=== PATIENT | male | born 1950 | race African-American/Black ===

== ENCOUNTER 2018-04-24 11:40 | Observation (INO) | payer OTHER ==
--- OUTSIDE RECORDS SUMMARY | 2018-04-24 11:42 | XMS REPORT | Clinical Summary ---
:1950 Author Organization [facility] Address [address] [address] Phone Care Team Providers Name Role Phone Unavailable Primary Care Provider Unavailable Allergies Active Allergy Reactions Severity Noted Date Comments Iodine And Iodide Containing Products Anaphylaxis High 06/05/2017 Current Medications Prescription Sig. Disp. Refills Start Date End Date Status clopidogrel Take 75 mg by Active (PLAVIX) 75 mg mouth daily. tablet allopurinol Take 100 mg by Active (ZYLOPRIM) 100 MG mouth daily. tablet famotidine (PEPCID) Take 10 mg by Active 10 MG tablet mouth 2 (two) times daily. omeprazole Take 40 mg by Active (PRILOSEC) 40 MG mouth daily. capsule acetaminophen-codei Take 2 tablets 30 tablet 0 06/14/2017 Active ne (TYLENOL #3) by mouth every 300-30 mg per 4 (four) hours tablet as needed. Max Daily Amount: 12 tablets aspirin 81 MG Take 1 tablet 0 06/14/2017 06/14/2018 Active chewable tablet (81 mg total) by mouth daily. furosemide (LASIX) Take 1 tablet 30 tablet 1 06/14/2017 06/14/2018 Active 20 MG tablet (20 mg total) by mouth daily. metoprolol Take 1 tablet 30 tablet 1 06/14/2017 06/14/2018 Active (TOPROL-XL) 50 MG (50 mg total) 24 hr tablet by mouth daily. metoprolol Take 25 mg by 06/14/2017 Discontinued (TOPROL-XL) 25 MG mouth daily. 24 hr tablet valsartan-hydroCHLO Take 1 tablet 06/14/2017 Discontinued ROthiazide by mouth (DIOVAN-HCT) 160-25 daily. 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 Acute pulmonary insufficiency following thoracic surgery (HCC) 06/06/2017 Postoperative anemia due to acute blood loss 06/06/2017 Coagulopathy (HCC) 06/06/2017 Hypovolemic shock (HCC) 06/06/2017 Coronary artery disease 06/05/2017 Encounters Date Type Specialty Care Team Description 06/06/2017 Anesthesia Event Juancarlos Fraga MD 06/06/2017 Procedure Pass 06/06/2017 Surgery Adelaide Velarde, EXPLORATION,MEDIASTINAL 06/06/2017 Anesthesia Event Vikram Davis MD 06/06/2017 Procedure Pass 06/06/2017 Surgery Adelaide Velarde, BYPASS,AORTO CORONARY SEBASTIEN/SVG 06/05/2017 - Hospital Encounter Cardiology Adelaide Velarde, Coronary artery disease 06/14/2017 MD involving [place] coronary artery, angina presence unspecified, unspecified whether [place] or transplanted heart;Acute pulmonary insufficiency following thoracic surgery (HCC);Coagulopathy (HCC);Hypovolemic shock (HCC);Postoperative anemia due to acute blood loss;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 Orders Only Davon Mays MD after 04/23/2017 Family History Medical History Relation Name Comments Heart disease Brother Hypertension Brother Heart disease Father Hypertension Father Asthma Mother Asthma Sister Depression Sister Hypertension Sister Relation Name Status Comments Brother Father Mother Sister Social History Tobacco Use Types Packs/Day Years Used Date Former Smoker Quit: 10/21/2008 Smokeless Tobacco: Never Used Alcohol Use Drinks/Week oz/Week Comments Yes 2 Cans of beer 1.2 2 cans per month Sex Assigned at Date Recorded Not on file Last Filed Vital Signs Vital Sign Reading Time Taken Blood Pressure 125/69 06/14/2017 11:32 AM CDT Pulse 95 06/14/2017 11:32 AM CDT Temperature 36.5 C (97.7 F) 06/14/2017 11:32 AM CDT Respiratory Rate 18 06/14/2017 11:32 AM CDT Oxygen Saturation 98% 06/14/2017 11:32 AM CDT Inhaled Oxygen Concentration - - Weight 82.1 kg (181 lb) 06/14/2017 7:25 AM CDT Height 165.1 cm (5' 5") 06/05/2017 11:06 PM CDT Body Mass Index 30.12 06/14/2017 7:25 AM CDT Plan of Treatment Not on file Implants Implanted Type Area Metalizer Device Expiration Model / Identifier Date Serial / Lot Sternal Zipfix Ndl Strl 08.501.001.20s - [id number] Cardiovascular N/A: SYNTHES:SYNTHES 04/20/2022 08.501.001.20S / Implanted: Qty: 1 on 06/06/2017 by Adelaide Velarde MD [employer] / [id number] Sternal Zipfix Ndl Strl 08.501.001.20s - [id number] Cardiovascular SYNTHES: SYNTHES 04/20/2022 08.501.001.20S / Implanted: Qty: 1 on 06/06/2017 by Adelaide Velarde MD [facility] / [id number] Sternal Zipfix Ndl Strl .501.001.20s - [id number] Cardiovascular SYNTHES: SYNTHES 04/20/2022 08.501.001.20S / Implanted: Qty: 1 on 06/06/2017 by Adelaide Velarde MD [facility] / [id number] Explanted Type Area Metalizer Device Expiration Model / Identifier Date Serial / Lot Sternal Zipfix Ndl Strl .501.001.20s - [id number] Cardiovascular N/A: SYNTHES:SYNTHES 04/20/2022.501.001.20S / Implanted: Qty: 2 [employer] / Explanted: Qty: 2 on 06/06/2017 by Adelaide Velarde MD [id number] Procedures Procedure Name Priority Date/Time Associated Comments Diagnosis BRONCHOSCOPY Routine 06/07/2017 1:06 Results for this PM CDT procedure are in the results section. EXPLORATION,MEDIASTIN 06/06/2017 7:00 BLEEDING AL PM CDT JENNIFER 06/06/2017 7:30 CAOD AM CDT ENDOSCOPIC 06/06/2017 7:30 CAOD HARVEST,VEIN AM CDT BYPASS,AORTO CORONARY 06/06/2017 7:30 CAOD SEBASTIEN/SVG AM CDT after 04/23/2017 Results ECHOCARDIOGRAM REPORT - SCAN (07/25/2017 12:00 PM)RHYTHM STRIP - SCAN (2016 3:48 PM)Manual Differential (06/14/2017 3:39 AM)Only the most recent of4 resultswithin the time period is included. Component Value Ref Range Total Counted WBC Morphology Normal Platelet Morphology Normal RBC Morphology Normal Specimen Performing Laboratory Blood - Arm, [address] [address] CBC with platelet count + automated diff (06/14/2017 3:39 AM)Only the most recent of8 resultswithin the time period is included. Component Value Ref Range WBC 8.0 3.5 - 10.5 K/L RBC 2.94 (L) 4.63 - 6.08 M/L Hemoglobin 8.7 (L) 13.7 - 17.5 GM/DL Hematocrit 26.8 (L) 40.1 - 51.0 % MCV 91.2 79.0 - 92.2 fL MCH 29.6 25.7 - 32.2 pg MCHC 32.5 32.3 - 36.5 GM/DL RDW 14.2 11.6 - 14.4 % Platelets 282 150 - 450 K/CU MM MPV 11.6 9.4 - 12.4 fL nRBC 1 (H) 0 - 0 /100 WBC % Neutros 72 % % Lymphs 15 % % Monos 8 % % Eos 4 % % Baso 1 % # Neutros 5.72 (H) 1.78 - 5.38 K/L # Lymphs 1.19 (L) 1.32 - 3.57 K/L # Monos 0.62 0.30 - 0.82 K/L # Eos 0.30 0.04 - 0.54 K/L # Baso 0.04 0.01 - 0.08 K/L Immature Granulocytes-Relative 1 0 - 1 % Specimen Performing Laboratory Blood - Arm, [address] [address] CBC with platelet count + automated diff (06/14/2017 3:39 AM)Only the most recent of8 resultswithin the time period is included. Specimen Performing Laboratory Blood Narrative The following orders were created for panel order CBC with platelet count + automated diff. Procedure Abnormality Status --------- ------ CBC with platelet count ...[[id number]]AbnormalFinal result Manual Differential[[id number]] Fi nal result Please view results for these tests on the individual orders. Phosphorus (06/14/2017 3:39 AM)Only the most recent of7 resultswithin the time period is included. Component Value Ref Range Phosphorus 3.4Comment: Specimen slightly hemolyzed 2.3 - 4.7 mg/dL Specimen Performing Laboratory Blood - Arm, [address] [address] Magnesium (06/14/2017 3:39 AM)Only the most recent of10 resultswithin the time period is included. Component Value Ref Range Magnesium 2.0Comment: Specimen slightly hemolyzed 1.6 - 2.6 mg/dL Specimen Performing Laboratory Blood - Arm, [address] [address] Basic Metabolic Panel (06/14/2017 3:39 AM)Only the most recent of11 resultswithin the time period is included. Component Value Ref Range Sodium 139 136 - 145 meq/L Potassium 4.1Comment: Specimen slightly hemolyzed 3.5 - 5.1 meq/L Chloride 105 98 - 107 meq/L CO2 24 22 - 29 meq/L BUN 21 7 - 21 mg/dL Creatinine 1.11Comment: Specimen slightly hemolyzed 0.57 - 1.25 mg/dL Glucose 107 (H) 70 - 105 mg/dL Calcium 9.1 8.4 - 10.2 mg/dL EGFR 80Comment: ESTIMATED GFR IS NOT ACCURATE mL/min/1.73 sq m CREATININE CLEARANCE IN PREDICTING GLOMERULAR FILTRATION RATE. ESTIMATED GFR IS NOT APPLICABLE FOR DIALYSIS PATIENTS. Specimen Performing Laboratory Blood - Arm, [address] [address] [address] chest without IV contrast (06/13/2017 8:53 PM) Specimen Performing Laboratory GE RIS Narrative FINAL REPORT CT, CHEST, WITHOUT CONTRAST INDICATION: "left nodular opacity" COMPARISON: Multiple prior chest x-rays dating back to 06/06/2017 TECHNIQUE:Noncontrast axially oriented images were obtained from the thoracic inlet through the lung bases.Coronal and sagittal reformats were provided. DOSE REDUCTION: Dose modulation, iterative reconstruction, and/or weight-based adjustment of the mA/kV was utilized to reduce the radiation dose to as low as reasonably achievable. FINDINGS: Postsurgical changes from a median sternotomy. There is stranding in the prevascular space, not unexpected after this procedure. No large pericardial effusion. Great vessels normal in course and caliber. The right lower hemithorax opacity seen on prior chest x-ray reflects a pseudotumor/loculated pleural fluid in a fissure. There are small bilateral pleural effusions with adjacent airspace disease. The effusion on the left is partially loculated. There are two punctate foci of air in the left lung apex reflecting a pneumothorax. This is likely clinically insignificant however. Visualized portion of the upper abdomen shows no acute abnormality. No acute osseous abnormality. IMPRESSION: Right lower hemithorax opacity seen on prior chest x-ray reflects a pseudotumor/fluid trapped in a fissure. No further follow-up recommended. Expected postsurgical appearance of the chest. Details above. Signed: Hazel Baca MD Report Verified Date/Time:06/13/2017 22:28:19 Reading Location: [address] Consult Reading Room Procedure Note Interface, External Ris In - 06/13/2017 10:30 PM CDT FINAL REPORT CT, CHEST, WITHOUT CONTRAST INDICATION: "left nodular opacity" COMPARISON: Multiple prior chest x-rays dating back to 06/06/2017 TECHNIQUE: Noncontrast axially oriented images were obtained from the thoracic inlet through the lung bases. Coronal and sagittal reformats were provided. DOSE REDUCTION: Dose modulation, iterative reconstruction, and/or weight-based adjustment of the mA/kV was utilized to reduce the radiation dose to as low as reasonably achievable. FINDINGS: Postsurgical changes from a median sternotomy. There is stranding in the prevascular space, not unexpected after this procedure. No large pericardial effusion. Great vessels normal in course and caliber. The right lower hemithorax opacity seen on prior chest x-ray reflects a pseudotumor/loculated pleural fluid in a fissure. There are small bilateral pleural effusions with adjacent airspace disease. The effusion on the left is partially loculated. There are two punctate foci of air in the left lung apex reflecting a pneumothorax. This is likely clinically insignificant however. Visualized portion of the upper abdomen shows no acute abnormality. No acute osseous abnormality. IMPRESSION: Right lower hemithorax opacity seen on prior chest x-ray reflects a pseudotumor/fluid trapped in a fissure. No further follow-up recommended. Expected postsurgical appearance of the chest. Details above. Signed: Hazel Baca MD Report Verified Date/Time: 06/13/2017 22:28:19 Reading Location: [facility] B1 [id number] Ortho Consult Reading Room SFUSION SERVICE REPORT - SCAN (06/11/2017 4:32 PM)Only the most recent of3 resultswithin the time period is included.Occult blood, stool (06/11/2017 2:23 PM) Component Value Ref Range Occult blood Negative Negative Specimen Performing Laboratory Stool [address] [address] CBC (Hemogram only) (06/11/2017 1:47 PM)Only the most recent of6 resultswithin the time period is included. Component Value Ref Range WBC 8.3 3.5 - 10.5 K/L RBC 3.12 (L) 4.63 - 6.08 M/L Hemoglobin 9.1 (L) 13.7 - 17.5 GM/DL Hematocrit 27.9 (L) 40.1 - 51.0 % MCV 89.4 79.0 - 92.2 fL MCH 29.2 25.7 - 32.2 pg MCHC 32.6 32.3 - 36.5 GM/DL RDW 14.1 11.6 - 14.4 % Platelets 150 - 450 K/CU MM Comment: Many platelet clumps seen on slide, unable to quantify platelets dur to EDTA clumping. Please resend platelet count in Light Blue citrate tube. This is a corrected result. Previous result was 22 K/CU MM on 06/11/2017 at 1526 CDT MPV 12.2 9.4 - 12.4 fL nRBC 1 (H) 0 - 0 /100 WBC Specimen Performing Laboratory Blood [address] [address] XR chest 1 view portable / bedside (06/11/2017 10:16 AM)Only the most recent of11 resultswithin the time period is included. Specimen Performing Laboratory GE RIS Narrative FINAL REPORT Chest one view INDICATION: ACB COMPARISON: 06/10/2017 IMPRESSION: Median sternotomy changes are noted. The cardiac silhouette is enlarged. Mediastinal widening is stable. Left greater than right sided pleural thickening and effusion remains present with basilar consolidation or atelectasis. Pulmonary edema appears mildly increased. A minimal left apical pneumothorax is present. Left midlung nodular opacity is unchanged. A lung neoplasm cannot be excluded, follow up chest CT is suggested. Signed: Bc Slater MD Report Verified Date/Time:06/11/2017 10:41:38 Reading Location: [facility] Radiology Reading Room Procedure Note Interface, External Ris In - 06/11/2017 10:43 AM CDT FINAL REPORT Chest one view INDICATION: ACB COMPARISON: 06/10/2017 IMPRESSION: Median sternotomy changes are noted. The cardiac silhouette is enlarged. Mediastinal widening is stable. Left greater than right sided pleural thickening and effusion remains present with basilar consolidation or atelectasis. Pulmonary edema appears mildly increased. A minimal left apical pneumothorax is present. Left midlung nodular opacity is unchanged. A lung neoplasm cannot be excluded, follow up chest CT is suggested. Signed: Bc Slater MD Report Verified Date/Time: 06/11/2017 10:41:38 Reading Location: [facility] Reading Room 2D Echo W/Doppler(CW/PW/Color) (06/10/2017 12:14 PM) Component Value Ref Range Ejection Fraction Specimen Performing Laboratory 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 Clinical History HGB 9.2 HCT 27.2 % Coronary Artery Disease Anemia HTN, HLD, PVD, ACB x3 (06/06/17) Height: 65 inches Weight: 84.37 kg (186 lbs) BSA: 1.92 m^2 BMI: 30.95 kg/m^2 HR: 101 bpm BP: 98/64 mmHg Summary The left ventricle is chamber size (by vol index) is normal (male - LVED vol - 34-74ml/m2). No evidence of LV hypertrophy. LVEF by quantitative assessment is normal (>60%) based on limited views ,Septal motion is abnormal, likely related to prior cardiac surgery . No significant pericardial effusion is visualized based on limited views. No subcostal views. apical is modified. The right ventricular chamber size and systolic function are within normal limits. Unable to estimate peak systolic PA pressure; inadequate TR velocity signal. Previous Study No prior exam available for comparison. Signature Findings Technical Quality: Technically difficult exam. Rhythm/BPSinus tachycardia during the exam. Left Ventricle The left ventricle is chamber size (by vol index) is normal (male - LVED vol - 34-74ml/m2). No evidence of LV hypertrophy. Global LV systolic function normal . LVEF by quantitative assessment is normal (>60%) based on limited views , Septal motion is abnormal, likely related to prior cardiac surgery . Left AtriumLA size is normal . Right VentricleThe right ventricular chamber size and systolic function are within normal limits. Right Atrium RA cavity size is normal . Aortic Valve Afku-[id number]-sftqeabw AoV cusp calcification. Moderate AoV cusp calcification. Unable to reliably obtain Aov gradients. Mitral Valve Normal MV structure. Tricuspid ValveUnable to estimate peak systolic PA pressure; inadequate TR velocity signal. Pulmonic Valve PV is not well visualized; function appears normal by Doppler visualized. AortaAortic root size (SInus of Valsalva diameter) is normal . PericardiumNo significant pericardial effusion is visualized based on limited views. No subcostal views. apical is modified. IVC/SVC/PA/PV/PleuralThe inferior vena cava is not visualized. The estimated RA pressure by IVC dynamics indeterminate . Chambers/Structures Left Ventricle LVIDd: 3.93 cmLVEDV 2D :66.97 ml LVIDs: 2.49 cmLVESV 2D :22.1 ml LV Septum Diastolic: 0.72 cm LV PW Diastolic: 0.9 cm LV FS: 36.6 % LV ESV (Cubed):15.44 cc LVOT Diameter: 2.26 cm LV ESV (Teich):22.1 ml LV SV (Teich):45.02 ml LV SI (Teich):23.45 ml/m^2 LVEF 2D Teich: 67 % Aorta Ao Root S of Rosalba.: 3.38 cm Shunts QS:74.69 ml Doppler/Quantitative Measurements LVOT Peak Velocity: 1.18 m/s Peak Gradient: 5.55 mmHg Mean Velocity: 0.94 m/s Mean Gradient: 3.73 mmHg LVOT Diameter: 2.26 cmLVOT VTI: 18.62 cm LVOT Area: 4.01 cm^2LVOT SV:74.66 ml LVOT CO: 7.54 l/min LVOT CI: 3.93 l/min/m^2 Procedure Note Interface, External Ris In - 06/10/2017 3:28 PM CDT Transthoracic Echocardiography Report (TTE) Demographics Patient Name GORDO PALACIOS Date of Study 06/10/2017 Gender Male Visit Number [id number] Race Unknown Room Number 1118 Number Date of 1950 Referring Physician Age 67 year(s) 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 Clinical History HGB 9.2 HCT 27.2 % Coronary Artery Disease Anemia HTN, HLD, PVD, ACB x3 (06/06/17) Height: 65 inches Weight: 84.37 kg (186 lbs) BSA: 1.92 m^2 BMI: 30.95 kg/m^2 HR: 101 bpm BP: 98/64 mmHg Summary The left ventricle is chamber size (by vol index) is normal (male - LVED vol - 34-74ml/m2). No evidence of LV hypertrophy. LVEF by quantitative assessment is normal (>60%) based on limited views ,Septal motion is abnormal, likely related to prior cardiac surgery . No significant pericardial effusion is visualized based on limited views. No subcostal views. apical is modified. The right ventricular chamber size and systolic function are within normal limits. Unable to estimate peak systolic PA pressure; inadequate TR velocity signal. Previous Study No prior exam available for comparison. Signature Findings Technical Quality: Technically difficult exam. Rhythm/BP Sinus tachycardia during the exam. Left Ventricle The left ventricle is chamber size (by vol index) is normal (male - LVED vol - 34-74ml/m2). No evidence of LV hypertrophy. Global LV systolic function normal . LVEF by quantitative assessment is normal (>60%) based on limited views , Septal motion is abnormal, likely related to prior cardiac surgery . Left Atrium LA size is normal . Right Ventricle The right ventricular chamber size and systolic function are within normal limits. Right Atrium RA cavity size is normal . Aortic Valve Qvpj-ej-bbjvkejv AoV cusp calcification. Moderate AoV cusp calcification. Unable to reliably obtain Aov gradients. Mitral Valve Normal MV structure. Tricuspid Valve Unable to estimate peak systolic PA pressure; inadequate TR velocity signal. Pulmonic Valve PV is not well visualized; function appears normal by Doppler visualized. Aorta Aortic root size (SInus of Valsalva diameter) is normal . Pericardium No significant pericardial effusion is visualized based on limited views. No subcostal views. apical is modified. IVC/SVC/PA/PV/Pleural The inferior vena cava is not visualized. The estimated RA pressure by IVC dynamics indeterminate . Chambers/Structures Left Ventricle LVIDd: 3.93 cm LVEDV 2D:66.97 ml LVIDs: 2.49 cm LVESV 2D:22.1 ml LV Septum Diastolic: 0.72 cm LV PW Diastolic: 0.9 cm LV FS: 36.6 % LV ESV (Cubed):15.44 cc LVOT Diameter: 2.26 cm LV ESV (Teich):22.1 ml LV SV (Teich):45.02 ml LV SI (Teich):23.45 ml/m^2 LVEF 2D Teich: 67 % Aorta Ao Root S of Rosalba.: 3.38 cm Shunts QS:74.69 ml Doppler/Quantitative Measurements LVOT Peak Velocity: 1.18 m/s Peak Gradient: 5.55 mmHg Mean Velocity: 0.94 m/s Mean Gradient: 3.73 mmHg LVOT Diameter: 2.26 cm LVOT VTI: 18.62 cm LVOT Area: 4.01 cm^2 LVOT SV:74.66 ml LVOT CO: 7.54 l/min LVOT CI: 3.93 l/min/m^2 Type and screen, automated (06/10/2017 11:08 AM)Only the most recent of2 resultswithin the time period is included. Component Value Ref Range ABO/RH AUTOMATED (BEAKER) A POSITIVE Ab Scrn NEGATIVE Specimen Performing Laboratory Blood - Arm, Right [address] [address] POC-Glucose meter (06/08/2017 9:51 PM)Only the most recent of14 resultswithin the time period is included. Component Value Ref Range POC-Glucose Meter 112 (H)Comment: TESTED AT [address] 70 - 110 mg/[place] [address] Specimen Performing Laboratory Blood [facility] [address] [address] Prepare PLT (06/07/2017 11:55 PM)Only the most recent of4 resultswithin the time period is included. Component Value Ref Range Unit ABO A Pos UNIT NUMBER [id number] Status TRANSFUSED Blood Bank Product PLATELETS PRODUCT CODE W0146O19 Unit ABO A Pos UNIT NUMBER [id number] Status CANCELED Blood Bank Product PLATELETS PRODUCT CODE [id number] Specimen Performing Laboratory [facility] [place] Prepare plasma (06/07/2017 11:55 PM)Only the most recent of5 resultswithin the time period is included. Component Value Ref Range Unit ABO A Pos UNIT NUMBER [id number] Status TRANSFUSED Blood Bank Product FFP PRODUCT CODE J9331S78 Unit ABO A Pos UNIT NUMBER [id number] Status TRANSFUSED Blood Bank Product FFP PRODUCT CODE V9947W49 Unit ABO A Pos UNIT NUMBER [id number] Status TRANSFUSED Blood Bank Product FFP PRODUCT CODE Z1672Y55 Unit ABO A Neg UNIT NUMBER [id number] Status RETURNED FROM ISSUE Blood Bank Product FFP PRODUCT CODE [id number] Specimen Performing Laboratory [facility] [place] Prepare cryoprecipitate (06/07/2017 11:55 PM)Only the most recent of3 resultswithin the time period is included. Component Value Ref Range Unit ABO AB Pos UNIT NUMBER [id number] Status TRANSFUSED Blood Bank Product CRYOPRECIPITATE PRODUCT CODE H6258X49 Unit ABO O Pos UNIT NUMBER [id number] Status TRANSFUSED Blood Bank Product CRYOPRECIPITATE PRODUCT CODE D1740D53 Specimen Performing Laboratory [facility] [place] Prepare RBC (06/07/2017 11:55 PM)Only the most recent of6 resultswithin the time period is included. Component Value Ref Range CROSSMATCH COMPATIBLE Unit ABO A Pos UNIT NUMBER [id number] Status TRANSFUSED Blood Bank Product RED BLOOD CELLS PRODUCT CODE F7054F90 CROSSMATCH COMPATIBLE Unit ABO A Pos UNIT NUMBER [id number] Status TRANSFUSED Blood Bank Product RED BLOOD CELLS PRODUCT CODE Q7914P67 CROSSMATCH COMPATIBLE Unit ABO A Pos UNIT NUMBER [id number] Status TRANSFUSED Blood Bank Product RED BLOOD CELLS PRODUCT CODE O0757Y81 CROSSMATCH COMPATIBLE Unit ABO A Pos UNIT NUMBER [id number] Status TRANSFUSED Blood Bank Product RED BLOOD CELLS PRODUCT CODE U9940G32 Specimen Performing Laboratory [facility] [place] Blood gas, arterial (06/07/2017 3:05 PM)Only the most recent of19 resultswithin the time period is included. Component Value Ref Range pH, Arterial 7.43 7.35 - 7.45 pCO2, Arterial 39 35 - 45 mmHg pO2, Arterial 109 (H) 80 - 90 mmHg O2 Sat, Arterial 97.9 (H) 96.0 - 97.0 % HCO3, Arterial 25 21 - 29 mmol/L Base Excess, Arterial 0.8 -2.0 - 3.0 mmol/L Patient Temperature 38.3 C FIO2 40.0 % Specimen Performing Laboratory Blood, Arterial [address] [address] Bronchoscopy (06/07/2017 1:06 PM) Jeff Walters MD 06/07/20171:06 PM Bronchoscopy Procedure Note Procedure: 1. Bronchoscopy, Diagnostic 2. Bronchoalveolar lavage, BAL Pre-Operative Diagnosis: Post-Operative Diagnosis: Same Indication: Right upper lobe atelectasia Anesthesia: Moderate Sedation Procedure Details: Patient was consented for the procedure with all risk and benefit of the procedure explained in detail. Patient was given the opportunity to ask questions and all concerns were answered.The bronchocope was inserted into the main airway via the endotracheal tube. An anatomical survey was done of the main airways and the subsegmental bronchus.The findings are reported above.A bronchialalveolar lavage was performed using aliquots of normal saline instilled into the airways then aspirated back. Estimated Blood Loss:Minimal Specimens:None Complications:None; patient tolerated the procedure well. Disposition: ICU - intubated and hemodynamically stable. Patient tolerated the procedure well. Jeff Greenberg MD Radiographic Technologist, Cardiothoracic transplant and MCS ICU [facility] Clinical Indexer of Anesthesiology and Critical Care Medicine Division of CV Anesthesia and Critical Care Medicine [place] [address] | [place] [address] Pager [phone] Oxygen saturation, measured (06/07/2017 3:26 AM)Only the most recent of3 resultswithin the time period is included. Component Value Ref Range O2 Saturation (Measured) 65.7 % Specimen Performing Laboratory Blood [address] [address] Calcium, Ionized (06/07/2017 3:26 AM)Only the most recent of15 resultswithin the time period is included. Component Value Ref Range Calcium, Ion 1.17 1.12 - 1.27 mmol/L pH, Blood 7.37 Specimen Performing Laboratory Blood [address] [address] Lactic acid, arterial, whole blood (06/07/2017 3:26 AM)Only the most recent of3 resultswithin the time period is included. Component Value Ref Range Lactate, Art 2.8 (H) 0.5 - 2.2 mmol/L Specimen Performing Laboratory Blood, Arterial [address] [address] Narrative Effective 02/23/2016: Units/Reference Range Change New: 0.5-2.2 mmol/LPrevious: 5-20 mg/dL Prepare Leuko-Red RBC (06/07/2017 2:38 AM) Component Value Ref Range CROSSMATCH COMPATIBLE Unit ABO A Pos UNIT NUMBER [id number] Status RETURNED FROM ISSUE Blood Bank Product RED BLOOD CELLS PRODUCT CODE [id number] CROSSMATCH COMPATIBLE Unit ABO A Pos UNIT NUMBER [id number] Status RETURNED FROM ISSUE Blood Bank Product RED BLOOD CELLS PRODUCT CODE [id number] CROSSMATCH COMPATIBLE Unit ABO A Pos UNIT NUMBER [id number] Status RETURNED FROM ISSUE Blood Bank Product RED BLOOD CELLS PRODUCT CODE [id number] CROSSMATCH COMPATIBLE Unit ABO A Pos UNIT NUMBER [id number] Status RETURNED FROM ISSUE Blood Bank Product RED BLOOD CELLS PRODUCT CODE [id number] Specimen Performing Laboratory Other [place] Hemoglobin and hematocrit (06/07/2017 1:38 AM) Component Value Ref Range Hemoglobin 9.3 (L) 13.7 - 17.5 GM/DL Hematocrit 26.0 (L) 40.1 - 51.0 % Specimen Performing Laboratory Blood [address] [address] [facility] Critical Labs (ABG,NA,K,H&H,GLU) (06/06/2017 10:07 PM)Only the most recent of16 resultswithin the time period is included. Specimen Performing Laboratory Blood, Arterial Narrative The following orders were created for panel order [facility] Critical Labs (ABG,NA,K,H&H,GLU). Procedure Abnormality Status --------- ------ Blood gas, arterial[[id number]]AbnormalFinal result Sodium Na-Stat Lab[[id number]] NormalFinal result Potassium-Stat Lab[[id number]] NormalFinal result Glucose-Stat Lab[[id number]] AbnormalFinal result HGB/HCT (H&H)-Stat Lab[[id number]] Abnormal Final result Please view results for these tests on the individual orders. Potassium-Stat Lab (06/06/2017 10:07 PM)Only the most recent of17 resultswithin the time period is included. Component Value Ref Range Potassium 4.2 3.6 - 5.5 meq/L Specimen Performing Laboratory Blood, [address] [address] Sodium Na-Stat Lab (06/06/2017 10:07 PM)Only the most recent of17 resultswithin the time period is included. Component Value Ref Range Sodium 140 135 - 148 meq/L Specimen Performing Laboratory Blood, [address] [address] Glucose-Stat Lab (06/06/2017 10:07 PM)Only the most recent of17 resultswithin the time period is included. Component Value Ref Range Glucose 167 (H) 70 - 110 mg/dL Specimen Performing Laboratory Blood, [address] [address] HGB/HCT (H&H)-Stat Lab (06/06/2017 10:07 PM)Only the most recent of16 resultswithin the time period is included. Component Value Ref Range Hemoglobin 8.7 (L) 13.0 - 16.8 g/dL Hematocrit 26.0 (L) 40.0 - 50.0 % Specimen Performing Laboratory Blood, [address] [address] aPTT (06/06/2017 10:07 PM)Only the most recent of8 resultswithin the time period is included. Component Value Ref Range PTT 46.7 (H) 22.5 - 36.0 seconds Specimen Performing Laboratory Blood [address] [address] Prothrombin time/INR (06/06/2017 10:07 PM)Only the most recent of9 resultswithin the time period is included. Component Value Ref Range Protime 15.4 (H) 11.7 - 14.7 seconds INR 1.2 <=5.9 Specimen Performing Laboratory Blood [address] [address] Narrative RECOMMENDED COUMADIN/WARFARIN INR THERAPY RANGES STANDARD DOSE: 2.0 - 3.0 Includes: PROPHYLAXIS for venous thrombosis, systemic embolization; TREATMENT for venous thrombosis and/or pulmonary embolus. HIGH RISK: Target INR is 2.5-3.5 for patients with mechanical heart valves. Fibrinogen (06/06/2017 10:07 PM)Only the most recent of8 resultswithin the time period is included. Component Value Ref Range Fibrinogen 319 225 - 434 mg/dl Specimen Performing Laboratory Blood [address] [address] Platelet Count-Stat Lab (06/06/2017 8:27 PM) Component Value Ref Range Platelets 154 150 - 430 K/CU MM Specimen Performing Laboratory [address] [address] Thromboelastograph (TEG) (06/06/2017 8:27 PM)Only the most recent of7 resultswithin the time period is included. Component Value Ref Range TEG Activated Clotting Time 7.8 (H) 4.0 - 7.0 minutes TEG Fibrinogen Activity 60.6 (L) 61.0 - 73.0 degrees TEG Platelet Aggregation 63.6 55.0 - 65.0 MM TEG-H Activated Clotting Time 6.8 4.0 - 7.0 minutes TEG-H Fibrinogen Activity 66.4 61.0 - 73.0 degrees TEG-H Platelet Aggregation 64.9 55.0 - 65.0 MM Specimen Performing Laboratory [address] [address] Hemoglobin-Stat Lab (06/06/2017 6:02 PM) Component Value Ref Range Hemoglobin 9.0 (L) 13.0 - 16.8 g/dL Specimen Performing Laboratory Blood, Arterial [address] [address] Platelet count (06/06/2017 6:02 PM)Only the most recent of6 resultswithin the time period is included. Component Value Ref Range Platelets 145 (L) 150 - 450 K/CU MM Specimen Performing Laboratory Blood [address] [address] Potassium-STAT (06/06/2017 6:02 PM) Component Value Ref Range Potassium 4.4 3.5 - 5.1 meq/L Specimen Performing Laboratory Blood [address] [address] Glucose-STAT (06/06/2017 6:02 PM) Component Value Ref Range Glucose 159 (H) 70 - 105 mg/dL Specimen Performing Laboratory Blood [address] [address] Narrative Effective 09/08/2014: Reference Range Change-Adult only New: 70-105 Previous: 70-110 ANESTHESIA JENNIFER (06/06/2017 1:06 PM) Narrative Vikram Davis MD 06/06/20171:06 PM JENNIFER Date: 06/06/2017 8:00 AM Sex: Male Location: OR Requesting Physician: ADELAIDE VELARDE Examiner: MAYTE RODRIGUEZ PHUONG LAN Indication: ACBIntubatedSedated Patient screened for esoph disease: Yes Insertion: easy Probe Type: multiplane Modalities: 2D, CFM, CWD and PWD Inotrope: none Aorta Size Dissection Plaque Thick Plaque Mobile Ascending Ao normal NoNo Ao Arch normal No 3mm+ No Descending Ao normal NoNo Valves Annulus Stenosis Area (cm3) Gradient Regurgitation Leaflet Morphology Leaflet Motion Not Visualized Aortic valve normal none none normal normal Mitral valve normal none none normal normal Tricuspid normal none none normal normal Atria Size SEC Thrombus Tumor Device Right Atrium normal No No No No Left Atrium normal No No No device Interatrial Septum: Morphology: normal ASD: Shunt: Interventricular Septum: Morphology: normal Defect: Shunt: Ventricles Cavity size Dimension Hypertrophy Thrombus Global FXN EF Right ventricle normalNo No normal Left ventricle normalYes No normal Pre Intervention Summary: 67 y/o M for ACB LV: normal systolic function (EF: 59% by Simpsons method), normal LV size, mild LVH, no RWMA RV: normal systolic function, normal size AV: trileaflet, normal leaflet motion, trace AI, no MV: normal morphology, normal function TV: normal morphology, normal function PV: trace PI ELLIOTT: no thrombus Aorta: Grade 3 plaque in the aortic arch, no mobile plaques, no dissection, no aneurysm Pericardium: no effusion No PFO. Diastolic function normal. Findings discussed with surgeon. Post Intervention Follow-up Study: no change Ventricular Global Fxn: improved Post Intervention Summary:S/p ACB x3. LV: Hyperdynamic function, normal systolic function.No RWMAs. Aorta: No dissection flap seen. Rest of exam unchanged from pre-CPB exam. Findings discussed with surgeon in real time. 1:06PM (s/p mediastinal reexploration, CPB, and repair of WEBER anastamosis) Normal RV size and function Normal LV size and function, no regional wall motion abnormalities Trace MR Procedure Note Vikram Davis MD - 06/06/2017 7:46 AM CDT Formatting of this note may be different from the original. JENNIFER Date: 06/06/2017 8:00 AM Sex: Male Location: OR Requesting Physician: ADELAIDE VELARDE Examiner: MAYTE RODRIGUEZ PHUONG LAN Indication: ACB Intubated Sedated Patient screened for esoph disease: Yes Insertion: easy Probe Type: multiplane Modalities: 2D, CFM, CWD and PWD Inotrope: none Aorta Size Dissection Plaque Thick Plaque Mobile Ascending Ao normal No No Ao Arch normal No 3mm+ No Descending Ao normal No No Valves Annulus Stenosis Area (cm3) Gradient Regurgitation Leaflet Morphology Leaflet Motion Not Visualized Aortic valve normal none none normal normal Mitral valve normal none none normal normal Tricuspid normal none none normal normal Atria Size SEC Thrombus Tumor Device Right Atrium normal No No No No Left Atrium normal No No No device Interatrial Septum: Morphology: normal ASD: Shunt: Interventricular Septum: Morphology: normal Defect: Shunt: Ventricles Cavity size Dimension Hypertrophy Thrombus Global FXN EF Right ventricle normal No No normal Left ventricle normal Yes No normal Pre Intervention Summary: 67 y/o M for ACB LV: normal systolic function (EF: 59% by Simpsons method), normal LV size, mild LVH, no RWMA RV: normal systolic function, normal size AV: trileaflet, normal leaflet motion, trace AI, no MV: normal morphology, normal function TV: normal morphology, normal function PV: trace PI ELLIOTT: no thrombus Aorta: Grade 3 plaque in the aortic arch, no mobile plaques, no dissection, no aneurysm Pericardium: no effusion No PFO. Diastolic function normal. Findings discussed with surgeon. Post Intervention Follow-up Study: no change Ventricular Global Fxn: improved Post Intervention Summary: S/p ACB x3. LV: Hyperdynamic function, normal systolic function. No RWMAs. Aorta: No dissection flap seen. Rest of exam unchanged from pre-CPB exam. Findings discussed with surgeon in real time. 1:06PM (s/p mediastinal reexploration, CPB, and repair of WEBER anastamosis) Normal RV size and function Normal LV size and function, no regional wall motion abnormalities Trace MR POC ACTIVATED CLOTTING TIME (06/06/2017 1:03 PM)Only the most recent of7 resultswithin the time period is included. Component Value Ref Range Activated Clotting Time 114Comment: TESTED AT [address] [place] [id number] Specimen Performing Laboratory Blood [address] [address] Platelet Aggregation: Function Screen (06/06/2017 1:52 AM) Component Value Ref Range Weak ADP 63 60 - 91 % Plt. Function Screen Interpretation 60-100% indicates normal platelet function Pathologist: Cecily Almonte MD (electronic signature) Platelets 228 150 - 450 K/CU MM Specimen Performing Laboratory [address] [address] Narrative for patients on clopidogrel in past two weeks Hemoglobin A1c (06/06/2017 1:52 AM) Component Value Ref Range Hemoglobin A1C 6.2 (H) 4.3 - 6.1 % Specimen Performing Laboratory [address] [address] Electrocardiogram, 12-lead (06/06/2017 1:15 AM) Specimen Performing Laboratory [facility] Narrative Ventricular Rate 60 BPM Atrial Rate 60 BPM P-R Interval 174 ms QRS Duration 88 ms Q-T Interval 416 ms QTC Calculation(Bazett) 416 ms P [place] 54 degrees R [place] 10 degrees T [place] 39 degrees Normal sinus rhythm Possible Inferior infarct , age undetermined Abnormal ECG No previous ECGs available Confirmed by MD SINAN, MARGARITA ([id number]) on 06/06/2017 6:44:24 AM Procedure Note Interface, External Ris In - 06/06/2017 6:44 AM CDT Ventricular Rate 60 BPM Atrial Rate 60 BPM P-R Interval 174 ms QRS Duration 88 ms Q-T Interval 416 ms QTC Calculation(Bazett) 416 ms P [place] 54 degrees R [place] 10 degrees T [place] 39 degrees Normal sinus rhythm Possible Inferior infarct , age undetermined Abnormal ECG No previous ECGs available Confirmed by MD SINAN, MARGARITA ([id number]) on 06/06/2017 6:44:24 AM after 04/23/2017
--- OUTSIDE RECORDS SUMMARY | 2018-04-24 11:44 | XMS REPORT ---
:1950 [facility] Address [address] [place] [address] [address] [place] [address] Care Team Providers Name Role Phone ADELAIDE GUZMAN Unavailable Unavailable Problems This patient has no known problems. Allergies, Adverse Reactions, Alerts This patient has no known allergies or adverse reactions. Medications This patient has no known medications. Results Test Description Test Time Test Comments Text Results Atomic Results Result Comments RAD, CHEST, 1 2017-09-24 Today's CXR has FINAL REPORT PATIENT ID: VIEW, NON DEPT 08:36:00 already been done. [id number] AP chest HISTORY: Thank youReason for Chest tubes COMPARISON: exam:->chest 06/08/2017 tubesShould this be IMPRESSION:Left-sided performed at the thoracostomy tube is bedside?->Yes unchanged. Stable cardiac silhouette. Small effusions. Bibasilar airspace disease unchanged. No definite pneumothorax. Signed: Marc Pittepheather Verified Date/Time: 09/24/2017 08:36:20 Reading Location: [facility] Mammo Reading Room W/PLT COUNT & AUTO DIFFERENTIAL 2017-06-14 10:00:00 Test Item Value Reference Range Comments WHITE BLOOD CELL COUNT (BEAKER) (test dapo=828) 8.0 K/ L 3.5-10.5 RED BLOOD CELL COUNT (BEAKER) (test yssl=037) 2.94 M/ L 4.63-6.08 HEMOGLOBIN (BEAKER) (test dadt=513) 8.7 GM/DL 13.7-17.5 HEMATOCRIT (BEAKER) (test ogzk=743) 26.8 % 40.1-51.0 MEAN CORPUSCULAR VOLUME (BEAKER) (test vaxi=128) 91.2 fL 79.0-92.2 MEAN CORPUSCULAR HEMOGLOBIN (BEAKER) (test iqsu=863) 29.6 pg 25.7-32.2 MEAN CORPUSCULAR HEMOGLOBIN CONC (BEAKER) (test cyas=203) 32.5 GM/DL 32.3- 36.5 RED CELL DISTRIBUTION WIDTH (BEAKER) (test ihhg=895) 14.2 % 11.6-14.4 PLATELET COUNT (BEAKER) (test ofcl=432) 282 K/CU MM 150-450 MEAN PLATELET VOLUME (BEAKER) (test ucbt=675) 11.6 fL 9.4-12.4 NUCLEATED RED BLOOD CELLS (BEAKER) (test otpf=278) 1 /100 WBC 0-0 NEUTROPHILS RELATIVE PERCENT (BEAKER) (test nzju=400) 72 % LYMPHOCYTES RELATIVE PERCENT (BEAKER) (test etxm=809) 15 % MONOCYTES RELATIVE PERCENT (BEAKER) (test wcrm=980) 8 % EOSINOPHILS RELATIVE PERCENT (BEAKER) (test vpac=312) 4 % BASOPHILS RELATIVE PERCENT (BEAKER) (test kxhx=620) 1 % NEUTROPHILS ABSOLUTE COUNT (BEAKER) (test vsyj=324) 5.72 K/ L 1.78-5.38 LYMPHOCYTES ABSOLUTE COUNT (BEAKER) (test pexv=447) 1.19 K/ L 1.32-3.57 MONOCYTES ABSOLUTE COUNT (BEAKER) (test okwq=688) 0.62 K/ L 0.30-0.82 EOSINOPHILS ABSOLUTE COUNT (BEAKER) (test tlbi=107) 0.30 K/ L 0.04-0.54 BASOPHILS ABSOLUTE COUNT (BEAKER) (test ebqr=439) 0.04 K/ L 0.01-0.08 IMMATURE GRANULOCYTES-RELATIVE PERCENT (BEAKER) (test 1 % 0-1 tduj=5005) (MANUAL DIFFERENTIAL)2017-06-14 10:00:00 Test Item Value Reference Range Comments TOTAL COUNTED (BEAKER) (test xyji=0345) WBC MORPHOLOGY (BEAKER) (test vnmd=762) Normal PLT MORPHOLOGY (BEAKER) (test eeyu=612) Normal RBC MORPHOLOGY (BEAKER) (test yotf=029) Normal [id number] 05:49:00 Test Item Value Reference Range Comments MAGNESIUM (BEAKER) (test 2.0 mg/dL 1.6-2.6 Specimen slightly hemolyzed xnir=237) [id number] 05:49:00 Test Item Value Reference Range Comments PHOSPHORUS (BEAKER) (test 3.4 mg/dL 2.3-4.7 Specimen slightly hemolyzed fieh=633) BASIC METABOLIC [id number] 05:49:00 Test Item Value Reference Range Comments SODIUM (BEAKER) (test 139 meq/L 136-145 vpxu=376) POTASSIUM (BEAKER) (test 4.1 meq/L 3.5-5.1 Specimen slightly prpb=151) hemolyzed CHLORIDE (BEAKER) (test 105 meq/L 98-107 aekh=581) CO2 (BEAKER) (test 24 meq/L 22-29 gobf=922) BLOOD UREA NITROGEN 21 mg/dL 7-21 (BEAKER) (test omfr=721) CREATININE (BEAKER) (test 1.11 mg/dL 0.57-1.25 Specimen slightly nmrx=613) hemolyzed GLUCOSE RANDOM (BEAKER) 107 mg/dL 70-105 (test huvi=627) CALCIUM (BEAKER) (test 9.1 mg/dL 8.4-10.2 mfmc=290) EGFR (BEAKER) (test 80 mL/min/1.73 sq m ESTIMATED GFR IS NOT gwhp=3980) ACCURATE CREATININE CLEARANCE IN PREDICTING GLOMERULAR FILTRATION RATE. ESTIMATED GFR IS NOT APPLICABLE FOR DIALYSIS PATIENTS. CBC W/PLT COUNT & AUTO [id number] 14:54:00 Test Item Value Reference Range Comments WHITE BLOOD CELL COUNT (BEAKER) (test zjxi=183) 8.1 K/ L 3.5-10.5 RED BLOOD CELL COUNT (BEAKER) (test gfyn=153) 2.85 M/ L 4.63-6.08 HEMOGLOBIN (BEAKER) (test zehw=775) 8.4 GM/DL 13.7-17.5 HEMATOCRIT (BEAKER) (test afdv=460) 25.3 % 40.1-51.0 MEAN CORPUSCULAR VOLUME (BEAKER) (test uqcc=927) 88.8 fL 79.0-92.2 MEAN CORPUSCULAR HEMOGLOBIN (BEAKER) (test 29.5 pg 25.7-32.2 paet=436) MEAN CORPUSCULAR HEMOGLOBIN CONC (BEAKER) (test 33.2 GM/DL 32.3-36.5 uyij=416) RED CELL DISTRIBUTION WIDTH (BEAKER) (test 14.4 % 11.6-14.4 auwi=773) PLATELET COUNT (BEAKER) (test lmmx=725) 226 K/CU MM 150-450 MEAN PLATELET VOLUME (BEAKER) (test apfm=575) 11.3 fL 9.4-12.4 NUCLEATED RED BLOOD CELLS (BEAKER) (test 1 /100 WBC 0-0 fjkv=105) NEUTROPHILS RELATIVE PERCENT (BEAKER) (test 69 % bnjl=514) LYMPHOCYTES RELATIVE PERCENT (BEAKER) (test 17 % ljmn=450) MONOCYTES RELATIVE PERCENT (BEAKER) (test 7 % arra=176) EOSINOPHILS RELATIVE PERCENT (BEAKER) (test 4 % krlr=887) BASOPHILS RELATIVE PERCENT (BEAKER) (test 1 % vozz=182) NEUTROPHILS ABSOLUTE COUNT (BEAKER) (test 5.61 K/ L 1.78-5.38 gusg=568) LYMPHOCYTES ABSOLUTE COUNT (BEAKER) (test 1.38 K/ L 1.32-3.57 kfhw=105) MONOCYTES ABSOLUTE COUNT (BEAKER) (test 0.57 K/ L 0.30-0.82 spmw=489) EOSINOPHILS ABSOLUTE COUNT (BEAKER) (test 0.35 K/ L 0.04-0.54 vehw=463) BASOPHILS ABSOLUTE COUNT (BEAKER) (test 0.04 K/ L 0.01-0.08 tusu=990) IMMATURE GRANULOCYTES-RELATIVE PERCENT (BEAKER) 2 % 0-1 (test pclu=6680) (MANUAL DIFFERENTIAL)2017-06-13 14:54:00 Test Item Value Reference Range Comments TOTAL COUNTED (BEAKER) (test wsum=3304) WBC MORPHOLOGY (BEAKER) (test fpmx=310) Normal PLT MORPHOLOGY (BEAKER) (test wwfe=471) Normal RBC MORPHOLOGY (BEAKER) (test dicl=120) Normal [id number] 05:24:00 Test Item Value Reference Range Comments PHOSPHORUS (BEAKER) (test hdey=556) 2.7 mg/dL 2.3-4.7 [id number] 05:24:00 Test Item Value Reference Range Comments MAGNESIUM (BEAKER) (test qobx=322) 1.8 mg/dL 1.6-2.6 BASIC METABOLIC [id number] 05:24:00 Test Item Value Reference Range Comments SODIUM (BEAKER) (test 140 meq/L 136-145 rmvb=065) POTASSIUM (BEAKER) (test 4.3 meq/L 3.5-5.1 fpwa=172) CHLORIDE (BEAKER) (test 108 meq/L 98-107 wyes=870) CO2 (BEAKER) (test 25 meq/L 22-29 gvua=185) BLOOD UREA NITROGEN 19 mg/dL 7-21 (BEAKER) (test ggpr=155) CREATININE (BEAKER) (test 0.91 mg/dL 0.57-1.25 gjvp=752) GLUCOSE RANDOM (BEAKER) 100 mg/dL 70-105 (test ecmq=093) CALCIUM (BEAKER) (test 8.4 mg/dL 8.4-10.2 mnnr=616) EGFR (BEAKER) (test 101 mL/min/1.73 sq m ESTIMATED GFR IS NOT ujfu=7815) ACCURATE CREATININE CLEARANCE IN PREDICTING GLOMERULAR FILTRATION RATE. ESTIMATED GFR IS NOT APPLICABLE FOR DIALYSIS PATIENTS. BASIC METABOLIC [id number] 14:00:00 Test Item Value Reference Range Comments SODIUM (BEAKER) (test 142 meq/L 136-145 jteu=548) POTASSIUM (BEAKER) (test 3.5 meq/L 3.5-5.1 lntx=248) CHLORIDE (BEAKER) (test 106 meq/L 98-107 vmod=756) CO2 (BEAKER) (test 24 meq/L 22-29 ardj=295) BLOOD UREA NITROGEN 20 mg/dL 7-21 (BEAKER) (test hrbr=315) CREATININE (BEAKER) (test 1.05 mg/dL 0.57-1.25 blml=855) GLUCOSE RANDOM (BEAKER) 91 mg/dL 70-105 (test nodn=068) CALCIUM (BEAKER) (test 9.3 mg/dL 8.4-10.2 fvpn=886) EGFR (BEAKER) (test 86 mL/min/1.73 sq m ESTIMATED GFR IS NOT jzbq=3981) ACCURATE CREATININE CLEARANCE IN PREDICTING GLOMERULAR FILTRATION RATE. ESTIMATED GFR IS NOT APPLICABLE FOR DIALYSIS PATIENTS. CBC W/PLT COUNT & AUTO [id number] 13:59:00 Test Item Value Reference Range Comments WHITE BLOOD CELL COUNT (BEAKER) (test bysf=679) 9.5 K/ L 3.5-10.5 RED BLOOD CELL COUNT (BEAKER) (test fuxx=774) 3.20 M/ L 4.63-6.08 HEMOGLOBIN (BEAKER) (test wpby=210) 9.5 GM/DL 13.7-17.5 HEMATOCRIT (BEAKER) (test adkj=592) 28.1 % 40.1-51.0 MEAN CORPUSCULAR VOLUME (BEAKER) (test gbxl=276) 87.8 fL 79.0-92.2 MEAN CORPUSCULAR HEMOGLOBIN (BEAKER) (test 29.7 pg 25.7-32.2 gkqn=780) MEAN CORPUSCULAR HEMOGLOBIN CONC (BEAKER) (test 33.8 GM/DL 32.3-36.5 pnlg=653) RED CELL DISTRIBUTION WIDTH (BEAKER) (test 14.0 % 11.6-14.4 vspw=047) PLATELET COUNT (BEAKER) (test stll=840) 238 K/CU MM 150-450 MEAN PLATELET VOLUME (BEAKER) (test tmfe=142) 11.1 fL 9.4-12.4 NUCLEATED RED BLOOD CELLS (BEAKER) (test 1 /100 WBC 0-0 tqtj=223) NEUTROPHILS RELATIVE PERCENT (BEAKER) (test 72 % bzgm=247) LYMPHOCYTES RELATIVE PERCENT (BEAKER) (test 14 % jvvk=812) MONOCYTES RELATIVE PERCENT (BEAKER) (test 8 % gxjj=228) EOSINOPHILS RELATIVE PERCENT (BEAKER) (test 4 % ygax=266) BASOPHILS RELATIVE PERCENT (BEAKER) (test 0 % wwot=770) NEUTROPHILS ABSOLUTE COUNT (BEAKER) (test 6.79 K/ L 1.78-5.38 vctj=871) LYMPHOCYTES ABSOLUTE COUNT (BEAKER) (test 1.35 K/ L 1.32-3.57 jsla=437) MONOCYTES ABSOLUTE COUNT (BEAKER) (test 0.76 K/ L 0.30-0.82 ujwd=396) EOSINOPHILS ABSOLUTE COUNT (BEAKER) (test 0.35 K/ L 0.04-0.54 kebo=197) BASOPHILS ABSOLUTE COUNT (BEAKER) (test 0.03 K/ L 0.01-0.08 etgi=418) IMMATURE GRANULOCYTES-RELATIVE PERCENT (BEAKER) 2 % 0-1 (test fxsp=2612) CBC (HEMOGRAM ONLY)2017-06-11 22:29:00 Test Item Value Reference Range Comments WHITE BLOOD CELL COUNT (BEAKER) 8.3 K/ L 3.5-10.5 (test fqbd=280) RED BLOOD CELL COUNT (BEAKER) 3.12 M/ L 4.63-6.08 (test xaqo=324) HEMOGLOBIN (BEAKER) (test 9.1 GM/DL 13.7-17.5 ltic=433) HEMATOCRIT (BEAKER) (test 27.9 % 40.1-51.0 dorz=471) MEAN CORPUSCULAR VOLUME 89.4 fL 79.0-92.2 (BEAKER) (test fjfm=204) MEAN CORPUSCULAR HEMOGLOBIN 29.2 pg 25.7-32.2 (BEAKER) (test dtqq=563) MEAN CORPUSCULAR HEMOGLOBIN 32.6 GM/DL 32.3-36.5 CONC (BEAKER) (test eprc=508) RED CELL DISTRIBUTION WIDTH 14.1 % 11.6-14.4 (BEAKER) (test ptci=214) PLATELET COUNT (BEAKER) (test 22 K/CU MM 150-450 Many platelet clumps seen scmm=403) on slide, unable to quantify platelets dur to EDTA clumping. Please resend platelet count in Light Blue citrate tube.This is a corrected result. Previous result was 22 K/CU MM on 06/11/2017 at 1526 CDT MEAN PLATELET VOLUME (BEAKER) 12.2 fL 9.4-12.4 (test akpx=472) NUCLEATED RED BLOOD CELLS 1 /100 WBC 0-0 (BEAKER) (test ajqy=236) OCCULT BLOOD, [id number] 20:32:00 Test Item Value Reference Range Comments FECAL OCCULT BLOOD (BEAKER) (test evnv=898) Negative Negative [id number] 06:40:00 Test Item Value Reference Range Comments MAGNESIUM (BEAKER) (test aend=739) 1.9 mg/dL 1.6-2.6 BASIC METABOLIC [id number] 06:40:00 Test Item Value Reference Range Comments SODIUM (BEAKER) (test 142 meq/L 136-145 dtls=341) POTASSIUM (BEAKER) (test 3.8 meq/L 3.5-5.1 rghz=961) CHLORIDE (BEAKER) (test 110 meq/L 98-107 iczg=854) CO2 (BEAKER) (test 24 meq/L 22-29 ybzg=522) BLOOD UREA NITROGEN 20 mg/dL 7-21 (BEAKER) (test mlgn=282) CREATININE (BEAKER) (test 0.84 mg/dL 0.57-1.25 ejce=160) GLUCOSE RANDOM (BEAKER) 89 mg/dL 70-105 (test ytfn=109) CALCIUM (BEAKER) (test 8.6 mg/dL 8.4-10.2 keoj=636) EGFR (BEAKER) (test 111 mL/min/1.73 sq m ESTIMATED GFR IS NOT nxyr=3003) ACCURATE CREATININE CLEARANCE IN PREDICTING GLOMERULAR FILTRATION RATE. ESTIMATED GFR IS NOT APPLICABLE FOR DIALYSIS PATIENTS. CBC (HEMOGRAM ONLY)2017-06-11 06:07:00 Test Item Value Reference Range Comments WHITE BLOOD CELL COUNT (BEAKER) (test obmp=572) 6.4 K/ L 3.5-10.5 RED BLOOD CELL COUNT (BEAKER) (test nybe=214) 2.65 M/ L 4.63-6.08 HEMOGLOBIN (BEAKER) (test rbka=213) 7.9 GM/DL 13.7-17.5 HEMATOCRIT (BEAKER) (test gbwo=977) 24.2 % 40.1-51.0 MEAN CORPUSCULAR VOLUME (BEAKER) (test ibqm=616) 91.3 fL 79.0-92.2 MEAN CORPUSCULAR HEMOGLOBIN (BEAKER) (test 29.8 pg 25.7-32.2 mnpg=289) MEAN CORPUSCULAR HEMOGLOBIN CONC (BEAKER) (test 32.6 GM/DL 32.3-36.5 qrrh=996) RED CELL DISTRIBUTION WIDTH (BEAKER) (test 14.1 % 11.6-14.4 lcwm=243) PLATELET COUNT (BEAKER) (test qosi=191) 165 K/CU MM 150-450 MEAN PLATELET VOLUME (BEAKER) (test rzkl=500) 10.9 fL 9.4-12.4 NUCLEATED RED BLOOD CELLS (BEAKER) (test 1 /100 WBC 0-0 abcr=209) CBC W/PLT COUNT & AUTO [id number] 12:14:00 Test Item Value Reference Range Comments WHITE BLOOD CELL COUNT (BEAKER) (test dyob=231) 7.3 K/ L 3.5-10.5 RED BLOOD CELL COUNT (BEAKER) (test noau=491) 3.08 M/ L 4.63-6.08 HEMOGLOBIN (BEAKER) (test fror=271) 9.2 GM/DL 13.7-17.5 HEMATOCRIT (BEAKER) (test tkbx=690) 27.2 % 40.1-51.0 MEAN CORPUSCULAR VOLUME (BEAKER) (test eayb=139) 88.3 fL 79.0-92.2 MEAN CORPUSCULAR HEMOGLOBIN (BEAKER) (test 29.9 pg 25.7-32.2 bhyq=563) MEAN CORPUSCULAR HEMOGLOBIN CONC (BEAKER) (test 33.8 GM/DL 32.3-36.5 xzzg=114) RED CELL DISTRIBUTION WIDTH (BEAKER) (test 14.2 % 11.6-14.4 aenh=821) PLATELET COUNT (BEAKER) (test doyu=281) 167 K/CU MM 150-450 MEAN PLATELET VOLUME (BEAKER) (test nczc=430) 10.7 fL 9.4-12.4 NUCLEATED RED BLOOD CELLS (BEAKER) (test 0 /100 WBC 0-0 ozkh=770) NEUTROPHILS RELATIVE PERCENT (BEAKER) (test 69 % wttx=837) LYMPHOCYTES RELATIVE PERCENT (BEAKER) (test 13 % vpvt=216) MONOCYTES RELATIVE PERCENT (BEAKER) (test 9 % btkh=689) EOSINOPHILS RELATIVE PERCENT (BEAKER) (test 7 % vxbb=980) BASOPHILS RELATIVE PERCENT (BEAKER) (test 0 % eecp=623) NEUTROPHILS ABSOLUTE COUNT (BEAKER) (test 5.06 K/ L 1.78-5.38 wzts=945) LYMPHOCYTES ABSOLUTE COUNT (BEAKER) (test 0.97 K/ L 1.32-3.57 zwsj=480) MONOCYTES ABSOLUTE COUNT (BEAKER) (test 0.69 K/ L 0.30-0.82 kfhv=543) EOSINOPHILS ABSOLUTE COUNT (BEAKER) (test 0.50 K/ L 0.04-0.54 soeh=498) BASOPHILS ABSOLUTE COUNT (BEAKER) (test 0.03 K/ L 0.01-0.08 atsu=057) IMMATURE GRANULOCYTES-RELATIVE PERCENT (BEAKER) 1 % 0-1 (test hdpo=1302) [id number] 06:42:00 Test Item Value Reference Range Comments MAGNESIUM (BEAKER) (test xghi=172) 1.9 mg/dL 1.6-2.6 BASIC METABOLIC [id number] 06:42:00 Test Item Value Reference Range Comments SODIUM (BEAKER) (test 139 meq/L 136-145 ybvc=242) POTASSIUM (BEAKER) (test 3.5 meq/L 3.5-5.1 zrgg=032) CHLORIDE (BEAKER) (test 107 meq/L 98-107 uteu=586) CO2 (BEAKER) (test 27 meq/L 22-29 wdsz=572) BLOOD UREA NITROGEN 22 mg/dL 7-21 (BEAKER) (test pnfl=805) CREATININE (BEAKER) (test 0.88 mg/dL 0.57-1.25 jtaa=042) GLUCOSE RANDOM (BEAKER) 105 mg/dL 70-105 (test ayeg=407) CALCIUM (BEAKER) (test 8.3 mg/dL 8.4-10.2 hbjx=103) EGFR (BEAKER) (test 105 mL/min/1.73 sq m ESTIMATED GFR IS NOT whcp=1190) ACCURATE CREATININE CLEARANCE IN PREDICTING GLOMERULAR FILTRATION RATE. ESTIMATED GFR IS NOT APPLICABLE FOR DIALYSIS PATIENTS. CBC (HEMOGRAM ONLY)2017-06-10 06:11:00 Test Item Value Reference Range Comments WHITE BLOOD CELL COUNT (BEAKER) (test haij=513) 7.7 K/ L 3.5-10.5 RED BLOOD CELL COUNT (BEAKER) (test gend=826) 2.80 M/ L 4.63-6.08 HEMOGLOBIN (BEAKER) (test mava=387) 8.4 GM/DL 13.7-17.5 HEMATOCRIT (BEAKER) (test oifw=641) 24.7 % 40.1-51.0 MEAN CORPUSCULAR VOLUME (BEAKER) (test dxqg=142) 88.2 fL 79.0-92.2 MEAN CORPUSCULAR HEMOGLOBIN (BEAKER) (test 30.0 pg 25.7-32.2 oapn=018) MEAN CORPUSCULAR HEMOGLOBIN CONC (BEAKER) (test 34.0 GM/DL 32.3-36.5 nkme=773) RED CELL DISTRIBUTION WIDTH (BEAKER) (test 14.2 % 11.6-14.4 jqpv=359) PLATELET COUNT (BEAKER) (test dwmj=570) 168 K/CU MM 150-450 MEAN PLATELET VOLUME (BEAKER) (test fdoj=308) 10.8 fL 9.4-12.4 NUCLEATED RED BLOOD CELLS (BEAKER) (test 0 /100 WBC 0-0 uljn=349) [id number] 07:35:00 Test Item Value Reference Range Comments MAGNESIUM (BEAKER) (test 2.8 mg/dL 1.6-2.6 Specimen moderately hemolyzed cjfv=628) [id number] 07:35:00 Test Item Value Reference Range Comments PHOSPHORUS (BEAKER) (test 1.8 mg/dL 2.3-4.7 Specimen moderately hemolyzed kbky=537) BASIC METABOLIC [id number] 07:35:00 Test Item Value Reference Range Comments SODIUM (BEAKER) (test 141 meq/L 136-145 nsjx=739) POTASSIUM (BEAKER) (test 4.5 meq/L 3.5-5.1 Specimen moderately dsyp=697) hemolyzed CHLORIDE (BEAKER) (test 106 meq/L 98-107 eufb=665) CO2 (BEAKER) (test 24 meq/L 22-29 ajih=022) BLOOD UREA NITROGEN 21 mg/dL 7-21 (BEAKER) (test hcjz=904) CREATININE (BEAKER) (test 0.94 mg/dL 0.57-1.25 Specimen moderately cesj=391) hemolyzed GLUCOSE RANDOM (BEAKER) 104 mg/dL 70-105 (test fpvn=487) CALCIUM (BEAKER) (test 9.2 mg/dL 8.4-10.2 eqts=677) EGFR (BEAKER) (test 97 mL/min/1.73 sq m ESTIMATED GFR IS NOT bhqq=6235) ACCURATE CREATININE CLEARANCE IN PREDICTING GLOMERULAR FILTRATION RATE. ESTIMATED GFR IS NOT APPLICABLE FOR DIALYSIS PATIENTS. CBC (HEMOGRAM ONLY)2017-06-09 06:31:00 Test Item Value Reference Range Comments WHITE BLOOD CELL COUNT (BEAKER) (test qnnm=817) 7.5 K/ L 3.5-10.5 RED BLOOD CELL COUNT (BEAKER) (test shnr=920) 3.73 M/ L 4.63-6.08 HEMOGLOBIN (BEAKER) (test mfta=497) 11.0 GM/DL 13.7-17.5 HEMATOCRIT (BEAKER) (test zvjj=650) 33.2 % 40.1-51.0 MEAN CORPUSCULAR VOLUME (BEAKER) (test hhyg=517) 89.0 fL 79.0-92.2 MEAN CORPUSCULAR HEMOGLOBIN (BEAKER) (test 29.5 pg 25.7-32.2 gvri=392) MEAN CORPUSCULAR HEMOGLOBIN CONC (BEAKER) (test 33.1 GM/DL 32.3-36.5 oyyo=759) RED CELL DISTRIBUTION WIDTH (BEAKER) (test 14.9 % 11.6-14.4 upsd=802) PLATELET COUNT (BEAKER) (test oogi=906) 167 K/CU MM 150-450 MEAN PLATELET VOLUME (BEAKER) (test tbbh=612) 11.3 fL 9.4-12.4 NUCLEATED RED BLOOD CELLS (BEAKER) (test 0 /100 WBC 0-0 nkqy=384) POCT-GLUCOSE [id number] 23:32:00 Test Item Value Reference Range Comments POC-GLUCOSE METER (BEAKER) 112 mg/dL 70-110 TESTED AT [address] (test qvjs=4606) [place] [address] POCT-GLUCOSE [id number] 17:58:00 Test Item Value Reference Range Comments POC-GLUCOSE METER (BEAKER) 132 mg/dL 70-110 TESTED AT [address] (test lvmv=4041) [place] [address] POCT-GLUCOSE [id number] 13:40:00 Test Item Value Reference Range Comments POC-GLUCOSE METER (BEAKER) 151 mg/dL 70-110 TESTED AT [address] (test heno=0831) [place] [address] [id number] 06:53:00 Test Item Value Reference Range Comments PHOSPHORUS (BEAKER) (test wnae=709) 2.6 mg/dL 2.3-4.7 [id number] 06:53:00 Test Item Value Reference Range Comments MAGNESIUM (BEAKER) (test ftxi=181) 1.8 mg/dL 1.6-2.6 BASIC METABOLIC [id number] 06:53:00 Test Item Value Reference Range Comments SODIUM (BEAKER) (test 142 meq/L 136-145 qsdh=630) POTASSIUM (BEAKER) (test 3.6 meq/L 3.5-5.1 zlwt=206) CHLORIDE (BEAKER) (test 108 meq/L 98-107 drcm=030) CO2 (BEAKER) (test 26 meq/L 22-29 mnvg=828) BLOOD UREA NITROGEN 16 mg/dL 7-21 (BEAKER) (test akgi=711) CREATININE (BEAKER) (test 0.87 mg/dL 0.57-1.25 cjph=442) GLUCOSE RANDOM (BEAKER) 130 mg/dL 70-105 (test xbuu=171) CALCIUM (BEAKER) (test 8.5 mg/dL 8.4-10.2 ngxp=850) EGFR (BEAKER) (test 106 mL/min/1.73 sq m ESTIMATED GFR IS NOT ebvc=0918) ACCURATE CREATININE CLEARANCE IN PREDICTING GLOMERULAR FILTRATION RATE. ESTIMATED GFR IS NOT APPLICABLE FOR DIALYSIS PATIENTS. CBC (HEMOGRAM ONLY)2017-06-08 05:53:00 Test Item Value Reference Range Comments WHITE BLOOD CELL COUNT (BEAKER) (test vlmh=601) 6.7 K/ L 3.5-10.5 RED BLOOD CELL COUNT (BEAKER) (test fozn=367) 3.18 M/ L 4.63-6.08 HEMOGLOBIN (BEAKER) (test wcdc=891) 9.4 GM/DL 13.7-17.5 HEMATOCRIT (BEAKER) (test vdpb=879) 27.0 % 40.1-51.0 MEAN CORPUSCULAR VOLUME (BEAKER) (test yqfj=413) 84.9 fL 79.0-92.2 MEAN CORPUSCULAR HEMOGLOBIN (BEAKER) (test 29.6 pg 25.7-32.2 sain=288) MEAN CORPUSCULAR HEMOGLOBIN CONC (BEAKER) (test 34.8 GM/DL 32.3-36.5 xsfs=585) RED CELL DISTRIBUTION WIDTH (BEAKER) (test 14.6 % 11.6-14.4 eegf=030) PLATELET COUNT (BEAKER) (test wmcx=029) 137 K/CU MM 150-450 MEAN PLATELET VOLUME (BEAKER) (test hpeq=257) 10.3 fL 9.4-12.4 NUCLEATED RED BLOOD CELLS (BEAKER) (test 0 /100 WBC 0-0 oxmd=512) [id number] 05:48:00 Test Item Value Reference Range Comments ACTIVATED CLOTTING TIME 114 sec TESTED AT [address] (BEAKER) (test dihf=634) [place] [id number] 05:48:00 Test Item Value Reference Range Comments ACTIVATED CLOTTING TIME 444 sec TESTED AT [address] (BEAKER) (test xncw=294) [place] [address] [id number] 05:48:00 Test Item Value Reference Range Comments ACTIVATED CLOTTING TIME 378 sec TESTED AT [place] [address] [address] (BEAKER) (test ujxx=017) [place] [address] [id number] 05:48:00 Test Item Value Reference Range Comments ACTIVATED CLOTTING TIME 109 sec TESTED AT [address] (BEAKER) (test ndmc=973) [place] [address] [id number] 05:48:00 Test Item Value Reference Range Comments ACTIVATED CLOTTING TIME 499 sec TESTED AT [place] [address] [address] (BEAKER) (test cwcp=400) [place] [address] [id number] 05:48:00 Test Item Value Reference Range Comments ACTIVATED CLOTTING TIME 477 sec TESTED AT [address] (BEAKER) (test tkol=023) [place] [address] [id number] 05:48:00 Test Item Value Reference Range Comments ACTIVATED CLOTTING TIME 505 sec TESTED AT [address] (BEAKER) (test czww=301) [place] [id number] POCT-GLUCOSE [id number] 04:18:00 Test Item Value Reference Range Comments POC-GLUCOSE METER (BEAKER) 153 mg/dL 70-110 TESTED AT [address] (test xcyt=2070) [place] [id number] POCT-GLUCOSE [id number] 21:20:00 Test Item Value Reference Range Comments POC-GLUCOSE METER (BEAKER) 150 mg/dL 70-110 TESTED AT [address] (test ziag=4467) [place] [address] POCT-GLUCOSE [id number] 18:22:00 Test Item Value Reference Range Comments POC-GLUCOSE METER (BEAKER) 122 mg/dL 70-110 TESTED AT [address] (test ybvp=9876) [facility] [address] POCT-GLUCOSE [id number] 18:21:00 Test Item Value Reference Range Comments POC-GLUCOSE METER (BEAKER) 95 mg/dL 70-110 TESTED AT [address] (test cfqy=7153) [facility] [address] BLOOD GAS, [id number] 15:13:00 Test Item Value Reference Range Comments PH ARTERIAL (BEAKER) (test ioip=104) 7.43 7.35-7.45 PCO2 ARTERIAL (BEAKER) (test vpld=906) 39 mmHg 35-45 PO2 ARTERIAL (BEAKER) (test wbkn=347) 109 mmHg 80-90 O2 SATURATION ARTERIAL (BEAKER) (test iktx=118) 97.9 % 96.0-97.0 HCO3 ARTERIAL (BEAKER) (test gncb=046) 25 mmol/L 21-29 BASE EXCESS ARTERIAL (BEAKER) (test dlpb=596) 0.8 mmol/L -2.0-3.0 PATIENT TEMPERATURE (BEAKER) (test zrrw=0434) 38.3 C FIO2 (BEAKER) (test ohio=5401) 40.0 % POCT-GLUCOSE [id number] 14:00:00 Test Item Value Reference Range Comments POC-GLUCOSE METER (BEAKER) 111 mg/dL 70-110 TESTED AT [address] (test qnuz=6270) [facility] [address] POCT-GLUCOSE [id number] 12:18:00 Test Item Value Reference Range Comments POC-GLUCOSE METER (BEAKER) 124 mg/dL 70-110 TESTED AT [address] (test jdpf=1351) [facility] [address] POCT-GLUCOSE [id number] 08:18:00 Test Item Value Reference Range Comments POC-GLUCOSE METER (BEAKER) 139 mg/dL 70-110 TESTED AT [address] (test dgon=6981) [place] [id number] POCT-GLUCOSE [id number] 06:47:00 Test Item Value Reference Range Comments POC-GLUCOSE METER (BEAKER) 140 mg/dL 70-110 TESTED AT [address] (test lwlk=6345) [facility] [address] POCT-GLUCOSE [id number] 05:11:00 Test Item Value Reference Range Comments POC-GLUCOSE METER (BEAKER) 149 mg/dL 70-[address] [facility] [address] (test ftxn=9230) [facility] [address] [id number] 04:24:00 Test Item Value Reference Range Comments PHOSPHORUS (BEAKER) (test cgip=113) 3.5 mg/dL 2.3-4.7 [id number] 04:24:00 Test Item Value Reference Range Comments MAGNESIUM (BEAKER) (test ymtw=966) 2.5 mg/dL 1.6-2.6 BASIC METABOLIC [id number] 04:24:00 Test Item Value Reference Range Comments SODIUM (BEAKER) (test 141 meq/L 136-145 idom=108) POTASSIUM (BEAKER) (test 4.6 meq/L 3.5-5.1 cnpc=890) CHLORIDE (BEAKER) (test 113 meq/L 98-107 iqmh=376) CO2 (BEAKER) (test 20 meq/L 22-29 zths=698) BLOOD UREA NITROGEN 14 mg/dL 7-21 (BEAKER) (test yznn=555) CREATININE (BEAKER) (test 1.00 mg/dL 0.57-1.25 rzil=682) GLUCOSE RANDOM (BEAKER) 144 mg/dL 70-105 (test zlak=058) CALCIUM (BEAKER) (test 8.6 mg/dL 8.4-10.2 wyel=340) EGFR (BEAKER) (test 91 mL/min/1.73 sq m ESTIMATED GFR IS NOT tbty=1228) ACCURATE CREATININE CLEARANCE IN PREDICTING GLOMERULAR FILTRATION RATE. ESTIMATED GFR IS NOT APPLICABLE FOR DIALYSIS PATIENTS. LACTIC ACID, ARTERIAL, WHOLE [id number] 04:04:00 Test Item Value Reference Range Comments LACTATE BLOOD ARTERIAL (2) (BEAKER) (test 2.8 mmol/L 0.5-2.2 gduo=0112) Effective 02/23/2016: Units/Reference Range ChangeNew: 0.5-2.2 mmol/L Previous: 5 -20 mg/dLCBC W/PLT COUNT & AUTO [id number] 03:59:00 Test Item Value Reference Range Comments WHITE BLOOD CELL COUNT (BEAKER) (test vwlt=011) 4.5 K/ L 3.5-10.5 RED BLOOD CELL COUNT (BEAKER) (test gqdz=349) 3.09 M/ L 4.63-6.08 HEMOGLOBIN (BEAKER) (test fgqp=565) 9.3 GM/DL 13.7-17.5 HEMATOCRIT (BEAKER) (test nshx=723) 26.4 % 40.1-51.0 MEAN CORPUSCULAR VOLUME (BEAKER) (test tksw=653) 85.4 fL 79.0-92.2 MEAN CORPUSCULAR HEMOGLOBIN (BEAKER) (test 30.1 pg 25.7-32.2 yyzl=681) MEAN CORPUSCULAR HEMOGLOBIN CONC (BEAKER) (test 35.2 GM/DL 32.3-36.5 ahks=548) RED CELL DISTRIBUTION WIDTH (BEAKER) (test 14.8 % 11.6-14.4 peoa=019) PLATELET COUNT (BEAKER) (test ghdh=652) 163 K/CU MM 150-450 MEAN PLATELET VOLUME (BEAKER) (test dynu=962) 10.1 fL 9.4-12.4 NUCLEATED RED BLOOD CELLS (BEAKER) (test 0 /100 WBC 0-0 sqcm=031) NEUTROPHILS RELATIVE PERCENT (BEAKER) (test 77 % vakc=310) LYMPHOCYTES RELATIVE PERCENT (BEAKER) (test 10 % kjbv=007) MONOCYTES RELATIVE PERCENT (BEAKER) (test 11 % bdbl=857) EOSINOPHILS RELATIVE PERCENT (BEAKER) (test 2 % djdi=418) BASOPHILS RELATIVE PERCENT (BEAKER) (test 0 % mjax=488) NEUTROPHILS ABSOLUTE COUNT (BEAKER) (test 3.48 K/ L 1.78-5.38 wcvb=427) LYMPHOCYTES ABSOLUTE COUNT (BEAKER) (test 0.44 K/ L 1.32-3.57 dqfw=527) MONOCYTES ABSOLUTE COUNT (BEAKER) (test 0.50 K/ L 0.30-0.82 xphl=472) EOSINOPHILS ABSOLUTE COUNT (BEAKER) (test 0.08 K/ L 0.04-0.54 byna=508) BASOPHILS ABSOLUTE COUNT (BEAKER) (test 0.02 K/ L 0.01-0.08 ogen=447) IMMATURE GRANULOCYTES-RELATIVE PERCENT (BEAKER) 0 % 0-1 (test bfen=7994) CBC (HEMOGRAM ONLY)2017-06-07 03:58:00 Test Item Value Reference Range Comments WHITE BLOOD CELL COUNT (BEAKER) (test nqmz=532) 4.5 K/ L 3.5-10.5 RED BLOOD CELL COUNT (BEAKER) (test pncf=930) 3.09 M/ L 4.63-6.08 HEMOGLOBIN (BEAKER) (test qrws=721) 9.3 GM/DL 13.7-17.5 HEMATOCRIT (BEAKER) (test rbzb=033) 26.4 % 40.1-51.0 MEAN CORPUSCULAR VOLUME (BEAKER) (test jpvr=149) 85.4 fL 79.0-92.2 MEAN CORPUSCULAR HEMOGLOBIN (BEAKER) (test 30.1 pg 25.7-32.2 drrj=262) MEAN CORPUSCULAR HEMOGLOBIN CONC (BEAKER) (test 35.2 GM/DL 32.3-36.5 bxlj=388) RED CELL DISTRIBUTION WIDTH (BEAKER) (test 14.8 % 11.6-14.4 ucvc=344) PLATELET COUNT (BEAKER) (test lisj=306) 163 K/CU MM 150-450 MEAN PLATELET VOLUME (BEAKER) (test ypdh=177) 10.1 fL 9.4-12.4 NUCLEATED RED BLOOD CELLS (BEAKER) (test 0 /100 WBC 0-0 mgbf=541) BLOOD GAS, [id number] 03:57:00 Test Item Value Reference Range Comments PH ARTERIAL (BEAKER) (test gvnj=263) 7.43 7.35-7.45 PCO2 ARTERIAL (BEAKER) (test wfjw=031) 35 mmHg 35-45 PO2 ARTERIAL (BEAKER) (test ljua=154) 144 mmHg 80-90 O2 SATURATION ARTERIAL (BEAKER) (test zoxj=593) 98.9 % 96.0-97.0 HCO3 ARTERIAL (BEAKER) (test suox=019) 22 mmol/L 21-29 BASE EXCESS ARTERIAL (BEAKER) (test mesi=874) -1.5 mmol/L -2.0-3.0 PATIENT TEMPERATURE (BEAKER) (test ghxl=7367) 37.8 C FIO2 (BEAKER) (test gzxq=7135) 40.0 % OXYGEN SATURATION, [id number] 03:51:00 Test Item Value Reference Range Comments O2 SATURATION (MEASURED) (BEAKER) (test mpcm=8516) 65.7 % CALCIUM, [id number] 03:50:00 Test Item Value Reference Range Comments CALCIUM IONIZED (BEAKER) (test oobx=119) 1.17 mmol/L 1.12-1.27 PH, BLOOD (BEAKER) (test zeeb=1459) 7.37 POCT-GLUCOSE [id number] 02:41:00 Test Item Value Reference Range Comments POC-GLUCOSE METER (BEAKER) 198 mg/dL 70-110 TESTED AT [address] (test uwob=2994) [place] [address] HEMOGLOBIN AND [id number] 01:50:00 Test Item Value Reference Range Comments HEMOGLOBIN (BEAKER) (test uvas=826) 9.3 GM/DL 13.7-17.5 HEMATOCRIT (BEAKER) (test pidw=136) 26.0 % 40.1-51.0 POCT-GLUCOSE [id number] 00:10:00 Test Item Value Reference Range Comments POC-GLUCOSE METER (BEAKER) 176 mg/dL 70-110 TESTED AT [address] (test cfse=0261) [place] [address] BLOOD GAS, [id number] 23:24:00 Test Item Value Reference Range Comments PH ARTERIAL (BEAKER) (test objs=052) 7.39 7.35-7.45 PCO2 ARTERIAL (BEAKER) (test kihp=124) 35 mmHg 35-45 PO2 ARTERIAL (BEAKER) (test uarr=813) 110 mmHg 80-90 O2 SATURATION ARTERIAL (BEAKER) (test cclx=161) 98.1 % 96.0-97.0 HCO3 ARTERIAL (BEAKER) (test feho=769) 21 mmol/L 21-29 BASE EXCESS ARTERIAL (BEAKER) (test rpyv=011) -4.1 mmol/L -2.0-3.0 PATIENT TEMPERATURE (BEAKER) (test aapd=9049) 36.1 C FIO2 (BEAKER) (test ivuf=4682) 40.0 % GLUCOSE-STAT [id number] 23:24:00 Test Item Value Reference Range Comments GLUCOSE RANDOM (BEAKER) (test wdvc=340) 167 mg/dL 70-110 HGB/HCT (H&H) - STAT [id number] 23:24:00 Test Item Value Reference Range Comments HEMOGLOBIN (BEAKER) (test dwni=839) 8.7 g/dL 13.0-16.8 HEMATOCRIT (BEAKER) (test szsy=032) 26.0 % 40.0-50.0 CALCIUM, [id number] 23:24:00 Test Item Value Reference Range Comments CALCIUM IONIZED (BEAKER) (test ingl=879) 1.31 mmol/L 1.12-1.27 PH, BLOOD (BEAKER) (test xrhp=1793) 7.37 SODIUM NA-STAT [id number] 23:18:00 Test Item Value Reference Range Comments SODIUM (BEAKER) (test szop=135) 140 meq/L 135-148 POTASSIUM-STAT [id number] 23:18:00 Test Item Value Reference Range Comments POTASSIUM (BEAKER) (test xvbq=630) 4.2 meq/L 3.6-5.5 OXYGEN SATURATION, [id number] 23:17:00 Test Item Value Reference Range Comments O2 SATURATION (MEASURED) (BEAKER) (test pxyl=1494) 66.5 % [id number] 23:12:00 Test Item Value Reference Range Comments MAGNESIUM (BEAKER) (test nbmi=331) 1.9 mg/dL 1.6-2.6 BASIC METABOLIC [id number] 23:12:00 Test Item Value Reference Range Comments SODIUM (BEAKER) (test 144 meq/L 136-145 wuhc=689) POTASSIUM (BEAKER) (test 4.4 meq/L 3.5-5.1 fxev=022) CHLORIDE (BEAKER) (test 114 meq/L 98-107 lokg=705) CO2 (BEAKER) (test 20 meq/L 22-29 fljg=303) BLOOD UREA NITROGEN 15 mg/dL 7-21 (BEAKER) (test vwbo=730) CREATININE (BEAKER) (test 1.10 mg/dL 0.57-1.25 pzto=219) GLUCOSE RANDOM (BEAKER) 191 mg/dL 70-105 (test aabz=750) CALCIUM (BEAKER) (test 8.5 mg/dL 8.4-10.2 bjvm=896) EGFR (BEAKER) (test 81 mL/min/1.73 sq m ESTIMATED GFR IS NOT mbfh=2903) ACCURATE CREATININE CLEARANCE IN PREDICTING GLOMERULAR FILTRATION RATE. ESTIMATED GFR IS NOT APPLICABLE FOR DIALYSIS PATIENTS. LACTIC ACID, ARTERIAL, WHOLE [id number] 23:07:00 Test Item Value Reference Range Comments LACTATE BLOOD ARTERIAL (2) (BEAKER) (test 3.9 mmol/L 0.5-2.2 btby=1428) Effective 02/23/2016: Units/Reference Range ChangeNew: 0.5-2.2 mmol/L Previous: 5 -20 mg/dLCBC W/PLT COUNT & AUTO [id number] 22:59:00 Test Item Value Reference Range Comments WHITE BLOOD CELL COUNT (BEAKER) (test ryea=726) 3.3 K/ L 3.5-10.5 RED BLOOD CELL COUNT (BEAKER) (test jhrf=827) 2.86 M/ L 4.63-6.08 HEMOGLOBIN (BEAKER) (test kopx=764) 8.5 GM/DL 13.7-17.5 HEMATOCRIT (BEAKER) (test wcji=985) 24.7 % 40.1-51.0 MEAN CORPUSCULAR VOLUME (BEAKER) (test ezye=752) 86.4 fL 79.0-92.2 MEAN CORPUSCULAR HEMOGLOBIN (BEAKER) (test 29.7 pg 25.7-32.2 pflz=018) MEAN CORPUSCULAR HEMOGLOBIN CONC (BEAKER) (test 34.4 GM/DL 32.3-36.5 wqzm=219) RED CELL DISTRIBUTION WIDTH (BEAKER) (test 14.6 % 11.6-14.4 fmsg=091) PLATELET COUNT (BEAKER) (test xyzd=836) 150 K/CU MM 150-450 MEAN PLATELET VOLUME (BEAKER) (test eebw=964) 9.7 fL 9.4-12.4 NUCLEATED RED BLOOD CELLS (BEAKER) (test 0 /100 WBC 0-0 ydxz=954) NEUTROPHILS RELATIVE PERCENT (BEAKER) (test 70 % sclo=170) LYMPHOCYTES RELATIVE PERCENT (BEAKER) (test 13 % ffap=590) MONOCYTES RELATIVE PERCENT (BEAKER) (test 14 % ujcm=610) EOSINOPHILS RELATIVE PERCENT (BEAKER) (test 2 % lwwv=637) BASOPHILS RELATIVE PERCENT (BEAKER) (test 0 % qwbu=886) NEUTROPHILS ABSOLUTE COUNT (BEAKER) (test 2.32 K/ L 1.78-5.38 anvy=393) LYMPHOCYTES ABSOLUTE COUNT (BEAKER) (test 0.42 K/ L 1.32-3.57 bwge=134) MONOCYTES ABSOLUTE COUNT (BEAKER) (test 0.45 K/ L 0.30-0.82 sdzz=261) EOSINOPHILS ABSOLUTE COUNT (BEAKER) (test 0.08 K/ L 0.04-0.54 yjez=784) BASOPHILS ABSOLUTE COUNT (BEAKER) (test 0.01 K/ L 0.01-0.08 qzng=134) IMMATURE GRANULOCYTES-RELATIVE PERCENT (BEAKER) 1 % 0-1 (test fgdn=1082) [id number] 22:58:00 Test Item Value Reference Range Comments FIBRINOGEN LEVEL (BEAKER) (test lksv=724) 319 mg/dl 225-434 [id number] 22:58:00 Test Item Value Reference Range Comments PARTIAL THROMBOPLASTIN TIME (BEAKER) (test 46.7 seconds 22.5-36.0 mlpu=878) PROTHROMBIN [id number] 22:57:00 Test Item Value Reference Range Comments PROTIME (BEAKER) (test mvvk=146) 15.4 seconds 11.7-14.7 INR (BEAKER) (test lked=316) 1.2 <=5.9 RECOMMENDED COUMADIN/WARFARIN INR THERAPY RANGESSTANDARD DOSE: 2.0 - 3.0 Includes: PROPHYLAXIS forvenous thrombosis, systemic embolization; TREATMENT for venous thrombosis and/or pulmonary embolus.HIGH RISK: Target INR is 2.5-3.5 for patients with mechanical heart valves.THROMBOELASTOGRAPH (TEG)2017-06-06 21: 31:00 Test Item Value Reference Range Comments TEG ACTIVATED CLOTTING TIME (BEAKER) (test 7.8 minutes 4.0-7.0 exds=9873) TEG FIBRINOGEN ACTIVITY (BEAKER) (test 60.6 degrees 61.0-73.0 rair=9486) TEG PLT. AGGREGATION (BEAKER) (test fypi=7967) 63.6 MM 55.0-65.0 TGH ACTIVATED CLOTTING TIME (BEAKER) (test 6.8 minutes 4.0-7.0 oeng=8676) TGH FIBRINOGEN ACTIVITY (BEAKER) (test 66.4 degrees 61.0-73.0 rjmv=4134) TGH PLT. AGGREGATION (BEAKER) (test ezhb=1342) 64.9 MM 55.0-65.0 THROMBOELASTOGRAPH (TEG)2017-06-06 21:28:00 Test Item Value Reference Range Comments TEG ACTIVATED CLOTTING TIME (BEAKER) (test 6.0 minutes 4.0-7.0 zztd=2739) TEG FIBRINOGEN ACTIVITY (BEAKER) (test 63.8 degrees 61.0-73.0 udmw=1610) TEG PLT. AGGREGATION (BEAKER) (test mfnz=2179) 61.5 MM 55.0-65.0 TEG FIBRINOLYSIS (BEAKER) (test kkhq=5721) 0.0 % 0.0-5.0 TGH ACTIVATED CLOTTING TIME (BEAKER) (test 6.4 minutes 4.0-7.0 zxnv=1888) TGH FIBRINOGEN ACTIVITY (BEAKER) (test 65.4 degrees 61.0-73.0 save=5968) TGH PLT. AGGREGATION (BEAKER) (test hzbz=3593) 60.8 MM 55.0-65.0 TGH FIBRINOLYSIS (BEAKER) (test apgr=8263) 0.0 % 0.0-5.0 CBC W/PLT COUNT & AUTO [id number] 21:26:00 Test Item Value Reference Range Comments WHITE BLOOD CELL COUNT (BEAKER) (test ycpq=486) 2.9 K/ L 3.5-10.5 RED BLOOD CELL COUNT (BEAKER) (test thun=969) 2.95 M/ L 4.63-6.08 HEMOGLOBIN (BEAKER) (test kvbh=549) 8.9 GM/DL 13.7-17.5 HEMATOCRIT (BEAKER) (test gsdr=782) 25.6 % 40.1-51.0 MEAN CORPUSCULAR VOLUME (BEAKER) (test uuwb=877) 86.8 fL 79.0-92.2 MEAN CORPUSCULAR HEMOGLOBIN (BEAKER) (test 30.2 pg 25.7-32.2 simh=820) MEAN CORPUSCULAR HEMOGLOBIN CONC (BEAKER) (test 34.8 GM/DL 32.3-36.5 sjht=186) RED CELL DISTRIBUTION WIDTH (BEAKER) (test 14.6 % 11.6-14.4 ubdc=357) PLATELET COUNT (BEAKER) (test pgfk=367) 145 K/CU MM 150-450 MEAN PLATELET VOLUME (BEAKER) (test wprk=070) 10.0 fL 9.4-12.4 NUCLEATED RED BLOOD CELLS (BEAKER) (test 0 /100 WBC 0-0 wuxe=015) IMMATURE GRANULOCYTES-RELATIVE PERCENT (BEAKER) 1 % 0-1 (test grtz=2822) (MANUAL DIFFERENTIAL)2017-06-06 21:26:00 Test Item Value Reference Range Comments NEUTROPHILS - REL (DIFF) (BEAKER) (test hvsm=0843) 67 % LYMPHOCYTES - REL (DIFF) (BEAKER) (test uiku=2481) 20 % MONOCYTES - REL (DIFF) (BEAKER) (test dtva=3086) 9 % EOSINOPHILS - REL (DIFF) (BEAKER) (test zsmg=0261) 1 % BANDS - REL (DIFF) (BEAKER) (test qebe=0613) 3 % 0-10 NEUTROPHILS - ABS (DIFF) (BEAKER) (test gktp=0145) 1.94 K/ L 1.80-8.00 LYMPHOCYTES - ABS (DIFF) (BEAKER) (test jwag=3093) 0.58 K/ L 1.48-4.50 MONOCYTES - ABS (DIFF) (BEAKER) (test slzf=5524) 0.26 K/ L 0.00-1.30 EOSINOPHILS - ABS (DIFF) (BEAKER) (test zqyh=9489) 0.03 K/ L 0.00-0.50 BANDS-ABS (DIFF) (BEAKER) (test dsmr=2094) 0.1 K/ L 0.0-0.8 TOTAL COUNTED (BEAKER) (test cwnh=8102) 100 BANDS + SEGMENTED NEUTROPHILS (BEAKER) (test 2.03 pqui=4209) WBC MORPHOLOGY (BEAKER) (test pkav=272) Normal PLT MORPHOLOGY (BEAKER) (test ioxg=952) Normal RBC MORPHOLOGY (BEAKER) (test jhns=781) Normal PLATELET COUNT-STAT [id number] 20:54:00 Test Item Value Reference Range Comments PLATELET COUNT (BEAKER) (test jxkk=169) 154 K/CU MM 150-430 [id number] 20:45:00 Test Item Value Reference Range Comments FIBRINOGEN LEVEL (BEAKER) (test nych=286) 274 mg/dl 225-434 [id number] 20:45:00 Test Item Value Reference Range Comments PARTIAL THROMBOPLASTIN TIME (BEAKER) (test 43.6 seconds 22.5-36.0 txko=605) PROTHROMBIN [id number] 20:44:00 Test Item Value Reference Range Comments PROTIME (BEAKER) (test lztb=491) 15.6 seconds 11.7-14.7 INR (BEAKER) (test kbkb=504) 1.3 <=5.9 RECOMMENDED COUMADIN/WARFARIN INR THERAPY RANGESSTANDARD DOSE: 2.0 - 3.0 Includes: PROPHYLAXIS forvenous thrombosis, systemic embolization; TREATMENT for venous thrombosis and/or pulmonary embolus.HIGH RISK: Target INR is 2.5-3.5 for patients with mechanical heart valves.BLOOD GAS, [id number] 20:21:00 Test Item Value Reference Range Comments PH ARTERIAL (BEAKER) (test jdts=965) 7.34 7.35-7.45 PCO2 ARTERIAL (BEAKER) (test tnwk=417) 40 mmHg 35-45 PO2 ARTERIAL (BEAKER) (test esfk=890) 273 mmHg 80-90 O2 SATURATION ARTERIAL (BEAKER) (test igbz=451) 99.6 % 96.0-97.0 HCO3 ARTERIAL (BEAKER) (test vcmd=511) 21 mmol/L 21-29 BASE EXCESS ARTERIAL (BEAKER) (test vejs=512) -4.3 mmol/L -2.0-3.0 PATIENT TEMPERATURE (BEAKER) (test kewz=5260) 37.0 C FIO2 (BEAKER) (test egyl=7014) 100.0 % GLUCOSE-STAT [id number] 20:21:00 Test Item Value Reference Range Comments GLUCOSE RANDOM (BEAKER) (test enbj=401) 156 mg/dL 70-110 HGB/HCT (H&H) - STAT [id number] 20:21:00 Test Item Value Reference Range Comments HEMOGLOBIN (BEAKER) (test uckn=446) 9.8 g/dL 13.0-16.8 HEMATOCRIT (BEAKER) (test ifaf=104) 29.0 % 40.0-50.0 SODIUM NA-STAT [id number] 20:18:00 Test Item Value Reference Range Comments SODIUM (BEAKER) (test cyil=183) 140 meq/L 135-148 POTASSIUM-STAT [id number] 20:18:00 Test Item Value Reference Range Comments POTASSIUM (BEAKER) (test pehb=721) 4.2 meq/L 3.6-5.5 CALCIUM, [id number] 20:18:00 Test Item Value Reference Range Comments CALCIUM IONIZED (BEAKER) (test uopr=117) 1.16 mmol/L 1.12-1.27 PH, BLOOD (BEAKER) (test xkcj=2949) 7.34 THROMBOELASTOGRAPH (TEG)2017-06-06 19:30:00 Test Item Value Reference Range Comments TEG ACTIVATED CLOTTING TIME (BEAKER) (test 4.8 minutes 4.0-7.0 tljl=8371) TEG FIBRINOGEN ACTIVITY (BEAKER) (test 66.7 degrees 61.0-73.0 vlsb=7027) TEG PLT. AGGREGATION (BEAKER) (test tjxp=2014) 62.5 MM 55.0-65.0 TEG FIBRINOLYSIS (BEAKER) (test gubi=4387) 0.0 % 0.0-5.0 TGH ACTIVATED CLOTTING TIME (BEAKER) (test 4.8 minutes 4.0-7.0 imhw=6055) TGH FIBRINOGEN ACTIVITY (BEAKER) (test 71.0 degrees 61.0-73.0 ptvv=3462) TGH PLT. AGGREGATION (BEAKER) (test xzwg=8180) 64.0 MM 55.0-65.0 TGH FIBRINOLYSIS (BEAKER) (test hgck=2146) 0.0 % 0.0-5.0 PLATELET [id number] 19:00:00 Test Item Value Reference Range Comments PLATELET COUNT (BEAKER) (test ekpg=374) 145 K/CU MM 150-450 LACTIC ACID, ARTERIAL, WHOLE [id number] 18:49:00 Test Item Value Reference Range Comments LACTATE BLOOD ARTERIAL (2) (BEAKER) (test 3.2 mmol/L 0.5-2.2 vuzt=5791) Effective 02/23/2016: Units/Reference Range ChangeNew: 0.5-2.2 mmol/L Previous: 5 -20 mg/[id number] 18:47:00 Test Item Value Reference Range Comments POTASSIUM (BEAKER) (test pruj=655) 4.4 meq/L 3.5-5.1 [id number] 18:47:00 Test Item Value Reference Range Comments MAGNESIUM (BEAKER) (test skyn=709) 1.8 mg/dL 1.6-2.6 [id number] 18:47:00 Test Item Value Reference Range Comments PHOSPHORUS (BEAKER) (test szgb=710) 3.6 mg/dL 2.3-4.7 [id number] 18:47:00 Test Item Value Reference Range Comments GLUCOSE RANDOM (BEAKER) (test pehi=809) 159 mg/dL 70-105 Effective 09/08/2014: Reference Range Change-Adult onlyNew: 70-105 Previous : 70-110BASIC METABOLIC [id number] 18:47:00 Test Item Value Reference Range Comments SODIUM (BEAKER) (test 145 meq/L 136-145 hbfm=495) POTASSIUM (BEAKER) (test 4.4 meq/L 3.5-5.1 vjpd=107) CHLORIDE (BEAKER) (test 113 meq/L 98-107 aqth=951) CO2 (BEAKER) (test 22 meq/L 22-29 rxqq=295) BLOOD UREA NITROGEN 16 mg/dL 7-21 (BEAKER) (test sjli=948) CREATININE (BEAKER) (test 1.04 mg/dL 0.57-1.25 nxzc=659) GLUCOSE RANDOM (BEAKER) 159 mg/dL 70-105 (test tzhu=321) CALCIUM (BEAKER) (test 9.8 mg/dL 8.4-10.2 plzs=045) EGFR (BEAKER) (test 87 mL/min/1.73 sq m ESTIMATED GFR IS NOT exbx=8326) ACCURATE CREATININE CLEARANCE IN PREDICTING GLOMERULAR FILTRATION RATE. ESTIMATED GFR IS NOT APPLICABLE FOR DIALYSIS PATIENTS. [id number] 18:33:00 Test Item Value Reference Range Comments FIBRINOGEN LEVEL (BEAKER) (test wopk=681) 213 mg/dl 225-434 [id number] 18:33:00 Test Item Value Reference Range Comments PARTIAL THROMBOPLASTIN TIME (BEAKER) (test 41.2 seconds 22.5-36.0 xymh=765) PROTHROMBIN [id number] 18:32:00 Test Item Value Reference Range Comments PROTIME (BEAKER) (test zlsf=616) 15.8 seconds 11.7-14.7 INR (BEAKER) (test meen=311) 1.3 <=5.9 RECOMMENDED COUMADIN/WARFARIN INR THERAPY RANGESSTANDARD DOSE: 2.0 - 3.0 Includes: PROPHYLAXIS forvenous thrombosis, systemic embolization; TREATMENT for venous thrombosis and/or pulmonary embolus.HIGH RISK: Target INR is 2.5-3.5 for patients with mechanical heart valves.OXYGEN SATURATION, [id number] 18:18:00 Test Item Value Reference Range Comments O2 SATURATION (MEASURED) (BEAKER) (test pyji=9554) 67.4 % CALCIUM, [id number] 18:16:00 Test Item Value Reference Range Comments CALCIUM IONIZED (BEAKER) (test fptm=667) 1.30 mmol/L 1.12-1.27 PH, BLOOD (BEAKER) (test jlzl=9611) 7.37 SODIUM NA-STAT [id number] 18:15:00 Test Item Value Reference Range Comments SODIUM (BEAKER) (test myyj=264) 140 meq/L 135-148 POTASSIUM-STAT [id number] 18:15:00 Test Item Value Reference Range Comments POTASSIUM (BEAKER) (test lflh=511) 4.2 meq/L 3.6-5.5 BLOOD GAS, [id number] 18:15:00 Test Item Value Reference Range Comments PH ARTERIAL (BEAKER) (test ryew=876) 7.37 7.35-7.45 PCO2 ARTERIAL (BEAKER) (test hord=995) 41 mmHg 35-45 PO2 ARTERIAL (BEAKER) (test orvl=429) 183 mmHg 80-90 O2 SATURATION ARTERIAL (BEAKER) (test oghi=827) 99.2 % 96.0-97.0 HCO3 ARTERIAL (BEAKER) (test cktc=450) 23 mmol/L 21-29 BASE EXCESS ARTERIAL (BEAKER) (test mpuq=801) -2.1 mmol/L -2.0-3.0 PATIENT TEMPERATURE (BEAKER) (test flay=0516) 37.7 C FIO2 (BEAKER) (test qcjz=9310) 60.0 % GLUCOSE-STAT [id number] 18:15:00 Test Item Value Reference Range Comments GLUCOSE RANDOM (BEAKER) (test chwf=560) 141 mg/dL 70-110 HEMOGLOBIN-STAT [id number] 18:15:00 Test Item Value Reference Range Comments HEMOGLOBIN (BEAKER) (test ygud=076) 9.0 g/dL 13.0-16.8 [id number] 17:20:00 Test Item Value Reference Range Comments PARTIAL THROMBOPLASTIN TIME (BEAKER) (test 35.2 seconds 22.5-36.0 xure=841) SODIUM NA-STAT [id number] 17:18:00 Test Item Value Reference Range Comments SODIUM (BEAKER) (test bups=224) 139 meq/L 135-148 POTASSIUM-STAT [id number] 17:18:00 Test Item Value Reference Range Comments POTASSIUM (BEAKER) (test iesh=657) 4.0 meq/L 3.6-5.5 CALCIUM, [id number] 17:18:00 Test Item Value Reference Range Comments CALCIUM IONIZED (BEAKER) (test nypv=134) 1.20 mmol/L 1.12-1.27 PH, BLOOD (BEAKER) (test jpyd=2257) 7.39 BLOOD GAS, [id number] 17:18:00 Test Item Value Reference Range Comments PH ARTERIAL (BEAKER) (test uuim=573) 7.39 7.35-7.45 PCO2 ARTERIAL (BEAKER) (test jxkf=503) 38 mmHg 35-45 PO2 ARTERIAL (BEAKER) (test opub=083) 384 mmHg 80-90 O2 SATURATION ARTERIAL (BEAKER) (test zvui=959) 99.8 % 96.0-97.0 HCO3 ARTERIAL (BEAKER) (test sfxf=235) 23 mmol/L 21-29 BASE EXCESS ARTERIAL (BEAKER) (test hbzf=313) -2.2 mmol/L -2.0-3.0 PATIENT TEMPERATURE (BEAKER) (test kxas=4000) 37.3 C FIO2 (BEAKER) (test ywmr=2072) 100.0 % GLUCOSE-STAT [id number] 17:18:00 Test Item Value Reference Range Comments GLUCOSE RANDOM (BEAKER) (test gctv=154) 146 mg/dL 70-110 HGB/HCT (H&H) - STAT [id number] 17:18:00 Test Item Value Reference Range Comments HEMOGLOBIN (BEAKER) (test rtkb=555) 8.1 g/dL 13.0-16.8 HEMATOCRIT (BEAKER) (test bkbd=533) 24.0 % 40.0-50.0 PLATELET [id number] 17:16:00 Test Item Value Reference Range Comments PLATELET COUNT (BEAKER) (test tkuy=200) 153 K/CU MM 150-450 [id number] 17:12:00 Test Item Value Reference Range Comments FIBRINOGEN LEVEL (BEAKER) (test zzfj=858) 228 mg/dl 225-434 PROTHROMBIN [id number] 17:11:00 Test Item Value Reference Range Comments PROTIME (BEAKER) (test hwpd=091) 16.9 seconds 11.7-14.7 INR (BEAKER) (test soag=082) 1.4 <=5.9 RECOMMENDED COUMADIN/WARFARIN INR THERAPY RANGESSTANDARD DOSE: 2.0 - 3.0 Includes: PROPHYLAXIS forvenous thrombosis, systemic embolization; TREATMENT for venous thrombosis and/or pulmonary embolus.HIGH RISK: Target INR is 2.5-3.5 for patients with mechanical heart valves.SODIUM NA-STAT [id number] 16:19:00 Test Item Value Reference Range Comments SODIUM (BEAKER) (test afrp=433) 140 meq/L 135-148 POTASSIUM-STAT [id number] 16:19:00 Test Item Value Reference Range Comments POTASSIUM (BEAKER) (test xmbr=829) 3.9 meq/L 3.6-5.5 BLOOD GAS, [id number] 16:19:00 Test Item Value Reference Range Comments PH ARTERIAL (BEAKER) (test fbqj=039) 7.39 7.35-7.45 PCO2 ARTERIAL (BEAKER) (test komw=363) 38 mmHg 35-45 PO2 ARTERIAL (BEAKER) (test mmpc=959) 350 mmHg 80-90 O2 SATURATION ARTERIAL (BEAKER) (test jqxm=403) 99.8 % 96.0-97.0 HCO3 ARTERIAL (BEAKER) (test necn=805) 23 mmol/L 21-29 BASE EXCESS ARTERIAL (BEAKER) (test keyl=969) -2.2 mmol/L -2.0-3.0 PATIENT TEMPERATURE (BEAKER) (test llbx=7972) 37.0 C FIO2 (BEAKER) (test auha=1915) 100.0 % GLUCOSE-STAT [id number] 16:19:00 Test Item Value Reference Range Comments GLUCOSE RANDOM (BEAKER) (test knlb=553) 123 mg/dL 70-110 HGB/HCT (H&H) - STAT [id number] 16:19:00 Test Item Value Reference Range Comments HEMOGLOBIN (BEAKER) (test mdpi=805) 8.7 g/dL 13.0-16.8 HEMATOCRIT (BEAKER) (test xrrh=739) 26.0 % 40.0-50.0 CALCIUM, [id number] 16:19:00 Test Item Value Reference Range Comments CALCIUM IONIZED (BEAKER) (test fkiv=487) 1.32 mmol/L 1.12-1.27 PH, BLOOD (BEAKER) (test zdrc=3395) 7.39 THROMBOELASTOGRAPH (TEG)[id number] 15:50:00 Test Item Value Reference Range Comments TEG ACTIVATED CLOTTING TIME (BEAKER) (test 6.2 minutes 4.0-7.0 ruov=2760) TEG FIBRINOGEN ACTIVITY (BEAKER) (test 76.0 degrees 61.0-73.0 uwzk=7347) TEG PLT. AGGREGATION (BEAKER) (test ithp=8443) 60.0 MM 55.0-65.0 TEG FIBRINOLYSIS (BEAKER) (test pxnb=5297) 4.2 % 0.0-5.0 TGH ACTIVATED CLOTTING TIME (BEAKER) (test 6.5 minutes 4.0-7.0 bdar=5689) TGH FIBRINOGEN ACTIVITY (BEAKER) (test 77.1 degrees 61.0-73.0 jctx=4739) TGH PLT. AGGREGATION (BEAKER) (test pfzd=3873) 70.0 MM 55.0-65.0 TGH FIBRINOLYSIS (BEAKER) (test lifz=0958) 0.0 % 0.0-5.0 SODIUM NA-STAT [id number] 15:42:00 Test Item Value Reference Range Comments SODIUM (BEAKER) (test yjdc=508) 136 meq/L 135-148 POTASSIUM-STAT [id number] 15:42:00 Test Item Value Reference Range Comments POTASSIUM (BEAKER) (test kklz=989) 4.3 meq/L 3.6-5.5 BLOOD GAS, [id number] 15:42:00 Test Item Value Reference Range Comments PH ARTERIAL (BEAKER) (test xofz=277) 7.36 7.35-7.45 PCO2 ARTERIAL (BEAKER) (test yatq=453) 40 mmHg 35-45 PO2 ARTERIAL (BEAKER) (test bwsx=938) 326 mmHg 80-90 O2 SATURATION ARTERIAL (BEAKER) (test kinu=087) 99.7 % 96.0-97.0 HCO3 ARTERIAL (BEAKER) (test rael=118) 22 mmol/L 21-29 BASE EXCESS ARTERIAL (BEAKER) (test zkde=449) -3.1 mmol/L -2.0-3.0 PATIENT TEMPERATURE (BEAKER) (test dken=5393) 36.5 C FIO2 (BEAKER) (test dkml=2922) 100.0 % GLUCOSE-STAT [id number] 15:42:00 Test Item Value Reference Range Comments GLUCOSE RANDOM (BEAKER) (test xqme=067) 136 mg/dL 70-110 HGB/HCT (H&H) - STAT [id number] 15:42:00 Test Item Value Reference Range Comments HEMOGLOBIN (BEAKER) (test gbxt=397) 9.7 g/dL 13.0-16.8 HEMATOCRIT (BEAKER) (test uwtf=521) 29.0 % 40.0-50.0 CALCIUM, [id number] 15:42:00 Test Item Value Reference Range Comments CALCIUM IONIZED (BEAKER) (test kgha=827) 1.30 mmol/L 1.12-1.27 PH, BLOOD (BEAKER) (test aljg=8869) 7.36 SODIUM NA-STAT [id number] 15:04:00 Test Item Value Reference Range Comments SODIUM (BEAKER) (test crtp=790) 138 meq/L 135-148 POTASSIUM-STAT [id number] 15:04:00 Test Item Value Reference Range Comments POTASSIUM (BEAKER) (test zwkw=918) 4.5 meq/L 3.6-5.5 CALCIUM, [id number] 15:04:00 Test Item Value Reference Range Comments CALCIUM IONIZED (BEAKER) (test wrpx=832) 1.33 mmol/L 1.12-1.27 PH, BLOOD (BEAKER) (test omwh=0634) 7.41 BLOOD GAS, [id number] 15:04:00 Test Item Value Reference Range Comments PH ARTERIAL (BEAKER) (test iijl=322) 7.41 7.35-7.45 PCO2 ARTERIAL (BEAKER) (test lahn=488) 40 mmHg 35-45 PO2 ARTERIAL (BEAKER) (test atwz=030) 402 mmHg 80-90 O2 SATURATION ARTERIAL (BEAKER) (test hhho=391) 99.8 % 96.0-97.0 HCO3 ARTERIAL (BEAKER) (test oezo=564) 25 mmol/L 21-29 BASE EXCESS ARTERIAL (BEAKER) (test yuuu=307) 0.1 mmol/L -2.0-3.0 PATIENT TEMPERATURE (BEAKER) (test azic=9920) 36.1 C FIO2 (BEAKER) (test ovch=0744) 97.0 % GLUCOSE-STAT [id number] 15:04:00 Test Item Value Reference Range Comments GLUCOSE RANDOM (BEAKER) (test nete=063) 120 mg/dL 70-110 HGB/HCT (H&H) - STAT [id number] 15:04:00 Test Item Value Reference Range Comments HEMOGLOBIN (BEAKER) (test qouq=077) 6.4 g/dL 13.0-16.8 HEMATOCRIT (BEAKER) (test xqmu=118) 19.0 % 40.0-50.0 [id number] 15:00:00 Test Item Value Reference Range Comments FIBRINOGEN LEVEL (BEAKER) (test fpme=720) 295 mg/dl 225-434 [id number] 15:00:00 Test Item Value Reference Range Comments PARTIAL THROMBOPLASTIN TIME (BEAKER) (test 37.7 seconds 22.5-36.0 zqwc=992) PROTHROMBIN TIME/[id number] 14:59:00 Test Item Value Reference Range Comments PROTIME (BEAKER) (test uruy=893) 16.9 seconds 11.7-14.7 INR (BEAKER) (test drhz=757) 1.4 <=5.9 RECOMMENDED COUMADIN/WARFARIN INR THERAPY RANGESSTANDARD DOSE: 2.0 - 3.0 Includes: PROPHYLAXIS forvenous thrombosis, systemic embolization; TREATMENT for venous thrombosis and/or pulmonary embolus.HIGH RISK: Target INR is 2.5-3.5 for patients with mechanical heart valves.PLATELET [id number] 14:48:00 Test Item Value Reference Range Comments PLATELET COUNT (BEAKER) (test cbel=210) 265 K/CU MM 150-450 SODIUM NA-STAT [id number] 14:34:00 Test Item Value Reference Range Comments SODIUM (BEAKER) (test rpve=404) 139 meq/L 135-148 POTASSIUM-STAT [id number] 14:34:00 Test Item Value Reference Range Comments POTASSIUM (BEAKER) (test xaap=469) 4.2 meq/L 3.6-5.5 BLOOD GAS, [id number] 14:34:00 Test Item Value Reference Range Comments PH ARTERIAL (BEAKER) (test ezxs=280) 7.37 7.35-7.45 PCO2 ARTERIAL (BEAKER) (test hpms=602) 41 mmHg 35-45 PO2 ARTERIAL (BEAKER) (test hixu=577) 281 mmHg 80-90 O2 SATURATION ARTERIAL (BEAKER) (test bhqi=035) 99.6 % 96.0-97.0 HCO3 ARTERIAL (BEAKER) (test hsmu=515) 23 mmol/L 21-29 BASE EXCESS ARTERIAL (BEAKER) (test week=201) -2.2 mmol/L -2.0-3.0 PATIENT TEMPERATURE (BEAKER) (test fskv=2884) 35.7 C FIO2 (BEAKER) (test jtxj=6876) 97.0 % GLUCOSE-STAT [id number] 14:34:00 Test Item Value Reference Range Comments GLUCOSE RANDOM (BEAKER) (test cexp=891) 136 mg/dL 70-110 HGB/HCT (H&H) - STAT [id number] 14:34:00 Test Item Value Reference Range Comments HEMOGLOBIN (BEAKER) (test rluz=656) 9.0 g/dL 13.0-16.8 HEMATOCRIT (BEAKER) (test mkmr=502) 26.0 % 40.0-50.0 CALCIUM, [id number] 14:34:00 Test Item Value Reference Range Comments CALCIUM IONIZED (BEAKER) (test hksq=278) 0.87 mmol/L 1.12-1.27 PH, BLOOD (BEAKER) (test yded=2213) 7.35 THROMBOELASTOGRAPH (TEG)2017-06-06 14:09:00 Test Item Value Reference Range Comments TEG ACTIVATED CLOTTING TIME (BEAKER) (test 9.0 minutes 4.0-7.0 yblb=9623) TEG FIBRINOGEN ACTIVITY (BEAKER) (test 49.2 degrees 61.0-73.0 rhne=4377) TEG PLT. AGGREGATION (BEAKER) (test zpml=7672) 38.7 MM 55.0-65.0 TGH ACTIVATED CLOTTING TIME (BEAKER) (test 9.2 minutes 4.0-7.0 mygz=1769) TGH FIBRINOGEN ACTIVITY (BEAKER) (test 50.5 degrees 61.0-73.0 pelh=4480) TGH PLT. AGGREGATION (BEAKER) (test yzpk=8375) 41.7 MM 55.0-65.0 PLATELET [id number] 13:42:00 Test Item Value Reference Range Comments PLATELET COUNT (BEAKER) 42 K/CU MM 150-450 Discordant result compared to (test ogbh=993) previous result; clinical correlation required. [id number] 13:32:00 Test Item Value Reference Range Comments FIBRINOGEN LEVEL (BEAKER) (test gozf=481) 134 mg/dl 225-434 PROTHROMBIN [id number] 13:27:00 Test Item Value Reference Range Comments PROTIME (BEAKER) (test cisk=129) 26.7 seconds 11.7-14.7 INR (BEAKER) (test cyof=188) 2.5 <=5.9 RECOMMENDED COUMADIN/WARFARIN INR THERAPY RANGESSTANDARD DOSE: 2.0 - 3.0 Includes: PROPHYLAXIS forvenous thrombosis, systemic embolization; TREATMENT for venous thrombosis and/or pulmonary embolus.HIGH RISK: Target INR is 2.5-3.5 for patients with mechanical heart valves.[id number] 13:27:00 Test Item Value Reference Range Comments PARTIAL THROMBOPLASTIN TIME (BEAKER) (test 41.7 seconds 22.5-36.0 zusu=075) BLOOD GAS, [id number] 13:10:00 Test Item Value Reference Range Comments PH ARTERIAL (BEAKER) (test jyii=562) 7.35 7.35-7.45 PCO2 ARTERIAL (BEAKER) (test obae=392) 41 mmHg 35-45 PO2 ARTERIAL (BEAKER) (test suhq=602) 276 mmHg 80-90 O2 SATURATION ARTERIAL (BEAKER) (test kwtd=484) 99.6 % 96.0-97.0 HCO3 ARTERIAL (BEAKER) (test itrx=910) 22 mmol/L 21-29 BASE EXCESS ARTERIAL (BEAKER) (test aswi=799) -3.2 mmol/L -2.0-3.0 PATIENT TEMPERATURE (BEAKER) (test pxbp=8406) 36.4 C FIO2 (BEAKER) (test cguf=9263) 97.0 % GLUCOSE-STAT [id number] 13:10:00 Test Item Value Reference Range Comments GLUCOSE RANDOM (BEAKER) (test nisj=519) 145 mg/dL 70-110 HGB/HCT (H&H) - STAT [id number] 13:10:00 Test Item Value Reference Range Comments HEMOGLOBIN (BEAKER) (test yfyc=224) 9.2 g/dL 13.0-16.8 HEMATOCRIT (BEAKER) (test rekc=619) 27.0 % 40.0-50.0 CALCIUM, [id number] 13:10:00 Test Item Value Reference Range Comments CALCIUM IONIZED (BEAKER) (test drid=144) 1.16 mmol/L 1.12-1.27 PH, BLOOD (BEAKER) (test fdne=1493) 7.34 SODIUM NA-STAT [id number] 13:09:00 Test Item Value Reference Range Comments SODIUM (BEAKER) (test jlne=059) 135 meq/L 135-148 POTASSIUM-STAT [id number] 13:09:00 Test Item Value Reference Range Comments POTASSIUM (BEAKER) (test smqp=696) 4.2 meq/L 3.6-5.5 POTASSIUM-STAT [id number] 12:39:00 Test Item Value Reference Range Comments POTASSIUM (BEAKER) (test rwdw=248) 5.4 meq/L 3.6-5.5 BLOOD GAS, [id number] 12:39:00 Test Item Value Reference Range Comments PH ARTERIAL (BEAKER) (test mgaw=980) 7.26 7.35-7.45 PCO2 ARTERIAL (BEAKER) (test wkyt=680) 42 mmHg 35-45 PO2 ARTERIAL (BEAKER) (test aeej=678) 266 mmHg 80-90 O2 SATURATION ARTERIAL (BEAKER) (test awxh=588) 99.5 % 96.0-97.0 HCO3 ARTERIAL (BEAKER) (test skgn=803) 19 mmol/L 21-29 BASE EXCESS ARTERIAL (BEAKER) (test kyid=906) -8.2 mmol/L -2.0-3.0 PATIENT TEMPERATURE (BEAKER) (test nrgj=0852) 36.3 C FIO2 (BEAKER) (test gplx=6860) 75.0 % GLUCOSE-STAT [id number] 12:39:00 Test Item Value Reference Range Comments GLUCOSE RANDOM (BEAKER) (test ssez=601) 164 mg/dL 70-110 HGB/HCT (H&H) - STAT [id number] 12:39:00 Test Item Value Reference Range Comments HEMOGLOBIN (BEAKER) (test drac=620) 10.2 g/dL 13.0-16.8 HEMATOCRIT (BEAKER) (test qmsh=356) 30.0 % 40.0-50.0 SODIUM NA-STAT [id number] 12:39:00 Test Item Value Reference Range Comments SODIUM (BEAKER) (test null=852) 134 meq/L 135-148 CALCIUM, [id number] 12:12:00 Test Item Value Reference Range Comments CALCIUM IONIZED (BEAKER) (test hhdz=214) 1.15 mmol/L 1.12-1.27 PH, BLOOD (BEAKER) (test ryek=7154) 7.32 BLOOD GAS, [id number] 12:12:00 Test Item Value Reference Range Comments PH ARTERIAL (BEAKER) (test ucag=164) 7.33 7.35-7.45 PCO2 ARTERIAL (BEAKER) (test waeb=715) 40 mmHg 35-45 PO2 ARTERIAL (BEAKER) (test kpws=681) 347 mmHg 80-90 O2 SATURATION ARTERIAL (BEAKER) (test ivmt=914) 99.7 % 96.0-97.0 HCO3 ARTERIAL (BEAKER) (test lymd=845) 21 mmol/L 21-29 BASE EXCESS ARTERIAL (BEAKER) (test eztg=207) -4.8 mmol/L -2.0-3.0 PATIENT TEMPERATURE (BEAKER) (test loer=9424) 36.0 C FIO2 (BEAKER) (test nxmu=4369) 100.0 % HGB/HCT (H&H) - STAT [id number] 12:12:00 Test Item Value Reference Range Comments HEMOGLOBIN (BEAKER) (test cijv=779) 9.0 g/dL 13.0-16.8 HEMATOCRIT (BEAKER) (test ggdm=144) 26.0 % 40.0-50.0 GLUCOSE-STAT [id number] 12:12:00 Test Item Value Reference Range Comments GLUCOSE RANDOM (BEAKER) (test ztwz=969) 152 mg/dL 70-110 SODIUM NA-STAT [id number] 12:11:00 Test Item Value Reference Range Comments SODIUM (BEAKER) (test grzm=899) 135 meq/L 135-148 POTASSIUM-STAT [id number] 12:11:00 Test Item Value Reference Range Comments POTASSIUM (BEAKER) (test oefq=687) 4.4 meq/L 3.6-5.5 THROMBOELASTOGRAPH (TEG)2017-06-06 12:06:00 Test Item Value Reference Range Comments TEG ACTIVATED CLOTTING TIME (BEAKER) (test 2.9 minutes 4.0-7.0 rmqe=3252) TEG FIBRINOGEN ACTIVITY (BEAKER) (test 72.1 degrees 61.0-73.0 ulns=8180) TEG PLT. AGGREGATION (BEAKER) (test uxzc=1970) 60.0 MM 55.0-65.0 TGH ACTIVATED CLOTTING TIME (BEAKER) (test 3.1 minutes 4.0-7.0 winz=4452) TGH FIBRINOGEN ACTIVITY (BEAKER) (test 72.7 degrees 61.0-73.0 erox=1390) TGH PLT. AGGREGATION (BEAKER) (test sebw=6097) 65.2 MM 55.0-65.0 PROTHROMBIN [id number] 11:40:00 Test Item Value Reference Range Comments PROTIME (BEAKER) (test ivmf=018) 19.4 seconds 11.7-14.7 INR (BEAKER) (test xkjy=518) 1.6 <=5.9 RECOMMENDED COUMADIN/WARFARIN INR THERAPY RANGESSTANDARD DOSE: 2.0 - 3.0 Includes: PROPHYLAXIS forvenous thrombosis, systemic embolization; TREATMENT for venous thrombosis and/or pulmonary embolus.HIGH RISK: Target INR is 2.5-3.5 for patients with mechanical heart valves.[id number] 11:40:00 Test Item Value Reference Range Comments PARTIAL THROMBOPLASTIN TIME (BEAKER) (test 31.1 seconds 22.5-36.0 vzgx=675) [id number] 11:40:00 Test Item Value Reference Range Comments FIBRINOGEN LEVEL (BEAKER) (test pkxt=451) 195 mg/dl 225-434 PLATELET [id number] 11:30:00 Test Item Value Reference Range Comments PLATELET COUNT (BEAKER) (test usha=106) 161 K/CU MM 150-450 POTASSIUM-STAT [id number] 11:18:00 Test Item Value Reference Range Comments POTASSIUM (BEAKER) (test yslp=285) 3.7 meq/L 3.6-5.5 CALCIUM, [id number] 11:18:00 Test Item Value Reference Range Comments CALCIUM IONIZED (BEAKER) (test mvfh=193) 1.23 mmol/L 1.12-1.27 PH, BLOOD (BEAKER) (test abgs=0509) 7.36 BLOOD GAS, [id number] 11:18:00 Test Item Value Reference Range Comments PH ARTERIAL (BEAKER) (test hbdu=816) 7.39 7.35-7.45 PCO2 ARTERIAL (BEAKER) (test voxo=981) 35 mmHg 35-45 PO2 ARTERIAL (BEAKER) (test aghm=478) 397 mmHg 80-90 O2 SATURATION ARTERIAL (BEAKER) (test zezp=080) 99.8 % 96.0-97.0 HCO3 ARTERIAL (BEAKER) (test evuv=785) 21 mmol/L 21-29 BASE EXCESS ARTERIAL (BEAKER) (test obrk=285) -4.1 mmol/L -2.0-3.0 PATIENT TEMPERATURE (BEAKER) (test jpoy=7264) 35.3 C FIO2 (BEAKER) (test wiqf=9346) 87.0 % SODIUM NA-STAT [id number] 11:18:00 Test Item Value Reference Range Comments SODIUM (BEAKER) (test hbzy=056) 134 meq/L 135-148 GLUCOSE-STAT [id number] 11:18:00 Test Item Value Reference Range Comments GLUCOSE RANDOM (BEAKER) (test ybdz=146) 134 mg/dL 70-110 HGB/HCT (H&H) - STAT [id number] 11:18:00 Test Item Value Reference Range Comments HEMOGLOBIN (BEAKER) (test mltu=634) 5.8 g/dL 13.0-16.8 HEMATOCRIT (BEAKER) (test jalz=432) 17.0 % 40.0-50.0 SODIUM NA-STAT [id number] 11:09:00 Test Item Value Reference Range Comments SODIUM (BEAKER) (test yzun=432) 135 meq/L 135-148 POTASSIUM-STAT [id number] 11:09:00 Test Item Value Reference Range Comments POTASSIUM (BEAKER) (test hbqw=489) 3.7 meq/L 3.6-5.5 BLOOD GAS, [id number] 11:09:00 Test Item Value Reference Range Comments PH ARTERIAL (BEAKER) (test vwst=850) 7.39 7.35-7.45 PCO2 ARTERIAL (BEAKER) (test hhgf=704) 35 mmHg 35-45 PO2 ARTERIAL (BEAKER) (test bnch=211) 321 mmHg 80-90 O2 SATURATION ARTERIAL (BEAKER) (test ujkw=545) 99.7 % 96.0-97.0 HCO3 ARTERIAL (BEAKER) (test dmez=898) 21 mmol/L 21-29 BASE EXCESS ARTERIAL (BEAKER) (test dbja=592) -3.9 mmol/L -2.0-3.0 PATIENT TEMPERATURE (BEAKER) (test nqmq=1900) 35.2 C FIO2 (BEAKER) (test mhce=1566) 97.0 % GLUCOSE-STAT [id number] 11:09:00 Test Item Value Reference Range Comments GLUCOSE RANDOM (BEAKER) (test yqdu=262) 135 mg/dL 70-110 HGB/HCT (H&H) - STAT [id number] 11:09:00 Test Item Value Reference Range Comments HEMOGLOBIN (BEAKER) (test ivvy=628) 6.3 g/dL 13.0-16.8 HEMATOCRIT (BEAKER) (test lava=482) 19.0 % 40.0-50.0 CALCIUM, [id number] 11:09:00 Test Item Value Reference Range Comments CALCIUM IONIZED (BEAKER) (test lamh=366) 1.26 mmol/L 1.12-1.27 PH, BLOOD (BEAKER) (test yqcs=8158) 7.36 PLATELET AGGREGATION: FUNCTION [id number] 11:07:00 Test Item Value Reference Range Comments WEAK ADP RESULT(BEAKER) (test 63 % 60-91 xggt=5159) PLATELET FUNCTION SCREEN 60-100% indicates normal INTERP (BEAKER) (test platelet function jpca=7484) [id number]-[id number] (BEAKER) Cecily Almonte MD (electronic (test yqou=6882) signature) PLATELET COUNT AGG (BEAKER) 228 K/CU MM 150-450 (test yjyt=6235) for patients on clopidogrel in past two weeksTHROMBOELASTOGRAPH (TEG)2017-06-06 10:33:00 Test Item Value Reference Range Comments TEG ACTIVATED CLOTTING TIME (BEAKER) (test 5.1 minutes 4.0-7.0 gkaf=6878) TEG FIBRINOGEN ACTIVITY (BEAKER) (test 66.3 degrees 61.0-73.0 anhs=7165) TEG PLT. AGGREGATION (BEAKER) (test snuc=8961) 51.7 MM 55.0-65.0 TGH ACTIVATED CLOTTING TIME (BEAKER) (test 5.1 minutes 4.0-7.0 qldn=4368) TGH FIBRINOGEN ACTIVITY (BEAKER) (test 68.4 degrees 61.0-73.0 rjry=2478) TGH PLT. AGGREGATION (BEAKER) (test rvfg=3790) 58.0 MM 55.0-65.0 PLATELET [id number] 10:12:00 Test Item Value Reference Range Comments PLATELET COUNT (BEAKER) 95 K/CU MM 150-450 Discordant result compared to (test eesi=198) previous result; clinical correlation required. [id number] 10:06:00 Test Item Value Reference Range Comments PARTIAL THROMBOPLASTIN TIME (BEAKER) (test 35.3 seconds 22.5-36.0 sczi=003) [id number] 10:06:00 Test Item Value Reference Range Comments FIBRINOGEN LEVEL (BEAKER) (test kdfl=021) 161 mg/dl 225-434 PROTHROMBIN [id number] 10:05:00 Test Item Value Reference Range Comments PROTIME (BEAKER) (test tfsb=251) 22.0 seconds 11.7-14.7 INR (BEAKER) (test jlau=000) 1.9 <=5.9 RECOMMENDED COUMADIN/WARFARIN INR THERAPY RANGESSTANDARD DOSE: 2.0 - 3.0 Includes: PROPHYLAXIS forvenous thrombosis, systemic embolization; TREATMENT for venous thrombosis and/or pulmonary embolus.HIGH RISK: Target INR is 2.5-3.5 for patients with mechanical heart valves.CALCIUM, [id number] 09:49:00 Test Item Value Reference Range Comments CALCIUM IONIZED (BEAKER) (test wrjr=124) 1.18 mmol/L 1.12-1.27 PH, BLOOD (BEAKER) (test uuhm=2692) 7.38 BLOOD GAS, [id number] 09:49:00 Test Item Value Reference Range Comments PH ARTERIAL (BEAKER) (test dptx=701) 7.40 7.35-7.45 PCO2 ARTERIAL (BEAKER) (test peqp=979) 33 mmHg 35-45 PO2 ARTERIAL (BEAKER) (test euxt=126) 293 mmHg 80-90 O2 SATURATION ARTERIAL (BEAKER) (test ihsz=923) 99.7 % 96.0-97.0 HCO3 ARTERIAL (BEAKER) (test fvts=089) 21 mmol/L 21-29 BASE EXCESS ARTERIAL (BEAKER) (test uuyg=722) -4.2 mmol/L -2.0-3.0 PATIENT TEMPERATURE (BEAKER) (test rjme=1774) 35.6 C FIO2 (BEAKER) (test cqnl=9828) 100.0 % SODIUM NA-STAT [id number] 09:49:00 Test Item Value Reference Range Comments SODIUM (BEAKER) (test rqjz=432) 131 meq/L 135-148 HGB/HCT (H&H) - STAT [id number] 09:49:00 Test Item Value Reference Range Comments HEMOGLOBIN (BEAKER) (test gzfk=433) 7.1 g/dL 13.0-16.8 HEMATOCRIT (BEAKER) (test csae=342) 21.0 % 40.0-50.0 GLUCOSE-STAT [id number] 09:48:00 Test Item Value Reference Range Comments GLUCOSE RANDOM (BEAKER) (test hizd=625) 95 mg/dL 70-110 POTASSIUM-STAT [id number] 09:48:00 Test Item Value Reference Range Comments POTASSIUM (BEAKER) (test mono=797) 3.9 meq/L 3.6-5.5 BLOOD GAS, [id number] 09:22:00 Test Item Value Reference Range Comments PH ARTERIAL (BEAKER) (test ksij=889) 7.47 7.35-7.45 PCO2 ARTERIAL (BEAKER) (test lzbd=262) 30 mmHg 35-45 PO2 ARTERIAL (BEAKER) (test hsdh=879) 274 mmHg 80-90 O2 SATURATION ARTERIAL (BEAKER) (test lhlx=407) 99.7 % 96.0-97.0 HCO3 ARTERIAL (BEAKER) (test midb=066) 22 mmol/L 21-29 BASE EXCESS ARTERIAL (BEAKER) (test svlv=685) -2.4 mmol/L -2.0-3.0 PATIENT TEMPERATURE (BEAKER) (test lslf=6185) 33.0 C FIO2 (BEAKER) (test pfva=3609) 75.0 % SODIUM NA-STAT [id number] 09:22:00 Test Item Value Reference Range Comments SODIUM (BEAKER) (test jxbf=997) 131 meq/L 135-148 HGB/HCT (H&H) - STAT [id number] 09:22:00 Test Item Value Reference Range Comments HEMOGLOBIN (BEAKER) (test nnpx=673) 7.8 g/dL 13.0-16.8 HEMATOCRIT (BEAKER) (test koer=336) 23.0 % 40.0-50.0 GLUCOSE-STAT [id number] 09:20:00 Test Item Value Reference Range Comments GLUCOSE RANDOM (BEAKER) (test brvm=489) 94 mg/dL 70-110 POTASSIUM-STAT [id number] 09:20:00 Test Item Value Reference Range Comments POTASSIUM (BEAKER) (test vlod=944) 4.9 meq/L 3.6-5.5 SODIUM NA-STAT [id number] 09:07:00 Test Item Value Reference Range Comments SODIUM (BEAKER) (test hmst=650) 128 meq/L 135-148 HGB/HCT (H&H) - STAT [id number] 09:07:00 Test Item Value Reference Range Comments HEMOGLOBIN (BEAKER) (test scrs=924) 7.6 g/dL 13.0-16.8 HEMATOCRIT (BEAKER) (test fvzl=811) 22.0 % 40.0-50.0 GLUCOSE-STAT [id number] 09:06:00 Test Item Value Reference Range Comments GLUCOSE RANDOM (BEAKER) (test lucz=672) 94 mg/dL 70-110 POTASSIUM-STAT [id number] 09:06:00 Test Item Value Reference Range Comments POTASSIUM (BEAKER) (test pfyk=789) 4.5 meq/L 3.6-5.5 BLOOD GAS, [id number] 09:06:00 Test Item Value Reference Range Comments PH ARTERIAL (BEAKER) (test evkd=843) 7.32 7.35-7.45 PCO2 ARTERIAL (BEAKER) (test ersb=134) 43 mmHg 35-45 PO2 ARTERIAL (BEAKER) (test jsyk=046) 359 mmHg 80-90 O2 SATURATION ARTERIAL (BEAKER) (test modk=304) 99.7 % 96.0-97.0 HCO3 ARTERIAL (BEAKER) (test rksb=923) 22 mmol/L 21-29 BASE EXCESS ARTERIAL (BEAKER) (test shig=894) -4.1 mmol/L -2.0-3.0 PATIENT TEMPERATURE (BEAKER) (test exoi=7663) 36.0 C FIO2 (BEAKER) (test nqbn=3685) 65.0 % HEMOGLOBIN [id number] 08:59:00 Test Item Value Reference Range Comments HEMOGLOBIN A1C (BEAKER) (test ectw=656) 6.2 % 4.3-6.1 GLUCOSE-STAT [id number] 07:59:00 Test Item Value Reference Range Comments GLUCOSE RANDOM (BEAKER) (test fbnw=211) 85 mg/dL 70-110 SODIUM NA-STAT [id number] 07:59:00 Test Item Value Reference Range Comments SODIUM (BEAKER) (test dmfj=186) 136 meq/L 135-148 BLOOD GAS, [id number] 07:59:00 Test Item Value Reference Range Comments PH ARTERIAL (BEAKER) (test mhgg=288) 7.51 7.35-7.45 PCO2 ARTERIAL (BEAKER) (test mjeb=477) 30 mmHg 35-45 PO2 ARTERIAL (BEAKER) (test ajty=281) 368 mmHg 80-90 O2 SATURATION ARTERIAL (BEAKER) (test bxnf=899) 99.8 % 96.0-97.0 HCO3 ARTERIAL (BEAKER) (test zctv=868) 24 mmol/L 21-29 BASE EXCESS ARTERIAL (BEAKER) (test kjwj=202) 1.1 mmol/L -2.0-3.0 PATIENT TEMPERATURE (BEAKER) (test tvco=4176) 35.4 C FIO2 (BEAKER) (test aden=8092) 100.0 % POTASSIUM-STAT [id number] 07:59:00 Test Item Value Reference Range Comments POTASSIUM (BEAKER) (test edxz=920) 3.3 meq/L 3.6-5.5 CALCIUM, [id number] 07:59:00 Test Item Value Reference Range Comments CALCIUM IONIZED (BEAKER) (test cfwo=538) 1.13 mmol/L 1.12-1.27 PH, BLOOD (BEAKER) (test qojc=2294) 7.49 HGB/HCT (H&H) - STAT [id number] 07:59:00 Test Item Value Reference Range Comments HEMOGLOBIN (BEAKER) (test beja=844) 12.1 g/dL 13.0-16.8 HEMATOCRIT (BEAKER) (test jexg=379) 36.0 % 40.0-50.0 [id number] 02:52:00 Test Item Value Reference Range Comments PHOSPHORUS (BEAKER) (test jfek=228) 3.6 mg/dL 2.3-4.7 [id number] 02:52:00 Test Item Value Reference Range Comments MAGNESIUM (BEAKER) (test obgb=525) 2.0 mg/dL 1.6-2.6 BASIC METABOLIC [id number] 02:52:00 Test Item Value Reference Range Comments SODIUM (BEAKER) (test 137 meq/L 136-145 fzib=063) POTASSIUM (BEAKER) (test 3.9 meq/L 3.5-5.1 knwi=927) CHLORIDE (BEAKER) (test 104 meq/L 98-107 oycf=142) CO2 (BEAKER) (test 23 meq/L 22-29 fmlr=135) BLOOD UREA NITROGEN 21 mg/dL 7-21 (BEAKER) (test vfmf=349) CREATININE (BEAKER) (test 1.18 mg/dL 0.57-1.25 nort=965) GLUCOSE RANDOM (BEAKER) 103 mg/dL 70-105 (test unmg=617) CALCIUM (BEAKER) (test 9.4 mg/dL 8.4-10.2 wkjw=692) EGFR (BEAKER) (test 75 mL/min/1.73 sq m ESTIMATED GFR IS NOT fjob=9414) ACCURATE CREATININE CLEARANCE IN PREDICTING GLOMERULAR FILTRATION RATE. ESTIMATED GFR IS NOT APPLICABLE FOR DIALYSIS PATIENTS. PROTHROMBIN TIME/[id number] 02:51:00 Test Item Value Reference Range Comments PROTIME (BEAKER) (test ufgt=174) 13.5 seconds 11.7-14.7 INR (BEAKER) (test amya=147) 1.0 <=5.9 RECOMMENDED COUMADIN/WARFARIN INR THERAPY RANGESSTANDARD DOSE: 2.0 - 3.0 Includes: PROPHYLAXIS forvenous thrombosis, systemic embolization; TREATMENT for venous thrombosis and/or pulmonary embolus.HIGH RISK: Target INR is 2.5-3.5 for patients with mechanical heart valves.CBC W/PLT COUNT & AUTO [id number] 02:36:00 Test Item Value Reference Range Comments WHITE BLOOD CELL COUNT (BEAKER) (test amyn=458) 10.9 K/ L 3.5-10.5 RED BLOOD CELL COUNT (BEAKER) (test fnwn=881) 4.36 M/ L 4.63-6.08 HEMOGLOBIN (BEAKER) (test ixwa=138) 12.0 GM/DL 13.7-17.5 HEMATOCRIT (BEAKER) (test tgzo=907) 36.4 % 40.1-51.0 MEAN CORPUSCULAR VOLUME (BEAKER) (test wpmb=026) 83.5 fL 79.0-92.2 MEAN CORPUSCULAR HEMOGLOBIN (BEAKER) (test 27.5 pg 25.7-32.2 mmeq=819) MEAN CORPUSCULAR HEMOGLOBIN CONC (BEAKER) (test 33.0 GM/DL 32.3-36.5 serq=292) RED CELL DISTRIBUTION WIDTH (BEAKER) (test 14.4 % 11.6-14.4 bfpt=265) PLATELET COUNT (BEAKER) (test bbrj=682) 227 K/CU MM 150-450 MEAN PLATELET VOLUME (BEAKER) (test jzqn=054) 11.0 fL 9.4-12.4 NUCLEATED RED BLOOD CELLS (BEAKER) (test 0 /100 WBC 0-0 tyzz=351) NEUTROPHILS RELATIVE PERCENT (BEAKER) (test 69 % nuvz=478) LYMPHOCYTES RELATIVE PERCENT (BEAKER) (test 23 % uzxt=634) MONOCYTES RELATIVE PERCENT (BEAKER) (test 8 % zuur=401) EOSINOPHILS RELATIVE PERCENT (BEAKER) (test 0 % fzvk=020) BASOPHILS RELATIVE PERCENT (BEAKER) (test 0 % zefd=466) NEUTROPHILS ABSOLUTE COUNT (BEAKER) (test 7.47 K/ L 1.78-5.38 ardi=873) LYMPHOCYTES ABSOLUTE COUNT (BEAKER) (test 2.45 K/ L 1.32-3.57 ueoy=573) MONOCYTES ABSOLUTE COUNT (BEAKER) (test 0.87 K/ L 0.30-0.82 fass=397) EOSINOPHILS ABSOLUTE COUNT (BEAKER) (test 0.02 K/ L 0.04-0.54 caqs=115) BASOPHILS ABSOLUTE COUNT (BEAKER) (test 0.02 K/ L 0.01-0.08 qhuh=330) IMMATURE GRANULOCYTES-RELATIVE PERCENT (BEAKER) 1 % 0-1 (test lkgp=4620)
--- NOTE | 2018-04-24 12:23 | RAD REPORT ---
EXAM DESCRIPTION: RAD - Chest Single View - 04/24/2018 12:11 pm CLINICAL HISTORY: Right-sided chest pain COMPARISON: May 2017 TECHNIQUE: AP portable chest image was obtained 1159 hours . FINDINGS: No consolidated parenchyma. No failure or volume overload. Heart and vasculature are jose g l. CABG surgical changes are present since comparison. Left costophrenic angle blunting may be chroni c pleural scarring or pleural fluid. No gross bony abnormality seen. No acute aortic findings suspect ed. IMPRESSION: No abnormality seen to explain right-sided chest pain symptoms. CABG surgical changes. Left base pleural opacification could be scarring from surgery or small left p leural effusion.
[2018-04-24 13:12] LABS: BUN Blood Urea Nitrogen 10 mg/dL (7-18); Bicarbonate 27 mmol/L (21-32); CKMB Creatine Kinase MB < 1.0 ng/mL (0.3-3.6); Creatine Phosphokinase 94 U/L (39-308); Glucose Level 119 mg/dL (74-106); Magnesium 2.1 mg/dL (1.8-2.4); NT PRO-BNP 333 pg/mL (<125); Potassium 4.1 mmol/L (3.5-5.1); Sodium Level 138 mmol/L (136-145)
--- NOTE | 2018-04-24 13:47 | EDPHYS ---
Physician Documentation [facility] Name: Gordo Nava Age: 68 yrs Sex: Male : 1950 Arrival Date: 04/24/2018 Time: 11:46 Bed 7 Private MD: ED Physician Kel Morgan HPI: 04/24 12:19 This 68 yrs old Black Male presents to ER via Wheelchair with complaints of Chest Pain. rn 12:19 The patient or guardian reports chest pain that is located primarily in the substernal rn area. Onset: this morning, at 06:00. The pain radiates to the right arm. Associated signs and symptoms: Pertinent positives: dizziness, lightheadedness, Pertinent negatives: abdominal pain, palpitations, shortness of breath, syncope, vomiting. The chest pain is described as dull. Duration: The patient or guardian reports multiple episodes. Modifying factors: The symptoms are alleviated by nothing. the symptoms are aggravated by nothing. Severity of pain: At its worst the pain was moderate in the emergency department the pain has improved. The patient has experienced similar episodes in the past. Reports chest pain, right sided, radiates to right arm, began early this AM, improved with tylenol with codeine, returned, different from previous [place], no cough/sob. . Historical: - Allergies: 11:48 Iodine; sv - Home Meds: 19:32 allopurinol 300 mg Oral tab 1 tab once daily [Active]; aspirin 81 mg Oral chew 1 tab lp1 once daily [Active]; atorvastatin 10 mg Oral tab 1 tab once daily [Active]; clopidogrel 75 mg Oral tab 1 tab once daily [Active]; Diovan HCT 160-25 mg Oral tab 1 tab once daily [Active]; metoprolol succinate 50 mg Oral Tb24 1 tab once daily [Active]; omeprazole 40 mg Oral cpDR 1 cap once daily [Active]; Repatha Syringe 140 mg/mL subcutaneous syrg 3 mL once moly [Active]; valacyclovir 500 mg Oral tab 1 tab once daily [Active]; - PMHx: 11:48 CAD; Gout; Hyperlipidemia; Hypertension; sv - PSHx: 11:48 Heart stents; Appendectomy; triple bypass; sv - Immunization history:: Adult Immunizations up to date. - Social history:: Smoking status: Patient/guardian denies using tobacco. - Ebola Screening: : No symptoms or risks identified at this time. - Family history:: not pertinent. - Hospitalizations: : No recent hospitalization is reported. ROS: 12:19 Constitutional: Negative for fever, chills, and weight loss, Eyes: Negative for injury, rn pain, redness, and discharge, Neck: Negative for injury, pain, and swelling, Cardiovascular: + chest pain Respiratory: Negative for shortness of breath, cough, wheezing, and pleuritic chest pain, Abdomen/GI: Negative for abdominal pain, nausea, vomiting, diarrhea, and constipation, MS/Extremity: Negative for injury and deformity, Skin: Negative for injury, rash, and discoloration, Neuro: Negative for headache, weakness, numbness, tingling, and seizure. Exam: 12:19 Constitutional: This is a well developed, well nourished patient who is awake, alert, rn and in no acute distress. Head/Face: Normocephalic, atraumatic. Eyes: Pupils equal round and reactive to light, extra-ocular motions intact. Lids and lashes normal. Conjunctiva and sclera are non-icteric and not injected. Cornea within normal limits. Periorbital areas with no swelling, redness, or edema. Neck: Trachea midline, no thyromegaly or masses palpated, and no cervical lymphadenopathy. Supple, full range of motion without nuchal rigidity, or vertebral point tenderness. No Meningismus. Cardiovascular: Regular rate and rhythm with a normal S1 and S2. No gallops, murmurs, or rubs. Normal PMI, no JVD. No pulse deficits. Respiratory: Lungs have equal breath sounds bilaterally, clear to auscultation and percussion. No rales, rhonchi or wheezes noted. No increased work of breathing, no retractions or nasal flaring. Abdomen/GI: Soft, non-tender, with normal bowel sounds. No distension or tympany. No guarding or rebound. No evidence of tenderness throughout. MS/ Extremity: Pulses equal, no cyanosis. Neurovascular intact. Full, normal range of motion. Equal circumference. Neuro: Awake and alert, GCS 15, oriented to person, place, time, and situation. Cranial nerves II-XII grossly intact. Motor strength 5/5 in all extremities. Sensory grossly intact. Vital Signs: 11:48 BP 198 / 95; Pulse 65; Resp 20; Pulse Ox 99% ; Weight 78.02 kg; Height 5 ft. 5 in. sv (165.10 cm); Pain 7/10; 12:30 BP 195 / 85; Pulse 49; Resp 15; Pulse Ox 100% on R/A; hb 12:32 Temp 98.1; sg 14:00 BP 163 / 80; Pulse 44; Resp 15; Pulse Ox 100% on R/A; hb 15:00 BP 168 / 78; Pulse 54; Resp 15; Pulse Ox 100% on R/A; hb 16:00 BP 161 / 84; Pulse 54; Resp 15; Pulse Ox 100% on R/A; hb 17:00 BP 166 / 95; Pulse 62; Resp 14; Pulse Ox 100% on R/A; hb 18:00 BP 151 / 75; Pulse 63; Resp 18; Pulse Ox 100% on R/A; hb 19:15 BP 143 / 74; Pulse 62; Resp 17; Temp 98.4(O); Pulse Ox 100% on R/A; Pain 0/10; lp1 11:48 Body Mass Index 28.62 (78.02 kg, 165.10 cm) sv MDM: 11:46 Patient medically screened. rn 13:41 ED course: Consulted Dr. 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 13:43 Differential diagnosis: acute myocardial infarction, acute pericarditis, coronary rn artery disease costochondritis, gastroesophageal reflux disease (GERD), pleurisy, pneumothorax, stable angina, unstable angina. Data reviewed: vital signs, nurses notes, lab test result(s), EKG, radiologic studies, plain films, and as a result, I will admit patient. Counseling: I had a detailed discussion with the patient and/or guardian regarding: the historical points, exam findings, and any diagnostic results supporting the discharge/admit diagnosis, lab results, radiology results, the need for further work-up and treatment in the hospital. Response to treatment: the patient's symptoms have mildly improved after treatment, and as a result, I will admit patient. Admission orders: after a detailed discussion of the patient's condition and case, the admit orders are written by me. 04/24 11:53 Order name: Basic Metabolic Panel; Complete Time: 13:30 rn 04/24 11:53 Order name: CBC with Diff rn 04/24 11:53 Order name: Ckmb; Complete Time: 13:30 rn 04/24 11:53 Order name: CPK; Complete Time: 13:30 rn 04/24 11:53 Order name: Magnesium; Complete Time: 13:30 rn 04/24 11:53 Order name: NT PRO-BNP; Complete Time: 13:30 rn 04/24 11:53 Order name: PT-INR; Complete Time: 12:38 rn 04/24 11:53 Order name: Ptt, Activated; Complete Time: 12:38 rn 04/24 11:53 Order name: Troponin (emerg Dept Use Only); Complete Time: 13:10 rn 04/24 11:53 Order name: XRAY Chest (1 view); Complete Time: 12:25 rn 04/24 15:01 Order name: Urine Dipstick--Ancillary (enter results) em1 04/24 18:29 Order name: Ptt, Activated sg 04/24 11:49 Order name: EKG; Complete Time: 11:50 sv 04/24 11:49 Order name: EKG - Nurse/Tech; Complete Time: 18:55 sv 04/24 11:53 Order name: Cardiac monitoring; Complete Time: 14:03 rn 04/24 11:53 Order name: IV Saline Lock; Complete Time: 14:03 rn 04/24 11:53 Order name: Labs collected and sent; Complete Time: 14:03 rn 04/24 11:53 Order name: O2 Per Protocol; Complete Time: 14:03 rn 04/24 11:53 Order name: O2 Sat Monitoring; Complete Time: 14:03 rn 04/24 15:08 Order name: Diet Heart Healthy; Complete Time: 15:08 sg Administered Medications: 14:28 Drug: Heparin ([place]-Bolus No thrombolytic) - HEParin 60 units/kg {Co-Signature: hb sg (Joan Arora RN).} Route: IVP; Site: left forearm; 15:00 Follow up: Response: No adverse reaction sg 14:30 Drug: Aspirin Chewable Tablet 324 mg Route: PO; sg 15:00 Follow up: Response: No adverse reaction sg 14:30 Drug: Heparin ([place] Drip) 12 units/kg/hr - (HEParin 53166 units, D5W 500 ml) sg {Co-Signature: hb (Joan Arora RN).} Route: IV; Rate: calculated rate; Site: left forearm; 18:53 Follow up: IV Status: Infusion continued upon admission sg Disposition: 04/24/18 13:46 Hospitalization ordered by Ariel Andrade for Observation. Preliminary diagnosis is Chest pain, unspecified. - Bed requested for Telemetry/MedSurg (observation). - Status is Observation. lp1 - Condition is Stable. - Problem is new. - Symptoms have improved. UTI on Admission? No Signatures: Dispatcher [employer] EDMaricruz Donald, RN VALERIE Rico Syed RN RN Kel Morgan MD MD rn Martinez, Eric em1 Delaney Melendez RN RN lp1 Joan Arora RN Corrections: (The following items were deleted from the chart) 17:31 13:46 Hospitalization Ordered by Ariel Andrade MD for Observation. Preliminary diagnosis em1 is Chest pain, unspecified. Bed requested for Telemetry/MedSurg (observation). Status is Observation. Condition is Stable. Problem is new. Symptoms have improved. UTI on Admission? No. rn 20:06 17:31 04/24/2018 13:46 Hospitalization Ordered by Ariel Andrade MD for Observation. lp1 Preliminary diagnosis is Chest pain, unspecified. Bed requested for Telemetry/MedSurg (observation). Status is Observation. Condition is Stable. Problem is new. Symptoms have improved. UTI on Admission? No. em1
--- NOTE | 2018-04-24 13:47 | ER ---
Nurse's Notes [facility] Name: Gordo Nava Age: 68 yrs Sex: Male : 1950 Arrival Date: 04/24/2018 Time: 11:46 Bed 7 Private MD: Diagnosis: Chest pain, unspecified Presentation: 04/24 11:43 Presenting complaint: Patient states: right sided chest pain with radiation to the sv right back and arm started about 0600 today. c/o dizziness. Transition of care: patient was not received from another setting of care. Onset of symptoms was April 24, 2018 at 06:00. Care prior to arrival: None. 11:43 Method Of Arrival: Wheelchair sv 11:43 Acuity: CIERA 3 sv 19:43 Risk Assessment: Do you want to hurt yourself or someone else? Patient reports no lp1 desire to harm self or others. Initial Sepsis Screen: Does the patient meet any 2 criteria? No. Patient's initial sepsis screen is negative. Does the patient have a suspected source of infection? No. Patient's initial sepsis screen is negative. Historical: - Allergies: 11:48 Iodine; sv - Home Meds: 19:32 allopurinol 300 mg Oral tab 1 tab once daily [Active]; aspirin 81 mg Oral chew 1 tab lp1 once daily [Active]; atorvastatin 10 mg Oral tab 1 tab once daily [Active]; clopidogrel 75 mg Oral tab 1 tab once daily [Active]; Diovan HCT 160-25 mg Oral tab 1 tab once daily [Active]; metoprolol succinate 50 mg Oral Tb24 1 tab once daily [Active]; omeprazole 40 mg Oral cpDR 1 cap once daily [Active]; Repatha Syringe 140 mg/mL subcutaneous syrg 3 mL once moly [Active]; valacyclovir 500 mg Oral tab 1 tab once daily [Active]; - PMHx: 11:48 CAD; Gout; Hyperlipidemia; Hypertension; sv - PSHx: 11:48 Heart stents; Appendectomy; triple bypass; sv - Immunization history:: Adult Immunizations up to date. - Social history:: Smoking status: Patient/guardian denies using tobacco. - Ebola Screening: : No symptoms or risks identified at this time. - Family history:: not pertinent. - Hospitalizations: : No recent hospitalization is reported. Screenin:56 Abuse screen: Denies threats or abuse. Denies injuries from another. Nutritional sg screening: No deficits noted. Tuberculosis screening: No symptoms or risk factors identified. Never had TB. Fall Risk None identified. Assessment: 11:54 General: Appears in no apparent distress. uncomfortable, well groomed, well developed, sg well nourished, Behavior is calm, cooperative, appropriate for age. Pain: Complains of pain in anterior aspect of right upper chest and right arm Quality of pain is described as aching, throbbing. 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 Full function Speech is normal, Facial symmetry appears normal. Cardiovascular: Heart tones S1 S2 present Capillary refill is brisk in bilateral fingers Patient's skin is warm and dry. Chest pain is denied quality is heaviness, pressure. Respiratory: Airway is patent Respiratory effort is even, unlabored, Respiratory pattern is regular, symmetrical, Breath sounds are clear bilaterally. Denies cough, shortness of breath labored breathing. GI: Abdomen is round non-distended, Bowel sounds present X 4 quads. Abd is soft and non tender X 4 quads. : No signs and/or symptoms were reported regarding the genitourinary system. EENT: No signs and/or symptoms were reported regarding the EENT system. Derm: Skin is pink, warm \T\ dry. Musculoskeletal: No signs and/or symptoms reported regarding the musculoskeletal system. 12:26 Reassessment: HR 42-55. Dr. Olsen notified. No new orders at this time. hb 14:00 Reassessment: Patient appears in no apparent distress at this time. Patient and/or sg family updated on plan of care and expected duration. Pain level reassessed. Patient is alert, oriented x 3, equal unlabored respirations, skin warm/dry/pink. pt updated on POC and new orders received, pt stated understanding Patient states feeling better. 15:00 Reassessment: Patient appears in no apparent distress at this time. No changes from hb previously documented assessment. Patient and/or family updated on plan of care and expected duration. Pain level reassessed. Patient is alert, oriented x 3, equal unlabored respirations, skin warm/dry/pink. 16:00 Reassessment: Patient appears in no apparent distress at this time. No changes from hb previously documented assessment. Patient and/or family updated on plan of care and expected duration. Pain level reassessed. Patient is alert, oriented x 3, equal unlabored respirations, skin warm/dry/pink. 17:00 Reassessment: Patient appears in no apparent distress at this time. Patient and/or hb family updated on plan of care and expected duration. Pain level reassessed. Patient is alert, oriented x 3, equal unlabored respirations, skin warm/dry/pink. 18:00 Reassessment: Patient appears in no apparent distress at this time. No changes from hb previously documented assessment. Patient and/or family updated on plan of care and expected duration. Pain level reassessed. Patient is alert, oriented x 3, equal unlabored respirations, skin warm/dry/pink. 18:46 Reassessment: Patient appears in no apparent distress at this time. No changes from hb previously documented assessment. Patient and/or family updated on plan of care and expected duration. Pain level reassessed. Patient is alert, oriented x 3, equal unlabored respirations, skin warm/dry/pink. 19:30 Reassessment: Patient is alert, oriented x 3, equal unlabored respirations, skin lp1 warm/dry/pink. Aware of pending admission to floor, at bedside. Vital Signs: 11:48 BP 198 / 95; Pulse 65; Resp 20; Pulse Ox 99% ; Weight 78.02 kg; Height 5 ft. 5 in. sv (165.10 cm); Pain 7/10; 12:30 BP 195 / 85; Pulse 49; Resp 15; Pulse Ox 100% on R/A; hb 12:32 Temp 98.1; sg 14:00 BP 163 / 80; Pulse 44; Resp 15; Pulse Ox 100% on R/A; hb 15:00 BP 168 / 78; Pulse 54; Resp 15; Pulse Ox 100% on R/A; hb 16:00 BP 161 / 84; Pulse 54; Resp 15; Pulse Ox 100% on R/A; hb 17:00 BP 166 / 95; Pulse 62; Resp 14; Pulse Ox 100% on R/A; hb 18:00 BP 151 / 75; Pulse 63; Resp 18; Pulse Ox 100% on R/A; hb 19:15 BP 143 / 74; Pulse 62; Resp 17; Temp 98.4(O); Pulse Ox 100% on R/A; Pain 0/10; lp1 11:48 Body Mass Index 28.62 (78.02 kg, 165.10 cm) sv ED Course: 11:46 Patient arrived in ED. em1 11:46 Kel Morgan MD is Attending Physician. rn 11:47 Triage completed. sv 11:49 Arm band placed on right wrist. sv 11:53 Rico Syed, RN is Primary Nurse. sg 11:56 No provider procedures requiring assistance completed. sg 12:00 Patient has correct armband on for positive identification. Placed in gown. Bed in low hb position. Call light in reach. Side rails up X 1. 12:00 Initial lab(s) drawn, by me, sent to lab. Missed attempt(s): 20 gauge in right dh3 antecubital area. Bleeding controlled, band aid applied, catheter tip intact. 12:01 EKG done, by logistics technician. reviewed by Kel Morgan MD. 3 12:08 X-ray completed. Portable x-ray completed in exam room. Patient tolerated procedure kw well. 12:11 XRAY Chest (1 view) In Process Unspecified. EDMS 12:25 Inserted saline lock: 20 gauge in left forearm, using aseptic technique. Blood hb collected. 13:46 Ariel Andrade MD is Hospitalizing Provider. rn 14:14 Inserted saline lock: 22 gauge in right hand, using aseptic technique. 3 19:30 Patient admitted, IV remains in place. lp1 Administered Medications: 14:28 Drug: Heparin ([place]-Bolus No thrombolytic) - HEParin 60 units/kg {Co-Signature: hb sg (Joan Arora RN).} Route: IVP; Site: left forearm; 15:00 Follow up: Response: No adverse reaction sg 14:30 Drug: Aspirin Chewable Tablet 324 mg Route: PO; sg 15:00 Follow up: Response: No adverse reaction sg 14:30 Drug: Heparin ([place] Drip) 12 units/kg/hr - (HEParin 48545 units, D5W 500 ml) sg {Co-Signature: hb (Joan Arora RN).} Route: IV; Rate: calculated rate; Site: left forearm; 18:53 Follow up: IV Status: Infusion continued upon admission sg Outcome: 13:46 Decision to Hospitalize by Provider. rn 19:30 Condition: stable lp1 19:30 Instructed on the need for admit. 19:42 Admitted to Med/surg via wheelchair, room 208, with chart, Report called to VALERIE Huang lp1 20:06 Patient left the ED. lp1 Signatures: Dispatcher [employer] EDMS Maricruz Silverman RN RN Rico Syed RN RN sg Nieto, Roman, MD MD rn Martinez, Eric 1 Ailin Willett Laura, RN RN 1 Joan Arora RN RN Jimbo, Antonia [facility] Mirella Bojorquez [facility] Joan Arora RN
[2018-04-24] MEDS ORDERED: ASPIRIN 81 MG CHEWABLE TABLET ONE (14:08)
[2018-04-24] MEDS ORDERED: HEPARIN/D5W 25,000 UNIT/500 ML BAG IV ONE (14:09)
[2018-04-24] MEDS ORDERED: HEPARIN 5000 UNIT/ML 1 ML VIAL ONE (14:09)
[2018-04-24 15:38] LABS: Urine Blood NEGATIVE (NEG); Urine Glucose NEGATIVE (NEG); Urine Protein NEGATIVE (NEG); Urine Specific Gravity 1.015 (1.005-1.030)
[2018-04-24] MEDS ORDERED: ONDANSETRON 4 MG/2 ML VIAL IV PRN (19:45)
[2018-04-24] MEDS ORDERED: ACETAMINOPHEN 500 MG TAB PO PRN (19:45)
[2018-04-24] MEDS ORDERED: HEPARIN/D5W 25,000 UNIT/500 ML BAG IV SCH (19:45)
[2018-04-24 20:40] LABS: Absolute Lymphocytes (CBC) 1.8 K/uL (0.7-4.9); Absolute Monocytes 0.5 K/uL (0.1-1.3); Absolute Neutrophil 3.3 K/uL (1.8-8.0); Basophils % 1.2 % (0-1.3); Eosinophils % 3.7 % (0-4.4); Hematocrit 43.6 % (39.6-49.0); Lymphocytes % 30.2 % (15.3-44.8); MCH 26.7 pg (27.0-35.0); MCV 80.4 fL (80-100); MPV 9.1 fL (7.6-11.3); Monocytes % 8.6 % (3.3-12.3); RBC Red Blood Cell Count 5.43 M/uL (4.33-5.43)
[2018-04-24 21:17] VITALS: O2SAT 98
[2018-04-24 21:51] VITALS: BMI 29.5
[2018-04-25 05:02] LABS: Absolute Lymphocytes (CBC) 1.7 K/uL (0.7-4.9); Absolute Monocytes 0.5 K/uL (0.1-1.3); Basophils % 1.1 % (0-1.3); Hematocrit 39.2 % (39.6-49.0); Lymphocytes % 30.3 % (15.3-44.8); MCH 26.2 pg (27.0-35.0); MCV 80.2 fL (80-100); Monocytes % 8.9 % (3.3-12.3); RBC Red Blood Cell Count 4.89 M/uL (4.33-5.43)
[2018-04-25 05:14] LABS: BUN Blood Urea Nitrogen 11 mg/dL (7-18); Bicarbonate 26 mmol/L (21-32); Glucose Level 92 mg/dL (74-106); Sodium Level 141 mmol/L (136-145)
--- NOTE | 2018-04-25 06:32 | EKG ---
Test Date: 2018-04-24 Test Time: 11:54:26 Technology Education Instructor: SWG MEASUREMENT RESULTS: Intervals: Rate: 56 MO: 182 QRSD: 94 QT: 414 QTc: 399 [place]: P: 59 MO: 182 QRS: 13 T: -29 INTERPRETIVE STATEMENTS: Sinus bradycardia with sinus arrhythmia Possible Left atrial enlargement Inferior infarct, age undetermined T wave abnormality, consider anterior ischemia Abnormal ECG Compared to ECG 06/01/2017 06:56:18 Myocardial infarct finding now present T-wave abnormality now present Sinus rhythm no longer present Electronically Signed On 04-25-18 06:31:23 CDT by Vito Asif
[2018-04-25 07:58] VITALS: BP 137/71; TEMP 97.4
[2018-04-25] MEDS ORDERED: METOPROLOL XL 50 MG TAB PO SCH (09:00)
[2018-04-25] MEDS ORDERED: ALLOPURINOL 300 MG TAB PO SCH (09:00)
[2018-04-25] MEDS ORDERED: CLOPIDOGREL 75 MG TABLET PO SCH (09:00)
[2018-04-25] MEDS ORDERED: ASPIRIN 81 MG CHEWABLE TABLET PO SCH (09:00)
[2018-04-25] MEDS ORDERED: ASPIRIN EC 81 MG TAB PO SCH (09:00)
--- NOTE | 2018-04-25 10:18 | EKG ---
Test Date: 2018-04-25 Test Time: 08:03:01 Cleaning Team Member: NO MEASUREMENT RESULTS: Intervals: Rate: 69 AK: 174 QRSD: 84 QT: 420 QTc: 450 [place]: P: 65 AK: 174 QRS: 27 T: -19 INTERPRETIVE STATEMENTS: Normal sinus rhythm Possible Left atrial enlargement Possible Inferior infarct, age undetermined Abnormal ECG Compared to ECG 04/24/2018 11:54:26 Sinus bradycardia no longer present Sinus arrhythmia no longer present T-wave abnormality no longer present Possible ischemia no longer present Myocardial infarct finding still present Electronically Signed On 04-25-18 10:17:10 CDT by Jayesh Chadwick
--- NOTE | 2018-04-25 10:51 | CON ---
Date of Consultation: 04/25/2018 Reason For Consultation: Chest pain. History Of Present Illness: Mr. Nava is a patient of mine in the office. I have known him for man y years from office visits and hospital visits. He has a very complicated past cardiovascular histor y. He has a history of coronary artery disease, status post CABG x3 in May 2017. He has a WEBER t o the LAD and a saphenous vein graft to the OM and a saphenous vein graft to the PDA of the right cor onary artery. This was done by Dr. Gaudencio Velarde. He has a history of dyslipidemia, hypertension, gastr oesophageal reflux disease, and gout. He has a history of right carotid endarterectomy and has had m ultiple stents in the lower extremity in the left common iliac and right common iliac and right SFA. Came in with a back, right-sided chest pain radiating to the right arm without any nausea, vomiting, or diaphoresis. Denied any PND, orthopnea, pedal edema, palpitation, or syncope. His symptoms last ed for many hours. He was hypertensive when he came in, but had negative EKG, chest x-ray and lab wo rk. His symptoms are unlike his previous angina. Allergies: HE IS ALLERGIC TO IODINE. Review of Systems: Negative. Social History: Negative. Family History: Positive for heart disease. Medications: Include aspirin, Plavix, Repatha, Toprol-XL and Prilosec. Physical Examination: Vital Signs: This morning, blood pressure is 140/70, sinus rhythm, afebrile. HEENT: Negative. Neck: Supple without any bruit, lymphadenopathy, JVD, or thyromegaly. Chest: Clear to auscultation and percussion. Cardiac: Exam revealed a regular rhythm and rate without any murmurs, gallops, or rubs. Abdomen: Benign. Extremities: Revealed no clubbing, cyanosis, or edema. Diagnostic Data: Normal. Impression And Plan: 1.Atypical chest pain, more likely musculoskeletal or related to his thoracic or cervical spine. Hi s blood pressure was high secondary to the pain. I asked him to watch his blood pressure, watch his salt intake and take an extra Toprol-XL as needed. I do not think he needs any cardiac workup immedi ately. With his complicated past cardiac history, I would feel comfortable if he has a stress test a nd an echocardiogram as an outpatient. He has had CABG in May of 2017. 2.Dyslipidemia. 3.Allergy to iodine. 4.Hypertension. 5.Gastroesophageal reflux disease. 6.Gout. 7.Peripheral vascular disease, status post stent in both common iliac artery and right SFA. 8.He is status post right carotid endarterectomy. Recent carotid Doppler in my office has been nega tive. Forty-five minutes were spent taking care of Mr. Nava including office visit and chart review and d iscussion with him and Dr. Andrade. He was instructed regarding salt intake and monitoring his blood p ressure. As far as I am concerned, Mr. Nava can go home and I will see him as an outpatient after some outpatient cardiac testing. CHUYITA/AYDE Voice ID: [id number] Report ID: [id number]
--- NOTE | 2018-04-25 19:35 | HP ---
Date of Admission: 04/24/2018 Chief Complaint: Right chest pain. History Of Present Illness: A 68-year-old male, who was brought to the emergency room with right-jason ed chest pain. The patient had coronary artery bypass surgery, angioplasty, and peripheral angioplas ty. In view of risk status, the patient is admitted for observation. Even though his cardiac enzyme s were negative, he was started on heparin. There is no history of fever, chills, rigors, hemoptysis. Past Medical History: Positive for coronary artery disease, coronary angioplasty, coronary artery by pass surgery, peripheral vascular disease and angioplasty, hyperlipidemia, hypertension. Family History: Positive for coronary artery disease. Personal History: Currently nonsmoker. Allergies: IODINE. Home Medicines: Please refer to the chart. Review of Systems: No fever, chills, rigors. Physical Examination: General: Revealed 68-year-old male, alert and oriented. Vital Signs: Blood pressure normal. HEENT: Negative. Neck: Supple. JVD negative. Chest: There is rash in the right scapular area. Abdomen: Soft. Extremities: No edema. Laboratory Data: Troponin normal. Chest x-ray negative. Assessment: 1.Right-sided chest pain. 2.Probable early shingles. 3.Known coronary artery disease. 4.Status post coronary angioplasty and coronary artery bypass surgery. 5.Hyperlipidemia. 6.Hypertension. Plan: I discussed the possibility of herpes zoster with the patient. He will be discharged on Medro l Dosepak and Famvir. Dr. Chadwick already has seen the patient. He would like to do outpatient stre ss test. The patient will be discharged and he is advised to rest and see Dr. Chadwick for the stress test. Meanwhile, he will be given medication as described above. APRIL/AYDE Voice ID: [id number]
[2018-04-25] MEDS ORDERED: TAMSULOSIN 0.4 MG SR CAP PO SCH (21:00)
[2018-04-26] MEDS ORDERED: PANTOPRAZOLE 40MG TABLET PO SCH (06:30)
== END 2018-04-25 10:09 | disposition home or self-care (01) ==
LOC: ER 11:40 → ERHOLD 16:19 → 2ND 19:46
PROVIDERS: ADMIT Internal Medicine; ATTEND Internal Medicine
DX: R07.89 Other chest pain (principal); I10 Essential (primary) hypertension; E78.5 Hyperlipidemia, unspecified; K21.9 Gastro-esophageal reflux disease without esophagitis; M10.9 Gout, unspecified; I73.9 Peripheral vascular disease, unspecified; Z95.820 Peripheral vascular angioplasty status with implants and grafts; I25.10 Atherosclerotic heart disease of native coronary artery without angina pectoris; Z95.1 Presence of aortocoronary bypass graft; Z91.041 Radiographic dye allergy status; Z79.02 Long term (current) use of antithrombotics/antiplatelets; Z79.82 Long term (current) use of aspirin; R00.1 Bradycardia, unspecified; Z98.61 Coronary angioplasty status
CPT/HCPCS: 36415; 71045; 80048 ×2; 81003; 82550; 82553; 83735; 83880; 84484 ×3; 85025 ×2; 85610; 85730 ×4; 93005 ×2; 96365; 96366; 99285; G0378 ×2; J1644

== ENCOUNTER 2018-06-18 00:43 | Observation (INO) | payer OTHER ==
--- OUTSIDE RECORDS SUMMARY | 2018-06-18 00:45 | XMS REPORT | Clinical Summary ---
:1950 Author Organization [facility] Address [address] [place] [address] Phone Care Team Providers Name Role Phone Unavailable Primary Care Provider Unavailable Allergies Active Allergy Reactions Severity Noted Date Comments Iodine And Iodide Containing Products Anaphylaxis High 06/05/2017 Current Medications Prescription Sig. Disp. Refills Start Date End Date Status clopidogrel (PLAVIX) Take 75 mg by Active 75 mg tablet mouth daily. allopurinol Take 100 mg by Active (ZYLOPRIM) 100 MG mouth daily. tablet famotidine (PEPCID) Take 10 mg by Active 10 MG tablet mouth 2 (two) times daily. omeprazole (PRILOSEC) Take 40 mg by Active 40 MG capsule mouth daily. acetaminophen-codeine Take 2 tablets 30 tablet 0 06/14/2017 Active (TYLENOL #3) 300-30 by mouth every 4 mg per tablet (four) hours as needed. Max Daily Amount: 12 tablets aspirin 81 MG Take 1 tablet 0 06/14/2017 06/14/2018 chewable tablet (81 mg total) by mouth daily. furosemide (LASIX) 20 Take 1 tablet 30 tablet 1 06/14/2017 06/14/2018 MG tablet (20 mg total) by mouth daily. metoprolol Take 1 tablet 30 tablet 1 06/14/2017 06/14/2018 (TOPROL-XL) 50 MG 24 (50 mg total) by hr tablet mouth daily. 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 Device Expiration Model / Identifier Date Serial / Lot Sternal Zipfix Ndl Strl 08.501.001.20s - [id number] Cardiovascular N/A: SYNTHES:SYNTHES 04/20/2022 08.501.001.20S / Implanted: Qty: 1 on 06/06/2017 by Gaudencio Velarde MD Stern[facility] / [id number] Sternal Zipfix Ndl Strl ..001.20s - [id number] Cardiovascular SYNTHES: SYNTHES 04/20/2022 08.501.001.20S / Implanted: Qty: 1 on 06/06/2017 by Gaudencio Velarde MD [facility] / [id number] Sternal Zipfix Ndl Strl 08.501.001.20s - [id number] Cardiovascular SYNTHES: SYNTHES 04/20/2022 08.501.001.20S / Implanted: Qty: 1 on 06/06/2017 by Gaudencio Velarde MD [facility] / [id number] Results ECHOCARDIOGRAM REPORT - SCAN (07/25/2017 12:00 PM)RHYTHM STRIP - SCAN (2016 3:48 PM)after 06/17/2017
--- OUTSIDE RECORDS SUMMARY | 2018-06-18 00:48 | XMS REPORT ---
:1950 [facility] Address [address] [place] [address] [address] [place] [address] Care Team Providers Name Role Phone ADELAIDE [...] VIEW, NON DEPT 08:36:00 already been done. [id number] AP chest HISTORY: Thank youReason for Chest tubes COMPARISON: exam:->chest 06/08/2017 tubesShould this be IMPRESSION:Left-sided performed at the thoracostomy tube is bedside?->Yes unchanged. Stable cardiac silhouette. Small effusions. Bibasilar airspace disease unchanged. No definite pneumothorax. Signed: Marc Pittepheather Verified Date/Time: 09/24/2017 08:36:20 Reading Location: [facility] Mammo Reading Room W/PLT COUNT & AUTO DIFFERENTIAL 2017-06-14 10:00:00 Test Item Value Reference Range Comments WHITE BLOOD CELL COUNT (BEAKER) (test tiln=240) 8.0 K/ L 3.5-10.5 RED BLOOD CELL COUNT (BEAKER) (test lqmp=075) 2.94 M/ L 4.63-6.08 HEMOGLOBIN (BEAKER) (test qeix=366) 8.7 GM/DL 13.7-17.5 HEMATOCRIT (BEAKER) (test pkht=833) 26.8 % 40.1-51.0 MEAN CORPUSCULAR VOLUME (BEAKER) (test gask=335) 91.2 fL 79.0-92.2 MEAN CORPUSCULAR HEMOGLOBIN (BEAKER) (test pyfe=284) 29.6 pg 25.7-32.2 MEAN CORPUSCULAR HEMOGLOBIN CONC (BEAKER) (test prlj=647) 32.5 GM/DL 32.3- 36.5 RED CELL DISTRIBUTION WIDTH (BEAKER) (test kqnw=495) 14.2 % 11.6-14.4 PLATELET COUNT (BEAKER) (test olhx=532) 282 K/CU MM 150-450 MEAN PLATELET VOLUME (BEAKER) (test gmzc=693) 11.6 fL 9.4-12.4 NUCLEATED RED BLOOD CELLS (BEAKER) (test lnrj=162) 1 /100 WBC 0-0 NEUTROPHILS RELATIVE PERCENT (BEAKER) (test cwsv=442) 72 % LYMPHOCYTES RELATIVE PERCENT (BEAKER) (test dwjh=744) 15 % MONOCYTES RELATIVE PERCENT (BEAKER) (test smal=957) 8 % EOSINOPHILS RELATIVE PERCENT (BEAKER) (test vlbr=402) 4 % BASOPHILS RELATIVE PERCENT (BEAKER) (test foou=151) 1 % NEUTROPHILS ABSOLUTE COUNT (BEAKER) (test ondr=720) 5.72 K/ L 1.78-5.38 LYMPHOCYTES ABSOLUTE COUNT (BEAKER) (test nnvb=219) 1.19 K/ L 1.32-3.57 MONOCYTES ABSOLUTE COUNT (BEAKER) (test erwy=965) 0.62 K/ L 0.30-0.82 EOSINOPHILS ABSOLUTE COUNT (BEAKER) (test ducy=330) 0.30 K/ L 0.04-0.54 BASOPHILS ABSOLUTE COUNT (BEAKER) (test iqdq=574) 0.04 K/ L 0.01-0.08 IMMATURE GRANULOCYTES-RELATIVE PERCENT (BEAKER) (test 1 % 0-1 uetd=5694) (MANUAL DIFFERENTIAL)2017-06-14 10:00:00 Test Item Value Reference Range Comments TOTAL COUNTED (BEAKER) (test qkce=7433) WBC MORPHOLOGY (BEAKER) (test ycrg=311) Normal PLT MORPHOLOGY (BEAKER) (test myrx=548) Normal RBC MORPHOLOGY (BEAKER) (test ukey=602) Normal [id number] 05:49:00 Test Item Value Reference Range Comments MAGNESIUM (BEAKER) (test 2.0 mg/dL 1.6-2.6 Specimen slightly hemolyzed xqne=878) [id number] 05:49:00 Test Item Value Reference Range Comments PHOSPHORUS (BEAKER) (test 3.4 mg/dL 2.3-4.7 Specimen slightly hemolyzed mjhl=528) BASIC METABOLIC [id number] 05:49:00 Test Item Value Reference Range Comments SODIUM (BEAKER) (test 139 meq/L 136-145 lwwd=996) POTASSIUM (BEAKER) (test 4.1 meq/L 3.5-5.1 Specimen slightly krdl=462) hemolyzed CHLORIDE (BEAKER) (test 105 meq/L 98-107 cfaf=279) CO2 (BEAKER) (test 24 meq/L 22-29 wnbl=306) BLOOD UREA NITROGEN 21 mg/dL 7-21 (BEAKER) (test kakt=632) CREATININE (BEAKER) (test 1.11 mg/dL 0.57-1.25 Specimen slightly cqwf=553) hemolyzed GLUCOSE RANDOM (BEAKER) 107 mg/dL 70-105 (test ifmb=348) CALCIUM (BEAKER) (test 9.1 mg/dL 8.4-10.2 ppzx=400) EGFR (BEAKER) (test 80 mL/min/1.73 sq m ESTIMATED GFR IS NOT qsmy=0133) ACCURATE CREATININE CLEARANCE IN PREDICTING GLOMERULAR FILTRATION RATE. ESTIMATED GFR IS NOT APPLICABLE FOR DIALYSIS PATIENTS. CBC W/PLT COUNT & AUTO [id number] 14:54:00 Test Item Value Reference Range Comments WHITE BLOOD CELL COUNT (BEAKER) (test cpej=406) 8.1 K/ L 3.5-10.5 RED BLOOD CELL COUNT (BEAKER) (test hhax=822) 2.85 M/ L 4.63-6.08 HEMOGLOBIN (BEAKER) (test ynmm=819) 8.4 GM/DL 13.7-17.5 HEMATOCRIT (BEAKER) (test seog=929) 25.3 % 40.1-51.0 MEAN CORPUSCULAR VOLUME (BEAKER) (test lhzm=533) 88.8 fL 79.0-92.2 MEAN CORPUSCULAR HEMOGLOBIN (BEAKER) (test 29.5 pg 25.7-32.2 ptsy=335) MEAN CORPUSCULAR HEMOGLOBIN CONC (BEAKER) (test 33.2 GM/DL 32.3-36.5 xwvm=090) RED CELL DISTRIBUTION WIDTH (BEAKER) (test 14.4 % 11.6-14.4 oihs=120) PLATELET COUNT (BEAKER) (test lptk=852) 226 K/CU MM 150-450 MEAN PLATELET VOLUME (BEAKER) (test rywc=570) 11.3 fL 9.4-12.4 NUCLEATED RED BLOOD CELLS (BEAKER) (test 1 /100 WBC 0-0 hqjw=862) NEUTROPHILS RELATIVE PERCENT (BEAKER) (test 69 % wpqz=400) LYMPHOCYTES RELATIVE PERCENT (BEAKER) (test 17 % xaaf=272) MONOCYTES RELATIVE PERCENT (BEAKER) (test 7 % zvgy=416) EOSINOPHILS RELATIVE PERCENT (BEAKER) (test 4 % hwya=936) BASOPHILS RELATIVE PERCENT (BEAKER) (test 1 % wbrv=122) NEUTROPHILS ABSOLUTE COUNT (BEAKER) (test 5.61 K/ L 1.78-5.38 iqbw=447) LYMPHOCYTES ABSOLUTE COUNT (BEAKER) (test 1.38 K/ L 1.32-3.57 dxlm=213) MONOCYTES ABSOLUTE COUNT (BEAKER) (test 0.57 K/ L 0.30-0.82 iich=364) EOSINOPHILS ABSOLUTE COUNT (BEAKER) (test 0.35 K/ L 0.04-0.54 qimm=327) BASOPHILS ABSOLUTE COUNT (BEAKER) (test 0.04 K/ L 0.01-0.08 kkfq=944) IMMATURE GRANULOCYTES-RELATIVE PERCENT (BEAKER) 2 % 0-1 (test lcaf=0155) (MANUAL DIFFERENTIAL)2017-06-13 14:54:00 Test Item Value Reference Range Comments TOTAL COUNTED (BEAKER) (test gxqw=6012) WBC MORPHOLOGY (BEAKER) (test sgnv=593) Normal PLT MORPHOLOGY (BEAKER) (test nkau=079) Normal RBC MORPHOLOGY (BEAKER) (test vrxi=027) Normal [id number] 05:24:00 Test Item Value Reference Range Comments PHOSPHORUS (BEAKER) (test gxws=768) 2.7 mg/dL 2.3-4.7 [id number] 05:24:00 Test Item Value Reference Range Comments MAGNESIUM (BEAKER) (test reki=882) 1.8 mg/dL 1.6-2.6 BASIC METABOLIC [id number] 05:24:00 Test Item Value Reference Range Comments SODIUM (BEAKER) (test 140 meq/L 136-145 kltm=381) POTASSIUM (BEAKER) (test 4.3 meq/L 3.5-5.1 dske=773) CHLORIDE (BEAKER) (test 108 meq/L 98-107 wwwa=028) CO2 (BEAKER) (test 25 meq/L 22-29 yvwq=253) BLOOD UREA NITROGEN 19 mg/dL 7-21 (BEAKER) (test vdey=435) CREATININE (BEAKER) (test 0.91 mg/dL 0.57-1.25 hcsz=282) GLUCOSE RANDOM (BEAKER) 100 mg/dL 70-105 (test trsu=620) CALCIUM (BEAKER) (test 8.4 mg/dL 8.4-10.2 ycsl=428) EGFR (BEAKER) (test 101 mL/min/1.73 sq m ESTIMATED GFR IS NOT jatd=1963) ACCURATE CREATININE CLEARANCE IN PREDICTING GLOMERULAR FILTRATION RATE. ESTIMATED GFR IS NOT APPLICABLE FOR DIALYSIS PATIENTS. BASIC METABOLIC [id number] 14:00:00 Test Item Value Reference Range Comments SODIUM (BEAKER) (test 142 meq/L 136-145 wlei=261) POTASSIUM (BEAKER) (test 3.5 meq/L 3.5-5.1 gakb=317) CHLORIDE (BEAKER) (test 106 meq/L 98-107 ypwj=309) CO2 (BEAKER) (test 24 meq/L 22-29 eczw=900) BLOOD UREA NITROGEN 20 mg/dL 7-21 (BEAKER) (test ufpl=928) CREATININE (BEAKER) (test 1.05 mg/dL 0.57-1.25 mnnt=086) GLUCOSE RANDOM (BEAKER) 91 mg/dL 70-105 (test ccjp=350) CALCIUM (BEAKER) (test 9.3 mg/dL 8.4-10.2 zrya=373) EGFR (BEAKER) (test 86 mL/min/1.73 sq m ESTIMATED GFR IS NOT ehya=1350) ACCURATE CREATININE CLEARANCE IN PREDICTING GLOMERULAR FILTRATION RATE. ESTIMATED GFR IS NOT APPLICABLE FOR DIALYSIS PATIENTS. CBC W/PLT COUNT & AUTO [id number] 13:59:00 Test Item Value Reference Range Comments WHITE BLOOD CELL COUNT (BEAKER) (test jmov=793) 9.5 K/ L 3.5-10.5 RED BLOOD CELL COUNT (BEAKER) (test pskw=085) 3.20 M/ L 4.63-6.08 HEMOGLOBIN (BEAKER) (test qmzk=829) 9.5 GM/DL 13.7-17.5 HEMATOCRIT (BEAKER) (test eqfy=465) 28.1 % 40.1-51.0 MEAN CORPUSCULAR VOLUME (BEAKER) (test wajy=585) 87.8 fL 79.0-92.2 MEAN CORPUSCULAR HEMOGLOBIN (BEAKER) (test 29.7 pg 25.7-32.2 sdba=412) MEAN CORPUSCULAR HEMOGLOBIN CONC (BEAKER) (test 33.8 GM/DL 32.3-36.5 yyeh=576) RED CELL DISTRIBUTION WIDTH (BEAKER) (test 14.0 % 11.6-14.4 hjuw=496) PLATELET COUNT (BEAKER) (test pmmc=989) 238 K/CU MM 150-450 MEAN PLATELET VOLUME (BEAKER) (test jfaz=815) 11.1 fL 9.4-12.4 NUCLEATED RED BLOOD CELLS (BEAKER) (test 1 /100 WBC 0-0 lclm=468) NEUTROPHILS RELATIVE PERCENT (BEAKER) (test 72 % pbjk=784) LYMPHOCYTES RELATIVE PERCENT (BEAKER) (test 14 % quxb=846) MONOCYTES RELATIVE PERCENT (BEAKER) (test 8 % mgoy=477) EOSINOPHILS RELATIVE PERCENT (BEAKER) (test 4 % ibje=399) BASOPHILS RELATIVE PERCENT (BEAKER) (test 0 % xldb=291) NEUTROPHILS ABSOLUTE COUNT (BEAKER) (test 6.79 K/ L 1.78-5.38 plzs=498) LYMPHOCYTES ABSOLUTE COUNT (BEAKER) (test 1.35 K/ L 1.32-3.57 zmgq=274) MONOCYTES ABSOLUTE COUNT (BEAKER) (test 0.76 K/ L 0.30-0.82 vpch=764) EOSINOPHILS ABSOLUTE COUNT (BEAKER) (test 0.35 K/ L 0.04-0.54 uzkb=356) BASOPHILS ABSOLUTE COUNT (BEAKER) (test 0.03 K/ L 0.01-0.08 ckrn=045) IMMATURE GRANULOCYTES-RELATIVE PERCENT (BEAKER) 2 % 0-1 (test glxh=7714) CBC (HEMOGRAM ONLY)2017-06-11 22:29:00 Test Item Value Reference Range Comments WHITE BLOOD CELL COUNT (BEAKER) 8.3 K/ L 3.5-10.5 (test gpzp=997) RED BLOOD CELL COUNT (BEAKER) 3.12 M/ L 4.63-6.08 (test qqxn=585) HEMOGLOBIN (BEAKER) (test 9.1 GM/DL 13.7-17.5 ivja=715) HEMATOCRIT (BEAKER) (test 27.9 % 40.1-51.0 yjui=841) MEAN CORPUSCULAR VOLUME 89.4 fL 79.0-92.2 (BEAKER) (test whvf=764) MEAN CORPUSCULAR HEMOGLOBIN 29.2 pg 25.7-32.2 (BEAKER) (test fcxb=575) MEAN CORPUSCULAR HEMOGLOBIN 32.6 GM/DL 32.3-36.5 CONC (BEAKER) (test vqxb=697) RED CELL DISTRIBUTION WIDTH 14.1 % 11.6-14.4 (BEAKER) (test agsd=750) PLATELET COUNT (BEAKER) (test 22 K/CU MM 150-450 Many platelet clumps seen zvlp=410) on slide, unable to quantify platelets dur to EDTA clumping. Please resend platelet count in Light Blue citrate tube.This is a corrected result. Previous result was 22 K/CU MM on 06/11/2017 at 1526 CDT MEAN PLATELET VOLUME (BEAKER) 12.2 fL 9.4-12.4 (test sadi=309) NUCLEATED RED BLOOD CELLS 1 /100 WBC 0-0 (BEAKER) (test ejrl=411) OCCULT BLOOD, [id number] 20:32:00 Test Item Value Reference Range Comments FECAL OCCULT BLOOD (BEAKER) (test othn=852) Negative Negative [id number] 06:40:00 Test Item Value Reference Range Comments MAGNESIUM (BEAKER) (test eisa=671) 1.9 mg/dL 1.6-2.6 BASIC METABOLIC [id number] 06:40:00 Test Item Value Reference Range Comments SODIUM (BEAKER) (test 142 meq/L 136-145 zezt=726) POTASSIUM (BEAKER) (test 3.8 meq/L 3.5-5.1 qulx=711) CHLORIDE (BEAKER) (test 110 meq/L 98-107 bhat=235) CO2 (BEAKER) (test 24 meq/L 22-29 cgwq=683) BLOOD UREA NITROGEN 20 mg/dL 7-21 (BEAKER) (test wyya=081) CREATININE (BEAKER) (test 0.84 mg/dL 0.57-1.25 klev=278) GLUCOSE RANDOM (BEAKER) 89 mg/dL 70-105 (test yikw=211) CALCIUM (BEAKER) (test 8.6 mg/dL 8.4-10.2 hbwm=531) EGFR (BEAKER) (test 111 mL/min/1.73 sq m ESTIMATED GFR IS NOT qjtq=8433) ACCURATE CREATININE CLEARANCE IN PREDICTING GLOMERULAR FILTRATION RATE. ESTIMATED GFR IS NOT APPLICABLE FOR DIALYSIS PATIENTS. CBC (HEMOGRAM ONLY)2017-06-11 06:07:00 Test Item Value Reference Range Comments WHITE BLOOD CELL COUNT (BEAKER) (test blpl=840) 6.4 K/ L 3.5-10.5 RED BLOOD CELL COUNT (BEAKER) (test tkpi=943) 2.65 M/ L 4.63-6.08 HEMOGLOBIN (BEAKER) (test fvsn=515) 7.9 GM/DL 13.7-17.5 HEMATOCRIT (BEAKER) (test cczq=587) 24.2 % 40.1-51.0 MEAN CORPUSCULAR VOLUME (BEAKER) (test xzmc=394) 91.3 fL 79.0-92.2 MEAN CORPUSCULAR HEMOGLOBIN (BEAKER) (test 29.8 pg 25.7-32.2 poru=427) MEAN CORPUSCULAR HEMOGLOBIN CONC (BEAKER) (test 32.6 GM/DL 32.3-36.5 rcuq=301) RED CELL DISTRIBUTION WIDTH (BEAKER) (test 14.1 % 11.6-14.4 iclx=664) PLATELET COUNT (BEAKER) (test fbxt=346) 165 K/CU MM 150-450 MEAN PLATELET VOLUME (BEAKER) (test bmnu=885) 10.9 fL 9.4-12.4 NUCLEATED RED BLOOD CELLS (BEAKER) (test 1 /100 WBC 0-0 droe=514) CBC W/PLT COUNT & AUTO [id number] 12:14:00 Test Item Value Reference Range Comments WHITE BLOOD CELL COUNT (BEAKER) (test kqmy=085) 7.3 K/ L 3.5-10.5 RED BLOOD CELL COUNT (BEAKER) (test zmtp=253) 3.08 M/ L 4.63-6.08 HEMOGLOBIN (BEAKER) (test elbd=365) 9.2 GM/DL 13.7-17.5 HEMATOCRIT (BEAKER) (test imtr=339) 27.2 % 40.1-51.0 MEAN CORPUSCULAR VOLUME (BEAKER) (test qofj=579) 88.3 fL 79.0-92.2 MEAN CORPUSCULAR HEMOGLOBIN (BEAKER) (test 29.9 pg 25.7-32.2 rnic=540) MEAN CORPUSCULAR HEMOGLOBIN CONC (BEAKER) (test 33.8 GM/DL 32.3-36.5 mowy=986) RED CELL DISTRIBUTION WIDTH (BEAKER) (test 14.2 % 11.6-14.4 yrvg=428) PLATELET COUNT (BEAKER) (test tgdb=592) 167 K/CU MM 150-450 MEAN PLATELET VOLUME (BEAKER) (test jscu=117) 10.7 fL 9.4-12.4 NUCLEATED RED BLOOD CELLS (BEAKER) (test 0 /100 WBC 0-0 xgro=995) NEUTROPHILS RELATIVE PERCENT (BEAKER) (test 69 % ztof=210) LYMPHOCYTES RELATIVE PERCENT (BEAKER) (test 13 % bzbu=969) MONOCYTES RELATIVE PERCENT (BEAKER) (test 9 % eaxv=666) EOSINOPHILS RELATIVE PERCENT (BEAKER) (test 7 % kbue=059) BASOPHILS RELATIVE PERCENT (BEAKER) (test 0 % elsq=335) NEUTROPHILS ABSOLUTE COUNT (BEAKER) (test 5.06 K/ L 1.78-5.38 udsi=536) LYMPHOCYTES ABSOLUTE COUNT (BEAKER) (test 0.97 K/ L 1.32-3.57 sygz=172) MONOCYTES ABSOLUTE COUNT (BEAKER) (test 0.69 K/ L 0.30-0.82 jblq=820) EOSINOPHILS ABSOLUTE COUNT (BEAKER) (test 0.50 K/ L 0.04-0.54 bzfe=445) BASOPHILS ABSOLUTE COUNT (BEAKER) (test 0.03 K/ L 0.01-0.08 payw=662) IMMATURE GRANULOCYTES-RELATIVE PERCENT (BEAKER) 1 % 0-1 (test iqtl=4359) [id number] 06:42:00 Test Item Value Reference Range Comments MAGNESIUM (BEAKER) (test xxhh=292) 1.9 mg/dL 1.6-2.6 BASIC METABOLIC [id number] 06:42:00 Test Item Value Reference Range Comments SODIUM (BEAKER) (test 139 meq/L 136-145 kuwc=221) POTASSIUM (BEAKER) (test 3.5 meq/L 3.5-5.1 ewrc=217) CHLORIDE (BEAKER) (test 107 meq/L 98-107 eyrz=408) CO2 (BEAKER) (test 27 meq/L 22-29 pqeb=320) BLOOD UREA NITROGEN 22 mg/dL 7-21 (BEAKER) (test xvki=202) CREATININE (BEAKER) (test 0.88 mg/dL 0.57-1.25 qzkx=159) GLUCOSE RANDOM (BEAKER) 105 mg/dL 70-105 (test fxtb=255) CALCIUM (BEAKER) (test 8.3 mg/dL 8.4-10.2 ptlz=339) EGFR (BEAKER) (test 105 mL/min/1.73 sq m ESTIMATED GFR IS NOT hauy=2723) ACCURATE CREATININE CLEARANCE IN PREDICTING GLOMERULAR FILTRATION RATE. ESTIMATED GFR IS NOT APPLICABLE FOR DIALYSIS PATIENTS. CBC (HEMOGRAM ONLY)2017-06-10 06:11:00 Test Item Value Reference Range Comments WHITE BLOOD CELL COUNT (BEAKER) (test fknd=379) 7.7 K/ L 3.5-10.5 RED BLOOD CELL COUNT (BEAKER) (test tuzk=331) 2.80 M/ L 4.63-6.08 HEMOGLOBIN (BEAKER) (test tyow=954) 8.4 GM/DL 13.7-17.5 HEMATOCRIT (BEAKER) (test sjyg=477) 24.7 % 40.1-51.0 MEAN CORPUSCULAR VOLUME (BEAKER) (test actt=055) 88.2 fL 79.0-92.2 MEAN CORPUSCULAR HEMOGLOBIN (BEAKER) (test 30.0 pg 25.7-32.2 fzql=070) MEAN CORPUSCULAR HEMOGLOBIN CONC (BEAKER) (test 34.0 GM/DL 32.3-36.5 potl=793) RED CELL DISTRIBUTION WIDTH (BEAKER) (test 14.2 % 11.6-14.4 alxq=012) PLATELET COUNT (BEAKER) (test lofb=465) 168 K/CU MM 150-450 MEAN PLATELET VOLUME (BEAKER) (test ibkv=297) 10.8 fL 9.4-12.4 NUCLEATED RED BLOOD CELLS (BEAKER) (test 0 /100 WBC 0-0 lgrp=378) [id number] 07:35:00 Test Item Value Reference Range Comments MAGNESIUM (BEAKER) (test 2.8 mg/dL 1.6-2.6 Specimen moderately hemolyzed jiso=603) [id number] 07:35:00 Test Item Value Reference Range Comments PHOSPHORUS (BEAKER) (test 1.8 mg/dL 2.3-4.7 Specimen moderately hemolyzed tsev=726) BASIC METABOLIC [id number] 07:35:00 Test Item Value Reference Range Comments SODIUM (BEAKER) (test 141 meq/L 136-145 dssf=745) POTASSIUM (BEAKER) (test 4.5 meq/L 3.5-5.1 Specimen moderately twvw=405) hemolyzed CHLORIDE (BEAKER) (test 106 meq/L 98-107 ehtj=853) CO2 (BEAKER) (test 24 meq/L 22-29 pmwi=614) BLOOD UREA NITROGEN 21 mg/dL 7-21 (BEAKER) (test wdwi=026) CREATININE (BEAKER) (test 0.94 mg/dL 0.57-1.25 Specimen moderately ixpr=182) hemolyzed GLUCOSE RANDOM (BEAKER) 104 mg/dL 70-105 (test jcln=952) CALCIUM (BEAKER) (test 9.2 mg/dL 8.4-10.2 mchu=499) EGFR (BEAKER) (test 97 mL/min/1.73 sq m ESTIMATED GFR IS NOT vybf=4298) ACCURATE CREATININE CLEARANCE IN PREDICTING GLOMERULAR FILTRATION RATE. ESTIMATED GFR IS NOT APPLICABLE FOR DIALYSIS PATIENTS. CBC (HEMOGRAM ONLY)2017-06-09 06:31:00 Test Item Value Reference Range Comments WHITE BLOOD CELL COUNT (BEAKER) (test brff=431) 7.5 K/ L 3.5-10.5 RED BLOOD CELL COUNT (BEAKER) (test cxmk=637) 3.73 M/ L 4.63-6.08 HEMOGLOBIN (BEAKER) (test bjay=971) 11.0 GM/DL 13.7-17.5 HEMATOCRIT (BEAKER) (test glmc=492) 33.2 % 40.1-51.0 MEAN CORPUSCULAR VOLUME (BEAKER) (test pkrm=154) 89.0 fL 79.0-92.2 MEAN CORPUSCULAR HEMOGLOBIN (BEAKER) (test 29.5 pg 25.7-32.2 qjsh=411) MEAN CORPUSCULAR HEMOGLOBIN CONC (BEAKER) (test 33.1 GM/DL 32.3-36.5 fswv=981) RED CELL DISTRIBUTION WIDTH (BEAKER) (test 14.9 % 11.6-14.4 htfu=946) PLATELET COUNT (BEAKER) (test plci=755) 167 K/CU MM 150-450 MEAN PLATELET VOLUME (BEAKER) (test cxrk=495) 11.3 fL 9.4-12.4 NUCLEATED RED BLOOD CELLS (BEAKER) (test 0 /100 WBC 0-0 duuy=726) POCT-GLUCOSE [id number] 23:32:00 Test Item Value Reference Range Comments POC-GLUCOSE METER (BEAKER) 112 mg/dL 70-110 TESTED AT [address] (test icjn=6725) [place] [address] POCT-GLUCOSE [id number] 17:58:00 Test Item Value Reference Range Comments POC-GLUCOSE METER (BEAKER) 132 mg/dL 70-110 TESTED AT [address] (test uajp=6846) [place] [address] POCT-GLUCOSE [id number] 13:40:00 Test Item Value Reference Range Comments POC-GLUCOSE METER (BEAKER) 151 mg/dL 70-110 TESTED AT [address] (test whba=5259) [place] [address] [id number] 06:53:00 Test Item Value Reference Range Comments PHOSPHORUS (BEAKER) (test kbic=265) 2.6 mg/dL 2.3-4.7 [id number] 06:53:00 Test Item Value Reference Range Comments MAGNESIUM (BEAKER) (test kdrw=188) 1.8 mg/dL 1.6-2.6 BASIC METABOLIC [id number] 06:53:00 Test Item Value Reference Range Comments SODIUM (BEAKER) (test 142 meq/L 136-145 bebn=230) POTASSIUM (BEAKER) (test 3.6 meq/L 3.5-5.1 ofhc=587) CHLORIDE (BEAKER) (test 108 meq/L 98-107 hwjx=557) CO2 (BEAKER) (test 26 meq/L 22-29 sqqr=739) BLOOD UREA NITROGEN 16 mg/dL 7-21 (BEAKER) (test cdlf=545) CREATININE (BEAKER) (test 0.87 mg/dL 0.57-1.25 sfzm=103) GLUCOSE RANDOM (BEAKER) 130 mg/dL 70-105 (test ecxb=169) CALCIUM (BEAKER) (test 8.5 mg/dL 8.4-10.2 qvcw=054) EGFR (BEAKER) (test 106 mL/min/1.73 sq m ESTIMATED GFR IS NOT vcmz=4498) ACCURATE CREATININE CLEARANCE IN PREDICTING GLOMERULAR FILTRATION RATE. ESTIMATED GFR IS NOT APPLICABLE FOR DIALYSIS PATIENTS. CBC (HEMOGRAM ONLY)2017-06-08 05:53:00 Test Item Value Reference Range Comments WHITE BLOOD CELL COUNT (BEAKER) (test yufi=711) 6.7 K/ L 3.5-10.5 RED BLOOD CELL COUNT (BEAKER) (test wnnj=662) 3.18 M/ L 4.63-6.08 HEMOGLOBIN (BEAKER) (test lqni=730) 9.4 GM/DL 13.7-17.5 HEMATOCRIT (BEAKER) (test lqnr=847) 27.0 % 40.1-51.0 MEAN CORPUSCULAR VOLUME (BEAKER) (test vzou=475) 84.9 fL 79.0-92.2 MEAN CORPUSCULAR HEMOGLOBIN (BEAKER) (test 29.6 pg 25.7-32.2 mfzy=969) MEAN CORPUSCULAR HEMOGLOBIN CONC (BEAKER) (test 34.8 GM/DL 32.3-36.5 uypg=633) RED CELL DISTRIBUTION WIDTH (BEAKER) (test 14.6 % 11.6-14.4 qbhx=553) PLATELET COUNT (BEAKER) (test bxkd=473) 137 K/CU MM 150-450 MEAN PLATELET VOLUME (BEAKER) (test kwqs=267) 10.3 fL 9.4-12.4 NUCLEATED RED BLOOD CELLS (BEAKER) (test 0 /100 WBC 0-0 uddt=012) [id number] 05:48:00 Test Item Value Reference Range Comments ACTIVATED CLOTTING TIME 114 sec TESTED AT [address] (BEAKER) (test qatk=771) [place] [id number] 05:48:00 Test Item Value Reference Range Comments ACTIVATED CLOTTING TIME 444 sec TESTED AT [address] (BEAKER) (test nvxk=936) [place] [address] [id number] 05:48:00 Test Item Value Reference Range Comments ACTIVATED CLOTTING TIME 378 sec TESTED AT [place] [address] [address] (BEAKER) (test ojhg=724) [place] [address] [id number] 05:48:00 Test Item Value Reference Range Comments ACTIVATED CLOTTING TIME 109 sec TESTED AT [address] (BEAKER) (test eqmj=841) [place] [address] [id number] 05:48:00 Test Item Value Reference Range Comments ACTIVATED CLOTTING TIME 499 sec TESTED AT [place] [address] [address] (BEAKER) (test tivx=444) [place] [address] [id number] 05:48:00 Test Item Value Reference Range Comments ACTIVATED CLOTTING TIME 477 sec TESTED AT [address] (BEAKER) (test gsbq=703) [place] [address] [id number] 05:48:00 Test Item Value Reference Range Comments ACTIVATED CLOTTING TIME 505 sec TESTED AT [address] (BEAKER) (test mobt=742) [place] [id number] POCT-GLUCOSE [id number] 04:18:00 Test Item Value Reference Range Comments POC-GLUCOSE METER (BEAKER) 153 mg/dL 70-110 TESTED AT [address] (test yzcx=7741) [place] [id number] POCT-GLUCOSE [id number] 21:20:00 Test Item Value Reference Range Comments POC-GLUCOSE METER (BEAKER) 150 mg/dL 70-110 TESTED AT [address] (test yjhy=7544) [place] [address] POCT-GLUCOSE [id number] 18:22:00 Test Item Value Reference Range Comments POC-GLUCOSE METER (BEAKER) 122 mg/dL 70-110 TESTED AT [address] (test qbgk=3104) [facility] [address] POCT-GLUCOSE [id number] 18:21:00 Test Item Value Reference Range Comments POC-GLUCOSE METER (BEAKER) 95 mg/dL 70-110 TESTED AT [address] (test drxw=6060) [facility] [address] BLOOD GAS, [id number] 15:13:00 Test Item Value Reference Range Comments PH ARTERIAL (BEAKER) (test ygqv=834) 7.43 7.35-7.45 PCO2 ARTERIAL (BEAKER) (test lonw=442) 39 mmHg 35-45 PO2 ARTERIAL (BEAKER) (test rvub=517) 109 mmHg 80-90 O2 SATURATION ARTERIAL (BEAKER) (test cgrh=869) 97.9 % 96.0-97.0 HCO3 ARTERIAL (BEAKER) (test pdwl=211) 25 mmol/L 21-29 BASE EXCESS ARTERIAL (BEAKER) (test xorr=733) 0.8 mmol/L -2.0-3.0 PATIENT TEMPERATURE (BEAKER) (test oimn=2008) 38.3 C FIO2 (BEAKER) (test dbok=3698) 40.0 % POCT-GLUCOSE [id number] 14:00:00 Test Item Value Reference Range Comments POC-GLUCOSE METER (BEAKER) 111 mg/dL 70-110 TESTED AT [address] (test vxxs=4175) [facility] [address] POCT-GLUCOSE [id number] 12:18:00 Test Item Value Reference Range Comments POC-GLUCOSE METER (BEAKER) 124 mg/dL 70-110 TESTED AT [address] (test zsyp=6648) [facility] [address] POCT-GLUCOSE [id number] 08:18:00 Test Item Value Reference Range Comments POC-GLUCOSE METER (BEAKER) 139 mg/dL 70-110 TESTED AT [address] (test evqu=5686) [place] [id number] POCT-GLUCOSE [id number] 06:47:00 Test Item Value Reference Range Comments POC-GLUCOSE METER (BEAKER) 140 mg/dL 70-110 TESTED AT [address] (test ggrl=4463) [facility] [address] POCT-GLUCOSE [id number] 05:11:00 Test Item Value Reference Range Comments POC-GLUCOSE METER (BEAKER) 149 mg/dL 70-110 TESTED AT [facility] [address] (test wkvd=7866) [facility] [address] [id number] 04:24:00 Test Item Value Reference Range Comments PHOSPHORUS (BEAKER) (test jpwk=599) 3.5 mg/dL 2.3-4.7 [id number] 04:24:00 Test Item Value Reference Range Comments MAGNESIUM (BEAKER) (test bwcc=293) 2.5 mg/dL 1.6-2.6 BASIC METABOLIC [id number] 04:24:00 Test Item Value Reference Range Comments SODIUM (BEAKER) (test 141 meq/L 136-145 bqvg=454) POTASSIUM (BEAKER) (test 4.6 meq/L 3.5-5.1 ucto=309) CHLORIDE (BEAKER) (test 113 meq/L 98-107 cuyq=240) CO2 (BEAKER) (test 20 meq/L 22-29 vzig=720) BLOOD UREA NITROGEN 14 mg/dL 7-21 (BEAKER) (test rkoa=243) CREATININE (BEAKER) (test 1.00 mg/dL 0.57-1.25 emdi=045) GLUCOSE RANDOM (BEAKER) 144 mg/dL 70-105 (test zatf=256) CALCIUM (BEAKER) (test 8.6 mg/dL 8.4-10.2 usze=285) EGFR (BEAKER) (test 91 mL/min/1.73 sq m ESTIMATED GFR IS NOT drhu=8027) ACCURATE CREATININE CLEARANCE IN PREDICTING GLOMERULAR FILTRATION RATE. ESTIMATED GFR IS NOT APPLICABLE FOR DIALYSIS PATIENTS. LACTIC ACID, ARTERIAL, WHOLE [id number] 04:04:00 Test Item Value Reference Range Comments LACTATE BLOOD ARTERIAL (2) (BEAKER) (test 2.8 mmol/L 0.5-2.2 qour=2185) Effective 02/23/2016: Units/Reference Range ChangeNew: 0.5-2.2 mmol/L Previous: 5 -20 mg/dLCBC W/PLT COUNT & AUTO [id number] 03:59:00 Test Item Value Reference Range Comments WHITE BLOOD CELL COUNT (BEAKER) (test deif=679) 4.5 K/ L 3.5-10.5 RED BLOOD CELL COUNT (BEAKER) (test qfus=295) 3.09 M/ L 4.63-6.08 HEMOGLOBIN (BEAKER) (test uiry=688) 9.3 GM/DL 13.7-17.5 HEMATOCRIT (BEAKER) (test ghzt=487) 26.4 % 40.1-51.0 MEAN CORPUSCULAR VOLUME (BEAKER) (test fcag=059) 85.4 fL 79.0-92.2 MEAN CORPUSCULAR HEMOGLOBIN (BEAKER) (test 30.1 pg 25.7-32.2 ovgt=211) MEAN CORPUSCULAR HEMOGLOBIN CONC (BEAKER) (test 35.2 GM/DL 32.3-36.5 nudw=193) RED CELL DISTRIBUTION WIDTH (BEAKER) (test 14.8 % 11.6-14.4 qvhw=600) PLATELET COUNT (BEAKER) (test tcoh=215) 163 K/CU MM 150-450 MEAN PLATELET VOLUME (BEAKER) (test vtry=035) 10.1 fL 9.4-12.4 NUCLEATED RED BLOOD CELLS (BEAKER) (test 0 /100 WBC 0-0 teda=098) NEUTROPHILS RELATIVE PERCENT (BEAKER) (test 77 % oeml=668) LYMPHOCYTES RELATIVE PERCENT (BEAKER) (test 10 % dccp=649) MONOCYTES RELATIVE PERCENT (BEAKER) (test 11 % hktf=582) EOSINOPHILS RELATIVE PERCENT (BEAKER) (test 2 % oiis=616) BASOPHILS RELATIVE PERCENT (BEAKER) (test 0 % ornd=647) NEUTROPHILS ABSOLUTE COUNT (BEAKER) (test 3.48 K/ L 1.78-5.38 ogiv=890) LYMPHOCYTES ABSOLUTE COUNT (BEAKER) (test 0.44 K/ L 1.32-3.57 dytc=897) MONOCYTES ABSOLUTE COUNT (BEAKER) (test 0.50 K/ L 0.30-0.82 jvnl=125) EOSINOPHILS ABSOLUTE COUNT (BEAKER) (test 0.08 K/ L 0.04-0.54 ergo=199) BASOPHILS ABSOLUTE COUNT (BEAKER) (test 0.02 K/ L 0.01-0.08 qsad=659) IMMATURE GRANULOCYTES-RELATIVE PERCENT (BEAKER) 0 % 0-1 (test ncue=3630) CBC (HEMOGRAM ONLY)2017-06-07 03:58:00 Test Item Value Reference Range Comments WHITE BLOOD CELL COUNT (BEAKER) (test tzdp=116) 4.5 K/ L 3.5-10.5 RED BLOOD CELL COUNT (BEAKER) (test twnl=099) 3.09 M/ L 4.63-6.08 HEMOGLOBIN (BEAKER) (test eacg=185) 9.3 GM/DL 13.7-17.5 HEMATOCRIT (BEAKER) (test ueac=930) 26.4 % 40.1-51.0 MEAN CORPUSCULAR VOLUME (BEAKER) (test fexo=847) 85.4 fL 79.0-92.2 MEAN CORPUSCULAR HEMOGLOBIN (BEAKER) (test 30.1 pg 25.7-32.2 mxmk=893) MEAN CORPUSCULAR HEMOGLOBIN CONC (BEAKER) (test 35.2 GM/DL 32.3-36.5 oxrh=071) RED CELL DISTRIBUTION WIDTH (BEAKER) (test 14.8 % 11.6-14.4 nuhc=078) PLATELET COUNT (BEAKER) (test iljr=029) 163 K/CU MM 150-450 MEAN PLATELET VOLUME (BEAKER) (test aqzi=202) 10.1 fL 9.4-12.4 NUCLEATED RED BLOOD CELLS (BEAKER) (test 0 /100 WBC 0-0 telq=858) BLOOD GAS, [id number] 03:57:00 Test Item Value Reference Range Comments PH ARTERIAL (BEAKER) (test wthn=431) 7.43 7.35-7.45 PCO2 ARTERIAL (BEAKER) (test drgm=274) 35 mmHg 35-45 PO2 ARTERIAL (BEAKER) (test enrk=851) 144 mmHg 80-90 O2 SATURATION ARTERIAL (BEAKER) (test vnbh=304) 98.9 % 96.0-97.0 HCO3 ARTERIAL (BEAKER) (test owmk=180) 22 mmol/L 21-29 BASE EXCESS ARTERIAL (BEAKER) (test qoty=087) -1.5 mmol/L -2.0-3.0 PATIENT TEMPERATURE (BEAKER) (test ywyl=2163) 37.8 C FIO2 (BEAKER) (test vrst=3868) 40.0 % OXYGEN SATURATION, [id number] 03:51:00 Test Item Value Reference Range Comments O2 SATURATION (MEASURED) (BEAKER) (test nijq=2341) 65.7 % CALCIUM, [id number] 03:50:00 Test Item Value Reference Range Comments CALCIUM IONIZED (BEAKER) (test zxbx=161) 1.17 mmol/L 1.12-1.27 PH, BLOOD (BEAKER) (test vgse=0553) 7.37 POCT-GLUCOSE [id number] 02:41:00 Test Item Value Reference Range Comments POC-GLUCOSE METER (BEAKER) 198 mg/dL 70-110 TESTED AT [address] (test zrsh=6390) [place] [address] HEMOGLOBIN AND [id number] 01:50:00 Test Item Value Reference Range Comments HEMOGLOBIN (BEAKER) (test lthf=319) 9.3 GM/DL 13.7-17.5 HEMATOCRIT (BEAKER) (test kghv=133) 26.0 % 40.1-51.0 POCT-GLUCOSE [id number] 00:10:00 Test Item Value Reference Range Comments POC-GLUCOSE METER (BEAKER) 176 mg/dL 70-110 TESTED AT [address] (test ibms=6304) [place] [address] BLOOD GAS, [id number] 23:24:00 Test Item Value Reference Range Comments PH ARTERIAL (BEAKER) (test begp=490) 7.39 7.35-7.45 PCO2 ARTERIAL (BEAKER) (test thux=205) 35 mmHg 35-45 PO2 ARTERIAL (BEAKER) (test jkbt=435) 110 mmHg 80-90 O2 SATURATION ARTERIAL (BEAKER) (test xzzb=173) 98.1 % 96.0-97.0 HCO3 ARTERIAL (BEAKER) (test qnil=106) 21 mmol/L 21-29 BASE EXCESS ARTERIAL (BEAKER) (test over=920) -4.1 mmol/L -2.0-3.0 PATIENT TEMPERATURE (BEAKER) (test btmg=9047) 36.1 C FIO2 (BEAKER) (test ebtc=1980) 40.0 % GLUCOSE-STAT [id number] 23:24:00 Test Item Value Reference Range Comments GLUCOSE RANDOM (BEAKER) (test rcts=069) 167 mg/dL 70-110 HGB/HCT (H&H) - STAT [id number] 23:24:00 Test Item Value Reference Range Comments HEMOGLOBIN (BEAKER) (test izru=635) 8.7 g/dL 13.0-16.8 HEMATOCRIT (BEAKER) (test dvmx=653) 26.0 % 40.0-50.0 CALCIUM, [id number] 23:24:00 Test Item Value Reference Range Comments CALCIUM IONIZED (BEAKER) (test muww=209) 1.31 mmol/L 1.12-1.27 PH, BLOOD (BEAKER) (test tihl=4484) 7.37 SODIUM NA-STAT [id number] 23:18:00 Test Item Value Reference Range Comments SODIUM (BEAKER) (test xdrj=229) 140 meq/L 135-148 POTASSIUM-STAT [id number] 23:18:00 Test Item Value Reference Range Comments POTASSIUM (BEAKER) (test xcas=910) 4.2 meq/L 3.6-5.5 OXYGEN SATURATION, [id number] 23:17:00 Test Item Value Reference Range Comments O2 SATURATION (MEASURED) (BEAKER) (test uoty=5254) 66.5 % [id number] 23:12:00 Test Item Value Reference Range Comments MAGNESIUM (BEAKER) (test wdjl=217) 1.9 mg/dL 1.6-2.6 BASIC METABOLIC [id number] 23:12:00 Test Item Value Reference Range Comments SODIUM (BEAKER) (test 144 meq/L 136-145 exbi=554) POTASSIUM (BEAKER) (test 4.4 meq/L 3.5-5.1 swmt=491) CHLORIDE (BEAKER) (test 114 meq/L 98-107 qgfd=420) CO2 (BEAKER) (test 20 meq/L 22-29 egnb=788) BLOOD UREA NITROGEN 15 mg/dL 7-21 (BEAKER) (test ancd=818) CREATININE (BEAKER) (test 1.10 mg/dL 0.57-1.25 ohwo=901) GLUCOSE RANDOM (BEAKER) 191 mg/dL 70-105 (test iirh=600) CALCIUM (BEAKER) (test 8.5 mg/dL 8.4-10.2 ocvb=329) EGFR (BEAKER) (test 81 mL/min/1.73 sq m ESTIMATED GFR IS NOT xbyf=9918) ACCURATE CREATININE CLEARANCE IN PREDICTING GLOMERULAR FILTRATION RATE. ESTIMATED GFR IS NOT APPLICABLE FOR DIALYSIS PATIENTS. LACTIC ACID, ARTERIAL, WHOLE [id number] 23:07:00 Test Item Value Reference Range Comments LACTATE BLOOD ARTERIAL (2) (BEAKER) (test 3.9 mmol/L 0.5-2.2 cfws=4629) Effective 02/23/2016: Units/Reference Range ChangeNew: 0.5-2.2 mmol/L Previous: 5 -20 mg/dLCBC W/PLT COUNT & AUTO [id number] 22:59:00 Test Item Value Reference Range Comments WHITE BLOOD CELL COUNT (BEAKER) (test fmfm=216) 3.3 K/ L 3.5-10.5 RED BLOOD CELL COUNT (BEAKER) (test upge=353) 2.86 M/ L 4.63-6.08 HEMOGLOBIN (BEAKER) (test bflw=960) 8.5 GM/DL 13.7-17.5 HEMATOCRIT (BEAKER) (test vcuo=796) 24.7 % 40.1-51.0 MEAN CORPUSCULAR VOLUME (BEAKER) (test kytu=209) 86.4 fL 79.0-92.2 MEAN CORPUSCULAR HEMOGLOBIN (BEAKER) (test 29.7 pg 25.7-32.2 died=573) MEAN CORPUSCULAR HEMOGLOBIN CONC (BEAKER) (test 34.4 GM/DL 32.3-36.5 wjim=615) RED CELL DISTRIBUTION WIDTH (BEAKER) (test 14.6 % 11.6-14.4 fbvw=109) PLATELET COUNT (BEAKER) (test mfkn=506) 150 K/CU MM 150-450 MEAN PLATELET VOLUME (BEAKER) (test zckg=931) 9.7 fL 9.4-12.4 NUCLEATED RED BLOOD CELLS (BEAKER) (test 0 /100 WBC 0-0 czur=441) NEUTROPHILS RELATIVE PERCENT (BEAKER) (test 70 % abxy=012) LYMPHOCYTES RELATIVE PERCENT (BEAKER) (test 13 % cpmo=644) MONOCYTES RELATIVE PERCENT (BEAKER) (test 14 % vcmb=550) EOSINOPHILS RELATIVE PERCENT (BEAKER) (test 2 % ixpa=084) BASOPHILS RELATIVE PERCENT (BEAKER) (test 0 % fkmf=925) NEUTROPHILS ABSOLUTE COUNT (BEAKER) (test 2.32 K/ L 1.78-5.38 hdnu=304) LYMPHOCYTES ABSOLUTE COUNT (BEAKER) (test 0.42 K/ L 1.32-3.57 obix=851) MONOCYTES ABSOLUTE COUNT (BEAKER) (test 0.45 K/ L 0.30-0.82 hwvz=926) EOSINOPHILS ABSOLUTE COUNT (BEAKER) (test 0.08 K/ L 0.04-0.54 mkvp=769) BASOPHILS ABSOLUTE COUNT (BEAKER) (test 0.01 K/ L 0.01-0.08 waaw=864) IMMATURE GRANULOCYTES-RELATIVE PERCENT (BEAKER) 1 % 0-1 (test wcaz=4333) [id number] 22:58:00 Test Item Value Reference Range Comments FIBRINOGEN LEVEL (BEAKER) (test xtep=903) 319 mg/dl 225-434 [id number] 22:58:00 Test Item Value Reference Range Comments PARTIAL THROMBOPLASTIN TIME (BEAKER) (test 46.7 seconds 22.5-36.0 gzyg=428) PROTHROMBIN [id number] 22:57:00 Test Item Value Reference Range Comments PROTIME (BEAKER) (test dodk=241) 15.4 seconds 11.7-14.7 INR (BEAKER) (test pyml=976) 1.2 <=5.9 RECOMMENDED COUMADIN/WARFARIN INR THERAPY RANGESSTANDARD DOSE: 2.0 - 3.0 Includes: PROPHYLAXIS forvenous thrombosis, systemic embolization; TREATMENT for venous thrombosis and/or pulmonary embolus.HIGH RISK: Target INR is 2.5-3.5 for patients with mechanical heart valves.THROMBOELASTOGRAPH (TEG)2017-06-06 21: 31:00 Test Item Value Reference Range Comments TEG ACTIVATED CLOTTING TIME (BEAKER) (test 7.8 minutes 4.0-7.0 pxsu=4191) TEG FIBRINOGEN ACTIVITY (BEAKER) (test 60.6 degrees 61.0-73.0 qrln=5271) TEG PLT. AGGREGATION (BEAKER) (test fehb=1004) 63.6 MM 55.0-65.0 TGH ACTIVATED CLOTTING TIME (BEAKER) (test 6.8 minutes 4.0-7.0 qkzd=0784) TGH FIBRINOGEN ACTIVITY (BEAKER) (test 66.4 degrees 61.0-73.0 ofov=0875) TGH PLT. AGGREGATION (BEAKER) (test wtav=5628) 64.9 MM 55.0-65.0 THROMBOELASTOGRAPH (TEG)2017-06-06 21:28:00 Test Item Value Reference Range Comments TEG ACTIVATED CLOTTING TIME (BEAKER) (test 6.0 minutes 4.0-7.0 trda=5354) TEG FIBRINOGEN ACTIVITY (BEAKER) (test 63.8 degrees 61.0-73.0 opum=8328) TEG PLT. AGGREGATION (BEAKER) (test xidp=0297) 61.5 MM 55.0-65.0 TEG FIBRINOLYSIS (BEAKER) (test guuh=5538) 0.0 % 0.0-5.0 TGH ACTIVATED CLOTTING TIME (BEAKER) (test 6.4 minutes 4.0-7.0 obpt=1246) TGH FIBRINOGEN ACTIVITY (BEAKER) (test 65.4 degrees 61.0-73.0 arpx=2554) TGH PLT. AGGREGATION (BEAKER) (test lnuo=4776) 60.8 MM 55.0-65.0 TGH FIBRINOLYSIS (BEAKER) (test crgq=6482) 0.0 % 0.0-5.0 CBC W/PLT COUNT & AUTO [id number] 21:26:00 Test Item Value Reference Range Comments WHITE BLOOD CELL COUNT (BEAKER) (test rzjx=211) 2.9 K/ L 3.5-10.5 RED BLOOD CELL COUNT (BEAKER) (test mkrx=994) 2.95 M/ L 4.63-6.08 HEMOGLOBIN (BEAKER) (test uavh=799) 8.9 GM/DL 13.7-17.5 HEMATOCRIT (BEAKER) (test wgtc=047) 25.6 % 40.1-51.0 MEAN CORPUSCULAR VOLUME (BEAKER) (test dumc=723) 86.8 fL 79.0-92.2 MEAN CORPUSCULAR HEMOGLOBIN (BEAKER) (test 30.2 pg 25.7-32.2 nuwb=661) MEAN CORPUSCULAR HEMOGLOBIN CONC (BEAKER) (test 34.8 GM/DL 32.3-36.5 ziyj=204) RED CELL DISTRIBUTION WIDTH (BEAKER) (test 14.6 % 11.6-14.4 njbw=552) PLATELET COUNT (BEAKER) (test lbpw=986) 145 K/CU MM 150-450 MEAN PLATELET VOLUME (BEAKER) (test awxz=525) 10.0 fL 9.4-12.4 NUCLEATED RED BLOOD CELLS (BEAKER) (test 0 /100 WBC 0-0 qpnc=875) IMMATURE GRANULOCYTES-RELATIVE PERCENT (BEAKER) 1 % 0-1 (test udfs=5224) (MANUAL DIFFERENTIAL)2017-06-06 21:26:00 Test Item Value Reference Range Comments NEUTROPHILS - REL (DIFF) (BEAKER) (test hihi=4829) 67 % LYMPHOCYTES - REL (DIFF) (BEAKER) (test ooke=5552) 20 % MONOCYTES - REL (DIFF) (BEAKER) (test dhfn=0529) 9 % EOSINOPHILS - REL (DIFF) (BEAKER) (test hqfu=9409) 1 % BANDS - REL (DIFF) (BEAKER) (test lszm=6051) 3 % 0-10 NEUTROPHILS - ABS (DIFF) (BEAKER) (test tazs=3333) 1.94 K/ L 1.80-8.00 LYMPHOCYTES - ABS (DIFF) (BEAKER) (test axyr=6057) 0.58 K/ L 1.48-4.50 MONOCYTES - ABS (DIFF) (BEAKER) (test jyjj=3006) 0.26 K/ L 0.00-1.30 EOSINOPHILS - ABS (DIFF) (BEAKER) (test lkae=9363) 0.03 K/ L 0.00-0.50 BANDS-ABS (DIFF) (BEAKER) (test xvkl=8189) 0.1 K/ L 0.0-0.8 TOTAL COUNTED (BEAKER) (test lqln=7214) 100 BANDS + SEGMENTED NEUTROPHILS (BEAKER) (test 2.03 slhc=7999) WBC MORPHOLOGY (BEAKER) (test jmiq=048) Normal PLT MORPHOLOGY (BEAKER) (test dwrd=965) Normal RBC MORPHOLOGY (BEAKER) (test gqtv=153) Normal PLATELET COUNT-STAT [id number] 20:54:00 Test Item Value Reference Range Comments PLATELET COUNT (BEAKER) (test tkcj=181) 154 K/CU MM 150-430 [id number] 20:45:00 Test Item Value Reference Range Comments FIBRINOGEN LEVEL (BEAKER) (test bmtp=452) 274 mg/dl 225-434 [id number] 20:45:00 Test Item Value Reference Range Comments PARTIAL THROMBOPLASTIN TIME (BEAKER) (test 43.6 seconds 22.5-36.0 cgxy=553) PROTHROMBIN TIME/[id number] 20:44:00 Test Item Value Reference Range Comments PROTIME (BEAKER) (test wvyu=283) 15.6 seconds 11.7-14.7 INR (BEAKER) (test wlqx=877) 1.3 <=5.9 RECOMMENDED COUMADIN/WARFARIN INR THERAPY RANGESSTANDARD DOSE: 2.0 - 3.0 Includes: PROPHYLAXIS forvenous thrombosis, systemic embolization; TREATMENT for venous thrombosis and/or pulmonary embolus.HIGH RISK: Target INR is 2.5-3.5 for patients with mechanical heart valves.BLOOD GAS, [id number] 20:21:00 Test Item Value Reference Range Comments PH ARTERIAL (BEAKER) (test ymlt=157) 7.34 7.35-7.45 PCO2 ARTERIAL (BEAKER) (test bskt=750) 40 mmHg 35-45 PO2 ARTERIAL (BEAKER) (test vijn=019) 273 mmHg 80-90 O2 SATURATION ARTERIAL (BEAKER) (test qkbt=865) 99.6 % 96.0-97.0 HCO3 ARTERIAL (BEAKER) (test qwbc=635) 21 mmol/L 21-29 BASE EXCESS ARTERIAL (BEAKER) (test swrw=222) -4.3 mmol/L -2.0-3.0 PATIENT TEMPERATURE (BEAKER) (test ifqg=8715) 37.0 C FIO2 (BEAKER) (test nqlt=7409) 100.0 % GLUCOSE-STAT [id number] 20:21:00 Test Item Value Reference Range Comments GLUCOSE RANDOM (BEAKER) (test tyhn=027) 156 mg/dL 70-110 HGB/HCT (H&H) - STAT [id number] 20:21:00 Test Item Value Reference Range Comments HEMOGLOBIN (BEAKER) (test ekbp=564) 9.8 g/dL 13.0-16.8 HEMATOCRIT (BEAKER) (test lphh=022) 29.0 % 40.0-50.0 SODIUM NA-STAT [id number] 20:18:00 Test Item Value Reference Range Comments SODIUM (BEAKER) (test irlz=329) 140 meq/L 135-148 POTASSIUM-STAT [id number] 20:18:00 Test Item Value Reference Range Comments POTASSIUM (BEAKER) (test zyst=176) 4.2 meq/L 3.6-5.5 CALCIUM, [id number] 20:18:00 Test Item Value Reference Range Comments CALCIUM IONIZED (BEAKER) (test pbqf=203) 1.16 mmol/L 1.12-1.27 PH, BLOOD (BEAKER) (test ovdb=5910) 7.34 THROMBOELASTOGRAPH (TEG)2017-06-06 19:30:00 Test Item Value Reference Range Comments TEG ACTIVATED CLOTTING TIME (BEAKER) (test 4.8 minutes 4.0-7.0 ccza=0505) TEG FIBRINOGEN ACTIVITY (BEAKER) (test 66.7 degrees 61.0-73.0 saar=6020) TEG PLT. AGGREGATION (BEAKER) (test nwbd=7442) 62.5 MM 55.0-65.0 TEG FIBRINOLYSIS (BEAKER) (test rtpw=5639) 0.0 % 0.0-5.0 TGH ACTIVATED CLOTTING TIME (BEAKER) (test 4.8 minutes 4.0-7.0 lqhx=9824) TGH FIBRINOGEN ACTIVITY (BEAKER) (test 71.0 degrees 61.0-73.0 uoko=0050) TGH PLT. AGGREGATION (BEAKER) (test ccve=5969) 64.0 MM 55.0-65.0 TGH FIBRINOLYSIS (BEAKER) (test kscq=3120) 0.0 % 0.0-5.0 PLATELET [id number] 19:00:00 Test Item Value Reference Range Comments PLATELET COUNT (BEAKER) (test vpnr=202) 145 K/CU MM 150-450 LACTIC ACID, ARTERIAL, WHOLE [id number] 18:49:00 Test Item Value Reference Range Comments LACTATE BLOOD ARTERIAL (2) (BEAKER) (test 3.2 mmol/L 0.5-2.2 ypwi=4879) Effective 02/23/2016: Units/Reference Range ChangeNew: 0.5-2.2 mmol/L Previous: 5 -20 mg/[id number] 18:47:00 Test Item Value Reference Range Comments POTASSIUM (BEAKER) (test kfyh=676) 4.4 meq/L 3.5-5.1 [id number] 18:47:00 Test Item Value Reference Range Comments MAGNESIUM (BEAKER) (test quxr=740) 1.8 mg/dL 1.6-2.6 [id number] 18:47:00 Test Item Value Reference Range Comments PHOSPHORUS (BEAKER) (test xicl=007) 3.6 mg/dL 2.3-4.7 [id number] 18:47:00 Test Item Value Reference Range Comments GLUCOSE RANDOM (BEAKER) (test ukfb=973) 159 mg/dL 70-105 Effective 09/08/2014: Reference Range Change-Adult onlyNew: 70-105 Previous : 70-110BASIC METABOLIC [id number] 18:47:00 Test Item Value Reference Range Comments SODIUM (BEAKER) (test 145 meq/L 136-145 xizp=718) POTASSIUM (BEAKER) (test 4.4 meq/L 3.5-5.1 wjkv=206) CHLORIDE (BEAKER) (test 113 meq/L 98-107 sshw=778) CO2 (BEAKER) (test 22 meq/L 22-29 lnag=631) BLOOD UREA NITROGEN 16 mg/dL 7-21 (BEAKER) (test urqr=339) CREATININE (BEAKER) (test 1.04 mg/dL 0.57-1.25 xpiq=578) GLUCOSE RANDOM (BEAKER) 159 mg/dL 70-105 (test nfcy=254) CALCIUM (BEAKER) (test 9.8 mg/dL 8.4-10.2 daag=850) EGFR (BEAKER) (test 87 mL/min/1.73 sq m ESTIMATED GFR IS NOT gamv=6376) ACCURATE CREATININE CLEARANCE IN PREDICTING GLOMERULAR FILTRATION RATE. ESTIMATED GFR IS NOT APPLICABLE FOR DIALYSIS PATIENTS. [id number] 18:33:00 Test Item Value Reference Range Comments FIBRINOGEN LEVEL (BEAKER) (test aznh=365) 213 mg/dl 225-434 [id number] 18:33:00 Test Item Value Reference Range Comments PARTIAL THROMBOPLASTIN TIME (BEAKER) (test 41.2 seconds 22.5-36.0 diwt=909) PROTHROMBIN [id number] 18:32:00 Test Item Value Reference Range Comments PROTIME (BEAKER) (test kufn=158) 15.8 seconds 11.7-14.7 INR (BEAKER) (test mvll=450) 1.3 <=5.9 RECOMMENDED COUMADIN/WARFARIN INR THERAPY RANGESSTANDARD DOSE: 2.0 - 3.0 Includes: PROPHYLAXIS forvenous thrombosis, systemic embolization; TREATMENT for venous thrombosis and/or pulmonary embolus.HIGH RISK: Target INR is 2.5-3.5 for patients with mechanical heart valves.OXYGEN SATURATION, [id number] 18:18:00 Test Item Value Reference Range Comments O2 SATURATION (MEASURED) (BEAKER) (test ziwz=0328) 67.4 % CALCIUM, [id number] 18:16:00 Test Item Value Reference Range Comments CALCIUM IONIZED (BEAKER) (test jmvv=721) 1.30 mmol/L 1.12-1.27 PH, BLOOD (BEAKER) (test vxlx=1142) 7.37 SODIUM NA-STAT [id number] 18:15:00 Test Item Value Reference Range Comments SODIUM (BEAKER) (test nbos=470) 140 meq/L 135-148 POTASSIUM-STAT [id number] 18:15:00 Test Item Value Reference Range Comments POTASSIUM (BEAKER) (test gmgm=309) 4.2 meq/L 3.6-5.5 BLOOD GAS, [id number] 18:15:00 Test Item Value Reference Range Comments PH ARTERIAL (BEAKER) (test vzux=310) 7.37 7.35-7.45 PCO2 ARTERIAL (BEAKER) (test cjnh=427) 41 mmHg 35-45 PO2 ARTERIAL (BEAKER) (test kvvl=781) 183 mmHg 80-90 O2 SATURATION ARTERIAL (BEAKER) (test liyr=404) 99.2 % 96.0-97.0 HCO3 ARTERIAL (BEAKER) (test saqa=619) 23 mmol/L 21-29 BASE EXCESS ARTERIAL (BEAKER) (test ffld=645) -2.1 mmol/L -2.0-3.0 PATIENT TEMPERATURE (BEAKER) (test qfag=4655) 37.7 C FIO2 (BEAKER) (test vrix=7517) 60.0 % GLUCOSE-STAT [id number] 18:15:00 Test Item Value Reference Range Comments GLUCOSE RANDOM (BEAKER) (test wwax=415) 141 mg/dL 70-110 HEMOGLOBIN-STAT [id number] 18:15:00 Test Item Value Reference Range Comments HEMOGLOBIN (BEAKER) (test trjh=485) 9.0 g/dL 13.0-16.8 [id number] 17:20:00 Test Item Value Reference Range Comments PARTIAL THROMBOPLASTIN TIME (BEAKER) (test 35.2 seconds 22.5-36.0 ynyl=042) SODIUM NA-STAT [id number] 17:18:00 Test Item Value Reference Range Comments SODIUM (BEAKER) (test xpqj=038) 139 meq/L 135-148 POTASSIUM-STAT [id number] 17:18:00 Test Item Value Reference Range Comments POTASSIUM (BEAKER) (test unon=527) 4.0 meq/L 3.6-5.5 CALCIUM, [id number] 17:18:00 Test Item Value Reference Range Comments CALCIUM IONIZED (BEAKER) (test oltx=337) 1.20 mmol/L 1.12-1.27 PH, BLOOD (BEAKER) (test ugen=6575) 7.39 BLOOD GAS, [id number] 17:18:00 Test Item Value Reference Range Comments PH ARTERIAL (BEAKER) (test gujx=953) 7.39 7.35-7.45 PCO2 ARTERIAL (BEAKER) (test jeii=697) 38 mmHg 35-45 PO2 ARTERIAL (BEAKER) (test ramo=758) 384 mmHg 80-90 O2 SATURATION ARTERIAL (BEAKER) (test xueg=541) 99.8 % 96.0-97.0 HCO3 ARTERIAL (BEAKER) (test muad=436) 23 mmol/L 21-29 BASE EXCESS ARTERIAL (BEAKER) (test pbrx=930) -2.2 mmol/L -2.0-3.0 PATIENT TEMPERATURE (BEAKER) (test mqxp=5662) 37.3 C FIO2 (BEAKER) (test ogij=9510) 100.0 % GLUCOSE-STAT [id number] 17:18:00 Test Item Value Reference Range Comments GLUCOSE RANDOM (BEAKER) (test rmch=634) 146 mg/dL 70-110 HGB/HCT (H&H) - STAT [id number] 17:18:00 Test Item Value Reference Range Comments HEMOGLOBIN (BEAKER) (test pkoa=694) 8.1 g/dL 13.0-16.8 HEMATOCRIT (BEAKER) (test tuyq=402) 24.0 % 40.0-50.0 PLATELET [id number] 17:16:00 Test Item Value Reference Range Comments PLATELET COUNT (BEAKER) (test kyow=585) 153 K/CU MM 150-450 [id number] 17:12:00 Test Item Value Reference Range Comments FIBRINOGEN LEVEL (BEAKER) (test hxzd=428) 228 mg/dl 225-434 PROTHROMBIN [id number] 17:11:00 Test Item Value Reference Range Comments PROTIME (BEAKER) (test nlsc=143) 16.9 seconds 11.7-14.7 INR (BEAKER) (test bnwx=961) 1.4 <=5.9 RECOMMENDED COUMADIN/WARFARIN INR THERAPY RANGESSTANDARD DOSE: 2.0 - 3.0 Includes: PROPHYLAXIS forvenous thrombosis, systemic embolization; TREATMENT for venous thrombosis and/or pulmonary embolus.HIGH RISK: Target INR is 2.5-3.5 for patients with mechanical heart valves.SODIUM NA-STAT [id number] 16:19:00 Test Item Value Reference Range Comments SODIUM (BEAKER) (test cjmo=859) 140 meq/L 135-148 POTASSIUM-STAT [id number] 16:19:00 Test Item Value Reference Range Comments POTASSIUM (BEAKER) (test bddj=233) 3.9 meq/L 3.6-5.5 BLOOD GAS, [id number] 16:19:00 Test Item Value Reference Range Comments PH ARTERIAL (BEAKER) (test sweh=458) 7.39 7.35-7.45 PCO2 ARTERIAL (BEAKER) (test guie=473) 38 mmHg 35-45 PO2 ARTERIAL (BEAKER) (test izlx=844) 350 mmHg 80-90 O2 SATURATION ARTERIAL (BEAKER) (test ajpd=427) 99.8 % 96.0-97.0 HCO3 ARTERIAL (BEAKER) (test wdgd=733) 23 mmol/L 21-29 BASE EXCESS ARTERIAL (BEAKER) (test cgzw=232) -2.2 mmol/L -2.0-3.0 PATIENT TEMPERATURE (BEAKER) (test zgjd=4584) 37.0 C FIO2 (BEAKER) (test push=9313) 100.0 % GLUCOSE-STAT [id number] 16:19:00 Test Item Value Reference Range Comments GLUCOSE RANDOM (BEAKER) (test oykk=956) 123 mg/dL 70-110 HGB/HCT (H&H) - STAT [id number] 16:19:00 Test Item Value Reference Range Comments HEMOGLOBIN (BEAKER) (test eyrn=635) 8.7 g/dL 13.0-16.8 HEMATOCRIT (BEAKER) (test gflj=056) 26.0 % 40.0-50.0 CALCIUM, [id number] 16:19:00 Test Item Value Reference Range Comments CALCIUM IONIZED (BEAKER) (test xicx=192) 1.32 mmol/L 1.12-1.27 PH, BLOOD (BEAKER) (test ygzl=8346) 7.39 THROMBOELASTOGRAPH (TEG)[id number] 15:50:00 Test Item Value Reference Range Comments TEG ACTIVATED CLOTTING TIME (BEAKER) (test 6.2 minutes 4.0-7.0 uesr=5688) TEG FIBRINOGEN ACTIVITY (BEAKER) (test 76.0 degrees 61.0-73.0 mgnm=9036) TEG PLT. AGGREGATION (BEAKER) (test lrye=9097) 60.0 MM 55.0-65.0 TEG FIBRINOLYSIS (BEAKER) (test ujsb=1658) 4.2 % 0.0-5.0 TGH ACTIVATED CLOTTING TIME (BEAKER) (test 6.5 minutes 4.0-7.0 ogdq=7683) TGH FIBRINOGEN ACTIVITY (BEAKER) (test 77.1 degrees 61.0-73.0 xnji=7247) TGH PLT. AGGREGATION (BEAKER) (test nyss=8009) 70.0 MM 55.0-65.0 TGH FIBRINOLYSIS (BEAKER) (test ntfu=8716) 0.0 % 0.0-5.0 SODIUM NA-STAT [id number] 15:42:00 Test Item Value Reference Range Comments SODIUM (BEAKER) (test izow=153) 136 meq/L 135-148 POTASSIUM-STAT [id number] 15:42:00 Test Item Value Reference Range Comments POTASSIUM (BEAKER) (test tnil=518) 4.3 meq/L 3.6-5.5 BLOOD GAS, [id number] 15:42:00 Test Item Value Reference Range Comments PH ARTERIAL (BEAKER) (test gjhh=684) 7.36 7.35-7.45 PCO2 ARTERIAL (BEAKER) (test zefl=948) 40 mmHg 35-45 PO2 ARTERIAL (BEAKER) (test vgyd=592) 326 mmHg 80-90 O2 SATURATION ARTERIAL (BEAKER) (test uwbm=244) 99.7 % 96.0-97.0 HCO3 ARTERIAL (BEAKER) (test qtpi=788) 22 mmol/L 21-29 BASE EXCESS ARTERIAL (BEAKER) (test zvlc=651) -3.1 mmol/L -2.0-3.0 PATIENT TEMPERATURE (BEAKER) (test qfcm=9018) 36.5 C FIO2 (BEAKER) (test zedl=6554) 100.0 % GLUCOSE-STAT [id number] 15:42:00 Test Item Value Reference Range Comments GLUCOSE RANDOM (BEAKER) (test igrk=368) 136 mg/dL 70-110 HGB/HCT (H&H) - STAT [id number] 15:42:00 Test Item Value Reference Range Comments HEMOGLOBIN (BEAKER) (test lewn=202) 9.7 g/dL 13.0-16.8 HEMATOCRIT (BEAKER) (test jkyy=379) 29.0 % 40.0-50.0 CALCIUM, [id number] 15:42:00 Test Item Value Reference Range Comments CALCIUM IONIZED (BEAKER) (test ijxx=832) 1.30 mmol/L 1.12-1.27 PH, BLOOD (BEAKER) (test eqzl=6036) 7.36 SODIUM NA-STAT [id number] 15:04:00 Test Item Value Reference Range Comments SODIUM (BEAKER) (test taup=631) 138 meq/L 135-148 POTASSIUM-STAT [id number] 15:04:00 Test Item Value Reference Range Comments POTASSIUM (BEAKER) (test sifv=097) 4.5 meq/L 3.6-5.5 CALCIUM, [id number] 15:04:00 Test Item Value Reference Range Comments CALCIUM IONIZED (BEAKER) (test qzqg=931) 1.33 mmol/L 1.12-1.27 PH, BLOOD (BEAKER) (test adaz=4751) 7.41 BLOOD GAS, [id number] 15:04:00 Test Item Value Reference Range Comments PH ARTERIAL (BEAKER) (test yzwm=104) 7.41 7.35-7.45 PCO2 ARTERIAL (BEAKER) (test exww=142) 40 mmHg 35-45 PO2 ARTERIAL (BEAKER) (test mrup=851) 402 mmHg 80-90 O2 SATURATION ARTERIAL (BEAKER) (test ybnr=755) 99.8 % 96.0-97.0 HCO3 ARTERIAL (BEAKER) (test vzjb=513) 25 mmol/L 21-29 BASE EXCESS ARTERIAL (BEAKER) (test btzl=638) 0.1 mmol/L -2.0-3.0 PATIENT TEMPERATURE (BEAKER) (test lkiv=9064) 36.1 C FIO2 (BEAKER) (test jlau=7992) 97.0 % GLUCOSE-STAT [id number] 15:04:00 Test Item Value Reference Range Comments GLUCOSE RANDOM (BEAKER) (test ykkg=212) 120 mg/dL 70-110 HGB/HCT (H&H) - STAT [id number] 15:04:00 Test Item Value Reference Range Comments HEMOGLOBIN (BEAKER) (test bkrf=069) 6.4 g/dL 13.0-16.8 HEMATOCRIT (BEAKER) (test cinl=585) 19.0 % 40.0-50.0 [id number] 15:00:00 Test Item Value Reference Range Comments FIBRINOGEN LEVEL (BEAKER) (test iagg=352) 295 mg/dl 225-434 [id number] 15:00:00 Test Item Value Reference Range Comments PARTIAL THROMBOPLASTIN TIME (BEAKER) (test 37.7 seconds 22.5-36.0 zqca=189) PROTHROMBIN TIME/[id number] 14:59:00 Test Item Value Reference Range Comments PROTIME (BEAKER) (test fhqf=058) 16.9 seconds 11.7-14.7 INR (BEAKER) (test tymn=881) 1.4 <=5.9 RECOMMENDED COUMADIN/WARFARIN INR THERAPY RANGESSTANDARD DOSE: 2.0 - 3.0 Includes: PROPHYLAXIS forvenous thrombosis, systemic embolization; TREATMENT for venous thrombosis and/or pulmonary embolus.HIGH RISK: Target INR is 2.5-3.5 for patients with mechanical heart valves.PLATELET [id number] 14:48:00 Test Item Value Reference Range Comments PLATELET COUNT (BEAKER) (test oalk=203) 265 K/CU MM 150-450 SODIUM NA-STAT [id number] 14:34:00 Test Item Value Reference Range Comments SODIUM (BEAKER) (test rqcw=830) 139 meq/L 135-148 POTASSIUM-STAT [id number] 14:34:00 Test Item Value Reference Range Comments POTASSIUM (BEAKER) (test raie=573) 4.2 meq/L 3.6-5.5 BLOOD GAS, [id number] 14:34:00 Test Item Value Reference Range Comments PH ARTERIAL (BEAKER) (test mrbw=722) 7.37 7.35-7.45 PCO2 ARTERIAL (BEAKER) (test wslg=866) 41 mmHg 35-45 PO2 ARTERIAL (BEAKER) (test jpno=907) 281 mmHg 80-90 O2 SATURATION ARTERIAL (BEAKER) (test wpmo=545) 99.6 % 96.0-97.0 HCO3 ARTERIAL (BEAKER) (test fwns=335) 23 mmol/L 21-29 BASE EXCESS ARTERIAL (BEAKER) (test utdj=459) -2.2 mmol/L -2.0-3.0 PATIENT TEMPERATURE (BEAKER) (test lniw=9854) 35.7 C FIO2 (BEAKER) (test prot=1160) 97.0 % GLUCOSE-STAT [id number] 14:34:00 Test Item Value Reference Range Comments GLUCOSE RANDOM (BEAKER) (test whks=011) 136 mg/dL 70-110 HGB/HCT (H&H) - STAT [id number] 14:34:00 Test Item Value Reference Range Comments HEMOGLOBIN (BEAKER) (test xokj=924) 9.0 g/dL 13.0-16.8 HEMATOCRIT (BEAKER) (test ckls=850) 26.0 % 40.0-50.0 CALCIUM, [id number] 14:34:00 Test Item Value Reference Range Comments CALCIUM IONIZED (BEAKER) (test cuik=802) 0.87 mmol/L 1.12-1.27 PH, BLOOD (BEAKER) (test vecr=9948) 7.35 THROMBOELASTOGRAPH (TEG)2017-06-06 14:09:00 Test Item Value Reference Range Comments TEG ACTIVATED CLOTTING TIME (BEAKER) (test 9.0 minutes 4.0-7.0 ezsj=6111) TEG FIBRINOGEN ACTIVITY (BEAKER) (test 49.2 degrees 61.0-73.0 pbhi=8147) TEG PLT. AGGREGATION (BEAKER) (test kqur=7649) 38.7 MM 55.0-65.0 TGH ACTIVATED CLOTTING TIME (BEAKER) (test 9.2 minutes 4.0-7.0 awjp=3745) TGH FIBRINOGEN ACTIVITY (BEAKER) (test 50.5 degrees 61.0-73.0 ftjx=6456) TGH PLT. AGGREGATION (BEAKER) (test pwwm=6295) 41.7 MM 55.0-65.0 PLATELET [id number] 13:42:00 Test Item Value Reference Range Comments PLATELET COUNT (BEAKER) 42 K/CU MM 150-450 Discordant result compared to (test ffqx=801) previous result; clinical correlation required. [id number] 13:32:00 Test Item Value Reference Range Comments FIBRINOGEN LEVEL (BEAKER) (test vxwl=830) 134 mg/dl 225-434 PROTHROMBIN TIME/[id number] 13:27:00 Test Item Value Reference Range Comments PROTIME (BEAKER) (test gnpu=978) 26.7 seconds 11.7-14.7 INR (BEAKER) (test elfj=320) 2.5 <=5.9 RECOMMENDED COUMADIN/WARFARIN INR THERAPY RANGESSTANDARD DOSE: 2.0 - 3.0 Includes: PROPHYLAXIS forvenous thrombosis, systemic embolization; TREATMENT for venous thrombosis and/or pulmonary embolus.HIGH RISK: Target INR is 2.5-3.5 for patients with mechanical heart valves.[id number] 13:27:00 Test Item Value Reference Range Comments PARTIAL THROMBOPLASTIN TIME (BEAKER) (test 41.7 seconds 22.5-36.0 kiii=166) BLOOD GAS, [id number] 13:10:00 Test Item Value Reference Range Comments PH ARTERIAL (BEAKER) (test szuq=533) 7.35 7.35-7.45 PCO2 ARTERIAL (BEAKER) (test dbqm=164) 41 mmHg 35-45 PO2 ARTERIAL (BEAKER) (test tgfn=698) 276 mmHg 80-90 O2 SATURATION ARTERIAL (BEAKER) (test sgvz=361) 99.6 % 96.0-97.0 HCO3 ARTERIAL (BEAKER) (test zpkw=567) 22 mmol/L 21-29 BASE EXCESS ARTERIAL (BEAKER) (test gzdg=606) -3.2 mmol/L -2.0-3.0 PATIENT TEMPERATURE (BEAKER) (test hokg=9324) 36.4 C FIO2 (BEAKER) (test clio=2776) 97.0 % GLUCOSE-STAT [id number] 13:10:00 Test Item Value Reference Range Comments GLUCOSE RANDOM (BEAKER) (test srft=215) 145 mg/dL 70-110 HGB/HCT (H&H) - STAT [id number] 13:10:00 Test Item Value Reference Range Comments HEMOGLOBIN (BEAKER) (test pxde=060) 9.2 g/dL 13.0-16.8 HEMATOCRIT (BEAKER) (test kbts=011) 27.0 % 40.0-50.0 CALCIUM, [id number] 13:10:00 Test Item Value Reference Range Comments CALCIUM IONIZED (BEAKER) (test xujb=231) 1.16 mmol/L 1.12-1.27 PH, BLOOD (BEAKER) (test fsvi=0858) 7.34 SODIUM NA-STAT [id number] 13:09:00 Test Item Value Reference Range Comments SODIUM (BEAKER) (test slch=984) 135 meq/L 135-148 POTASSIUM-STAT [id number] 13:09:00 Test Item Value Reference Range Comments POTASSIUM (BEAKER) (test answ=317) 4.2 meq/L 3.6-5.5 POTASSIUM-STAT [id number] 12:39:00 Test Item Value Reference Range Comments POTASSIUM (BEAKER) (test abic=840) 5.4 meq/L 3.6-5.5 BLOOD GAS, [id number] 12:39:00 Test Item Value Reference Range Comments PH ARTERIAL (BEAKER) (test skjd=881) 7.26 7.35-7.45 PCO2 ARTERIAL (BEAKER) (test drmi=028) 42 mmHg 35-45 PO2 ARTERIAL (BEAKER) (test uvpn=500) 266 mmHg 80-90 O2 SATURATION ARTERIAL (BEAKER) (test tgkf=917) 99.5 % 96.0-97.0 HCO3 ARTERIAL (BEAKER) (test mkln=500) 19 mmol/L 21-29 BASE EXCESS ARTERIAL (BEAKER) (test nmkt=599) -8.2 mmol/L -2.0-3.0 PATIENT TEMPERATURE (BEAKER) (test tfyz=1956) 36.3 C FIO2 (BEAKER) (test uutq=8835) 75.0 % GLUCOSE-STAT [id number] 12:39:00 Test Item Value Reference Range Comments GLUCOSE RANDOM (BEAKER) (test udzm=061) 164 mg/dL 70-110 HGB/HCT (H&H) - STAT [id number] 12:39:00 Test Item Value Reference Range Comments HEMOGLOBIN (BEAKER) (test ywbb=805) 10.2 g/dL 13.0-16.8 HEMATOCRIT (BEAKER) (test zxjp=081) 30.0 % 40.0-50.0 SODIUM NA-STAT [id number] 12:39:00 Test Item Value Reference Range Comments SODIUM (BEAKER) (test osfd=835) 134 meq/L 135-148 CALCIUM, [id number] 12:12:00 Test Item Value Reference Range Comments CALCIUM IONIZED (BEAKER) (test kodz=096) 1.15 mmol/L 1.12-1.27 PH, BLOOD (BEAKER) (test jqou=8410) 7.32 BLOOD GAS, [id number] 12:12:00 Test Item Value Reference Range Comments PH ARTERIAL (BEAKER) (test yzhs=981) 7.33 7.35-7.45 PCO2 ARTERIAL (BEAKER) (test dyib=032) 40 mmHg 35-45 PO2 ARTERIAL (BEAKER) (test thot=851) 347 mmHg 80-90 O2 SATURATION ARTERIAL (BEAKER) (test rntr=083) 99.7 % 96.0-97.0 HCO3 ARTERIAL (BEAKER) (test yser=064) 21 mmol/L 21-29 BASE EXCESS ARTERIAL (BEAKER) (test dlmy=378) -4.8 mmol/L -2.0-3.0 PATIENT TEMPERATURE (BEAKER) (test qetk=0935) 36.0 C FIO2 (BEAKER) (test jzbc=6089) 100.0 % HGB/HCT (H&H) - STAT [id number] 12:12:00 Test Item Value Reference Range Comments HEMOGLOBIN (BEAKER) (test yqvg=417) 9.0 g/dL 13.0-16.8 HEMATOCRIT (BEAKER) (test ckex=796) 26.0 % 40.0-50.0 GLUCOSE-STAT [id number] 12:12:00 Test Item Value Reference Range Comments GLUCOSE RANDOM (BEAKER) (test vhcy=028) 152 mg/dL 70-110 SODIUM NA-STAT [id number] 12:11:00 Test Item Value Reference Range Comments SODIUM (BEAKER) (test azrp=571) 135 meq/L 135-148 POTASSIUM-STAT [id number] 12:11:00 Test Item Value Reference Range Comments POTASSIUM (BEAKER) (test ybhz=921) 4.4 meq/L 3.6-5.5 THROMBOELASTOGRAPH (TEG)2017-06-06 12:06:00 Test Item Value Reference Range Comments TEG ACTIVATED CLOTTING TIME (BEAKER) (test 2.9 minutes 4.0-7.0 iuou=4031) TEG FIBRINOGEN ACTIVITY (BEAKER) (test 72.1 degrees 61.0-73.0 cyrg=2590) TEG PLT. AGGREGATION (BEAKER) (test ntqa=0115) 60.0 MM 55.0-65.0 TGH ACTIVATED CLOTTING TIME (BEAKER) (test 3.1 minutes 4.0-7.0 qmjt=3359) TGH FIBRINOGEN ACTIVITY (BEAKER) (test 72.7 degrees 61.0-73.0 zqxs=5896) TGH PLT. AGGREGATION (BEAKER) (test uwti=0571) 65.2 MM 55.0-65.0 PROTHROMBIN TIME/[id number] 11:40:00 Test Item Value Reference Range Comments PROTIME (BEAKER) (test ocbz=452) 19.4 seconds 11.7-14.7 INR (BEAKER) (test eaza=793) 1.6 <=5.9 RECOMMENDED COUMADIN/WARFARIN INR THERAPY RANGESSTANDARD DOSE: 2.0 - 3.0 Includes: PROPHYLAXIS forvenous thrombosis, systemic embolization; TREATMENT for venous thrombosis and/or pulmonary embolus.HIGH RISK: Target INR is 2.5-3.5 for patients with mechanical heart valves.[id number] 11:40:00 Test Item Value Reference Range Comments PARTIAL THROMBOPLASTIN TIME (BEAKER) (test 31.1 seconds 22.5-36.0 cztw=514) [id number] 11:40:00 Test Item Value Reference Range Comments FIBRINOGEN LEVEL (BEAKER) (test tzcz=063) 195 mg/dl 225-434 PLATELET [id number] 11:30:00 Test Item Value Reference Range Comments PLATELET COUNT (BEAKER) (test mcqb=750) 161 K/CU MM 150-450 POTASSIUM-STAT [id number] 11:18:00 Test Item Value Reference Range Comments POTASSIUM (BEAKER) (test zvtv=665) 3.7 meq/L 3.6-5.5 CALCIUM, [id number] 11:18:00 Test Item Value Reference Range Comments CALCIUM IONIZED (BEAKER) (test ohpi=149) 1.23 mmol/L 1.12-1.27 PH, BLOOD (BEAKER) (test njix=7966) 7.36 BLOOD GAS, [id number] 11:18:00 Test Item Value Reference Range Comments PH ARTERIAL (BEAKER) (test yjio=717) 7.39 7.35-7.45 PCO2 ARTERIAL (BEAKER) (test dnwl=143) 35 mmHg 35-45 PO2 ARTERIAL (BEAKER) (test xxnw=330) 397 mmHg 80-90 O2 SATURATION ARTERIAL (BEAKER) (test sept=837) 99.8 % 96.0-97.0 HCO3 ARTERIAL (BEAKER) (test ftmy=156) 21 mmol/L 21-29 BASE EXCESS ARTERIAL (BEAKER) (test smvl=253) -4.1 mmol/L -2.0-3.0 PATIENT TEMPERATURE (BEAKER) (test hlxq=7517) 35.3 C FIO2 (BEAKER) (test knol=3847) 87.0 % SODIUM NA-STAT [id number] 11:18:00 Test Item Value Reference Range Comments SODIUM (BEAKER) (test irqf=645) 134 meq/L 135-148 GLUCOSE-STAT [id number] 11:18:00 Test Item Value Reference Range Comments GLUCOSE RANDOM (BEAKER) (test xlcx=482) 134 mg/dL 70-110 HGB/HCT (H&H) - STAT [id number] 11:18:00 Test Item Value Reference Range Comments HEMOGLOBIN (BEAKER) (test vjns=006) 5.8 g/dL 13.0-16.8 HEMATOCRIT (BEAKER) (test lfje=222) 17.0 % 40.0-50.0 SODIUM NA-STAT [id number] 11:09:00 Test Item Value Reference Range Comments SODIUM (BEAKER) (test netg=115) 135 meq/L 135-148 POTASSIUM-STAT [id number] 11:09:00 Test Item Value Reference Range Comments POTASSIUM (BEAKER) (test xsmh=084) 3.7 meq/L 3.6-5.5 BLOOD GAS, [id number] 11:09:00 Test Item Value Reference Range Comments PH ARTERIAL (BEAKER) (test tgvf=044) 7.39 7.35-7.45 PCO2 ARTERIAL (BEAKER) (test rupy=761) 35 mmHg 35-45 PO2 ARTERIAL (BEAKER) (test ekyx=720) 321 mmHg 80-90 O2 SATURATION ARTERIAL (BEAKER) (test dsjx=771) 99.7 % 96.0-97.0 HCO3 ARTERIAL (BEAKER) (test zuys=521) 21 mmol/L 21-29 BASE EXCESS ARTERIAL (BEAKER) (test yjpf=140) -3.9 mmol/L -2.0-3.0 PATIENT TEMPERATURE (BEAKER) (test bkww=7495) 35.2 C FIO2 (BEAKER) (test rhfj=3661) 97.0 % GLUCOSE-STAT [id number] 11:09:00 Test Item Value Reference Range Comments GLUCOSE RANDOM (BEAKER) (test eflb=873) 135 mg/dL 70-110 HGB/HCT (H&H) - STAT [id number] 11:09:00 Test Item Value Reference Range Comments HEMOGLOBIN (BEAKER) (test pnrd=309) 6.3 g/dL 13.0-16.8 HEMATOCRIT (BEAKER) (test bjku=828) 19.0 % 40.0-50.0 CALCIUM, [id number] 11:09:00 Test Item Value Reference Range Comments CALCIUM IONIZED (BEAKER) (test loqd=574) 1.26 mmol/L 1.12-1.27 PH, BLOOD (BEAKER) (test twfi=8435) 7.36 PLATELET AGGREGATION: FUNCTION [id number] 11:07:00 Test Item Value Reference Range Comments WEAK ADP RESULT(BEAKER) (test 63 % 60-91 snuk=2269) PLATELET FUNCTION SCREEN 60-100% indicates normal INTERP (BEAKER) (test platelet function odqu=2699) [id number] (BEAKER) Cecily Almonte MD (electronic (test pusi=3727) signature) PLATELET COUNT AGG (BEAKER) 228 K/CU MM 150-450 (test fodw=4084) for patients on clopidogrel in past two weeksTHROMBOELASTOGRAPH (TEG)2017-06-06 10:33:00 Test Item Value Reference Range Comments TEG ACTIVATED CLOTTING TIME (BEAKER) (test 5.1 minutes 4.0-7.0 hoyx=7392) TEG FIBRINOGEN ACTIVITY (BEAKER) (test 66.3 degrees 61.0-73.0 hqlh=9849) TEG PLT. AGGREGATION (BEAKER) (test hwua=6905) 51.7 MM 55.0-65.0 TGH ACTIVATED CLOTTING TIME (BEAKER) (test 5.1 minutes 4.0-7.0 brgy=7022) TGH FIBRINOGEN ACTIVITY (BEAKER) (test 68.4 degrees 61.0-73.0 msef=9037) TGH PLT. AGGREGATION (BEAKER) (test gceb=4810) 58.0 MM 55.0-65.0 PLATELET [id number] 10:12:00 Test Item Value Reference Range Comments PLATELET COUNT (BEAKER) 95 K/CU MM 150-450 Discordant result compared to (test kkok=000) previous result; clinical correlation required. [id number] 10:06:00 Test Item Value Reference Range Comments PARTIAL THROMBOPLASTIN TIME (BEAKER) (test 35.3 seconds 22.5-36.0 jqqb=614) [id number] 10:06:00 Test Item Value Reference Range Comments FIBRINOGEN LEVEL (BEAKER) (test ezyy=854) 161 mg/dl 225-434 PROTHROMBIN TIME/[id number] 10:05:00 Test Item Value Reference Range Comments PROTIME (BEAKER) (test gnmx=796) 22.0 seconds 11.7-14.7 INR (BEAKER) (test kppq=555) 1.9 <=5.9 RECOMMENDED COUMADIN/WARFARIN INR THERAPY RANGESSTANDARD DOSE: 2.0 - 3.0 Includes: PROPHYLAXIS forvenous thrombosis, systemic embolization; TREATMENT for venous thrombosis and/or pulmonary embolus.HIGH RISK: Target INR is 2.5-3.5 for patients with mechanical heart valves.CALCIUM, [id number] 09:49:00 Test Item Value Reference Range Comments CALCIUM IONIZED (BEAKER) (test rjiz=244) 1.18 mmol/L 1.12-1.27 PH, BLOOD (BEAKER) (test wigz=5452) 7.38 BLOOD GAS, [id number] 09:49:00 Test Item Value Reference Range Comments PH ARTERIAL (BEAKER) (test oksz=114) 7.40 7.35-7.45 PCO2 ARTERIAL (BEAKER) (test fiuq=393) 33 mmHg 35-45 PO2 ARTERIAL (BEAKER) (test vseq=372) 293 mmHg 80-90 O2 SATURATION ARTERIAL (BEAKER) (test jtwe=755) 99.7 % 96.0-97.0 HCO3 ARTERIAL (BEAKER) (test ecxc=600) 21 mmol/L 21-29 BASE EXCESS ARTERIAL (BEAKER) (test fzmw=900) -4.2 mmol/L -2.0-3.0 PATIENT TEMPERATURE (BEAKER) (test odnc=4745) 35.6 C FIO2 (BEAKER) (test kxlf=9589) 100.0 % SODIUM NA-STAT [id number] 09:49:00 Test Item Value Reference Range Comments SODIUM (BEAKER) (test cynr=304) 131 meq/L 135-148 HGB/HCT (H&H) - STAT [id number] 09:49:00 Test Item Value Reference Range Comments HEMOGLOBIN (BEAKER) (test ovqw=652) 7.1 g/dL 13.0-16.8 HEMATOCRIT (BEAKER) (test uyum=680) 21.0 % 40.0-50.0 GLUCOSE-STAT [id number] 09:48:00 Test Item Value Reference Range Comments GLUCOSE RANDOM (BEAKER) (test giaq=459) 95 mg/dL 70-110 POTASSIUM-STAT [id number] 09:48:00 Test Item Value Reference Range Comments POTASSIUM (BEAKER) (test tqce=558) 3.9 meq/L 3.6-5.5 BLOOD GAS, [id number] 09:22:00 Test Item Value Reference Range Comments PH ARTERIAL (BEAKER) (test igsf=624) 7.47 7.35-7.45 PCO2 ARTERIAL (BEAKER) (test oeqz=601) 30 mmHg 35-45 PO2 ARTERIAL (BEAKER) (test ijea=548) 274 mmHg 80-90 O2 SATURATION ARTERIAL (BEAKER) (test ccny=422) 99.7 % 96.0-97.0 HCO3 ARTERIAL (BEAKER) (test pkwx=607) 22 mmol/L 21-29 BASE EXCESS ARTERIAL (BEAKER) (test gfch=753) -2.4 mmol/L -2.0-3.0 PATIENT TEMPERATURE (BEAKER) (test jwog=7844) 33.0 C FIO2 (BEAKER) (test islx=2095) 75.0 % SODIUM NA-STAT [id number] 09:22:00 Test Item Value Reference Range Comments SODIUM (BEAKER) (test jhlk=436) 131 meq/L 135-148 HGB/HCT (H&H) - STAT [id number] 09:22:00 Test Item Value Reference Range Comments HEMOGLOBIN (BEAKER) (test ypkr=399) 7.8 g/dL 13.0-16.8 HEMATOCRIT (BEAKER) (test bfcs=860) 23.0 % 40.0-50.0 GLUCOSE-STAT [id number] 09:20:00 Test Item Value Reference Range Comments GLUCOSE RANDOM (BEAKER) (test wtgz=484) 94 mg/dL 70-110 POTASSIUM-STAT [id number] 09:20:00 Test Item Value Reference Range Comments POTASSIUM (BEAKER) (test blro=373) 4.9 meq/L 3.6-5.5 SODIUM NA-STAT [id number] 09:07:00 Test Item Value Reference Range Comments SODIUM (BEAKER) (test yeti=626) 128 meq/L 135-148 HGB/HCT (H&H) - STAT [id number] 09:07:00 Test Item Value Reference Range Comments HEMOGLOBIN (BEAKER) (test hgii=985) 7.6 g/dL 13.0-16.8 HEMATOCRIT (BEAKER) (test vdvn=698) 22.0 % 40.0-50.0 GLUCOSE-STAT [id number] 09:06:00 Test Item Value Reference Range Comments GLUCOSE RANDOM (BEAKER) (test ofgl=526) 94 mg/dL 70-110 POTASSIUM-STAT [id number] 09:06:00 Test Item Value Reference Range Comments POTASSIUM (BEAKER) (test djtp=743) 4.5 meq/L 3.6-5.5 BLOOD GAS, [id number] 09:06:00 Test Item Value Reference Range Comments PH ARTERIAL (BEAKER) (test fayz=077) 7.32 7.35-7.45 PCO2 ARTERIAL (BEAKER) (test acob=391) 43 mmHg 35-45 PO2 ARTERIAL (BEAKER) (test hapv=210) 359 mmHg 80-90 O2 SATURATION ARTERIAL (BEAKER) (test lecg=816) 99.7 % 96.0-97.0 HCO3 ARTERIAL (BEAKER) (test wxls=391) 22 mmol/L 21-29 BASE EXCESS ARTERIAL (BEAKER) (test oczs=155) -4.1 mmol/L -2.0-3.0 PATIENT TEMPERATURE (BEAKER) (test moia=5255) 36.0 C FIO2 (BEAKER) (test yqqq=3693) 65.0 % HEMOGLOBIN [id number] 08:59:00 Test Item Value Reference Range Comments HEMOGLOBIN A1C (BEAKER) (test xvnt=761) 6.2 % 4.3-6.1 GLUCOSE-STAT [id number] 07:59:00 Test Item Value Reference Range Comments GLUCOSE RANDOM (BEAKER) (test rrjk=888) 85 mg/dL 70-110 SODIUM NA-STAT [id number] 07:59:00 Test Item Value Reference Range Comments SODIUM (BEAKER) (test xcmb=175) 136 meq/L 135-148 BLOOD GAS, [id number] 07:59:00 Test Item Value Reference Range Comments PH ARTERIAL (BEAKER) (test dpni=186) 7.51 7.35-7.45 PCO2 ARTERIAL (BEAKER) (test rijy=509) 30 mmHg 35-45 PO2 ARTERIAL (BEAKER) (test kwyu=281) 368 mmHg 80-90 O2 SATURATION ARTERIAL (BEAKER) (test sxrz=132) 99.8 % 96.0-97.0 HCO3 ARTERIAL (BEAKER) (test gbty=209) 24 mmol/L 21-29 BASE EXCESS ARTERIAL (BEAKER) (test vflm=512) 1.1 mmol/L -2.0-3.0 PATIENT TEMPERATURE (BEAKER) (test rzod=0127) 35.4 C FIO2 (BEAKER) (test kftt=7349) 100.0 % POTASSIUM-STAT [id number] 07:59:00 Test Item Value Reference Range Comments POTASSIUM (BEAKER) (test hynq=316) 3.3 meq/L 3.6-5.5 CALCIUM, [id number] 07:59:00 Test Item Value Reference Range Comments CALCIUM IONIZED (BEAKER) (test mjcb=812) 1.13 mmol/L 1.12-1.27 PH, BLOOD (BEAKER) (test umfr=0858) 7.49 HGB/HCT (H&H) - STAT [id number] 07:59:00 Test Item Value Reference Range Comments HEMOGLOBIN (BEAKER) (test htjh=811) 12.1 g/dL 13.0-16.8 HEMATOCRIT (BEAKER) (test urai=906) 36.0 % 40.0-50.0 [id number] 02:52:00 Test Item Value Reference Range Comments PHOSPHORUS (BEAKER) (test qpkq=451) 3.6 mg/dL 2.3-4.7 [id number] 02:52:00 Test Item Value Reference Range Comments MAGNESIUM (BEAKER) (test avvk=041) 2.0 mg/dL 1.6-2.6 BASIC METABOLIC [id number] 02:52:00 Test Item Value Reference Range Comments SODIUM (BEAKER) (test 137 meq/L 136-145 ffej=663) POTASSIUM (BEAKER) (test 3.9 meq/L 3.5-5.1 vztl=504) CHLORIDE (BEAKER) (test 104 meq/L 98-107 ahtp=758) CO2 (BEAKER) (test 23 meq/L 22-29 wlfh=780) BLOOD UREA NITROGEN 21 mg/dL 7-21 (BEAKER) (test wrxs=848) CREATININE (BEAKER) (test 1.18 mg/dL 0.57-1.25 ntvm=493) GLUCOSE RANDOM (BEAKER) 103 mg/dL 70-105 (test jacb=030) CALCIUM (BEAKER) (test 9.4 mg/dL 8.4-10.2 fbbs=941) EGFR (BEAKER) (test 75 mL/min/1.73 sq m ESTIMATED GFR IS NOT yxze=3654) ACCURATE CREATININE CLEARANCE IN PREDICTING GLOMERULAR FILTRATION RATE. ESTIMATED GFR IS NOT APPLICABLE FOR DIALYSIS PATIENTS. PROTHROMBIN [id number] 02:51:00 Test Item Value Reference Range Comments PROTIME (BEAKER) (test sack=517) 13.5 seconds 11.7-14.7 INR (BEAKER) (test eozn=913) 1.0 <=5.9 RECOMMENDED COUMADIN/WARFARIN INR THERAPY RANGESSTANDARD DOSE: 2.0 - 3.0 Includes: PROPHYLAXIS forvenous thrombosis, systemic embolization; TREATMENT for venous thrombosis and/or pulmonary embolus.HIGH RISK: Target INR is 2.5-3.5 for patients with mechanical heart valves.CBC W/PLT COUNT & AUTO [id number] 02:36:00 Test Item Value Reference Range Comments WHITE BLOOD CELL COUNT (BEAKER) (test nwwk=490) 10.9 K/ L 3.5-10.5 RED BLOOD CELL COUNT (BEAKER) (test zmgj=902) 4.36 M/ L 4.63-6.08 HEMOGLOBIN (BEAKER) (test sblc=237) 12.0 GM/DL 13.7-17.5 HEMATOCRIT (BEAKER) (test mjrl=748) 36.4 % 40.1-51.0 MEAN CORPUSCULAR VOLUME (BEAKER) (test cuym=784) 83.5 fL 79.0-92.2 MEAN CORPUSCULAR HEMOGLOBIN (BEAKER) (test 27.5 pg 25.7-32.2 hsqs=967) MEAN CORPUSCULAR HEMOGLOBIN CONC (BEAKER) (test 33.0 GM/DL 32.3-36.5 ylku=809) RED CELL DISTRIBUTION WIDTH (BEAKER) (test 14.4 % 11.6-14.4 gmeu=035) PLATELET COUNT (BEAKER) (test zyyu=868) 227 K/CU MM 150-450 MEAN PLATELET VOLUME (BEAKER) (test yjaj=206) 11.0 fL 9.4-12.4 NUCLEATED RED BLOOD CELLS (BEAKER) (test 0 /100 WBC 0-0 gyin=207) NEUTROPHILS RELATIVE PERCENT (BEAKER) (test 69 % jdvx=747) LYMPHOCYTES RELATIVE PERCENT (BEAKER) (test 23 % rwxm=289) MONOCYTES RELATIVE PERCENT (BEAKER) (test 8 % mljv=681) EOSINOPHILS RELATIVE PERCENT (BEAKER) (test 0 % zhqo=900) BASOPHILS RELATIVE PERCENT (BEAKER) (test 0 % xvgl=943) NEUTROPHILS ABSOLUTE COUNT (BEAKER) (test 7.47 K/ L 1.78-5.38 opwh=302) LYMPHOCYTES ABSOLUTE COUNT (BEAKER) (test 2.45 K/ L 1.32-3.57 ezds=511) MONOCYTES ABSOLUTE COUNT (BEAKER) (test 0.87 K/ L 0.30-0.82 baxp=361) EOSINOPHILS ABSOLUTE COUNT (BEAKER) (test 0.02 K/ L 0.04-0.54 ylvn=832) BASOPHILS ABSOLUTE COUNT (BEAKER) (test 0.02 K/ L 0.01-0.08 gwrj=921) IMMATURE GRANULOCYTES-RELATIVE PERCENT (BEAKER) 1 % 0-1 (test taoj=0052)
[2018-06-18 01:16] LABS: Absolute Lymphocytes (CBC) 1.7 K/uL (0.7-4.9); Absolute Monocytes 0.5 K/uL (0.1-1.3); Absolute Neutrophil 3.9 K/uL (1.8-8.0); Basophils % 1.1 % (0-1.3); Eosinophils % 5.1 % (0-4.4); Hematocrit 41.1 % (39.6-49.0); Lymphocytes % 26.3 % (15.3-44.8); MCH 27.1 pg (27.0-35.0); MCV 82.1 fL (80-100); RBC Red Blood Cell Count 5.01 M/uL (4.33-5.43)
[2018-06-18 01:19] LABS: Protime INR 0.97
[2018-06-18] MEDS ORDERED: ASPIRIN 81 MG CHEWABLE TABLET ONE (01:20)
[2018-06-18 01:33] LABS: ALT/SGPT 33 U/L (12-78); AST/SGOT 24 U/L (15-37); Albumin 3.8 g/dL (3.4-5.0); Alkaline Phosphatase 135 U/L (45-117); BUN Blood Urea Nitrogen 14 mg/dL (7-18); Bicarbonate 26 mmol/L (21-32); Bilirubin Direct < 0.1 mg/dL (0-0.2); Bilirubin Total 0.2 mg/dL (0.2-1.0); CKMB Creatine Kinase MB < 1.0 ng/mL (0.3-3.6); Creatine Phosphokinase 121 U/L (39-308); Glucose Level 102 mg/dL (74-106); Magnesium 2.2 mg/dL (1.8-2.4); NT PRO-BNP 160 pg/mL (<125); Potassium 3.8 mmol/L (3.5-5.1); Protein, Total 8.4 g/dL (6.4-8.2); Sodium Level 140 mmol/L (136-145)
--- NOTE | 2018-06-18 03:10 | ER ---
Nurse's Notes [facility] Name: Gordo Nava Age: 68 yrs Sex: Male : 1950 Arrival Date: 06/18/2018 Time: 00:44 Bed 4 Private MD: Ariel Andrade R Diagnosis: Angina pectoris, unspecified;Weakness Presentation: 06/18 00:56 Presenting complaint: Patient states: Chest pain that began suddenly radiating down lp1 left arm; States feeling like this when he needs to have open heart surgery. Transition of care: patient was not received from another setting of care. Onset of symptoms was June 18, 2018 at 00:00. Risk Assessment: Do you want to hurt yourself or someone else? Patient reports no desire to harm self or others. Initial Sepsis Screen: Does the patient meet any 2 criteria? No. Patient's initial sepsis screen is negative. Does the patient have a suspected source of infection? No. Patient's initial sepsis screen is negative. Care prior to arrival: None. 00:56 Method Of Arrival: Wheelchair lp1 00:56 Acuity: CIERA 2 lp1 Historical: - Allergies: 01: Iodine; lp1 - Home Meds: 01:01 metoprolol succinate 50 mg Oral tab 1 tab once daily [Active]; clopidogrel 75 mg Oral lp1 tab 1 tab once daily [Active]; allopurinol 300 mg Oral tab 1 tab once daily [Active]; omeprazole 40 mg Oral cpDR 1 cap once daily [Active]; Repatha Syringe 140 mg/mL subcutaneous syrg 3 mL once moly [Active]; tamsulosin 0.4 mg oral cp24 1 cap once daily [Active]; amlodipine 5 mg tab 1 tab once daily [Active]; aspirin 81 mg Oral TbEC 1 tab once daily [Active]; - PMHx: 01:01 CAD; Gout; Hyperlipidemia; Hypertension; lp1 - PSHx: 01:01 Appendectomy; CABG; lp1 - Immunization history:: Adult Immunizations up to date. - Social history:: Smoking status: Patient/guardian denies using tobacco. - Ebola Screening: : No symptoms or risks identified at this time. Screenin:03 Abuse screen: Denies threats or abuse. Denies injuries from another. Nutritional lp1 screening: No deficits noted. Tuberculosis screening: No symptoms or risk factors identified. Fall Risk None identified. Assessment: 01:01 General: Appears uncomfortable, well groomed, Behavior is appropriate for age. Pain: lp1 Complains of pain in chest Pain radiates to left arm Pain currently is 6 out of 10 on a pain scale. Quality of pain is described as pressure, sharp, Pain began suddenly. Neuro: Level of Consciousness is awake, alert, obeys commands, Tearer Press Clipping are equal bilaterally Intact. Cardiovascular: Capillary refill < 3 seconds in bilateral fingers toes Patient's skin is warm and dry. Rhythm is sinus rhythm. Respiratory: Respiratory effort is even, unlabored, Breath sounds are clear bilaterally. GI: No signs and/or symptoms were reported involving the gastrointestinal system. : No signs and/or symptoms were reported regarding the genitourinary system. EENT: No signs and/or symptoms were reported regarding the EENT system. Derm: Skin is intact, Skin is dry, Skin is flushed. Musculoskeletal: Circulation, motion, and sensation intact. 02:15 Reassessment: Patient is alert, oriented x 3, equal unlabored respirations, skin lp1 warm/dry/pink. Patient returned from CT. 03:30 Reassessment: Patient appears in no apparent distress at this time. Patient and/or lp1 family updated on plan of care and expected duration. Pain level reassessed. Patient is alert, oriented x 3, equal unlabored respirations, skin warm/dry/pink. Patient states feeling better. Vital Signs: 00:57 BP 194 / 102; Pulse 83; Resp 17; Temp 98.4(O); Pulse Ox 99% on R/A; Weight 81.65 kg; lp1 Height 5 ft. 5 in. (165.10 cm); Pain 6/10; 01:04 BP 188 / 89; Pulse 73; Resp 15; Pulse Ox 99% on R/A; lp1 01:30 BP 164 / 82; Pulse 69; Resp 15; Pulse Ox 99% on R/A; lp1 02:39 BP 143 / 82; Pulse 62; Resp 13; Pulse Ox 99% on R/A; Pain 2/10; lp1 03:30 BP 155 / 80; Pulse 64; Resp 16; Pulse Ox 98% on R/A; lp1 04:03 BP 160 / 82; Pulse 63; Resp 16; Pulse Ox 99% on R/A; lp1 00:57 Body Mass Index 29.95 (81.65 kg, 165.10 cm) lp1 ED Course: 00:44 Patient arrived in ED. am2 00:44 Ariel Andrade MD is Private Physician. am2 00:44 Favian Selby MD is Attending Physician. tw4 00:54 Delaney Melendez, VALERIE is Primary Nurse. lp1 00:56 Triage completed. lp1 00:57 Arm band placed on left wrist. lp1 00:57 EKG done, by ED staff, reviewed by Favian Selby MD. Patient maintains SpO2 lp1 saturation greater than 95% on room air. 01:00 X-ray completed. Portable x-ray completed in exam room. Patient tolerated procedure kw well. 01:02 XRAY Chest (1 view) In Process Unspecified. EDMS 01:03 Patient has correct armband on for positive identification. Placed in gown. Bed in low lp1 position. Call light in reach. pipe washer on. Pulse ox on. NIBP on. 01:05 Inserted saline lock: 20 gauge in left antecubital area, using aseptic technique. Blood lp1 collected. By Miguelina Garzon RN. 02:[address] via stretcher. kw1 02:08 CT Head Brain wo Cont In Process Unspecified. EDMS 02:11 CT completed. Patient tolerated procedure well. Patient moved back from CT. kw1 03:09 Ariel Andrade MD is Hospitalizing Provider. tw4 04:03 No provider procedures requiring assistance completed. Patient admitted, IV remains in lp1 place. Administered Medications: 01:20 Drug: Aspirin Chewable Tablet 324 mg Route: PO; lp1 02:39 Follow up: Response: No adverse reaction lp1 Outcome: 03:09 Decision to Hospitalize by Provider. tw4 04:03 Condition: stable lp1 04:03 Instructed on the need for admit. 04:08 Admitted to Tele accompanied by tech, via wheelchair, room 410, with chart, Report lp1 called to VALERIE Huang 04:24 Patient left the ED. lp1 Signatures: Dispatcher [employer] EDMS Ailin Willett kw Delaney Melendez, VALERIE RN lp1 Elana Delgado am2 Malissa Yoon kw1 Bal, Favian, MD MD tw4
--- NOTE | 2018-06-18 03:10 | EDPHYS ---
Physician Documentation [facility] Name: Gordo Nava Age: 68 yrs Sex: Male : 1950 Arrival Date: 06/18/2018 Time: 00:44 Bed 4 Private MD: Ariel Andrade R ED Physician Favian Selby HPI: 06/18 06:31 This 68 yrs old Black Male presents to ER via Wheelchair with complaints of Chest Pain tw4 > 30 y/o, Weakness - left arm. 06:31 The patient or guardian reports chest pain that is located primarily in the anterior tw4 chest wall, left. Onset: today. The pain does not radiate. Associated signs and symptoms: The patient has no apparent associated signs or symptoms. Duration: The patient or guardian reports a single episode. Modifying factors: The symptoms are alleviated by nothing. the symptoms are aggravated by nothing. Severity of pain: At its worst the pain was moderate in the emergency department the pain is unchanged. The patient has not experienced similar symptoms in the past. Historical: - Allergies: : Iodine; lp1 - Home Meds: : metoprolol succinate 50 mg Oral tab 1 tab once daily [Active]; clopidogrel 75 mg Oral lp1 tab 1 tab once daily [Active]; allopurinol 300 mg Oral tab 1 tab once daily [Active]; omeprazole 40 mg Oral cpDR 1 cap once daily [Active]; Repatha Syringe 140 mg/mL subcutaneous syrg 3 mL once moly [Active]; tamsulosin 0.4 mg oral cp24 1 cap once daily [Active]; amlodipine 5 mg tab 1 tab once daily [Active]; aspirin 81 mg Oral TbEC 1 tab once daily [Active]; - PMHx: 01: CAD; Gout; Hyperlipidemia; Hypertension; lp1 - PSHx: : Appendectomy; CABG; lp1 - Immunization history:: Adult Immunizations up to date. - Social history:: Smoking status: Patient/guardian denies using tobacco. - Ebola Screening: : No symptoms or risks identified at this time. ROS: 06:31 Constitutional: Negative for fever, chills, and weight loss, Respiratory: Negative for tw4 shortness of breath, cough, wheezing, and pleuritic chest pain, Abdomen/GI: Negative for abdominal pain, nausea, vomiting, diarrhea, and constipation, Back: Negative for injury and pain, MS/Extremity: Negative for injury and deformity, Skin: Negative for injury, rash, and discoloration. 06:31 Cardiovascular: Positive for chest pain, Negative for edema, orthopnea, palpitations, paroxysmal nocturnal dyspnea. 06:31 Neuro: Positive for weakness. Exam: 06:31 Constitutional: This is a well developed, well nourished patient who is awake, alert, tw4 and in no acute distress. Head/Face: Normocephalic, atraumatic. Chest/axilla: Normal chest wall appearance and motion. Nontender with no deformity. No lesions are appreciated. Cardiovascular: Regular rate and rhythm with a normal S1 and S2. No gallops, murmurs, or rubs. Normal PMI, no JVD. No pulse deficits. Respiratory: Lungs have equal breath sounds bilaterally, clear to auscultation and percussion. No rales, rhonchi or wheezes noted. No increased work of breathing, no retractions or nasal flaring. Abdomen/GI: Soft, non-tender, with normal bowel sounds. No distension or tympany. No guarding or rebound. No evidence of tenderness throughout. Back: No spinal tenderness. No costovertebral tenderness. Full range of motion. Neuro: Awake and alert, GCS 15, oriented to person, place, time, and situation. Cranial nerves II-XII grossly intact. Motor strength 5/5 in all extremities. Sensory grossly intact. Cerebellar exam normal. Normal gait. Vital Signs: 00:57 BP 194 / 102; Pulse 83; Resp 17; Temp 98.4(O); Pulse Ox 99% on R/A; Weight 81.65 kg; lp1 Height 5 ft. 5 in. (165.10 cm); Pain 6/10; 01:04 BP 188 / 89; Pulse 73; Resp 15; Pulse Ox 99% on R/A; lp1 01:30 BP 164 / 82; Pulse 69; Resp 15; Pulse Ox 99% on R/A; lp1 02:39 BP 143 / 82; Pulse 62; Resp 13; Pulse Ox 99% on R/A; Pain 2/10; lp1 03:30 BP 155 / 80; Pulse 64; Resp 16; Pulse Ox 98% on R/A; lp1 04:03 BP 160 / 82; Pulse 63; Resp 16; Pulse Ox 99% on R/A; lp1 00:57 Body Mass Index 29.95 (81.65 kg, 165.10 cm) lp1 MDM: 00:55 Patient medically screened. tw4 06:35 Differential diagnosis: acute myocardial infarction, acute pericarditis, gastritis, tw4 pneumonia, pulmonary embolus, stable angina, thoracic aortic disection. Data reviewed: vital signs, nurses notes. Data interpreted: awake overnight monitor: rhythm is normal sinus rhythm, Pulse oximetry: Interpretation: normal. Counseling: I had a detailed discussion with the patient and/or guardian regarding: the historical points, exam findings, and any diagnostic results supporting the discharge/admit diagnosis, lab results, radiology results, the need for further work-up and treatment in the hospital. Physician consultation: Ariel Andrade MD regarding admission, to the telemetry unit. patient's condition, and will see patient in inpatient room. 06/18 00:45 Order name: Basic Metabolic Panel 06/18 00:45 Order name: CBC with Diff tw06/18 00:45 Order name: Ckmb tw4 06/18 00:45 Order name: CPK tw4 06/18 00:45 Order name: LFT's tw4 06/18 00:45 Order name: Magnesium tw4 06/18 00:45 Order name: NT PRO-BNP 06/18 00:45 Order name: PT-INR 4 06/18 00:45 Order name: Ptt, Activated 4 06/18 00:45 Order name: Troponin (emerg Dept Use Only) tw4 06/18 03:15 Order name: Basic Metabolic Panel EDMS 06/18 03:15 Order name: Basic Metabolic Panel EDMS 06/18 03:15 Order name: CBC with Automated Diff EDMS 06/18 03:15 Order name: CBC with Automated Diff EDMS 06/18 00:45 Order name: XRAY Chest (1 view) 06/18 00:45 Order name: EKG; Complete Time: 00:45 06/18 00:45 Order name: Cardiac monitoring; Complete Time: 00:53 06/18 00:45 Order name: EKG - Nurse/Tech; Complete Time: 00:53 06/18 00:45 Order name: IV Saline Lock; Complete Time: 01:06 06/18 00:57 Order name: CT Head Brain wo Cont tw 06/18 03:15 Order name: EKG Electrocardiogram [facility] 06/18 03:15 Order name: EKG Electrocardiogram [facility] 06/18 03:15 Order name: EKG Electrocardiogram [facility] 06/18 03:15 Order name: EKG Electrocardiogram [facility] 06/18 03:15 Order name: Troponin I [facility] 06/18 03:15 Order name: Troponin I [facility] 06/18 03:15 Order name: Troponin I [facility] 06/18 04:07 Order name: Urine Dipstick--Ancillary (enter results) rg2 06/18 00:45 Order name: Labs collected and sent; Complete Time: 01:06 tw4 06/18 00:45 Order name: O2 Per Protocol; Complete Time: 00:53 tw4 06/18 00:45 Order name: O2 Sat Monitoring; Complete Time: 00:53 tw 06/18 00:45 Order name: Urine Dipstick-Ancillary (obtain specimen); Complete Time: 04:03 tw4 EC:31 Rhythm is regular. QRS [place] is Normal. IN interval is normal. QRS interval is normal. tw4 QT interval is normal. T waves are Normal. No ST changes noted. Clinical impression: Abnormal EKG without significant change. Interpreted by me. Reviewed by me. Administered Medications: 01:20 Drug: Aspirin Chewable Tablet 324 mg Route: PO; lp1 02:39 Follow up: Response: No adverse reaction lp1 Disposition: 06/18/18 03:09 Hospitalization ordered by Ariel Andrade for Observation. Preliminary diagnosis are Angina pectoris, unspecified, Weakness. - Bed requested for Telemetry/MedSurg (observation). - Status is Observation. lp1 - Condition is Stable. - Problem is new. - Symptoms have improved. UTI on Admission? No Signatures: Dispatcher [employer] EDMS Jen Gatica rg2 Delaney Melendez RN RN lp1 Favian Selby MD MD tw4 Corrections: (The following items were deleted from the chart) 02:13 00:58 Chest Angio+CT.RAD.BRZ ordered. EDLA EDMS 03:57 03:09 Hospitalization Ordered by Ariel Andrade MD for Observation. Preliminary diagnosis rg2 is Angina pectoris, unspecified; Weakness. Bed requested for Telemetry/MedSurg (observation). Status is Observation. Condition is Stable. Problem is new. Symptoms have improved. UTI on Admission? No. tw4 04:24 03:57 06/18/2018 03:09 Hospitalization Ordered by Ariel Andrade MD for Observation. lp1 Preliminary diagnosis is Angina pectoris, unspecified; Weakness. Bed requested for Telemetry/MedSurg (observation). Status is Observation. Condition is Stable. Problem is new. Symptoms have improved. UTI on Admission? No. rg2
[2018-06-18] MEDS ORDERED: ACETAMINOPHEN 500 MG TAB PO PRN (03:13)
[2018-06-18 04:47] LABS: Urine Blood TRACE (NEG); Urine Glucose NEGATIVE (NEG); Urine Protein NEGATIVE (NEG)
[2018-06-18 04:48] VITALS: BMI 27.6
--- NOTE | 2018-06-18 06:42 | RAD REPORT ---
EXAM DESCRIPTION: CT - Head Brain Wo Cont - 06/18/2018 4:07 am CLINICAL HISTORY: WEAKNESS<Reason For Exam>WEAKNESS New onset left arm weakness A preliminary report was provided at the time of the study and reviewed prior to final report. COMPARISON: HEAD BRAIN W O CONTRAST dated 01/03/2015<Comparisons> TECHNIQUE: Axial 5 mm thick images of the head were obtained without IV contrast. All CT scans are performed using dose optimization technique as appropriate and may include automated exposure control or mA/KV adjustment according to patient size. FINDINGS: No intracranial hemorrhage, mass, edema or shift of mid-line structures. No acute infarcti on changes seen. No significant atrophy change. Ventricles are normal. Patient has mild chronic ische chance change in the cerebral white matter. Mastoid air cells and visualized portions of the paranasal sinuses are clear. No acute bony findings. IMPRESSION: No hemorrhage and no acute cortical based infarction. Mild chronic ischemic change similar to comparison. Chronic ischemic changes can mask nonhemorrhagic acute infarction. MR brain followup can be obtained if there is ongoing concern for acute ischemia.
--- NOTE | 2018-06-18 06:44 | EKG ---
Test Date: 2018-06-18 Test Time: 00:45:39 Scientist/Engineer: RYLEE MEASUREMENT RESULTS: Intervals: Rate: 83 TN: 184 QRSD: 106 QT: 388 QTc: 455 [place]: P: 57 TN: 184 QRS: 19 T: -4 INTERPRETIVE STATEMENTS: Normal sinus rhythm Possible Left atrial enlargement Inferior infarct, age undetermined Abnormal ECG Compared to ECG 04/25/2018 08:03:01 No significant changes Electronically Signed On 06-18-18 06:44:08 CDT by Vito Asif
[2018-06-18] MEDS ORDERED: ENOXAPARIN 60 MG/0.6 ML SQ ONE (08:24)
[2018-06-18] MEDS ORDERED: ASPIRIN EC 81 MG TAB PO SCH (09:00)
--- NOTE | 2018-06-18 09:22 | RAD REPORT ---
EXAM DESCRIPTION: RAD - Chest Single View - 06/18/2018 1:02 am CLINICAL HISTORY: CHEST PAIN<Reason For Exam>CHEST PAIN COMPARISON: Chest Single View dated 04/24/2018; Chest Single View dated 05/31/2017; Chest Single View d ated 05/31/2017; CHEST SINGLE VIEW dated 01/03/2015<Comparisons> TECHNIQUE: AP portable chest image was obtained 0057 hours . FINDINGS: Right lung field is clear. Left lung volume is reduced. There is pleural effusion or pleur al scarring at the left base. This is similar to the comparison study. CABG surgical changes noted. H eart and vasculature are normal. No pneumothorax. No right-sided pleural effusion. No gross bony abno rmality seen. No acute aortic findings suspected. IMPRESSION: No acute cardiopulmonary process. Chronic pleural and parenchymal changes left base similar to April 24 study.
[2018-06-18] MEDS: METOPROLOL XL 50 MG TAB PO SCH ×2 (11:09→21:19)
[2018-06-18] MEDS: AMLODIPINE 5 MG TAB PO SCH (11:09)
[2018-06-18] MEDS: TAMSULOSIN 0.4 MG SR CAP PO SCH ×2 (11:10→21:19)
[2018-06-18] MEDS: ALLOPURINOL 300 MG TAB PO SCH (11:10)
[2018-06-18] MEDS: PANTOPRAZOLE 40MG TABLET PO SCH (11:10)
[2018-06-18] MEDS: CLOPIDOGREL 75 MG TABLET PO SCH (11:10)
[2018-06-18] MEDS: ASPIRIN 81 MG CHEWABLE TABLET PO SCH (11:10)
[2018-06-18] MEDS: ENOXAPARIN 60 MG/0.6 ML SQ SCH (21:19)
--- NOTE | 2018-06-19 05:43 | HP ---
Date of Admission: 06/18/2018 Chief Complaint: Pain squeezing, left arm. History Of Present Illness: A 68-year-old male was brought to the emergency room with left arm squee zing discomfort. Because of his previous history of coronary artery disease, the patient is admitted . The patient denied any history of loss of strength or other cerebral symptoms. Past Medical History: Positive for coronary angioplasty, femoral artery angioplasty. His other medi janneth problems include history of hypertension, myocardial infarction, peripheral vascular disease. Family History: Positive for hypertension, coronary artery disease. Allergies: IODINE. Review of Systems: No history of fever, chills, or rigors. Physical Examination: General: Revealed 68-year-old male, fully alert and oriented. Vital Signs: Normal. HEENT: Negative. Neck: Supple. JVD negative. Chest: Clear. Heart: Regular. Abdomen: Soft. Extremities: No edema. Neurological: Negative. Laboratory Data: CT scan of the head negative. Troponin normal. EKG, no changes of injury. Assessment: 1.Atypical left arm pain, rule out angina. 2.Known coronary artery disease, status post angioplasty. 3.Peripheral vascular disease, status post angioplasty. 4.Hyperlipidemia. 5.Hypertension. Plan: The patient does not have any evidence of myocardial injury; however, Cardiology consultation is done to see whether he will require another stress test. Pending that he will be continued on his regular medication. Lovenox will be given pending Cardiology consultation. APRIL/AYDE Voice ID: [id number]
[2018-06-19] MEDS: PANTOPRAZOLE 40MG TABLET PO SCH (05:58)
[2018-06-19] MEDS: METOPROLOL XL 50 MG TAB PO SCH (08:44)
[2018-06-19] MEDS: ALLOPURINOL 300 MG TAB PO SCH (08:44)
[2018-06-19] MEDS: AMLODIPINE 5 MG TAB PO SCH (08:44)
[2018-06-19] MEDS: TAMSULOSIN 0.4 MG SR CAP PO SCH (08:45)
[2018-06-19] MEDS: ENOXAPARIN 60 MG/0.6 ML SQ SCH (08:45)
[2018-06-19] MEDS: CLOPIDOGREL 75 MG TABLET PO SCH (08:45)
[2018-06-19] MEDS: ASPIRIN 81 MG CHEWABLE TABLET PO SCH (08:45)
[2018-06-19 09:16] VITALS: O2SAT 95
[2018-06-19 09:20] VITALS: BP 133/77; TEMP 98.2
--- NOTE | 2018-06-19 16:17 | EKG ---
Test Date: 2018-06-19 Test Time: 07:26:35 Curer Acid Drum: NO MEASUREMENT RESULTS: Intervals: Rate: 59 IL: 186 QRSD: 100 QT: 396 QTc: 392 [place]: P: 59 IL: 186 QRS: 33 T: -42 INTERPRETIVE STATEMENTS: Sinus bradycardia Inferior infarct, age undetermined T wave abnormality, consider anterolateral ischemia Abnormal ECG Compared to ECG 06/18/2018 00:45:39 T-wave abnormality now present Possible ischemia now present Sinus rhythm no longer present Myocardial infarct finding still present Electronically Signed On 06-19-18 16:14:36 CDT by Jayesh Chadwick
--- NOTE | 2018-06-20 06:53 | CON ---
Date of Consultation: 06/19/[address] to Dr. Andrade's service on 06/18/2018. I saw the patient on 06/19/2018. Reason For Consultation: Chest pain. History Of Present Illness: Mr. Nava is a 68-year-old black male, who is very well known to me fro m previous office admission. He has an extensive past medical history and past cardiovascular histor y. He has a history of gout, gastroesophageal reflux disease, hypertension, and dyslipidemia. He payan s a history of coronary artery disease status post CABG in May of 2017. He has a history of right carotid endarterectomy. He has a history of bilateral SFA and a right common iliac artery stent. H e came in mostly with left arm pain and numbness and slight upper left chest wall type of pain. No n ausea, vomiting, diaphoresis, PND, orthopnea, pedal edema, palpitations, or syncope. His EKG was unr emarkable. His CPK, MB, and troponin were negative. His pain seems to be positional. Allergies: HE IS ALLERGIC TO IODINE. Review of Systems: Negative. Social History: Negative. Family History: Positive for heart disease. Medications: Presently at home include Prilosec, allopurinol, Norvasc, aspirin, Plavix, Toprol, and he is on Repatha for his cholesterol. Physical Examination: General: He is pleasant as usual. No acute distress. Vital Signs: Stable, afebrile. HEENT: Negative. Neck: Supple without any lymphadenopathy, JVD, or thyromegaly. I thought he had a bruit on the righ t side of his carotid. Chest: Clear. Cardiac: Revealed a regular rhythm and rate without any murmurs, gallops, or rubs. Abdomen: Benign. Extremities: Revealed no clubbing, cyanosis, or edema. Impression And Plan: Atypical chest pain. I think this is more likely to be related to cervical spo ndylosis than an actual coronary artery disease. Obviously, Mr. Nava is at high risk of developing angina that I think he needs to be worked up. He is due to have a cardiac workup anyway, it has bee n a year since his surgery. He does have a right carotid bruit, had numbness on the left arm. What I would like him to do is go home, I am going to arrange for an outpatient stress test and a carotid Doppler. Also, I am going to arrange for an MRI of his cervical spine. I will continue his present regimen as is otherwise. He has an appointment and will be coming up on July 01. His other p roblems including hypertension and dyslipidemia and gout are stable. His last lipid profile on Rep payan was excellent. As stated earlier, he has a history of peripheral vascular disease status post rig ht common iliac artery stent and bilateral SFA stent. He has a history of cerebrovascular disease st atus post right carotid endarterectomy. The patient can go home whenever it is okay with Dr. Andrade. I would continue his present regimen, and I will see him in the office soon after his workup. CHUYITA/AYDE Voice ID: [id number] Report ID: [id number]
== END 2018-06-19 11:31 | disposition home or self-care (01) ==
LOC: ER 00:43 → ERHOLD 03:16 → 4TH 03:58
PROVIDERS: ADMIT Internal Medicine; ATTEND Internal Medicine
DX: R07.89 Other chest pain (principal); M10.9 Gout, unspecified; K21.9 Gastro-esophageal reflux disease without esophagitis; I10 Essential (primary) hypertension; E78.5 Hyperlipidemia, unspecified; I25.10 Atherosclerotic heart disease of native coronary artery without angina pectoris; Z95.1 Presence of aortocoronary bypass graft
CPT/HCPCS: 36415; 70450; 71045; 80048; 80076; 81003; 82550; 82553; 83735; 83880; 84484 ×3; 85025; 85610; 85730; 93005 ×2; 99285; G0378 ×2; J1650 ×2

== ENCOUNTER 2020-06-27 15:13 | Emergency (ER) | payer OTHER ==
--- OUTSIDE RECORDS SUMMARY | 2020-06-27 15:16 | XMS REPORT | Clinical Summary ---
:1950 [address] [facility] Address [address] [place] [address] Care Team Providers Name Role Phone Ariel Zavala Primary Care Provider Unavailable [facility] Unavailable Allergies Active Allergy Reactions Severity Noted Date Comments Iodine And Iodide Containing Products Anaphylaxis High Medications Medication Sig Dispensed Refills Start Date End Date Status clopidogrel (PLAVIX) Take 75 mg by 0 Active 75 mg tablet mouth daily. allopurinol (ZYLOPRIM) Take 100 mg by 0 Active 100 MG tablet mouth daily. famotidine (PEPCID) 10 Take 10 mg by 0 Active MG tablet mouth 2 (two) times daily. omeprazole (PRILOSEC) Take 40 mg by 0 Active 40 MG capsule mouth daily. acetaminophen-codeine Take 2 tablets by 30 tablet 0 06/14/2017 Active (TYLENOL #3) 300-30 mg mouth every 4 per tablet (four) hours as needed. 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 Acute pulmonary insufficiency following thoracic surge ry 06/06/2017 Postoperative anemia due to acute blood loss 7 Coagulopathy 06/06/2017 Hypovolemic shock 06/06/2017 Coronary artery disease 06/05/2017 Family History Medical History Relation Name Comments Heart disease Brother Hypertension Brother Heart disease Father Hypertension Father Asthma Mother Asthma Sister Depression Sister Hypertension Sister Relation Name Status Comments Brother Father Mother Sister Social History Tobacco Use Types Packs/Day Years Used Date Former Smoker Quit: 10/21/20 08 Smokeless Tobacco: Never Used Alcohol Use Drinks/Week oz/Week Comments Yes 2 Cans of beer 1.2 2 cans per month Sex Assigned at Date Recorded Not on file Job Start Date Occupation Industry Not on file Not on file Not on file Travel History Travel Start Travel End No recent travel history available. Last Filed Vital Signs Not on file Plan of Treatment Not on file Implants Implanted Type Area [employer] Device Shelf Model / Identifier Expiration Serial / Date Lot Sternal Zipfix Ndl Strl 08.501.001.20s - [id number] Cardiovascula r N/A: SYNTHES:SYNTHES 04/20/2022 08.501.001.20S / Implanted: Qty: 1 on 06/06/2017 by Gaudencio Velarde MD [facility] [place] / [id number] Sternal Zipfix Ndl Strl 08.501.001.20s - [id number] Cardiovascula r SYNTHES:SYNTHES 04/20/2022 08.501.001.20S / Implanted: Qty: 1 on 06/06/2017 by Gaudencio Velarde MD [facility] / [id number] Sternal Zipfix Ndl Strl 08.501.001.20s - [id number] Cardiovascula r SYNTHES:SYNTHES 04/20/2022 08.501.001.20S / Implanted: Qty: 1 on 06/06/2017 by Gaudencio Velarde MD [facility] / [id number] Results Not on fileafter 06/27/2019 Insurance Payer Benefit Plan / Subscriber ID Type Phone Address Group [employer] - MEDICARE A[employer] MEDICARE O xxxxxxxx [address] [place] [address] Advance Directives For more information, please contact:[address] [phone] Code Status Date Activated Date Inactivated Comments Full Code 06/06/2017 5:58 PM 06/14/2017 6:00 PM This code status was determined by: Patient Full Code 06/05/2017 11:03 PM 06/06/2017 5:57 PM This code status was determined by: Patient Full Code 06/05/2017 10:47 PM 06/05/2017 11:03 PM This code status was determined by: Patient
--- OUTSIDE RECORDS SUMMARY | 2020-06-27 15:18 | XMS REPORT | Continuity of Care Document ---
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 [facility] 00 [place] Acute Acute Disease Active [facility] pulmonary pulmonary 16 [facility] - insufficie insufficie 00:00: Me dical ncy ncy 00 Center following following thoracic thoracic surgery surgery Postoperat Postoperat Disease Active [facility] margaux anemia margaux anemia 16 Jennifer kes - due to due to 00:00: Medical acute acute 00 Center blood loss blood loss Coagulopat Coagulopat Disease Active [facility] hy hy 8-[facility] 00 [place] Hypovolemi Hypovolemi Disease Active [facility] c shock c shock 16 [facility] 00 [place] Coronary Coronary Disease [facility] - disease disease 00:[facility]: Medical 00 Center Allergies, Adverse Reactions, Alerts Allergy Allergy Status Severity Reaction(s) Onset Inactive Treating Comm ents Source Name Type Date Date Clinician Iodine Drug Active Anaphylaxis [facility] - Iodide 00:[facility]: Medical Containi 00 Center ng Products Family History Family Member Diagnosis Comments Start Date Stop Date Source Natural brother Heart disease [facility] Natural brother Hypertension [facility] Natural father Heart disease [facility] Natural father Hypertension [facility] Natural mother Asthma [facility] Natural sister Asthma [facility] Natural sister Depression [facility] Natural sister Hypertension [facility] Social History Social Habit Start Date Stop Date Quantity Comments Source Sex Assigned At [facility] Alcohol Comment 2017-06-05 2017-06-05 2 cans per month [facility] 00:00:00 00:00:00 [facility] History of 2008-10-21 Current smoker [facility] tobacco use 00:00:00 [facility] r Smoking Status Start Date Stop Date Source Former smoker 2017-06-07 00:00:00 2017-06-07 00:00:00 [facility] Medications Ordered Filled Start Stop Current Ordering Indication Dosage Frequency Signature Comments Components Source Medication Medication Date Date Medication? Clinician (SIG) Name Name acetaminoph Yes 2{tbl} Take [address] en-codeine 8-24 tablets by Jennifer es - (TYLENOL 00:00: mouth Medical #3) 300-30 00 every 4 Center mg per (four) tablet hours as needed. Max Daily Amount: 12 tablets omeprazole Yes 40mg QD Take [address] (PRILOSEC) 8-16 by mouth [facility] - 40 MG 21:25: daily. Medical capsule 41 Center clopidogrel Yes 75mg QD Take [address] [facility] (PLAVIX) 75 8-15 by mouth Luke s - mg tablet 23:32: daily. Medica l 35 [place] allopurinol Yes 100mg QD Take [address] (ZYLOPRIM) 8-15 mg by [facility] - 100 MG 23:32: mouth Medical tablet 35 daily. [place] famotidine Yes 10mg Q.5D Take [address] (PEPCID) 10 8-15 by mouth 2 Jennifer kes - MG tablet 23:32: (two) Medical 35 times Center daily. Procedures This patient has no known procedures. Encounters Start End Encounter Admission Attending Care Care Encounter Source Date/Time Date/Time Type Type Clinicians Facility Department ID 2019-05-19 2019-05-19 [facility] [id number] 06:41:00 08:57:00 Encounter Austin Garsia [id number] [place] [id number] Surgical [id number] Center 071 Results Test Description Test Time Test Comments Results Result Sourc e Comments RAD, CHEST, 1 2017-09-24 Today's CXR has FINAL REPORT PATIENT VIEW, NON DEPT 08:36:00 already been ID: [id number] AP done. Thank chest HISTORY: Chest youReason for tubes COMPARISON: exam:->chest 06/08/2017 tubesShould this IMPRESSION:Left-side be performed at d thoracostomy tube the bedside?->Yes is unchanged. Stable cardiac silhouette. Small effusions. Bibasilar airspace disease unchanged. No definite pneumothorax. Signed: Marc Pitt MDReport Verified Date/Time: 09/24/2017 08:36:20 Reading Location: [facility] Mammo Reading Room W/PLT COUNT & AUTO DIFFERENTIAL 2017-06-14 10:00:00 Test Item Value Reference Range Interpretation Comme nts WHITE BLOOD CELL COUNT (BEAKER) (test code = 775) 8.0 K/ L 3.5- 10.5 RED BLOOD CELL COUNT (BEAKER) (test code = 761) 2.94 M/ L 4.63-6 .08 L HEMOGLOBIN (BEAKER) (test code = 410) 8.7 GM/DL 13.7-17.5 L HEMATOCRIT (BEAKER) (test code = 411) 26.8 % 40.1-51.0 L MEAN CORPUSCULAR VOLUME (BEAKER) (test code = 753) 91.2 fL 79. 0-92.2 MEAN CORPUSCULAR HEMOGLOBIN (BEAKER) (test code = 751) 29.6 pg 25.7-32.2 MEAN CORPUSCULAR HEMOGLOBIN CONC (BEAKER) (test code = 752) 32.5 GM/DL 32.3-36.5 RED CELL DISTRIBUTION WIDTH (BEAKER) (test code = 412) 14.2 % 11.6-14.4 PLATELET COUNT (BEAKER) (test code = 756) 282 K/CU MM 150-450 MEAN PLATELET VOLUME (BEAKER) (test code = 754) 11.6 fL 9.4-12 .4 NUCLEATED RED BLOOD CELLS (BEAKER) (test code = 413) 1 /100 WBC 0 -0 H NEUTROPHILS RELATIVE PERCENT (BEAKER) (test code = 429) 72 % LYMPHOCYTES RELATIVE PERCENT (BEAKER) (test code = 430) 15 % MONOCYTES RELATIVE PERCENT (BEAKER) (test code = 431) 8 % EOSINOPHILS RELATIVE PERCENT (BEAKER) (test code = 432) 4 % BASOPHILS RELATIVE PERCENT (BEAKER) (test code = 437) 1 % NEUTROPHILS ABSOLUTE COUNT (BEAKER) (test code = 670) 5.72 K/ L 1.78-5.38 H LYMPHOCYTES ABSOLUTE COUNT (BEAKER) (test code = 414) 1.19 K/ L 1.32-3.57 L MONOCYTES ABSOLUTE COUNT (BEAKER) (test code = 415) 0.62 K/ L 0. 30-0.82 EOSINOPHILS ABSOLUTE COUNT (BEAKER) (test code = 416) 0.30 K/ L 0.04-0.54 BASOPHILS ABSOLUTE COUNT (BEAKER) (test code = 417) 0.04 K/ L 0. 01-0.08 IMMATURE GRANULOCYTES-RELATIVE PERCENT (BEAKER) (test code 1 % 0-1 = 2801) (MANUAL DIFFERENTIAL)2017-06-14 10:00:00 Test Item Value Reference Range Interpretation Comments TOTAL COUNTED (BEAKER) (test code = 1351) WBC MORPHOLOGY (BEAKER) (test code = Normal 487) PLT MORPHOLOGY (BEAKER) (test code = Normal 486) RBC MORPHOLOGY (BEAKER) (test code = Normal 762) [id number] 05:49:00 Test Item Value Reference Range Interpretation Comments MAGNESIUM (BEAKER) 2.0 mg/dL 1.6-2.6 Specimen slightly (test code = 627) hemolyzed [id number] 05:49:00 Test Item Value Reference Range Interpretation Comments PHOSPHORUS (BEAKER) 3.4 mg/dL 2.3-4.7 Specimen slightly (test code = 604) hemolyzed BASIC METABOLIC [id number] 05:49:00 Test Item Value Reference Range Interpretation Comments SODIUM (BEAKER) 139 meq/L 136-145 (test code = 381) POTASSIUM (BEAKER) 4.1 meq/L 3.5-5.1 Specimen slightly (test code = 379) hemolyzed CHLORIDE (BEAKER) 105 meq/L 98-107 (test code = 382) CO2 (BEAKER) (test 24 meq/L 22-29 code = 355) BLOOD UREA NITROGEN 21 mg/dL 7-21 (BEAKER) (test code = 354) CREATININE (BEAKER) 1.11 mg/dL 0.57-1.25 Specimen slightly (test code = 358) hemolyzed GLUCOSE RANDOM 107 mg/dL 70-105 H (BEAKER) (test code = 652) CALCIUM (BEAKER) 9.1 mg/dL 8.4-10.2 (test code = 697) EGFR (BEAKER) (test 80 mL/min/1.73 ESTIMA CRAIG GFR IS code = 1092) sq m NOT ACCURATE CREATININE CLEARANCE IN PREDICTING GLOMERULAR FILTRATION RATE . ESTIMATED GFR I S NOT APPLICABLE FOR DIALYSIS PATIEN TS. CBC W/PLT COUNT & AUTO [id number] 14:54:00 Test Item Value Reference Range Interpretation Comments WHITE BLOOD CELL COUNT (BEAKER) 8.1 K/ L 3.5-10.5 (test code = 775) RED BLOOD CELL COUNT (BEAKER) 2.85 M/ L 4.63-6.08 L (test code = 761) HEMOGLOBIN (BEAKER) (test code = 8.4 GM/DL 13.7-17.5 L 410) HEMATOCRIT (BEAKER) (test code = 25.3 % 40.1-51.0 L 411) MEAN CORPUSCULAR VOLUME (BEAKER) 88.8 fL 79.0-92.2 (test code = 753) MEAN CORPUSCULAR HEMOGLOBIN 29.5 pg 25.7-32.2 (BEAKER) (test code = 751) MEAN CORPUSCULAR HEMOGLOBIN CONC 33.2 GM/DL 32.3-36.5 (BEAKER) (test code = 752) RED CELL DISTRIBUTION WIDTH 14.4 % 11.6-14.4 (BEAKER) (test code = 412) PLATELET COUNT (BEAKER) (test 226 K/CU MM 150-450 code = 756) MEAN PLATELET VOLUME (BEAKER) 11.3 fL 9.4-12.4 (test code = 754) NUCLEATED RED BLOOD CELLS 1 /100 WBC 0-0 H (BEAKER) (test code = 413) NEUTROPHILS RELATIVE PERCENT 69 % (BEAKER) (test code = 429) LYMPHOCYTES RELATIVE PERCENT 17 % (BEAKER) (test code = 430) MONOCYTES RELATIVE PERCENT 7 % (BEAKER) (test code = 431) EOSINOPHILS RELATIVE PERCENT 4 % (BEAKER) (test code = 432) BASOPHILS RELATIVE PERCENT 1 % (BEAKER) (test code = 437) NEUTROPHILS ABSOLUTE COUNT 5.61 K/ L 1.78-5.38 H (BEAKER) (test code = 670) LYMPHOCYTES ABSOLUTE COUNT 1.38 K/ L 1.32-3.57 (BEAKER) (test code = 414) MONOCYTES ABSOLUTE COUNT (BEAKER) 0.57 K/ L 0.30-0.82 (test code = 415) EOSINOPHILS ABSOLUTE COUNT 0.35 K/ L 0.04-0.54 (BEAKER) (test code = 416) BASOPHILS ABSOLUTE COUNT (BEAKER) 0.04 K/ L 0.01-0.08 (test code = 417) IMMATURE GRANULOCYTES-RELATIVE 2 % 0-1 H PERCENT (BEAKER) (test code = 2801) (MANUAL DIFFERENTIAL)2017-06-13 14:54:00 Test Item Value Reference Range Interpretation Comments TOTAL COUNTED (BEAKER) (test code = 1351) WBC MORPHOLOGY (BEAKER) (test code = Normal 487) PLT MORPHOLOGY (BEAKER) (test code = Normal 486) RBC MORPHOLOGY (BEAKER) (test code = Normal 762) [id number] 05:24:00 Test Item Value Reference Range Interpretation Comments PHOSPHORUS (BEAKER) (test code = 2.7 mg/dL 2.3-4.7 604) [id number] 05:24:00 Test Item Value Reference Range Interpretation Comments MAGNESIUM (BEAKER) (test code = 1.8 mg/dL 1.6-2.6 627) BASIC METABOLIC [id number] 05:24:00 Test Item Value Reference Range Interpretation Comments SODIUM (BEAKER) 140 meq/L 136-145 (test code = 381) POTASSIUM (BEAKER) 4.3 meq/L 3.5-5.1 (test code = 379) CHLORIDE (BEAKER) 108 meq/L 98-107 H (test code = 382) CO2 (BEAKER) (test 25 meq/L 22-29 code = 355) BLOOD UREA NITROGEN 19 mg/dL 7-21 (BEAKER) (test code = 354) CREATININE (BEAKER) 0.91 mg/dL 0.57-1.25 (test code = 358) GLUCOSE RANDOM 100 mg/dL 70-105 (BEAKER) (test code = 652) CALCIUM (BEAKER) 8.4 mg/dL 8.4-10.2 (test code = 697) EGFR (BEAKER) (test 101 mL/min/1.73 ESTIM ATED GFR IS code = 1092) sq m NOT ACCURATE CREATININE CLEARANCE IN PREDICTING GLOMERULAR FILTRATION RATE . ESTIMATED GFR I S NOT APPLICABLE FOR DIALYSIS PATIEN TS. BASIC METABOLIC [id number] 14:00:00 Test Item Value Reference Range Interpretation Comments SODIUM (BEAKER) 142 meq/L 136-145 (test code = 381) POTASSIUM (BEAKER) 3.5 meq/L 3.5-5.1 (test code = 379) CHLORIDE (BEAKER) 106 meq/L 98-107 (test code = 382) CO2 (BEAKER) (test 24 meq/L 22-29 code = 355) BLOOD UREA NITROGEN 20 mg/dL 7-21 (BEAKER) (test code = 354) CREATININE (BEAKER) 1.05 mg/dL 0.57-1.25 (test code = 358) GLUCOSE RANDOM 91 mg/dL 70-105 (BEAKER) (test code = 652) CALCIUM (BEAKER) 9.3 mg/dL 8.4-10.2 (test code = 697) EGFR (BEAKER) (test 86 mL/min/1.73 ESTIMA CRAIG GFR IS code = 1092) sq m NOT ACCURATE CREATININE CLEARANCE IN PREDICTING GLOMERULAR FILTRATION RATE . ESTIMATED GFR I S NOT APPLICABLE FOR DIALYSIS PATIEN TS. CBC W/PLT COUNT & AUTO [id number] 13:59:00 Test Item Value Reference Range Interpretation Comments WHITE BLOOD CELL COUNT (BEAKER) 9.5 K/ L 3.5-10.5 (test code = 775) RED BLOOD CELL COUNT (BEAKER) 3.20 M/ L 4.63-6.08 L (test code = 761) HEMOGLOBIN (BEAKER) (test code = 9.5 GM/DL 13.7-17.5 L 410) HEMATOCRIT (BEAKER) (test code = 28.1 % 40.1-51.0 L 411) MEAN CORPUSCULAR VOLUME (BEAKER) 87.8 fL 79.0-92.2 (test code = 753) MEAN CORPUSCULAR HEMOGLOBIN 29.7 pg 25.7-32.2 (BEAKER) (test code = 751) MEAN CORPUSCULAR HEMOGLOBIN CONC 33.8 GM/DL 32.3-36.5 (BEAKER) (test code = 752) RED CELL DISTRIBUTION WIDTH 14.0 % 11.6-14.4 (BEAKER) (test code = 412) PLATELET COUNT (BEAKER) (test 238 K/CU MM 150-450 code = 756) MEAN PLATELET VOLUME (BEAKER) 11.1 fL 9.4-12.4 (test code = 754) NUCLEATED RED BLOOD CELLS 1 /100 WBC 0-0 H (BEAKER) (test code = 413) NEUTROPHILS RELATIVE PERCENT 72 % (BEAKER) (test code = 429) LYMPHOCYTES RELATIVE PERCENT 14 % (BEAKER) (test code = 430) MONOCYTES RELATIVE PERCENT 8 % (BEAKER) (test code = 431) EOSINOPHILS RELATIVE PERCENT 4 % (BEAKER) (test code = 432) BASOPHILS RELATIVE PERCENT 0 % (BEAKER) (test code = 437) NEUTROPHILS ABSOLUTE COUNT 6.79 K/ L 1.78-5.38 H (BEAKER) (test code = 670) LYMPHOCYTES ABSOLUTE COUNT 1.35 K/ L 1.32-3.57 (BEAKER) (test code = 414) MONOCYTES ABSOLUTE COUNT (BEAKER) 0.76 K/ L 0.30-0.82 (test code = 415) EOSINOPHILS ABSOLUTE COUNT 0.35 K/ L 0.04-0.54 (BEAKER) (test code = 416) BASOPHILS ABSOLUTE COUNT (BEAKER) 0.03 K/ L 0.01-0.08 (test code = 417) IMMATURE GRANULOCYTES-RELATIVE 2 % 0-1 H PERCENT (BEAKER) (test code = 2801) CBC (HEMOGRAM ONLY)2017-06-11 22:29:00 Test Item Value Reference Range Interpretation Comments WHITE BLOOD CELL COUNT 8.3 K/ L 3.5-10.5 (BEAKER) (test code = 775) RED BLOOD CELL COUNT 3.12 M/ L 4.63-6.08 L (BEAKER) (test code = 761) HEMOGLOBIN (BEAKER) 9.1 GM/DL 13.7-17.5 L (test code = 410) HEMATOCRIT (BEAKER) 27.9 % 40.1-51.0 L (test code = 411) MEAN CORPUSCULAR VOLUME 89.4 fL 79.0-92.2 (BEAKER) (test code = 753) MEAN CORPUSCULAR 29.2 pg 25.7-32.2 HEMOGLOBIN (BEAKER) (test code = 751) MEAN CORPUSCULAR 32.6 GM/DL 32.3-36.5 HEMOGLOBIN CONC (BEAKER) (test code = 752) RED CELL DISTRIBUTION 14.1 % 11.6-14.4 WIDTH (BEAKER) (test code = 412) PLATELET COUNT (BEAKER) 22 K/CU MM 150-450 L Many platelet clumps (test code = 756) seen on sl karen, unable to quant jessenia platelets dur t o EDTA clumping. Please resend platelet count in Light Blue citr ate tube.This is a corrected resul t. Previous result was 22 K/CU MM on 06/11/2017 at 15 26 CDT MEAN PLATELET VOLUME 12.2 fL 9.4-12.4 (BEAKER) (test code = 754) NUCLEATED RED BLOOD 1 /100 WBC 0-0 H CELLS (BEAKER) (test code = 413) OCCULT BLOOD, [id number] 20:32:00 Test Item Value Reference Range Interpretation Comments FECAL OCCULT BLOOD (BEAKER) (test Negative Negative code = 618) [id number] 06:40:00 Test Item Value Reference Range Interpretation Comments MAGNESIUM (BEAKER) (test code = 1.9 mg/dL 1.6-2.6 627) BASIC METABOLIC [id number] 06:40:00 Test Item Value Reference Range Interpretation Comments SODIUM (BEAKER) 142 meq/L 136-145 (test code = 381) POTASSIUM (BEAKER) 3.8 meq/L 3.5-5.1 (test code = 379) CHLORIDE (BEAKER) 110 meq/L 98-107 H (test code = 382) CO2 (BEAKER) (test 24 meq/L 22-29 code = 355) BLOOD UREA NITROGEN 20 mg/dL 7-21 (BEAKER) (test code = 354) CREATININE (BEAKER) 0.84 mg/dL 0.57-1.25 (test code = 358) GLUCOSE RANDOM 89 mg/dL 70-105 (BEAKER) (test code = 652) CALCIUM (BEAKER) 8.6 mg/dL 8.4-10.2 (test code = 697) EGFR (BEAKER) (test 111 mL/min/1.73 ESTIM ATED GFR IS code = 1092) sq m NOT ACCURATE CREATININE CLEARANCE IN PREDICTING GLOMERULAR FILTRATION RATE . ESTIMATED GFR I S NOT APPLICABLE FOR DIALYSIS PATIEN TS. CBC (HEMOGRAM ONLY)2017-06-11 06:07:00 Test Item Value Reference Range Interpretation Comments WHITE BLOOD CELL COUNT (BEAKER) 6.4 K/ L 3.5-10.5 (test code = 775) RED BLOOD CELL COUNT (BEAKER) 2.65 M/ L 4.63-6.08 L (test code = 761) HEMOGLOBIN (BEAKER) (test code = 7.9 GM/DL 13.7-17.5 L 410) HEMATOCRIT (BEAKER) (test code = 24.2 % 40.1-51.0 L 411) MEAN CORPUSCULAR VOLUME (BEAKER) 91.3 fL 79.0-92.2 (test code = 753) MEAN CORPUSCULAR HEMOGLOBIN 29.8 pg 25.7-32.2 (BEAKER) (test code = 751) MEAN CORPUSCULAR HEMOGLOBIN CONC 32.6 GM/DL 32.3-36.5 (BEAKER) (test code = 752) RED CELL DISTRIBUTION WIDTH 14.1 % 11.6-14.4 (BEAKER) (test code = 412) PLATELET COUNT (BEAKER) (test 165 K/CU MM 150-450 code = 756) MEAN PLATELET VOLUME (BEAKER) 10.9 fL 9.4-12.4 (test code = 754) NUCLEATED RED BLOOD CELLS 1 /100 WBC 0-0 H (BEAKER) (test code = 413) CBC W/PLT COUNT & AUTO [id number] 12:14:00 Test Item Value Reference Range Interpretation Comments WHITE BLOOD CELL COUNT (BEAKER) 7.3 K/ L 3.5-10.5 (test code = 775) RED BLOOD CELL COUNT (BEAKER) 3.08 M/ L 4.63-6.08 L (test code = 761) HEMOGLOBIN (BEAKER) (test code = 9.2 GM/DL 13.7-17.5 L 410) HEMATOCRIT (BEAKER) (test code = 27.2 % 40.1-51.0 L 411) MEAN CORPUSCULAR VOLUME (BEAKER) 88.3 fL 79.0-92.2 (test code = 753) MEAN CORPUSCULAR HEMOGLOBIN 29.9 pg 25.7-32.2 (BEAKER) (test code = 751) MEAN CORPUSCULAR HEMOGLOBIN CONC 33.8 GM/DL 32.3-36.5 (BEAKER) (test code = 752) RED CELL DISTRIBUTION WIDTH 14.2 % 11.6-14.4 (BEAKER) (test code = 412) PLATELET COUNT (BEAKER) (test 167 K/CU MM 150-450 code = 756) MEAN PLATELET VOLUME (BEAKER) 10.7 fL 9.4-12.4 (test code = 754) NUCLEATED RED BLOOD CELLS 0 /100 WBC 0-0 (BEAKER) (test code = 413) NEUTROPHILS RELATIVE PERCENT 69 % (BEAKER) (test code = 429) LYMPHOCYTES RELATIVE PERCENT 13 % (BEAKER) (test code = 430) MONOCYTES RELATIVE PERCENT 9 % (BEAKER) (test code = 431) EOSINOPHILS RELATIVE PERCENT 7 % (BEAKER) (test code = 432) BASOPHILS RELATIVE PERCENT 0 % (BEAKER) (test code = 437) NEUTROPHILS ABSOLUTE COUNT 5.06 K/ L 1.78-5.38 (BEAKER) (test code = 670) LYMPHOCYTES ABSOLUTE COUNT 0.97 K/ L 1.32-3.57 L (BEAKER) (test code = 414) MONOCYTES ABSOLUTE COUNT (BEAKER) 0.69 K/ L 0.30-0.82 (test code = 415) EOSINOPHILS ABSOLUTE COUNT 0.50 K/ L 0.04-0.54 (BEAKER) (test code = 416) BASOPHILS ABSOLUTE COUNT (BEAKER) 0.03 K/ L 0.01-0.08 (test code = 417) IMMATURE GRANULOCYTES-RELATIVE 1 % 0-1 PERCENT (BEAKER) (test code = 2801) [id number] 06:42:00 Test Item Value Reference Range Interpretation Comments MAGNESIUM (BEAKER) (test code = 1.9 mg/dL 1.6-2.6 627) BASIC METABOLIC [id number] 06:42:00 Test Item Value Reference Range Interpretation Comments SODIUM (BEAKER) 139 meq/L 136-145 (test code = 381) POTASSIUM (BEAKER) 3.5 meq/L 3.5-5.1 (test code = 379) CHLORIDE (BEAKER) 107 meq/L 98-107 (test code = 382) CO2 (BEAKER) (test 27 meq/L 22-29 code = 355) BLOOD UREA NITROGEN 22 mg/dL 7-21 H (BEAKER) (test code = 354) CREATININE (BEAKER) 0.88 mg/dL 0.57-1.25 (test code = 358) GLUCOSE RANDOM 105 mg/dL 70-105 (BEAKER) (test code = 652) CALCIUM (BEAKER) 8.3 mg/dL 8.4-10.2 L (test code = 697) EGFR (BEAKER) (test 105 mL/min/1.73 ESTIM ATED GFR IS code = 1092) sq m NOT ACCURATE CREATININE CLEARANCE IN PREDICTING GLOMERULAR FILTRATION RATE . ESTIMATED GFR I S NOT APPLICABLE FOR DIALYSIS PATIEN TS. CBC (HEMOGRAM ONLY)2017-06-10 06:11:00 Test Item Value Reference Range Interpretation Comments WHITE BLOOD CELL COUNT (BEAKER) 7.7 K/ L 3.5-10.5 (test code = 775) RED BLOOD CELL COUNT (BEAKER) 2.80 M/ L 4.63-6.08 L (test code = 761) HEMOGLOBIN (BEAKER) (test code = 8.4 GM/DL 13.7-17.5 L 410) HEMATOCRIT (BEAKER) (test code = 24.7 % 40.1-51.0 L 411) MEAN CORPUSCULAR VOLUME (BEAKER) 88.2 fL 79.0-92.2 (test code = 753) MEAN CORPUSCULAR HEMOGLOBIN 30.0 pg 25.7-32.2 (BEAKER) (test code = 751) MEAN CORPUSCULAR HEMOGLOBIN CONC 34.0 GM/DL 32.3-36.5 (BEAKER) (test code = 752) RED CELL DISTRIBUTION WIDTH 14.2 % 11.6-14.4 (BEAKER) (test code = 412) PLATELET COUNT (BEAKER) (test 168 K/CU MM 150-450 code = 756) MEAN PLATELET VOLUME (BEAKER) 10.8 fL 9.4-12.4 (test code = 754) NUCLEATED RED BLOOD CELLS 0 /100 WBC 0-0 (BEAKER) (test code = 413) [id number] 07:35:00 Test Item Value Reference Range Interpretation Comments MAGNESIUM (BEAKER) 2.8 mg/dL 1.6-2.6 H Specimen moderately (test code = 627) hemolyzed [id number] 07:35:00 Test Item Value Reference Range Interpretation Comments PHOSPHORUS (BEAKER) 1.8 mg/dL 2.3-4.7 L Specimen moderately (test code = 604) hemolyzed BASIC METABOLIC [id number] 07:35:00 Test Item Value Reference Range Interpretation Comments SODIUM (BEAKER) 141 meq/L 136-145 (test code = 381) POTASSIUM (BEAKER) 4.5 meq/L 3.5-5.1 Specimen moderately (test code = 379) hemolyzed CHLORIDE (BEAKER) 106 meq/L 98-107 (test code = 382) CO2 (BEAKER) (test 24 meq/L 22-29 code = 355) BLOOD UREA NITROGEN 21 mg/dL 7-21 (BEAKER) (test code = 354) CREATININE (BEAKER) 0.94 mg/dL 0.57-1.25 Specimen moderately (test code = 358) hemolyzed GLUCOSE RANDOM 104 mg/dL 70-105 (BEAKER) (test code = 652) CALCIUM (BEAKER) 9.2 mg/dL 8.4-10.2 (test code = 697) EGFR (BEAKER) (test 97 mL/min/1.73 ESTIMA CRAIG GFR IS code = 1092) sq m NOT ACCURATE CREATININE CLEARANCE IN PREDICTING GLOMERULAR FILTRATION RATE . ESTIMATED GFR I S NOT APPLICABLE FOR DIALYSIS PATIEN TS. CBC (HEMOGRAM ONLY)2017-06-09 06:31:00 Test Item Value Reference Range Interpretation Comments WHITE BLOOD CELL COUNT (BEAKER) 7.5 K/ L 3.5-10.5 (test code = 775) RED BLOOD CELL COUNT (BEAKER) 3.73 M/ L 4.63-6.08 L (test code = 761) HEMOGLOBIN (BEAKER) (test code = 11.0 GM/DL 13.7-17.5 L 410) HEMATOCRIT (BEAKER) (test code = 33.2 % 40.1-51.0 L 411) MEAN CORPUSCULAR VOLUME (BEAKER) 89.0 fL 79.0-92.2 (test code = 753) MEAN CORPUSCULAR HEMOGLOBIN 29.5 pg 25.7-32.2 (BEAKER) (test code = 751) MEAN CORPUSCULAR HEMOGLOBIN CONC 33.1 GM/DL 32.3-36.5 (BEAKER) (test code = 752) RED CELL DISTRIBUTION WIDTH 14.9 % 11.6-14.4 H (BEAKER) (test code = 412) PLATELET COUNT (BEAKER) (test 167 K/CU MM 150-450 code = 756) MEAN PLATELET VOLUME (BEAKER) 11.3 fL 9.4-12.4 (test code = 754) NUCLEATED RED BLOOD CELLS 0 /100 WBC 0-0 (BEAKER) (test code = 413) POCT-GLUCOSE [id number] 23:32:00 Test Item Value Reference Range Interpretation Comments POC-GLUCOSE METER 112 mg/dL 70-110 H TESTED AT [place] [address] ([facility]) (test code = JORGE Levine [facility] 1538) [id number] POCT-GLUCOSE [id number] 17:58:00 Test Item Value Reference Range Interpretation Comments POC-GLUCOSE METER 132 mg/dL 70-110 H TESTED AT [place] [address] ([facility]) (test code = JORGE Levine [facility] 1538) [id number] POCT-GLUCOSE [id number] 13:40:00 Test Item Value Reference Range Interpretation Comments POC-GLUCOSE METER 151 mg/dL 70-110 H TESTED AT [place] [address] ([facility]) (test code = JORGE Levine [facility] 1538) [id number] 06:53:00 Test Item Value Reference Range Interpretation Comments PHOSPHORUS (BEAKER) (test code = 2.6 mg/dL 2.3-4.7 604) [id number] 06:53:00 Test Item Value Reference Range Interpretation Comments MAGNESIUM (BEAKER) (test code = 1.8 mg/dL 1.6-2.6 627) BASIC METABOLIC [id number] 06:53:00 Test Item Value Reference Range Interpretation Comments SODIUM (BEAKER) 142 meq/L 136-145 (test code = 381) POTASSIUM (BEAKER) 3.6 meq/L 3.5-5.1 (test code = 379) CHLORIDE (BEAKER) 108 meq/L 98-107 H (test code = 382) CO2 (BEAKER) (test 26 meq/L 22-29 code = 355) BLOOD UREA NITROGEN 16 mg/dL 7-21 (BEAKER) (test code = 354) CREATININE (BEAKER) 0.87 mg/dL 0.57-1.25 (test code = 358) GLUCOSE RANDOM 130 mg/dL 70-105 H (BEAKER) (test code = 652) CALCIUM (BEAKER) 8.5 mg/dL 8.4-10.2 (test code = 697) EGFR (BEAKER) (test 106 mL/min/1.73 ESTIM ATED GFR IS code = 1092) sq m NOT ACCURATE CREATININE CLEARANCE IN PREDICTING GLOMERULAR FILTRATION RATE . ESTIMATED GFR I S NOT APPLICABLE FOR DIALYSIS PATIEN TS. CBC (HEMOGRAM ONLY)2017-06-08 05:53:00 Test Item Value Reference Range Interpretation Comments WHITE BLOOD CELL COUNT (BEAKER) 6.7 K/ L 3.5-10.5 (test code = 775) RED BLOOD CELL COUNT (BEAKER) 3.18 M/ L 4.63-6.08 L (test code = 761) HEMOGLOBIN (BEAKER) (test code = 9.4 GM/DL 13.7-17.5 L 410) HEMATOCRIT (BEAKER) (test code = 27.0 % 40.1-51.0 L 411) MEAN CORPUSCULAR VOLUME (BEAKER) 84.9 fL 79.0-92.2 (test code = 753) MEAN CORPUSCULAR HEMOGLOBIN 29.6 pg 25.7-32.2 (BEAKER) (test code = 751) MEAN CORPUSCULAR HEMOGLOBIN CONC 34.8 GM/DL 32.3-36.5 ([facility]) (test code = 752) RED CELL DISTRIBUTION WIDTH 14.6 % 11.6-14.4 H ([facility]) (test code = 412) PLATELET COUNT ([facility]) (test 137 K/CU MM 150-450 L code = 756) MEAN PLATELET VOLUME ([facility]) 10.3 fL 9.4-12.4 (test code = 754) NUCLEATED RED BLOOD CELLS 0 /100 WBC 0-0 ([facility]) (test code = 413) [id number] 05:48:00 Test Item Value Reference Range Interpretation Comments ACTIVATED CLOTTING TIME 114 sec TEST ED AT [place] [address] ([facility] [facility] (test code = [place] [address]) [id number] 05:48:00 Test Item Value Reference Range Interpretation Comments ACTIVATED CLOTTING TIME 444 sec TEST ED AT [place] [address] ([facility]) (test code = [place] 441) [id number] 05:48:00 Test Item Value Reference Range Interpretation Comments ACTIVATED CLOTTING TIME 378 sec TEST ED AT [place] [address] ([facility]) (test code = JORGE Lev[place] 441) [id number] 05:48:00 Test Item Value Reference Range Interpretation Comments ACTIVATED CLOTTING TIME 109 sec TEST ED AT [place] [address] ([facility]) (test code = [place] 441) [id number] 05:48:00 Test Item Value Reference Range Interpretation Comments ACTIVATED CLOTTING TIME 499 sec TEST ED AT [place] [address] ([facility]) (test code = [place] 441) [id number] 05:48:00 Test Item Value Reference Range Interpretation Comments ACTIVATED CLOTTING TIME 477 sec TEST ED AT [place] [address] ([facility]) (test code = JORGE Levine [place] [address]) [id number] 05:48:00 Test Item Value Reference Range Interpretation Comments ACTIVATED CLOTTING TIME 505 sec TEST ED AT [place] [address] ([facility]) (test code = JORGE [place] [address]) [address] POCT-GLUCOSE [id number] 04:18:00 Test Item Value Reference Range Interpretation Comments POC-GLUCOSE METER 153 mg/dL 70-110 H TESTED AT [place] [address] (BEAKER) (test code = JORGE Levine [place] 1538) [address] POCT-GLUCOSE [id number] 21:20:00 Test Item Value Reference Range Interpretation Comments POC-GLUCOSE METER 150 mg/dL 70-110 H TESTED AT [place] [address] (BEAKER) (test code = JORGE Levine [place] 1538) [address] POCT-GLUCOSE [id number] 18:22:00 Test Item Value Reference Range Interpretation Comments POC-GLUCOSE METER 122 mg/dL 70-110 H TESTED AT [place] [address] (BEAKER) (test code = JORGE Levine [place] 1538) [address] POCT-GLUCOSE [id number] 18:21:00 Test Item Value Reference Range Interpretation Comments POC-GLUCOSE METER 95 mg/dL 70-110 TESTED AT [place] [address] (BEAKER) (test code = [place] [id number] 1538) BLOOD GAS, [id number] 15:13:00 Test Item Value Reference Range Interpretation Comments PH ARTERIAL (BEAKER) (test code = 7.43 7.35-7.45 383) PCO2 ARTERIAL (BEAKER) (test code 39 mmHg 35-45 = 384) PO2 ARTERIAL (BEAKER) (test code = 109 mmHg 80-90 H 385) O2 SATURATION ARTERIAL (BEAKER) 97.9 % 96.0-97.0 H (test code = 386) HCO3 ARTERIAL (BEAKER) (test code 25 mmol/L 21-29 = 388) BASE EXCESS ARTERIAL (BEAKER) 0.8 mmol/L -2.0-3.0 (test code = 387) PATIENT TEMPERATURE (BEAKER) (test 38.3 C code = 1818) FIO2 (BEAKER) (test code = 1819) 40.0 % POCT-GLUCOSE [id number] 14:00:00 Test Item Value Reference Range Interpretation Comments POC-GLUCOSE METER 111 mg/dL 70-110 H TESTED AT [place] [address] (BEAKER) (test code = JORGE Levine [place] 1538) [address] POCT-GLUCOSE [id number] 12:18:00 Test Item Value Reference Range Interpretation Comments POC-GLUCOSE METER 124 mg/dL 70-110 H TESTED AT [place] [address] (BEAKER) (test code = JORGE Levine [place] 1538) [address] POCT-GLUCOSE [id number] 08:18:00 Test Item Value Reference Range Interpretation Comments POC-GLUCOSE METER 139 mg/dL 70-110 H TESTED AT [place] [address] (BEAKER) (test code = JORGE Levine [place] 1538) [address] POCT-GLUCOSE [id number] 06:47:00 Test Item Value Reference Range Interpretation Comments POC-GLUCOSE METER 140 mg/dL 70-110 H TEST[facility] AT [place] [address] [facility] (test code = JORGE Levine [place] 1538) [address] POCT-GLUCOSE [id number] 05:11:00 Test Item Value Reference Range Interpretation Comments POC-GLUCOSE METER 149 mg/dL 70-110 H [facility] AT [place] [address] [facility] (test code = JORGE Levine [facility] 1538) [address] [id number] 04:24:00 Test Item Value Reference Range Interpretation Comments PHOSPHORUS (BEAKER) (test code = 3.5 mg/dL 2.3-4.7 604) [id number] 04:24:00 Test Item Value Reference Range Interpretation Comments MAGNESIUM (BEAKER) (test code = 2.5 mg/dL 1.6-2.6 627) BASIC METABOLIC [id number] 04:24:00 Test Item Value Reference Range Interpretation Comments SODIUM (BEAKER) 141 meq/L 136-145 (test code = 381) POTASSIUM (BEAKER) 4.6 meq/L 3.5-5.1 (test code = 379) CHLORIDE (BEAKER) 113 meq/L 98-107 H (test code = 382) CO2 (BEAKER) (test 20 meq/L 22-29 L code = 355) BLOOD UREA NITROGEN 14 mg/dL 7-21 (BEAKER) (test code = 354) CREATININE (BEAKER) 1.00 mg/dL 0.57-1.25 (test code = 358) GLUCOSE RANDOM 144 mg/dL 70-105 H (BEAKER) (test code = 652) CALCIUM (BEAKER) 8.6 mg/dL 8.4-10.2 (test code = 697) EGFR (BEAKER) (test 91 mL/min/1.73 ESTIMA CRAIG GFR IS code = 1092) sq m NOT ACCURATE CREATININE CLEARANCE IN PREDICTING GLOMERULAR FILTRATION RATE . ESTIMATED GFR I S NOT APPLICABLE FOR DIALYSIS PATIEN TS. LACTIC ACID, ARTERIAL, WHOLE [id number] 04:04:00 Test Item Value Reference Range Interpretation Comments LACTATE BLOOD ARTERIAL (2) 2.8 mmol/L 0.5-2.2 H (BEAKER) (test code = 2874) Effective 02/23/2016: Units/Reference Range ChangeNew: 0.5-2.2 mmol/L Previous: 5-20 mg/dLCBC W/PLT COUNT & AUTO [id number] 03:59:00 Test Item Value Reference Range Interpretation Comments WHITE BLOOD CELL COUNT (BEAKER) 4.5 K/ L 3.5-10.5 (test code = 775) RED BLOOD CELL COUNT (BEAKER) 3.09 M/ L 4.63-6.08 L (test code = 761) HEMOGLOBIN (BEAKER) (test code = 9.3 GM/DL 13.7-17.5 L 410) HEMATOCRIT (BEAKER) (test code = 26.4 % 40.1-51.0 L 411) MEAN CORPUSCULAR VOLUME (BEAKER) 85.4 fL 79.0-92.2 (test code = 753) MEAN CORPUSCULAR HEMOGLOBIN 30.1 pg 25.7-32.2 (BEAKER) (test code = 751) MEAN CORPUSCULAR HEMOGLOBIN CONC 35.2 GM/DL 32.3-36.5 (BEAKER) (test code = 752) RED CELL DISTRIBUTION WIDTH 14.8 % 11.6-14.4 H (BEAKER) (test code = 412) PLATELET COUNT (BEAKER) (test 163 K/CU MM 150-450 code = 756) MEAN PLATELET VOLUME (BEAKER) 10.1 fL 9.4-12.4 (test code = 754) NUCLEATED RED BLOOD CELLS 0 /100 WBC 0-0 (BEAKER) (test code = 413) NEUTROPHILS RELATIVE PERCENT 77 % (BEAKER) (test code = 429) LYMPHOCYTES RELATIVE PERCENT 10 % (BEAKER) (test code = 430) MONOCYTES RELATIVE PERCENT 11 % (BEAKER) (test code = 431) EOSINOPHILS RELATIVE PERCENT 2 % (BEAKER) (test code = 432) BASOPHILS RELATIVE PERCENT 0 % (BEAKER) (test code = 437) NEUTROPHILS ABSOLUTE COUNT 3.48 K/ L 1.78-5.38 (BEAKER) (test code = 670) LYMPHOCYTES ABSOLUTE COUNT 0.44 K/ L 1.32-3.57 L (BEAKER) (test code = 414) MONOCYTES ABSOLUTE COUNT (BEAKER) 0.50 K/ L 0.30-0.82 (test code = 415) EOSINOPHILS ABSOLUTE COUNT 0.08 K/ L 0.04-0.54 (BEAKER) (test code = 416) BASOPHILS ABSOLUTE COUNT (BEAKER) 0.02 K/ L 0.01-0.08 (test code = 417) IMMATURE GRANULOCYTES-RELATIVE 0 % 0-1 PERCENT (BEAKER) (test code = 2801) CBC (HEMOGRAM ONLY)2017-06-07 03:58:00 Test Item Value Reference Range Interpretation Comments WHITE BLOOD CELL COUNT (BEAKER) 4.5 K/ L 3.5-10.5 (test code = 775) RED BLOOD CELL COUNT (BEAKER) 3.09 M/ L 4.63-6.08 L (test code = 761) HEMOGLOBIN (BEAKER) (test code = 9.3 GM/DL 13.7-17.5 L 410) HEMATOCRIT (BEAKER) (test code = 26.4 % 40.1-51.0 L 411) MEAN CORPUSCULAR VOLUME (BEAKER) 85.4 fL 79.0-92.2 (test code = 753) MEAN CORPUSCULAR HEMOGLOBIN 30.1 pg 25.7-32.2 (BEAKER) (test code = 751) MEAN CORPUSCULAR HEMOGLOBIN CONC 35.2 GM/DL 32.3-36.5 (BEAKER) (test code = 752) RED CELL DISTRIBUTION WIDTH 14.8 % 11.6-14.4 H (BEAKER) (test code = 412) PLATELET COUNT (BEAKER) (test 163 K/CU MM 150-450 code = 756) MEAN PLATELET VOLUME (BEAKER) 10.1 fL 9.4-12.4 (test code = 754) NUCLEATED RED BLOOD CELLS 0 /100 WBC 0-0 (BEAKER) (test code = 413) BLOOD GAS, [id number] 03:57:00 Test Item Value Reference Range Interpretation Comments PH ARTERIAL (BEAKER) (test code = 7.43 7.35-7.45 383) PCO2 ARTERIAL (BEAKER) (test code 35 mmHg 35-45 = 384) PO2 ARTERIAL (BEAKER) (test code 144 mmHg 80-90 H = 385) O2 SATURATION ARTERIAL (BEAKER) 98.9 % 96.0-97.0 H (test code = 386) HCO3 ARTERIAL (BEAKER) (test code 22 mmol/L 21-29 = 388) BASE EXCESS ARTERIAL (BEAKER) -1.5 mmol/L -2.0-3.0 (test code = 387) PATIENT TEMPERATURE (BEAKER) 37.8 C (test code = 1818) FIO2 (BEAKER) (test code = 1819) 40.0 % OXYGEN SATURATION, [id number] 03:51:00 Test Item Value Reference Range Interpretation Comments O2 SATURATION (MEASURED) (BEAKER) 65.7 % (test code = 1455) CALCIUM, [id number] 03:50:00 Test Item Value Reference Range Interpretation Comments CALCIUM IONIZED (BEAKER) (test 1.17 mmol/L 1.12-1.27 code = 698) PH, BLOOD (AKER) (test code = 7.37 1810) POCT-GLUCOSE [id number] 02:41:00 Test Item Value Reference Range Interpretation Comments POC-GLUCOSE METER 198 mg/dL 70-110 H TESTED AT [place] [address] ([facility]) (test code = [facility] 1538) [address] HEMOGLOBIN AND [id number] 01:50:00 Test Item Value Reference Range Interpretation Comments HEMOGLOBIN (BEAKER) (test code = 9.3 GM/DL 13.7-17.5 L 410) HEMATOCRIT (BEAKER) (test code = 26.0 % 40.1-51.0 L 411) POCT-GLUCOSE [id number] 00:10:00 Test Item Value Reference Range Interpretation Comments POC-GLUCOSE METER 176 mg/dL 70-110 H TESTED AT [place] [address] ([facility]) (test code = [facility] 1538) [address] BLOOD GAS, [id number] 23:24:00 Test Item Value Reference Range Interpretation Comments PH ARTERIAL (BEAKER) (test code = 7.39 7.35-7.45 383) PCO2 ARTERIAL (BEAKER) (test code 35 mmHg 35-45 = 384) PO2 ARTERIAL (BEAKER) (test code 110 mmHg 80-90 H = 385) O2 SATURATION ARTERIAL (BEAKER) 98.1 % 96.0-97.0 H (test code = 386) HCO3 ARTERIAL (BEAKER) (test code 21 mmol/L 21-29 = 388) BASE EXCESS ARTERIAL (BEAKER) -4.1 mmol/L -2.0-3.0 L (test code = 387) PATIENT TEMPERATURE (BEAKER) 36.1 C (test code = 1818) FIO2 (BEAKER) (test code = 1819) 40.0 % GLUCOSE-STAT [id number] 23:24:00 Test Item Value Reference Range Interpretation Comments GLUCOSE RANDOM (BEAKER) (test code 167 mg/dL 70-110 H = 652) HGB/HCT (H&H) - STAT [id number] 23:24:00 Test Item Value Reference Range Interpretation Comments HEMOGLOBIN (BEAKER) (test code = 8.7 g/dL 13.0-16.8 L 410) HEMATOCRIT (BEAKER) (test code = 26.0 % 40.0-50.0 L 411) CALCIUM, [id number] 23:24:00 Test Item Value Reference Range Interpretation Comments CALCIUM IONIZED (BEAKER) (test 1.31 mmol/L 1.12-1.27 H code = 698) PH, BLOOD (BEAKER) (test code = 7.37 1810) SODIUM NA-STAT [id number] 23:18:00 Test Item Value Reference Range Interpretation Comments SODIUM (BEAKER) (test code = 381) 140 meq/L 135-148 POTASSIUM-STAT [id number] 23:18:00 Test Item Value Reference Range Interpretation Comments POTASSIUM (BEAKER) (test code = 4.2 meq/L 3.6-5.5 379) OXYGEN SATURATION, [id number] 23:17:00 Test Item Value Reference Range Interpretation Comments O2 SATURATION (MEASURED) (BEAKER) 66.5 % (test code = 1455) [id number] 23:12:00 Test Item Value Reference Range Interpretation Comments MAGNESIUM (BEAKER) (test code = 1.9 mg/dL 1.6-2.6 627) BASIC METABOLIC [id number] 23:12:00 Test Item Value Reference Range Interpretation Comments SODIUM (BEAKER) 144 meq/L 136-145 (test code = 381) POTASSIUM (BEAKER) 4.4 meq/L 3.5-5.1 (test code = 379) CHLORIDE (BEAKER) 114 meq/L 98-107 H (test code = 382) CO2 (BEAKER) (test 20 meq/L 22-29 L code = 355) BLOOD UREA NITROGEN 15 mg/dL 7-21 (BEAKER) (test code = 354) CREATININE (BEAKER) 1.10 mg/dL 0.57-1.25 (test code = 358) GLUCOSE RANDOM 191 mg/dL 70-105 H (BEAKER) (test code = 652) CALCIUM (BEAKER) 8.5 mg/dL 8.4-10.2 (test code = 697) EGFR (BEAKER) (test 81 mL/min/1.73 ESTIMA CRAIG GFR IS code = 1092) sq m NOT ACCURATE CREATININE CLEARANCE IN PREDICTING GLOMERULAR FILTRATION RATE . ESTIMATED GFR I S NOT APPLICABLE FOR DIALYSIS PATIEN TS. LACTIC ACID, ARTERIAL, WHOLE [id number] 23:07:00 Test Item Value Reference Range Interpretation Comments LACTATE BLOOD ARTERIAL (2) 3.9 mmol/L 0.5-2.2 H (BEAKER) (test code = 2874) Effective 02/23/2016: Units/Reference Range ChangeNew: 0.5-2.2 mmol/L Previous: 5-20 mg/dLCBC W/PLT COUNT & AUTO [id number] 22:59:00 Test Item Value Reference Range Interpretation Comments WHITE BLOOD CELL COUNT (BEAKER) 3.3 K/ L 3.5-10.5 L (test code = 775) RED BLOOD CELL COUNT (BEAKER) 2.86 M/ L 4.63-6.08 L (test code = 761) HEMOGLOBIN (BEAKER) (test code = 8.5 GM/DL 13.7-17.5 L 410) HEMATOCRIT (BEAKER) (test code = 24.7 % 40.1-51.0 L 411) MEAN CORPUSCULAR VOLUME (BEAKER) 86.4 fL 79.0-92.2 (test code = 753) MEAN CORPUSCULAR HEMOGLOBIN 29.7 pg 25.7-32.2 (BEAKER) (test code = 751) MEAN CORPUSCULAR HEMOGLOBIN CONC 34.4 GM/DL 32.3-36.5 (BEAKER) (test code = 752) RED CELL DISTRIBUTION WIDTH 14.6 % 11.6-14.4 H (BEAKER) (test code = 412) PLATELET COUNT (BEAKER) (test 150 K/CU MM 150-450 code = 756) MEAN PLATELET VOLUME (BEAKER) 9.7 fL 9.4-12.4 (test code = 754) NUCLEATED RED BLOOD CELLS 0 /100 WBC 0-0 (BEAKER) (test code = 413) NEUTROPHILS RELATIVE PERCENT 70 % (BEAKER) (test code = 429) LYMPHOCYTES RELATIVE PERCENT 13 % (BEAKER) (test code = 430) MONOCYTES RELATIVE PERCENT 14 % (BEAKER) (test code = 431) EOSINOPHILS RELATIVE PERCENT 2 % (BEAKER) (test code = 432) BASOPHILS RELATIVE PERCENT 0 % (BEAKER) (test code = 437) NEUTROPHILS ABSOLUTE COUNT 2.32 K/ L 1.78-5.38 (BEAKER) (test code = 670) LYMPHOCYTES ABSOLUTE COUNT 0.42 K/ L 1.32-3.57 L (BEAKER) (test code = 414) MONOCYTES ABSOLUTE COUNT (BEAKER) 0.45 K/ L 0.30-0.82 (test code = 415) EOSINOPHILS ABSOLUTE COUNT 0.08 K/ L 0.04-0.54 (BEAKER) (test code = 416) BASOPHILS ABSOLUTE COUNT (BEAKER) 0.01 K/ L 0.01-0.08 (test code = 417) IMMATURE GRANULOCYTES-RELATIVE 1 % 0-1 PERCENT (BEAKER) (test code = 2801) [id number] 22:58:00 Test Item Value Reference Range Interpretation Comments FIBRINOGEN LEVEL (BEAKER) (test 319 mg/dl 225-434 code = 658) [id number] 22:58:00 Test Item Value Reference Range Interpretation Comments PARTIAL THROMBOPLASTIN TIME 46.7 seconds 22.5-36.0 H (BEAKER) (test code = 760) PROTHROMBIN [id number] 22:57:00 Test Item Value Reference Range Interpretation Comments PROTIME (BEAKER) (test code = 15.4 seconds 11.7-14.7 H 759) INR (BEAKER) (test code = 370) 1.2 <=5.9 RECOMMENDED COUMADIN/WARFARIN INR THERAPY RANGESSTANDARD DOSE: 2.0 - 3.0 Includes: PROPHYLAXIS forvenous thrombosis, systemic embolization; TREATMENT for venous thrombosis and/or pulmonary embolus.HIGH RISK: Target INR is 2.5-3.5 for patients with mechanical heart valves.THROMBOELASTOGRAPH (TEG)2017-06-06 21:31:00 Test Item Value Reference Range Interpretation Comments TEG ACTIVATED CLOTTING TIME 7.8 minutes 4.0-7.0 H (BEAKER) (test code = 1407) TEG FIBRINOGEN ACTIVITY (BEAKER) 60.6 degrees 61.0-73.0 L (test code = 1408) TEG PLT. AGGREGATION (BEAKER) 63.6 MM 55.0-65.0 (test code = 1409) TGH ACTIVATED CLOTTING TIME 6.8 minutes 4.0-7.0 (BEAKER) (test code = 1411) TGH FIBRINOGEN ACTIVITY (BEAKER) 66.4 degrees 61.0-73.0 (test code = 1412) TGH PLT. AGGREGATION (BEAKER) 64.9 MM 55.0-65.0 (test code = 1413) THROMBOELASTOGRAPH (TEG)2017-06-06 21:28:00 Test Item Value Reference Range Interpretation Comments TEG ACTIVATED CLOTTING TIME 6.0 minutes 4.0-7.0 (BEAKER) (test code = 1407) TEG FIBRINOGEN ACTIVITY (BEAKER) 63.8 degrees 61.0-73.0 (test code = 1408) TEG PLT. AGGREGATION (BEAKER) 61.5 MM 55.0-65.0 (test code = 1409) TEG FIBRINOLYSIS (BEAKER) (test 0.0 % 0.0-5.0 code = 1410) TGH ACTIVATED CLOTTING TIME 6.4 minutes 4.0-7.0 (BEAKER) (test code = 1411) TGH FIBRINOGEN ACTIVITY (BEAKER) 65.4 degrees 61.0-73.0 (test code = 1412) TGH PLT. AGGREGATION (BEAKER) 60.8 MM 55.0-65.0 (test code = 1413) TGH FIBRINOLYSIS (BEAKER) (test 0.0 % 0.0-5.0 code = 1414) CBC W/PLT COUNT & AUTO [id number] 21:26:00 Test Item Value Reference Range Interpretation Comments WHITE BLOOD CELL COUNT (BEAKER) 2.9 K/ L 3.5-10.5 L (test code = 775) RED BLOOD CELL COUNT (BEAKER) 2.95 M/ L 4.63-6.08 L (test code = 761) HEMOGLOBIN (BEAKER) (test code = 8.9 GM/DL 13.7-17.5 L 410) HEMATOCRIT (BEAKER) (test code = 25.6 % 40.1-51.0 L 411) MEAN CORPUSCULAR VOLUME (BEAKER) 86.8 fL 79.0-92.2 (test code = 753) MEAN CORPUSCULAR HEMOGLOBIN 30.2 pg 25.7-32.2 (BEAKER) (test code = 751) MEAN CORPUSCULAR HEMOGLOBIN CONC 34.8 GM/DL 32.3-36.5 (BEAKER) (test code = 752) RED CELL DISTRIBUTION WIDTH 14.6 % 11.6-14.4 H (BEAKER) (test code = 412) PLATELET COUNT (BEAKER) (test 145 K/CU MM 150-450 L code = 756) MEAN PLATELET VOLUME (BEAKER) 10.0 fL 9.4-12.4 (test code = 754) NUCLEATED RED BLOOD CELLS 0 /100 WBC 0-0 (BEAKER) (test code = 413) IMMATURE GRANULOCYTES-RELATIVE 1 % 0-1 PERCENT (BEAKER) (test code = 2801) (MANUAL DIFFERENTIAL)2017-06-06 21:26:00 Test Item Value Reference Range Interpretation Comments NEUTROPHILS - REL (DIFF) (BEAKER) 67 % (test code = 1359) LYMPHOCYTES - REL (DIFF) (BEAKER) 20 % (test code = 1360) MONOCYTES - REL (DIFF) (BEAKER) 9 % (test code = 1361) EOSINOPHILS - REL (DIFF) (BEAKER) 1 % (test code = 1362) BANDS - REL (DIFF) (BEAKER) (test 3 % 0-10 code = 1348) NEUTROPHILS - ABS (DIFF) (BEAKER) 1.94 K/ L 1.80-8.00 (test code = 1365) LYMPHOCYTES - ABS (DIFF) (BEAKER) 0.58 K/ L 1.48-4.50 L (test code = 1366) MONOCYTES - ABS (DIFF) (BEAKER) 0.26 K/ L 0.00-1.30 (test code = 1367) EOSINOPHILS - ABS (DIFF) (BEAKER) 0.03 K/ L 0.00-0.50 (test code = 1368) BANDS-ABS (DIFF) (BEAKER) (test 0.1 K/ L 0.0-0.8 code = 1349) TOTAL COUNTED (BEAKER) (test code = 100 1351) BANDS + SEGMENTED NEUTROPHILS 2.03 (BEAKER) (test code = 1352) WBC MORPHOLOGY (BEAKER) (test code Normal = 487) PLT MORPHOLOGY (BEAKER) (test code Normal = 486) RBC MORPHOLOGY (BEAKER) (test code Normal = 762) PLATELET COUNT-STAT [id number] 20:54:00 Test Item Value Reference Range Interpretation Comments PLATELET COUNT (BEAKER) (test 154 K/CU MM 150-430 code = 756) [id number] 20:45:00 Test Item Value Reference Range Interpretation Comments FIBRINOGEN LEVEL (BEAKER) (test 274 mg/dl 225-434 code = 658) [id number] 20:45:00 Test Item Value Reference Range Interpretation Comments PARTIAL THROMBOPLASTIN TIME 43.6 seconds 22.5-36.0 H (BEAKER) (test code = 760) PROTHROMBIN [id number] 20:44:00 Test Item Value Reference Range Interpretation Comments PROTIME (BEAKER) (test code = 15.6 seconds 11.7-14.7 H 759) INR (BEAKER) (test code = 370) 1.3 <=5.9 RECOMMENDED COUMADIN/WARFARIN INR THERAPY RANGESSTANDARD DOSE: 2.0 - 3.0 Includes: PROPHYLAXIS forvenous thrombosis, systemic embolization; TREATMENT for venous thrombosis and/or pulmonary embolus.HIGH RISK: Target INR is 2.5-3.5 for patients with mechanical heart valves.BLOOD GAS, [id number] 20:21:00 Test Item Value Reference Range Interpretation Comments PH ARTERIAL (BEAKER) (test code = 7.34 7.35-7.45 L 383) PCO2 ARTERIAL (BEAKER) (test code 40 mmHg 35-45 = 384) PO2 ARTERIAL (BEAKER) (test code 273 mmHg 80-90 H = 385) O2 SATURATION ARTERIAL (BEAKER) 99.6 % 96.0-97.0 H (test code = 386) HCO3 ARTERIAL (BEAKER) (test code 21 mmol/L 21-29 = 388) BASE EXCESS ARTERIAL (BEAKER) -4.3 mmol/L -2.0-3.0 L (test code = 387) PATIENT TEMPERATURE (BEAKER) 37.0 C (test code = 1818) FIO2 (BEAKER) (test code = 1819) 100.0 % GLUCOSE-STAT [id number] 20:21:00 Test Item Value Reference Range Interpretation Comments GLUCOSE RANDOM (BEAKER) (test code 156 mg/dL 70-110 H = 652) HGB/HCT (H&H) - STAT [id number] 20:21:00 Test Item Value Reference Range Interpretation Comments HEMOGLOBIN (BEAKER) (test code = 9.8 g/dL 13.0-16.8 L 410) HEMATOCRIT (BEAKER) (test code = 29.0 % 40.0-50.0 L 411) SODIUM NA-STAT [id number] 20:18:00 Test Item Value Reference Range Interpretation Comments SODIUM (BEAKER) (test code = 381) 140 meq/L 135-148 POTASSIUM-STAT [id number] 20:18:00 Test Item Value Reference Range Interpretation Comments POTASSIUM (BEAKER) (test code = 4.2 meq/L 3.6-5.5 379) CALCIUM, [id number] 20:18:00 Test Item Value Reference Range Interpretation Comments CALCIUM IONIZED (BEAKER) (test 1.16 mmol/L 1.12-1.27 code = 698) PH, BLOOD (BEAKER) (test code = 7.34 2510) THROMBOELASTOGRAPH (TEG)2017-06-06 19:30:00 Test Item Value Reference Range Interpretation Comments TEG ACTIVATED CLOTTING TIME 4.8 minutes 4.0-7.0 (BEAKER) (test code = 1407) TEG FIBRINOGEN ACTIVITY (BEAKER) 66.7 degrees 61.0-73.0 (test code = 1408) TEG PLT. AGGREGATION (BEAKER) 62.5 MM 55.0-65.0 (test code = 1409) TEG FIBRINOLYSIS (BEAKER) (test 0.0 % 0.0-5.0 code = 1410) TGH ACTIVATED CLOTTING TIME 4.8 minutes 4.0-7.0 (BEAKER) (test code = 1411) TGH FIBRINOGEN ACTIVITY (BEAKER) 71.0 degrees 61.0-73.0 (test code = 1412) TGH PLT. AGGREGATION (BEAKER) 64.0 MM 55.0-65.0 (test code = 1413) TGH FIBRINOLYSIS (BEAKER) (test 0.0 % 0.0-5.0 code = 1414) PLATELET [id number] 19:00:00 Test Item Value Reference Range Interpretation Comments PLATELET COUNT (BEAKER) (test 145 K/CU MM 150-450 L code = 756) LACTIC ACID, ARTERIAL, WHOLE [id number] 18:49:00 Test Item Value Reference Range Interpretation Comments LACTATE BLOOD ARTERIAL (2) 3.2 mmol/L 0.5-2.2 H (BEAKER) (test code = 2874) Effective 02/23/2016: Units/Reference Range ChangeNew: 0.5-2.2 mmol/L Previous: 5-20 mg/[id number] 18:47:00 Test Item Value Reference Range Interpretation Comments POTASSIUM (BEAKER) (test code = 4.4 meq/L 3.5-5.1 379) [id number] 18:47:00 Test Item Value Reference Range Interpretation Comments MAGNESIUM (BEAKER) (test code = 1.8 mg/dL 1.6-2.6 627) [id number] 18:47:00 Test Item Value Reference Range Interpretation Comments PHOSPHORUS (BEAKER) (test code = 3.6 mg/dL 2.3-4.7 604) [id number] 18:47:00 Test Item Value Reference Range Interpretation Comments GLUCOSE RANDOM (BEAKER) (test code 159 mg/dL 70-105 H = 652) Effective 09/08/2014: Reference Range Change-Adult onlyNew: 70-105 Previous: 70-110BASIC METABOLIC [id number] 18:47:00 Test Item Value Reference Range Interpretation Comments SODIUM (BEAKER) 145 meq/L 136-145 (test code = 381) POTASSIUM (BEAKER) 4.4 meq/L 3.5-5.1 (test code = 379) CHLORIDE (BEAKER) 113 meq/L 98-107 H (test code = 382) CO2 (BEAKER) (test 22 meq/L 22-29 code = 355) BLOOD UREA NITROGEN 16 mg/dL 7-21 (BEAKER) (test code = 354) CREATININE (BEAKER) 1.04 mg/dL 0.57-1.25 (test code = 358) GLUCOSE RANDOM 159 mg/dL 70-105 H (BEAKER) (test code = 652) CALCIUM (BEAKER) 9.8 mg/dL 8.4-10.2 (test code = 697) EGFR (BEAKER) (test 87 mL/min/1.73 ESTIMA CRAIG GFR IS code = 1092) sq m NOT ACCURATE CREATININE CLEARANCE IN PREDICTING GLOMERULAR FILTRATION RATE . ESTIMATED GFR I S NOT APPLICABLE FOR DIALYSIS PATIEN TS. [id number] 18:33:00 Test Item Value Reference Range Interpretation Comments FIBRINOGEN LEVEL (BEAKER) (test 213 mg/dl 225-434 L code = 658) [id number] 18:33:00 Test Item Value Reference Range Interpretation Comments PARTIAL THROMBOPLASTIN TIME 41.2 seconds 22.5-36.0 H (BEAKER) (test code = 760) PROTHROMBIN [id number] 18:32:00 Test Item Value Reference Range Interpretation Comments PROTIME (BEAKER) (test code = 15.8 seconds 11.7-14.7 H 759) INR (BEAKER) (test code = 370) 1.3 <=5.9 RECOMMENDED COUMADIN/WARFARIN INR THERAPY RANGESSTANDARD DOSE: 2.0 - 3.0 Includes: PROPHYLAXIS forvenous thrombosis, systemic embolization; TREATMENT for venous thrombosis and/or pulmonary embolus.HIGH RISK: Target INR is 2.5-3.5 for patients with mechanical heart valves.OXYGEN SATURATION, [id number] 18:18:00 Test Item Value Reference Range Interpretation Comments O2 SATURATION (MEASURED) (BEAKER) 67.4 % (test code = 1455) CALCIUM, [id number] 18:16:00 Test Item Value Reference Range Interpretation Comments CALCIUM IONIZED (BEAKER) (test 1.30 mmol/L 1.12-1.27 H code = 698) PH, BLOOD (BEAKER) (test code = 7.37 1810) SODIUM NA-STAT [id number] 18:15:00 Test Item Value Reference Range Interpretation Comments SODIUM (BEAKER) (test code = 381) 140 meq/L 135-148 POTASSIUM-STAT [id number] 18:15:00 Test Item Value Reference Range Interpretation Comments POTASSIUM (BEAKER) (test code = 4.2 meq/L 3.6-5.5 379) BLOOD GAS, [id number] 18:15:00 Test Item Value Reference Range Interpretation Comments PH ARTERIAL (BEAKER) (test code = 7.37 7.35-7.45 383) PCO2 ARTERIAL (BEAKER) (test code 41 mmHg 35-45 = 384) PO2 ARTERIAL (BEAKER) (test code 183 mmHg 80-90 H = 385) O2 SATURATION ARTERIAL (BEAKER) 99.2 % 96.0-97.0 H (test code = 386) HCO3 ARTERIAL (BEAKER) (test code 23 mmol/L 21-29 = 388) BASE EXCESS ARTERIAL (BEAKER) -2.1 mmol/L -2.0-3.0 L (test code = 387) PATIENT TEMPERATURE (BEAKER) 37.7 C (test code = 1818) FIO2 (BEAKER) (test code = 1819) 60.0 % GLUCOSE-STAT [id number] 18:15:00 Test Item Value Reference Range Interpretation Comments GLUCOSE RANDOM (BEAKER) (test code 141 mg/dL 70-110 H = 652) HEMOGLOBIN-STAT [id number] 18:15:00 Test Item Value Reference Range Interpretation Comments HEMOGLOBIN (BEAKER) (test code = 9.0 g/dL 13.0-16.8 L 410) [id number] 17:20:00 Test Item Value Reference Range Interpretation Comments PARTIAL THROMBOPLASTIN TIME 35.2 seconds 22.5-36.0 (BEAKER) (test code = 760) SODIUM NA-STAT [id number] 17:18:00 Test Item Value Reference Range Interpretation Comments SODIUM (BEAKER) (test code = 381) 139 meq/L 135-148 POTASSIUM-STAT [id number] 17:18:00 Test Item Value Reference Range Interpretation Comments POTASSIUM (BEAKER) (test code = 4.0 meq/L 3.6-5.5 379) CALCIUM, [id number] 17:18:00 Test Item Value Reference Range Interpretation Comments CALCIUM IONIZED (BEAKER) (test 1.20 mmol/L 1.12-1.27 code = 698) PH, BLOOD (BEAKER) (test code = 7.39 1810) BLOOD GAS, [id number] 17:18:00 Test Item Value Reference Range Interpretation Comments PH ARTERIAL (BEAKER) (test code = 7.39 7.35-7.45 383) PCO2 ARTERIAL (BEAKER) (test code 38 mmHg 35-45 = 384) PO2 ARTERIAL (BEAKER) (test code 384 mmHg 80-90 H = 385) O2 SATURATION ARTERIAL (BEAKER) 99.8 % 96.0-97.0 H (test code = 386) HCO3 ARTERIAL (BEAKER) (test code 23 mmol/L 21-29 = 388) BASE EXCESS ARTERIAL (BEAKER) -2.2 mmol/L -2.0-3.0 L (test code = 387) PATIENT TEMPERATURE (BEAKER) 37.3 C (test code = 1818) FIO2 (BEAKER) (test code = 1819) 100.0 % GLUCOSE-STAT [id number] 17:18:00 Test Item Value Reference Range Interpretation Comments GLUCOSE RANDOM (BEAKER) (test code 146 mg/dL 70-110 H = 652) HGB/HCT (H&H) - STAT [id number] 17:18:00 Test Item Value Reference Range Interpretation Comments HEMOGLOBIN (BEAKER) (test code = 8.1 g/dL 13.0-16.8 L 410) HEMATOCRIT (BEAKER) (test code = 24.0 % 40.0-50.0 L 411) PLATELET [id number] 17:16:00 Test Item Value Reference Range Interpretation Comments PLATELET COUNT (BEAKER) (test 153 K/CU MM 150-450 code = 756) [id number] 17:12:00 Test Item Value Reference Range Interpretation Comments FIBRINOGEN LEVEL (BEAKER) (test 228 mg/dl 225-434 code = 658) PROTHROMBIN [id number] 17:11:00 Test Item Value Reference Range Interpretation Comments PROTIME (BEAKER) (test code = 16.9 seconds 11.7-14.7 H 759) INR (BEAKER) (test code = 370) 1.4 <=5.9 RECOMMENDED COUMADIN/WARFARIN INR THERAPY RANGESSTANDARD DOSE: 2.0 - 3.0 Includes: PROPHYLAXIS forvenous thrombosis, systemic embolization; TREATMENT for venous thrombosis and/or pulmonary embolus.HIGH RISK: Target INR is 2.5-3.5 for patients with mechanical heart valves.SODIUM NA-STAT [id number] 16:19:00 Test Item Value Reference Range Interpretation Comments SODIUM (BEAKER) (test code = 381) 140 meq/L 135-148 POTASSIUM-STAT [id number] 16:19:00 Test Item Value Reference Range Interpretation Comments POTASSIUM (BEAKER) (test code = 3.9 meq/L 3.6-5.5 379) BLOOD GAS, [id number] 16:19:00 Test Item Value Reference Range Interpretation Comments PH ARTERIAL (BEAKER) (test code = 7.39 7.35-7.45 383) PCO2 ARTERIAL (BEAKER) (test code 38 mmHg 35-45 = 384) PO2 ARTERIAL (BEAKER) (test code 350 mmHg 80-90 H = 385) O2 SATURATION ARTERIAL (BEAKER) 99.8 % 96.0-97.0 H (test code = 386) HCO3 ARTERIAL (BEAKER) (test code 23 mmol/L 21-29 = 388) BASE EXCESS ARTERIAL (BEAKER) -2.2 mmol/L -2.0-3.0 L (test code = 387) PATIENT TEMPERATURE (BEAKER) 37.0 C (test code = 1818) FIO2 (BEAKER) (test code = 1819) 100.0 % GLUCOSE-STAT [id number] 16:19:00 Test Item Value Reference Range Interpretation Comments GLUCOSE RANDOM (BEAKER) (test code 123 mg/dL 70-110 H = 652) HGB/HCT (H&H) - STAT [id number] 16:19:00 Test Item Value Reference Range Interpretation Comments HEMOGLOBIN (BEAKER) (test code = 8.7 g/dL 13.0-16.8 L 410) HEMATOCRIT (BEAKER) (test code = 26.0 % 40.0-50.0 L 411) CALCIUM, [id number] 16:19:00 Test Item Value Reference Range Interpretation Comments CALCIUM IONIZED (BEAKER) (test 1.32 mmol/L 1.12-1.27 H code = 698) PH, BLOOD (BEAKER) (test code = 7.39 1810) THROMBOELASTOGRAPH (TEG)2017-06-06 15:50:00 Test Item Value Reference Range Interpretation Comments TEG ACTIVATED CLOTTING TIME 6.2 minutes 4.0-7.0 (BEAKER) (test code = 1407) TEG FIBRINOGEN ACTIVITY (BEAKER) 76.0 degrees 61.0-73.0 H (test code = 1408) TEG PLT. AGGREGATION (BEAKER) 60.0 MM 55.0-65.0 (test code = 1409) TEG FIBRINOLYSIS (BEAKER) (test 4.2 % 0.0-5.0 code = 1410) TGH ACTIVATED CLOTTING TIME 6.5 minutes 4.0-7.0 (BEAKER) (test code = 1411) TGH FIBRINOGEN ACTIVITY (BEAKER) 77.1 degrees 61.0-73.0 H (test code = 1412) TGH PLT. AGGREGATION (BEAKER) 70.0 MM 55.0-65.0 H (test code = 1413) TGH FIBRINOLYSIS (BEAKER) (test 0.0 % 0.0-5.0 code = 1414) SODIUM NA-STAT [id number] 15:42:00 Test Item Value Reference Range Interpretation Comments SODIUM (BEAKER) (test code = 381) 136 meq/L 135-148 POTASSIUM-STAT [id number] 15:42:00 Test Item Value Reference Range Interpretation Comments POTASSIUM (BEAKER) (test code = 4.3 meq/L 3.6-5.5 379) BLOOD GAS, [id number] 15:42:00 Test Item Value Reference Range Interpretation Comments PH ARTERIAL (BEAKER) (test code = 7.36 7.35-7.45 383) PCO2 ARTERIAL (BEAKER) (test code 40 mmHg 35-45 = 384) PO2 ARTERIAL (BEAKER) (test code 326 mmHg 80-90 H = 385) O2 SATURATION ARTERIAL (BEAKER) 99.7 % 96.0-97.0 H (test code = 386) HCO3 ARTERIAL (BEAKER) (test code 22 mmol/L 21-29 = 388) BASE EXCESS ARTERIAL (BEAKER) -3.1 mmol/L -2.0-3.0 L (test code = 387) PATIENT TEMPERATURE (BEAKER) 36.5 C (test code = 1818) FIO2 (BEAKER) (test code = 1819) 100.0 % GLUCOSE-STAT [id number] 15:42:00 Test Item Value Reference Range Interpretation Comments GLUCOSE RANDOM (BEAKER) (test code 136 mg/dL 70-110 H = 652) HGB/HCT (H&H) - STAT [id number] 15:42:00 Test Item Value Reference Range Interpretation Comments HEMOGLOBIN (BEAKER) (test code = 9.7 g/dL 13.0-16.8 L 410) HEMATOCRIT (BEAKER) (test code = 29.0 % 40.0-50.0 L 411) CALCIUM, [id number] 15:42:00 Test Item Value Reference Range Interpretation Comments CALCIUM IONIZED (BEAKER) (test 1.30 mmol/L 1.12-1.27 H code = 698) PH, BLOOD (BEAKER) (test code = 7.36 1810) SODIUM NA-STAT [id number] 15:04:00 Test Item Value Reference Range Interpretation Comments SODIUM (BEAKER) (test code = 381) 138 meq/L 135-148 POTASSIUM-STAT [id number] 15:04:00 Test Item Value Reference Range Interpretation Comments POTASSIUM (BEAKER) (test code = 4.5 meq/L 3.6-5.5 379) CALCIUM, [id number] 15:04:00 Test Item Value Reference Range Interpretation Comments CALCIUM IONIZED (BEAKER) (test 1.33 mmol/L 1.12-1.27 H code = 698) PH, BLOOD (BEAKER) (test code = 7.41 1810) BLOOD GAS, [id number] 15:04:00 Test Item Value Reference Range Interpretation Comments PH ARTERIAL (BEAKER) (test code = 7.41 7.35-7.45 383) PCO2 ARTERIAL (BEAKER) (test code 40 mmHg 35-45 = 384) PO2 ARTERIAL (BEAKER) (test code = 402 mmHg 80-90 H 385) O2 SATURATION ARTERIAL (BEAKER) 99.8 % 96.0-97.0 H (test code = 386) HCO3 ARTERIAL (BEAKER) (test code 25 mmol/L 21-29 = 388) BASE EXCESS ARTERIAL (BEAKER) 0.1 mmol/L -2.0-3.0 (test code = 387) PATIENT TEMPERATURE (BEAKER) (test 36.1 C code = 1818) FIO2 (BEAKER) (test code = 1819) 97.0 % GLUCOSE-STAT [id number] 15:04:00 Test Item Value Reference Range Interpretation Comments GLUCOSE RANDOM (BEAKER) (test code 120 mg/dL 70-110 H = 652) HGB/HCT (H&H) - STAT [id number] 15:04:00 Test Item Value Reference Range Interpretation Comments HEMOGLOBIN (BEAKER) (test code = 6.4 g/dL 13.0-16.8 L 410) HEMATOCRIT (BEAKER) (test code = 19.0 % 40.0-50.0 L 411) [id number] 15:00:00 Test Item Value Reference Range Interpretation Comments FIBRINOGEN LEVEL (BEAKER) (test 295 mg/dl 225-434 code = 658) [id number] 15:00:00 Test Item Value Reference Range Interpretation Comments PARTIAL THROMBOPLASTIN TIME 37.7 seconds 22.5-36.0 H (BEAKER) (test code = 760) PROTHROMBIN [id number] 14:59:00 Test Item Value Reference Range Interpretation Comments PROTIME (BEAKER) (test code = 16.9 seconds 11.7-14.7 H 759) INR (BEAKER) (test code = 370) 1.4 <=5.9 RECOMMENDED COUMADIN/WARFARIN INR THERAPY RANGESSTANDARD DOSE: 2.0 - 3.0 Includes: PROPHYLAXIS forvenous thrombosis, systemic embolization; TREATMENT for venous thrombosis and/or pulmonary embolus.HIGH RISK: Target INR is 2.5-3.5 for patients with mechanical heart valves.PLATELET [id number] 14:48:00 Test Item Value Reference Range Interpretation Comments PLATELET COUNT (BEAKER) (test 265 K/CU MM 150-450 code = 756) SODIUM NA-STAT [id number] 14:34:00 Test Item Value Reference Range Interpretation Comments SODIUM (BEAKER) (test code = 381) 139 meq/L 135-148 POTASSIUM-STAT [id number] 14:34:00 Test Item Value Reference Range Interpretation Comments POTASSIUM (BEAKER) (test code = 4.2 meq/L 3.6-5.5 379) BLOOD GAS, [id number] 14:34:00 Test Item Value Reference Range Interpretation Comments PH ARTERIAL (BEAKER) (test code = 7.37 7.35-7.45 383) PCO2 ARTERIAL (BEAKER) (test code 41 mmHg 35-45 = 384) PO2 ARTERIAL (BEAKER) (test code 281 mmHg 80-90 H = 385) O2 SATURATION ARTERIAL (BEAKER) 99.6 % 96.0-97.0 H (test code = 386) HCO3 ARTERIAL (BEAKER) (test code 23 mmol/L 21-29 = 388) BASE EXCESS ARTERIAL (BEAKER) -2.2 mmol/L -2.0-3.0 L (test code = 387) PATIENT TEMPERATURE (BEAKER) 35.7 C (test code = 1818) FIO2 (BEAKER) (test code = 1819) 97.0 % GLUCOSE-STAT [id number] 14:34:00 Test Item Value Reference Range Interpretation Comments GLUCOSE RANDOM (BEAKER) (test code 136 mg/dL 70-110 H = 652) HGB/HCT (H&H) - STAT [id number] 14:34:00 Test Item Value Reference Range Interpretation Comments HEMOGLOBIN (BEAKER) (test code = 9.0 g/dL 13.0-16.8 L 410) HEMATOCRIT (BEAKER) (test code = 26.0 % 40.0-50.0 L 411) CALCIUM, [id number] 14:34:00 Test Item Value Reference Range Interpretation Comments CALCIUM IONIZED (BEAKER) (test 0.87 mmol/L 1.12-1.27 L code = 698) PH, BLOOD (BEAKER) (test code = 7.35 1810) THROMBOELASTOGRAPH (TEG)2017-06-06 14:09:00 Test Item Value Reference Range Interpretation Comments TEG ACTIVATED CLOTTING TIME 9.0 minutes 4.0-7.0 H (BEAKER) (test code = 1407) TEG FIBRINOGEN ACTIVITY (BEAKER) 49.2 degrees 61.0-73.0 L (test code = 1408) TEG PLT. AGGREGATION (BEAKER) 38.7 MM 55.0-65.0 L (test code = 1409) TGH ACTIVATED CLOTTING TIME 9.2 minutes 4.0-7.0 H (BEAKER) (test code = 1411) TGH FIBRINOGEN ACTIVITY (BEAKER) 50.5 degrees 61.0-73.0 L (test code = 1412) TGH PLT. AGGREGATION (BEAKER) 41.7 MM 55.0-65.0 L (test code = 1413) PLATELET [id number] 13:42:00 Test Item Value Reference Range Interpretation Comments PLATELET COUNT 42 K/CU MM 150-450 L Discordant re sult (BEAKER) (test code compared to previous = 756) result; clinica l correlation req uired. [id number] 13:32:00 Test Item Value Reference Range Interpretation Comments FIBRINOGEN LEVEL (BEAKER) (test 134 mg/dl 225-434 L code = 658) PROTHROMBIN TIME/[id number] 13:27:00 Test Item Value Reference Range Interpretation Comments PROTIME (BEAKER) (test code = 26.7 seconds 11.7-14.7 H 759) INR (BEAKER) (test code = 370) 2.5 <=5.9 RECOMMENDED COUMADIN/WARFARIN INR THERAPY RANGESSTANDARD DOSE: 2.0 - 3.0 Includes: PROPHYLAXIS forvenous thrombosis, systemic embolization; TREATMENT for venous thrombosis and/or pulmonary embolus.HIGH RISK: Target INR is 2.5-3.5 for patients with mechanical heart valves.[id number] 13:27:00 Test Item Value Reference Range Interpretation Comments PARTIAL THROMBOPLASTIN TIME 41.7 seconds 22.5-36.0 H (BEAKER) (test code = 760) BLOOD GAS, [id number] 13:10:00 Test Item Value Reference Range Interpretation Comments PH ARTERIAL (BEAKER) (test code = 7.35 7.35-7.45 383) PCO2 ARTERIAL (BEAKER) (test code 41 mmHg 35-45 = 384) PO2 ARTERIAL (BEAKER) (test code 276 mmHg 80-90 H = 385) O2 SATURATION ARTERIAL (BEAKER) 99.6 % 96.0-97.0 H (test code = 386) HCO3 ARTERIAL (BEAKER) (test code 22 mmol/L 21-29 = 388) BASE EXCESS ARTERIAL (BEAKER) -3.2 mmol/L -2.0-3.0 L (test code = 387) PATIENT TEMPERATURE (BEAKER) 36.4 C (test code = 1818) FIO2 (BEAKER) (test code = 1819) 97.0 % GLUCOSE-STAT [id number] 13:10:00 Test Item Value Reference Range Interpretation Comments GLUCOSE RANDOM (BEAKER) (test code 145 mg/dL 70-110 H = 652) HGB/HCT (H&H) - STAT [id number] 13:10:00 Test Item Value Reference Range Interpretation Comments HEMOGLOBIN (BEAKER) (test code = 9.2 g/dL 13.0-16.8 L 410) HEMATOCRIT (BEAKER) (test code = 27.0 % 40.0-50.0 L 411) CALCIUM, [id number] 13:10:00 Test Item Value Reference Range Interpretation Comments CALCIUM IONIZED (BEAKER) (test 1.16 mmol/L 1.12-1.27 code = 698) PH, BLOOD (BEAKER) (test code = 7.34 1810) SODIUM NA-STAT [id number] 13:09:00 Test Item Value Reference Range Interpretation Comments SODIUM (BEAKER) (test code = 381) 135 meq/L 135-148 POTASSIUM-STAT [id number] 13:09:00 Test Item Value Reference Range Interpretation Comments POTASSIUM (BEAKER) (test code = 4.2 meq/L 3.6-5.5 379) POTASSIUM-STAT [id number] 12:39:00 Test Item Value Reference Range Interpretation Comments POTASSIUM (BEAKER) (test code = 5.4 meq/L 3.6-5.5 379) BLOOD GAS, [id number] 12:39:00 Test Item Value Reference Range Interpretation Comments PH ARTERIAL (BEAKER) (test code = 7.26 7.35-7.45 L 383) PCO2 ARTERIAL (BEAKER) (test code 42 mmHg 35-45 = 384) PO2 ARTERIAL (BEAKER) (test code 266 mmHg 80-90 H = 385) O2 SATURATION ARTERIAL (BEAKER) 99.5 % 96.0-97.0 H (test code = 386) HCO3 ARTERIAL (BEAKER) (test code 19 mmol/L 21-29 L = 388) BASE EXCESS ARTERIAL (BEAKER) -8.2 mmol/L -2.0-3.0 L (test code = 387) PATIENT TEMPERATURE (BEAKER) 36.3 C (test code = 1818) FIO2 (BEAKER) (test code = 1819) 75.0 % GLUCOSE-STAT [id number] 12:39:00 Test Item Value Reference Range Interpretation Comments GLUCOSE RANDOM (BEAKER) (test code 164 mg/dL 70-110 H = 652) HGB/HCT (H&H) - STAT [id number] 12:39:00 Test Item Value Reference Range Interpretation Comments HEMOGLOBIN (BEAKER) (test code = 10.2 g/dL 13.0-16.8 L 410) HEMATOCRIT (BEAKER) (test code = 30.0 % 40.0-50.0 L 411) SODIUM NA-STAT [id number] 12:39:00 Test Item Value Reference Range Interpretation Comments SODIUM (BEAKER) (test code = 381) 134 meq/L 135-148 L CALCIUM, [id number] 12:12:00 Test Item Value Reference Range Interpretation Comments CALCIUM IONIZED (BEAKER) (test 1.15 mmol/L 1.12-1.27 code = 698) PH, BLOOD (BEAKER) (test code = 7.32 1810) BLOOD GAS, [id number] 12:12:00 Test Item Value Reference Range Interpretation Comments PH ARTERIAL (BEAKER) (test code = 7.33 7.35-7.45 L 383) PCO2 ARTERIAL (BEAKER) (test code 40 mmHg 35-45 = 384) PO2 ARTERIAL (BEAKER) (test code 347 mmHg 80-90 H = 385) O2 SATURATION ARTERIAL (BEAKER) 99.7 % 96.0-97.0 H (test code = 386) HCO3 ARTERIAL (BEAKER) (test code 21 mmol/L 21-29 = 388) BASE EXCESS ARTERIAL (BEAKER) -4.8 mmol/L -2.0-3.0 L (test code = 387) PATIENT TEMPERATURE (BEAKER) 36.0 C (test code = 1818) FIO2 (BEAKER) (test code = 1819) 100.0 % HGB/HCT (H&H) - STAT [id number] 12:12:00 Test Item Value Reference Range Interpretation Comments HEMOGLOBIN (BEAKER) (test code = 9.0 g/dL 13.0-16.8 L 410) HEMATOCRIT (BEAKER) (test code = 26.0 % 40.0-50.0 L 411) GLUCOSE-STAT [id number] 12:12:00 Test Item Value Reference Range Interpretation Comments GLUCOSE RANDOM (BEAKER) (test code 152 mg/dL 70-110 H = 652) SODIUM NA-STAT [id number] 12:11:00 Test Item Value Reference Range Interpretation Comments SODIUM (BEAKER) (test code = 381) 135 meq/L 135-148 POTASSIUM-STAT [id number] 12:11:00 Test Item Value Reference Range Interpretation Comments POTASSIUM (BEAKER) (test code = 4.4 meq/L 3.6-5.5 379) THROMBOELASTOGRAPH (TEG)2017-06-06 12:06:00 Test Item Value Reference Range Interpretation Comments TEG ACTIVATED CLOTTING TIME 2.9 minutes 4.0-7.0 L (BEAKER) (test code = 1407) TEG FIBRINOGEN ACTIVITY (BEAKER) 72.1 degrees 61.0-73.0 (test code = 1408) TEG PLT. AGGREGATION (BEAKER) 60.0 MM 55.0-65.0 (test code = 1409) TGH ACTIVATED CLOTTING TIME 3.1 minutes 4.0-7.0 L (BEAKER) (test code = 1411) TGH FIBRINOGEN ACTIVITY (BEAKER) 72.7 degrees 61.0-73.0 (test code = 1412) TGH PLT. AGGREGATION (BEAKER) 65.2 MM 55.0-65.0 H (test code = 1413) PROTHROMBIN [id number] 11:40:00 Test Item Value Reference Range Interpretation Comments PROTIME (BEAKER) (test code = 19.4 seconds 11.7-14.7 H 759) INR (BEAKER) (test code = 370) 1.6 <=5.9 RECOMMENDED COUMADIN/WARFARIN INR THERAPY RANGESSTANDARD DOSE: 2.0 - 3.0 Includes: PROPHYLAXIS forvenous thrombosis, systemic embolization; TREATMENT for venous thrombosis and/or pulmonary embolus.HIGH RISK: Target INR is 2.5-3.5 for patients with mechanical heart valves.[id number] 11:40:00 Test Item Value Reference Range Interpretation Comments PARTIAL THROMBOPLASTIN TIME 31.1 seconds 22.5-36.0 (BEAKER) (test code = 760) [id number] 11:40:00 Test Item Value Reference Range Interpretation Comments FIBRINOGEN LEVEL (BEAKER) (test 195 mg/dl 225-434 L code = 658) PLATELET [id number] 11:30:00 Test Item Value Reference Range Interpretation Comments PLATELET COUNT (BEAKER) (test 161 K/CU MM 150-450 code = 756) POTASSIUM-STAT [id number] 11:18:00 Test Item Value Reference Range Interpretation Comments POTASSIUM (BEAKER) (test code = 3.7 meq/L 3.6-5.5 379) CALCIUM, [id number] 11:18:00 Test Item Value Reference Range Interpretation Comments CALCIUM IONIZED (BEAKER) (test 1.23 mmol/L 1.12-1.27 code = 698) PH, BLOOD (BEAKER) (test code = 7.36 1810) BLOOD GAS, [id number] 11:18:00 Test Item Value Reference Range Interpretation Comments PH ARTERIAL (BEAKER) (test code = 7.39 7.35-7.45 383) PCO2 ARTERIAL (BEAKER) (test code 35 mmHg 35-45 = 384) PO2 ARTERIAL (BEAKER) (test code 397 mmHg 80-90 H = 385) O2 SATURATION ARTERIAL (BEAKER) 99.8 % 96.0-97.0 H (test code = 386) HCO3 ARTERIAL (BEAKER) (test code 21 mmol/L 21-29 = 388) BASE EXCESS ARTERIAL (BEAKER) -4.1 mmol/L -2.0-3.0 L (test code = 387) PATIENT TEMPERATURE (BEAKER) 35.3 C (test code = 1818) FIO2 (BEAKER) (test code = 1819) 87.0 % SODIUM NA-STAT [id number] 11:18:00 Test Item Value Reference Range Interpretation Comments SODIUM (BEAKER) (test code = 381) 134 meq/L 135-148 L GLUCOSE-STAT [id number] 11:18:00 Test Item Value Reference Range Interpretation Comments GLUCOSE RANDOM (BEAKER) (test code 134 mg/dL 70-110 H = 652) HGB/HCT (H&H) - STAT [id number] 11:18:00 Test Item Value Reference Range Interpretation Comments HEMOGLOBIN (BEAKER) (test code = 5.8 g/dL 13.0-16.8 LL 410) HEMATOCRIT (BEAKER) (test code = 17.0 % 40.0-50.0 L 411) SODIUM NA-STAT [id number] 11:09:00 Test Item Value Reference Range Interpretation Comments SODIUM (BEAKER) (test code = 381) 135 meq/L 135-148 POTASSIUM-STAT [id number] 11:09:00 Test Item Value Reference Range Interpretation Comments POTASSIUM (BEAKER) (test code = 3.7 meq/L 3.6-5.5 379) BLOOD GAS, [id number] 11:09:00 Test Item Value Reference Range Interpretation Comments PH ARTERIAL (BEAKER) (test code = 7.39 7.35-7.45 383) PCO2 ARTERIAL (BEAKER) (test code 35 mmHg 35-45 = 384) PO2 ARTERIAL (BEAKER) (test code 321 mmHg 80-90 H = 385) O2 SATURATION ARTERIAL (BEAKER) 99.7 % 96.0-97.0 H (test code = 386) HCO3 ARTERIAL (BEAKER) (test code 21 mmol/L 21-29 = 388) BASE EXCESS ARTERIAL (BEAKER) -3.9 mmol/L -2.0-3.0 L (test code = 387) PATIENT TEMPERATURE (BEAKER) 35.2 C (test code = 1818) FIO2 (BEAKER) (test code = 1819) 97.0 % GLUCOSE-STAT [id number] 11:09:00 Test Item Value Reference Range Interpretation Comments GLUCOSE RANDOM (BEAKER) (test code 135 mg/dL 70-110 H = 652) HGB/HCT (H&H) - STAT [id number] 11:09:00 Test Item Value Reference Range Interpretation Comments HEMOGLOBIN (BEAKER) (test code = 6.3 g/dL 13.0-16.8 L 410) HEMATOCRIT (BEAKER) (test code = 19.0 % 40.0-50.0 L 411) CALCIUM, [id number] 11:09:00 Test Item Value Reference Range Interpretation Comments CALCIUM IONIZED (BEAKER) (test 1.26 mmol/L 1.12-1.27 code = 698) PH, BLOOD (BEAKER) (test code = 7.36 1810) PLATELET AGGREGATION: FUNCTION [id number] 11:07:00 Test Item Value Reference Range Interpretation Comments WEAK ADP 63 % 60-91 RESULT(BEAKER) (test code = 2135) PLATELET FUNCTION 60-100% indicates SCREEN INTERP (BEAKER) normal platelet (test code = 2173) function [id number] Cecily Almonte MD (BEAKER) (test code = (electronic signature) 5096) PLATELET COUNT AGG 228 K/CU MM 150-450 (BEAKER) (test code = 2656) for patients on clopidogrel in past two weeksTHROMBOELASTOGRAPH (TEG)2017-06-06 10:33:00 Test Item Value Reference Range Interpretation Comments TEG ACTIVATED CLOTTING TIME 5.1 minutes 4.0-7.0 (BEAKER) (test code = 1407) TEG FIBRINOGEN ACTIVITY (BEAKER) 66.3 degrees 61.0-73.0 (test code = 1408) TEG PLT. AGGREGATION (BEAKER) 51.7 MM 55.0-65.0 L (test code = 1409) TGH ACTIVATED CLOTTING TIME 5.1 minutes 4.0-7.0 (BEAKER) (test code = 1411) [facility] FIBRINOGEN ACTIVITY (BEAKER) 68.4 degrees 61.0-73.0 (test code = 1412) TGH PLT. AGGREGATION (BEAKER) 58.0 MM 55.0-65.0 (test code = 1413) PLATELET [id number] 10:12:00 Test Item Value Reference Range Interpretation Comments PLATELET COUNT 95 K/CU MM 150-450 L Discordant re sult (BEAKER) (test code compared to previous = 756) result; clinica l correlation req uired. [id number] 10:06:00 Test Item Value Reference Range Interpretation Comments PARTIAL THROMBOPLASTIN TIME 35.3 seconds 22.5-36.0 (BEAKER) (test code = 760) [id number] 10:06:00 Test Item Value Reference Range Interpretation Comments FIBRINOGEN LEVEL (BEAKER) (test 161 mg/dl 225-434 L code = 658) PROTHROMBIN [id number] 10:05:00 Test Item Value Reference Range Interpretation Comments PROTIME (BEAKER) (test code = 22.0 seconds 11.7-14.7 H 759) INR (BEAKER) (test code = 370) 1.9 <=5.9 RECOMMENDED COUMADIN/WARFARIN INR THERAPY RANGESSTANDARD DOSE: 2.0 - 3.0 Includes: PROPHYLAXIS forvenous thrombosis, systemic embolization; TREATMENT for venous thrombosis and/or pulmonary embolus.HIGH RISK: Target INR is 2.5-3.5 for patients with mechanical heart valves.CALCIUM, [id number] 09:49:00 Test Item Value Reference Range Interpretation Comments CALCIUM IONIZED (BEAKER) (test 1.18 mmol/L 1.12-1.27 code = 698) PH, BLOOD (BEAKER) (test code = 7.38 1810) BLOOD GAS, [id number] 09:49:00 Test Item Value Reference Range Interpretation Comments PH ARTERIAL (BEAKER) (test code = 7.40 7.35-7.45 383) PCO2 ARTERIAL (BEAKER) (test code 33 mmHg 35-45 L = 384) PO2 ARTERIAL (BEAKER) (test code 293 mmHg 80-90 H = 385) O2 SATURATION ARTERIAL (BEAKER) 99.7 % 96.0-97.0 H (test code = 386) HCO3 ARTERIAL (BEAKER) (test code 21 mmol/L 21-29 = 388) BASE EXCESS ARTERIAL (BEAKER) -4.2 mmol/L -2.0-3.0 L (test code = 387) PATIENT TEMPERATURE (BEAKER) 35.6 C (test code = 1818) FIO2 (BEAKER) (test code = 1819) 100.0 % SODIUM NA-STAT [id number] 09:49:00 Test Item Value Reference Range Interpretation Comments SODIUM (BEAKER) (test code = 381) 131 meq/L 135-148 L HGB/HCT (H&H) - STAT [id number] 09:49:00 Test Item Value Reference Range Interpretation Comments HEMOGLOBIN (BEAKER) (test code = 7.1 g/dL 13.0-16.8 L 410) HEMATOCRIT (BEAKER) (test code = 21.0 % 40.0-50.0 L 411) GLUCOSE-STAT [id number] 09:48:00 Test Item Value Reference Range Interpretation Comments GLUCOSE RANDOM (BEAKER) (test code = 95 mg/dL 70-110 652) POTASSIUM-STAT [id number] 09:48:00 Test Item Value Reference Range Interpretation Comments POTASSIUM (BEAKER) (test code = 3.9 meq/L 3.6-5.5 379) BLOOD GAS, [id number] 09:22:00 Test Item Value Reference Range Interpretation Comments PH ARTERIAL (BEAKER) (test code = 7.47 7.35-7.45 H 383) PCO2 ARTERIAL (BEAKER) (test code 30 mmHg 35-45 L = 384) PO2 ARTERIAL (BEAKER) (test code 274 mmHg 80-90 H = 385) O2 SATURATION ARTERIAL (BEAKER) 99.7 % 96.0-97.0 H (test code = 386) HCO3 ARTERIAL (BEAKER) (test code 22 mmol/L 21-29 = 388) BASE EXCESS ARTERIAL (BEAKER) -2.4 mmol/L -2.0-3.0 L (test code = 387) PATIENT TEMPERATURE (BEAKER) 33.0 C (test code = 1818) FIO2 (BEAKER) (test code = 1819) 75.0 % SODIUM NA-STAT [id number] 09:22:00 Test Item Value Reference Range Interpretation Comments SODIUM (BEAKER) (test code = 381) 131 meq/L 135-148 L HGB/HCT (H&H) - STAT [id number] 09:22:00 Test Item Value Reference Range Interpretation Comments HEMOGLOBIN (BEAKER) (test code = 7.8 g/dL 13.0-16.8 L 410) HEMATOCRIT (BEAKER) (test code = 23.0 % 40.0-50.0 L 411) GLUCOSE-STAT [id number] 09:20:00 Test Item Value Reference Range Interpretation Comments GLUCOSE RANDOM (BEAKER) (test code = 94 mg/dL 70-110 652) POTASSIUM-STAT [id number] 09:20:00 Test Item Value Reference Range Interpretation Comments POTASSIUM (BEAKER) (test code = 4.9 meq/L 3.6-5.5 379) SODIUM NA-STAT [id number] 09:07:00 Test Item Value Reference Range Interpretation Comments SODIUM (BEAKER) (test code = 381) 128 meq/L 135-148 L HGB/HCT (H&H) - STAT [id number] 09:07:00 Test Item Value Reference Range Interpretation Comments HEMOGLOBIN (BEAKER) (test code = 7.6 g/dL 13.0-16.8 L 410) HEMATOCRIT (BEAKER) (test code = 22.0 % 40.0-50.0 L 411) GLUCOSE-STAT [id number] 09:06:00 Test Item Value Reference Range Interpretation Comments GLUCOSE RANDOM (BEAKER) (test code = 94 mg/dL 70-110 652) POTASSIUM-STAT [id number] 09:06:00 Test Item Value Reference Range Interpretation Comments POTASSIUM (BEAKER) (test code = 4.5 meq/L 3.6-5.5 379) BLOOD GAS, [id number] 09:06:00 Test Item Value Reference Range Interpretation Comments PH ARTERIAL (BEAKER) (test code = 7.32 7.35-7.45 L 383) PCO2 ARTERIAL (BEAKER) (test code 43 mmHg 35-45 = 384) PO2 ARTERIAL (BEAKER) (test code 359 mmHg 80-90 H = 385) O2 SATURATION ARTERIAL (BEAKER) 99.7 % 96.0-97.0 H (test code = 386) HCO3 ARTERIAL (BEAKER) (test code 22 mmol/L 21-29 = 388) BASE EXCESS ARTERIAL (BEAKER) -4.1 mmol/L -2.0-3.0 L (test code = 387) PATIENT TEMPERATURE (BEAKER) 36.0 C (test code = 1818) FIO2 (BEAKER) (test code = 1819) 65.0 % HEMOGLOBIN [id number] 08:59:00 Test Item Value Reference Range Interpretation Comments HEMOGLOBIN A1C (BEAKER) (test code = 6.2 % 4.3-6.1 H 368) GLUCOSE-STAT [id number] 07:59:00 Test Item Value Reference Range Interpretation Comments GLUCOSE RANDOM (BEAKER) (test code = 85 mg/dL 70-110 652) SODIUM NA-STAT [id number] 07:59:00 Test Item Value Reference Range Interpretation Comments SODIUM (BEAKER) (test code = 381) 136 meq/L 135-148 BLOOD GAS, [id number] 07:59:00 Test Item Value Reference Range Interpretation Comments PH ARTERIAL (BEAKER) (test code = 7.51 7.35-7.45 H 383) PCO2 ARTERIAL (BEAKER) (test code 30 mmHg 35-45 L = 384) PO2 ARTERIAL (BEAKER) (test code = 368 mmHg 80-90 H 385) O2 SATURATION ARTERIAL (BEAKER) 99.8 % 96.0-97.0 H (test code = 386) HCO3 ARTERIAL (BEAKER) (test code 24 mmol/L 21-29 = 388) BASE EXCESS ARTERIAL (BEAKER) 1.1 mmol/L -2.0-3.0 (test code = 387) PATIENT TEMPERATURE (BEAKER) (test 35.4 C code = 1818) FIO2 (BEAKER) (test code = 1819) 100.0 % POTASSIUM-STAT [id number] 07:59:00 Test Item Value Reference Range Interpretation Comments POTASSIUM (BEAKER) (test code = 3.3 meq/L 3.6-5.5 L 379) CALCIUM, [id number] 07:59:00 Test Item Value Reference Range Interpretation Comments CALCIUM IONIZED (BEAKER) (test 1.13 mmol/L 1.12-1.27 code = 698) PH, BLOOD (BEAKER) (test code = 7.49 1810) HGB/HCT (H&H) - STAT [id number] 07:59:00 Test Item Value Reference Range Interpretation Comments HEMOGLOBIN (BEAKER) (test code = 12.1 g/dL 13.0-16.8 L 410) HEMATOCRIT (BEAKER) (test code = 36.0 % 40.0-50.0 L 411) [id number] 02:52:00 Test Item Value Reference Range Interpretation Comments PHOSPHORUS (BEAKER) (test code = 3.6 mg/dL 2.3-4.7 604) [id number] 02:52:00 Test Item Value Reference Range Interpretation Comments MAGNESIUM (BEAKER) (test code = 2.0 mg/dL 1.6-2.6 627) BASIC METABOLIC [id number] 02:52:00 Test Item Value Reference Range Interpretation Comments SODIUM (BEAKER) 137 meq/L 136-145 (test code = 381) POTASSIUM (BEAKER) 3.9 meq/L 3.5-5.1 (test code = 379) CHLORIDE (BEAKER) 104 meq/L 98-107 (test code = 382) CO2 (BEAKER) (test 23 meq/L 22-29 code = 355) BLOOD UREA NITROGEN 21 mg/dL 7-21 (BEAKER) (test code = 354) CREATININE (BEAKER) 1.18 mg/dL 0.57-1.25 (test code = 358) GLUCOSE RANDOM 103 mg/dL 70-105 (BEAKER) (test code = 652) CALCIUM (BEAKER) 9.4 mg/dL 8.4-10.2 (test code = 697) EGFR (BEAKER) (test 75 mL/min/1.73 ESTIMA CRAIG GFR IS code = 1092) sq m NOT ACCURATE CREATININE CLEARANCE IN PREDICTING GLOMERULAR FILTRATION RATE . ESTIMATED GFR I S NOT APPLICABLE FOR DIALYSIS PATIEN TS. PROTHROMBIN [id number] 02:51:00 Test Item Value Reference Range Interpretation Comments PROTIME (BEAKER) (test code = 13.5 seconds 11.7-14.7 759) INR (BEAKER) (test code = 370) 1.0 <=5.9 RECOMMENDED COUMADIN/WARFARIN INR THERAPY RANGESSTANDARD DOSE: 2.0 - 3.0 Includes: PROPHYLAXIS forvenous thrombosis, systemic embolization; TREATMENT for venous thrombosis and/or pulmonary embolus.HIGH RISK: Target INR is 2.5-3.5 for patients with mechanical heart valves.CBC W/PLT COUNT & AUTO DIFFERENTIAL 2017-06-06 02:36:00 Test Item Value Reference Range Interpretation Comments WHITE BLOOD CELL COUNT (BEAKER) 10.9 K/ L 3.5-10.5 H (test code = 775) RED BLOOD CELL COUNT (BEAKER) 4.36 M/ L 4.63-6.08 L (test code = 761) HEMOGLOBIN (BEAKER) (test code = 12.0 GM/DL 13.7-17.5 L 410) HEMATOCRIT (BEAKER) (test code = 36.4 % 40.1-51.0 L 411) MEAN CORPUSCULAR VOLUME (BEAKER) 83.5 fL 79.0-92.2 (test code = 753) MEAN CORPUSCULAR HEMOGLOBIN 27.5 pg 25.7-32.2 (BEAKER) (test code = 751) MEAN CORPUSCULAR HEMOGLOBIN CONC 33.0 GM/DL 32.3-36.5 (BEAKER) (test code = 752) RED CELL DISTRIBUTION WIDTH 14.4 % 11.6-14.4 (BEAKER) (test code = 412) PLATELET COUNT (BEAKER) (test 227 K/CU MM 150-450 code = 756) MEAN PLATELET VOLUME (BEAKER) 11.0 fL 9.4-12.4 (test code = 754) NUCLEATED RED BLOOD CELLS 0 /100 WBC 0-0 (BEAKER) (test code = 413) NEUTROPHILS RELATIVE PERCENT 69 % (BEAKER) (test code = 429) LYMPHOCYTES RELATIVE PERCENT 23 % (BEAKER) (test code = 430) MONOCYTES RELATIVE PERCENT 8 % (BEAKER) (test code = 431) EOSINOPHILS RELATIVE PERCENT 0 % (BEAKER) (test code = 432) BASOPHILS RELATIVE PERCENT 0 % (BEAKER) (test code = 437) NEUTROPHILS ABSOLUTE COUNT 7.47 K/ L 1.78-5.38 H (BEAKER) (test code = 670) LYMPHOCYTES ABSOLUTE COUNT 2.45 K/ L 1.32-3.57 (BEAKER) (test code = 414) MONOCYTES ABSOLUTE COUNT (BEAKER) 0.87 K/ L 0.30-0.82 H (test code = 415) EOSINOPHILS ABSOLUTE COUNT 0.02 K/ L 0.04-0.54 L (BEAKER) (test code = 416) BASOPHILS ABSOLUTE COUNT (BEAKER) 0.02 K/ L 0.01-0.08 (test code = 417) IMMATURE GRANULOCYTES-RELATIVE 1 % 0-1 PERCENT (BEAKER) (test code = 6517)
[2020-06-27] MEDS ORDERED: MORPHINE 4 MG/ML SYR ONE ×2 (16:08→16:57)
[2020-06-27] MEDS ORDERED: ONDANSETRON 4 MG/2 ML VIAL ONE ×2 (16:08→16:57)
--- NOTE | 2020-06-27 16:30 | RAD REPORT ---
EXAM DESCRIPTION: RAD - Ankle Right 3 View - 06/27/2020 4:17 pm CLINICAL HISTORY: Right ankle pain FINDINGS: No fracture or dislocation is seen. Soft tissue swelling. No bony destructive lesion
[2020-06-27 16:53] LABS: Absolute Lymphocytes (CBC) 1.6 K/uL (0.7-4.9); Basophils % 0.6 % (0-1.3); Hematocrit 42.8 % (39.6-49.0); Lymphocytes % 20.9 % (15.3-44.8); MPV 9.5 fL (7.6-11.3); RBC Red Blood Cell Count 5.23 M/uL (4.33-5.43)
[2020-06-27 17:15] LABS: Potassium 4.4 mmol/L (3.5-5.1); Uric Acid 5.2 mg/dL (3.5-7.2)
--- NOTE | 2020-06-27 18:37 | ER ---
Nurse's Notes [facility] Name: Gordo Nava Age: 70 yrs Sex: Male : 1950 Arrival Date: 06/27/2020 Time: 15:15 Bed 20 Private MD: Ariel Andrade R Diagnosis: Insect bite (nonvenomous), right foot Presentation: 06/27 15:43 Chief complaint: Patient states: right ankle and foot swelling and pain that began 2 aa5 days ago. Pt states "I think something bit me on my foot". Pt states "I have gout but this is a different pain". 15:43 Coronavirus screen: Client denies travel out of the [place] in the last 14 days. At this aa5 time, the client does not indicate any symptoms associated with coronavirus-19. Ebola Screen: Patient negative for fever greater than or equal to 101.5 degrees Fahrenheit, and additional compatible Ebola Virus Disease symptoms. Initial Sepsis Screen: Does the patient meet any 2 criteria? No. Patient's initial sepsis screen is negative. Does the patient have a suspected source of infection? No. Patient's initial sepsis screen is negative. Risk Assessment: Do you want to hurt yourself or someone else? Patient reports no desire to harm self or others. Onset of symptoms was June 2020. 15:43 Acuity: CIERA 3 aa5 15:43 Method Of Arrival: Ambulatory aa5 Historical: - Allergies: 15:43 Iodine; aa5 - PMHx: 15:43 CAD; Gout; Hyperlipidemia; Hypertension; aa5 - PSHx: 15:43 Appendectomy; CABG; aa5 - Immunization history:: Adult Immunizations up to date. Screenin:50 Abuse screen: Denies threats or abuse. Nutritional screening: No deficits noted. rb1 Tuberculosis screening: No symptoms or risk factors identified. Fall Risk None identified. Assessment: 15:50 General: Appears in no apparent distress. comfortable, Behavior is calm, cooperative. rb1 Pain: Complains of pain in right ankle Pain currently is 10 out of 10 on a pain scale. Pain began x 2 days Aggravated by weight bearing. Neuro: Level of Consciousness is awake, alert, obeys commands, Oriented to person, place, time, situation. Cardiovascular: Capillary refill < 3 seconds. Respiratory: Airway is patent Respiratory effort is even, unlabored, Respiratory pattern is regular, symmetrical. GI: No signs and/or symptoms were reported involving the gastrointestinal system. : No signs and/or symptoms were reported regarding the genitourinary system. Derm: Skin is dry, Skin is normal, Skin temperature is warm. Musculoskeletal: Swelling present in right ankle. 16:50 Reassessment: Patient appears in no apparent distress at this time. rb1 17:44 Reassessment: Patient appears in no apparent distress at this time. Patient and/or rb1 family updated on plan of care and expected duration. Pain level reassessed. Patient is alert, oriented x 3, equal unlabored respirations, skin warm/dry/pink. Pt. requested something to eat, provider notified. Received verbal order that the pt. could eat at this time. Gave the pt. a sandwich, chips, and a diet cola. Patient states feeling better. 18:30 Reassessment: Patient appears in no apparent distress at this time. Patient states rb1 feeling better. Vital Signs: 15:43 BP 164 / 87; Pulse 70; Resp 18 S; Temp 98.5(O); Pulse Ox 100% on R/A; Weight 79.38 kg aa5 (R); Height 5 ft. 5 in. (165.10 cm) (R); Pain 5/10; 16:40 BP 164 / 87; Pulse 65; Resp 16; Pulse Ox 99% ; rb1 17:43 BP 145 / 69; Pulse 65; Resp 17; Pulse Ox 95% ; Pain 0/10; rb1 18:40 BP 143 / 71; Pulse 66; Resp 16; Pulse Ox 99% on R/A; rb1 15:43 Body Mass Index 29.12 (79.38 kg, 165.10 cm) aa5 ED Course: 15:15 Patient arrived in ED. ag5 15:15 Ariel Andrade MD is Private Physician. ag5 15:43 Arm band placed on. aa5 15:45 Bud Ragland NP is PHCP. pm1 15:45 Paris Waddell MD is Attending Physician. pm1 15:46 Triage completed. aa5 15:50 Patient has correct armband on for positive identification. Bed in low position. Call rb1 light in reach. Side rails up X 1. Pulse ox on. NIBP on. 15:52 Dottie Mata, RN is Primary Nurse. rb1 16:17 Ankle Right 3 View XRAY In Process Unspecified. EDMS 16:40 Inserted saline lock: 22 gauge in right hand, using aseptic technique. ,using aseptic rb1 technique. IV inserted by MALORIE Peterson Blood collected. 18:55 No provider procedures requiring assistance completed. IV discontinued, intact, rb1 bleeding controlled, No redness/swelling at site. Pressure dressing applied. Administered Medications: 16:51 Drug: morphine 4 mg Route: IVP; Site: right hand; rb1 17:05 Follow up: Response: No adverse reaction; Pain is decreased rb1 16:51 Drug: Zofran (Ondansetron) 4 mg Route: IVP; Site: right hand; rb1 17:05 Follow up: Response: No adverse reaction rb1 Outcome: 18:37 Discharge ordered by MD. pm1 18:55 Patient left the ED. rb1 18:55 Discharged to home via wheelchair, with family. rb1 18:55 Condition: stable 18:55 Discharge instructions given to patient, Instructed on discharge instructions, follow up and referral plans. medication usage, Demonstrated understanding of instructions, follow-up care, medications, Prescriptions given X 2. Signatures: Dispatcher [employer] EDMS Shy Wood RN RN aa5 Dottie Mata, RN RN rb1 Bud Ragland, ELECTRICAL FOREMAN ELECTRICAL FOREMAN pm1 Juanjo Ignacio ag5 Corrections: (The following items were deleted from the chart) 18:04 16:56 General: rb1 rb1 19:23 19:20 Patient left the ED. rb1 rb1
--- NOTE | 2020-06-27 18:37 | EDPHYS ---
Physician Documentation [facility] Name: Gordo Nava Age: 70 yrs Sex: Male : 1950 Arrival Date: 06/27/2020 Time: 15:15 Bed 20 Private MD: Ariel Andrade R ED Physician Paris Waddell HPI: 06/27 18:30 This 70 yrs old Black Male presents to ER via Ambulatory with complaints of Foot Pain, pm1 Feet Swelling. 18:30 The patient presents with pain, that is acute, swelling, tenderness. The complaints pm1 affect the right ankle and medial aspect of right foot. Context: The problem was sustained at home, resulted from Insect bite. He thinks that it was a centipede, the patient can partially bear weight, the patient is able to ambulate, can ambulate using a cane, Problem is a result from a previous injury: No. Has a history of gout but this does not feel like gout. His gout is typically at the his big toes not the ankles. Onset: The symptoms/episode began/occurred 2 day(s) ago. Modifying factors: The symptoms are alleviated by elevating leg, the symptoms are aggravated by weight bearing. Associated signs and symptoms: Pertinent positives: swelling, Pertinent negatives calf tenderness, fever, numbness, tingling. Treatment prior to arrival includes: prescription medications, Tramadol. Severity of symptoms: in the emergency department the symptoms are unchanged. The patient has not experienced similar symptoms in the past. Historical: - Allergies: 15:43 Iodine; aa5 - PMHx: 15:43 CAD; Gout; Hyperlipidemia; Hypertension; aa5 - PSHx: 15:43 Appendectomy; CABG; aa5 - Immunization history:: Adult Immunizations up to date. ROS: 18:30 Constitutional: Negative for fever, chills, and weight loss, Cardiovascular: Negative pm1 for chest pain, palpitations, and edema, Respiratory: Negative for shortness of breath, cough, wheezing, and pleuritic chest pain, Abdomen/GI: Negative for abdominal pain, nausea, vomiting, diarrhea, and constipation, Back: Negative for injury and pain. 18:30 Skin: Negative for injury, rash, and discoloration, Neuro: Negative for headache, weakness, numbness, tingling, and seizure. 18:30 MS/extremity: Positive for pain, swelling, tenderness, of the medial aspect of right foot and right ankle, Negative for decreased range of motion, deformity. Exam: 18:30 Constitutional: This is a well developed, well nourished patient who is awake, alert, pm1 and in no acute distress. Head/Face: Normocephalic, atraumatic. 18:30 Cardiovascular: Exam negative for acute changes, Rate: normal, Rhythm: regular, Pulses: no pulse deficits are appreciated. 18:30 Respiratory: Exam negative for acute changes, respiratory distress, shortness of breath. 18:30 Abdomen/GI: Exam negative for acute changes, Inspection: abdomen appears normal, Palpation: abdomen is soft and non-tender, in all quadrants. 18:30 Musculoskeletal/extremity: Extremities: grossly normal except: noted in the right ankle: mild swelling and tenderness present to medial aspect, noted in the medial aspect of right foot: tenderness, ROM: intact in all extremities, Circulation is intact in all extremities. 18:30 Skin: Appearance: normal except for affected area, injury, abrasion(s), very small abrasion noted, of the medial aspect of right foot. Vital Signs: 15:43 BP 164 / 87; Pulse 70; Resp 18 S; Temp 98.5(O); Pulse Ox 100% on R/A; Weight 79.38 kg aa5 (R); Height 5 ft. 5 in. (165.10 cm) (R); Pain 5/10; 16:40 BP 164 / 87; Pulse 65; Resp 16; Pulse Ox 99% ; rb1 17:43 BP 145 / 69; Pulse 65; Resp 17; Pulse Ox 95% ; Pain 0/10; rb1 18:40 BP 143 / 71; Pulse 66; Resp 16; Pulse Ox 99% on R/A; rb1 15:43 Body Mass Index 29.12 (79.38 kg, 165.10 cm) aa5 Procedures: 17:00 Peripheral line: by aseptic technique a peripheral line was placed in the right hand pm1 vein. MDM: 15:45 Patient medically screened. pm1 18:30 Data reviewed: vital signs. Data interpreted: Pulse oximetry: on room air is 95 %. pm1 Interpretation: normal. Counseling: I had a detailed discussion with the patient and/or guardian regarding: the historical points, exam findings, and any diagnostic results supporting the discharge/admit diagnosis, lab results, radiology results, the need for outpatient follow up, to return to the emergency department if symptoms worsen or persist or if there are any questions or concerns that arise at home. 06/27 15:53 Order name: CBC with Diff; Complete Time: 16:58 pm1 06/27 15:53 Order name: BMP; Complete Time: 17:23 pm1 06/27 15:53 Order name: Ankle Right 3 View XRAY; Complete Time: 16:47 pm1 06/27 15:53 Order name: Uric Acid; Complete Time: 17:23 pm1 06/27 15:53 Order name: IV Saline Lock; Complete Time: 16:50 pm1 Administered Medications: 16:51 Drug: morphine 4 mg Route: IVP; Site: right hand; rb1 17:05 Follow up: Response: No adverse reaction; Pain is decreased rb1 16:51 Drug: Zofran (Ondansetron) 4 mg Route: IVP; Site: right hand; rb1 17:05 Follow up: Response: No adverse reaction rb1 Disposition: 06/28 07:38 Co-signature as Attending Physician, Paris Waddell MD. ma2 Disposition: 06/27/20 18:37 Discharged to Home. Impression: Insect bite (nonvenomous), right foot. - Condition is Stable. - Discharge Instructions: Insect Bite. - Prescriptions for Bactrim DS 800- 160 mg Oral Tablet - take 1 tablet by ORAL route every 12 hours for 10 days; 20 tablet. Tylenol- Codeine #3 300-30 mg Oral Tablet - take 2 tablets by ORAL route every 6 hours As needed; 20 tablet. - Medication Reconciliation Form, Thank You Letter, Antibiotic Education, Prescription Opioid Use form. - Follow up: Emergency Department; When: As needed; Reason: Worsening of condition. Follow up: Private Physician; When: 2 - 3 days; Reason: Recheck today's complaints, Continuance of care, Re-evaluation by your physician. - Problem is new. - Symptoms have improved. Signatures: Dispatcher [employer] EDMS Shy Wood RN RN aa5 Dottie Mata RN RN rb1 Bud Ragland, PARTS CLERK PARTS CLERK pm1 Paris Waddell MD MD ma2 Corrections: (The following items were deleted from the chart) 06/27 19:20 18:37 06/27/2020 18:37 Discharged to Home. Impression: Insect bite (nonvenomous), right rb1 foot. Condition is Stable. Forms are Medication Reconciliation Form, Thank You Letter, Antibiotic Education, Prescription Opioid Use. Follow up: Emergency Department; When: As needed; Reason: Worsening of condition. Follow up: Private Physician; When: 2 - 3 days; Reason: Recheck today's complaints, Continuance of care, Re-evaluation by your physician. Problem is new. Symptoms have improved. pm1
[2020-06-28 17:22] VITALS: TEMP 98.5
[2020-06-28 17:25] VITALS: BP 145/69; O2SAT 95
== END 2020-06-27 19:20 | disposition home or self-care (01) ==
LOC: ER 15:13
PROC: 05HG33Z Insertion of Infusion Device into Right Hand Vein, Percutaneous Approach (ICD-10-PCS; principal; 2020-06-27)
DX: S90.861A Insect bite (nonvenomous), right foot, initial encounter (principal); I10 Essential (primary) hypertension; Z95.1 Presence of aortocoronary bypass graft; Z91.048 Other nonmedicinal substance allergy status
CPT/HCPCS: 85025; 80048; 36415; 84550; 73610; 96375; 96374; 99284; 36569; J2405

== ENCOUNTER 2024-04-15 06:49 | Day surgery (SDC) | payer OTHER ==
[2024-03-31 13:37] LABS: Absolute Eosinophils 0.3 K/uL (0-0.5); Absolute Lymphocytes (CBC) 2.1 K/uL (0.7-4.9); Absolute Monocytes 0.5 K/uL (0.1-1.3); Absolute Neutrophil 2.3 K/uL (1.8-8.0); Basophils % 0.9 % (0-1.3); Eosinophils % 5.6 % (0-4.4); Hematocrit 37.5 % (39.6-49.0); Hemoglobin 11.9 g/dL (13.6-17.9); Lymphocytes % 40.3 % (15.3-44.8); MCH 25.6 pg (27.0-35.0); MCHC 31.6 g/dL (32.0-36.0); Monocytes % 9.2 % (3.3-12.3); Platelets 207 thou/uL (152-406); RBC Red Blood Cell Count 4.63 M/uL (4.33-5.43); Red Cell Distribution Width 15.2 % (12.1-15.2)
--- NOTE | 2024-03-31 13:37 | RAD REPORT ---
EXAM DESCRIPTION: Nelson Perea (2 Views)03/31/2024 1:30 pm CLINICAL HISTORY: Preop for genitourinary surgery. Hypertension COMPARISON: 2018 FINDINGS: The lungs appear clear of acute infiltrate. The heart is borderline enlarged Left pleural thickening unchanged IMPRESSION: No acute abnormalities displayed
[2024-03-31 13:48] LABS: Anion Gap 6.3 mEq/L (5.0-15.0); Potassium 4.3 mEq/L (3.5-5.1)
[2024-03-31 13:56] LABS: PT Prothrombin Time 11.2 SECONDS (9.5-12.5); PTT, Activated Partial Thromb 33.6 SECONDS (24.3-36.9); Protime INR 1.02
--- NOTE | 2024-04-01 15:09 | EKG ---
Test Date: 2024-03-31 Test Time: 13:14:30 Fire Prevention Engineer: ERIKA MEASUREMENT RESULTS: Intervals: Rate: 58 LA: 158 QRSD: 94 QT: 384 QTc: 376 Ogema: P: 42 LA: 158 QRS: 27 T: -45 INTERPRETIVE STATEMENTS: Sinus bradycardia Possible Inferior infarct, age undetermined T wave abnormality, consider anterior ischemia Abnormal ECG Compared to ECG 06/19/2018 07:26:35 No significant changes Electronically Signed On 04-01-24 15:06:12 CDT by Pantera Javier
[2024-04-15] MEDS: Ringers Lactate 1,000 ML IV ONE (07:12)
[2024-04-15] MEDS ORDERED: FENTANYL CITR 100 MCG/2 ML ONE (08:13)
[2024-04-15] MEDS ORDERED: LIDOCAINE 1% MPF 5 ML VIAL ONE (08:13)
[2024-04-15] MEDS ORDERED: propofoL 200 MG/20 ML VIAL IV ONE (08:13)
[2024-04-15] MEDS: CEFAZOLIN SODIUM 2 GM/VIAL ONE (08:23)
[2024-04-15] MEDS ORDERED: CODEINE 30MG/APAP 300MG TAB ONE (10:14)
[2024-04-15] MEDS: CODEINE 30MG/APAP 300MG TAB PO PRN (10:17)
[2024-04-15] MEDS ORDERED: PHENAZOPYRIDINE 100MG TAB PO ONE (10:30)
[2024-04-15] MEDS: PHENAZOPYRIDINE 100MG TAB PO ONE (10:43)
[2024-04-15 12:09] VITALS: BP 144/78; TEMP 97.3; O2SAT 100
--- NOTE | 2024-04-15 18:44 | OP ---
Surgeon: SHAYLA COELHO Preoperative Diagnosis: Benign prostatic hypertrophy with lower urinary tract obstruction and sympto ms, refractory to medical therapy. Postoperative Diagnosis: Benign prostatic hypertrophy with lower urinary tract obstruction and sympt oms, refractory to medical therapy. Principal Procedures: 1.Prostatic urethral lift/UroLift with 7 implants placed. 2.Placement of urethral Fox catheter. Indication For Procedure: Mr. Nava is a 74-year-old gentleman with BPH with lower urinary tract sy mptoms, refractory to maximal dose alpha-lora therapy. He was not interested in the risks associa nathan with use of finasteride and after evaluation, he elected to proceed with prostatic urethral lift, having a 59 g gland. Procedure In Detail: The patient was consented in the preoperative holding area before being transfe rred to the operative suite where general anesthesia was induced. He was given Ancef 2 g IV antimicr obial prophylaxis, and pneumo boots were provided for DVT prophylaxis. He was placed in lithotomy po sition, padded and secured to the table appropriately. His genitalia were prepped with Hibiclens and he was draped in standard fashion. The case was begun using a 20-[place] UroLift sheath and a visual obturator to traverse the urethra and ultimately into the bladder with relative ease. The prostatic urethra was visualized along its course, and there was an extended prostatic urethral length with si gnificant lateral lobar adenomatous growth, majority extending from the right [place]-prostate and right lateral lobe. As a result, upon entry into the bladder, I decompressed it of fluid and urine and th en switched the visual obturator for a UroLift implant delivery device. The first implant was also a ttached, and I targeted the patient's bladder neck about 1.5 to 2 cm distal to the bladder neck openi ng on the patient's left side. The implant was targeted at around the 2 to 3 o'clock position, and I angled the scope around 10 to 15 degrees laterally before pulling the trigger once delivering the ne edle through the substance of the prostate. I then angled the scope an additional 15 degrees lateral ly to compress the tissue and ensure the needle tip was delivered through to the capsular surface bef ore pulling the trigger a second time deploying the capsular tab and partially retracting the needle. I then continued the compression and pulled the trigger a third time completely retracting the need le and tensioning the suture. I then advanced the scope back toward the midline and 2 to 3 mm toward the bladder neck opening until the white line of the monofilament was centered in the delivery bay, and at this point, I pulled the trigger a fourth time delivering the urethral end piece, which did in vaginate nicely and a nice rim of tissue was observed between it and the opening into the bladder. A s a result, I advanced the scope and delivery device back into the patient's bladder and switched it for a new implant. This one I targeted in a contralateral position on the patient's right side again at around the 9 to 10 o'clock position, 1.5 to 2 cm distal to the bladder neck opening. This did be autifully open the lumen at the bladder neck and so I then surveyed the remainder of the channel and there was significant residual lateral adenomatous tissue that required management; so I went to the apex of the prostate with a new implant and at the level of the verumontanum targeted the patient's l eft lateral lobar hypertrophy, lifting that tissue from inferior to superolaterally angled ultimately to deliver the needle through the prostate at around the 2 o'clock position. This did nicely latera lize the tissue on the patient's left and a similar implant was placed on the patient's right at the level of the verumontanum. I again surveyed the channel created, and there was still significant res idual adenomatous intrusion largely emanating from the patient's right side, again with some from the left. So an additional implant was first targeted in that intermediate tissue on the patient's righ t and did nicely lateralize that tissue, although some residual tissue was still intruding from that right side after that implant was placed, the fifth implant. I then placed a sixth implant in the pa tient's left side, which did beautifully lateralize the tissue and created a beautiful continuous adrianna nnel on the left and revealed the remaining adenomatous intrusion emanating from the right between th e mid apical gland implant that was placed and the implant at the bladder neck, so I targeted that ti ssue on the patient's right and once that was placed, a beautiful continuous anterior channel from th e verumontanum all the way into the bladder neck was created and visible with the bladder decompresse d and the fluid off. There was a slight degree of hematuria at this point, but nothing major; so I r efilled his bladder with saline and then removed the scope. I then passed a new 20-[place] 2-way Fole y catheter into his bladder with ease and placed about 20 cc of sterile water in the balloon. The ca theter was connected to a leg bag and he was taken out of the lithotomy position. He was then awaken ed from general anesthesia before being transferred to the stretcher and then transferred to the [facility] very room in good condition. Complications: None. Discharge Disposition: He will be standard UroLift followup pathway with followup in about 1 month's time. ALBERTO/AYDE Voice ID: [id number] Report ID: [id number]
== END 2024-04-15 11:35 | disposition home or self-care (01) ==
LOC: OR 06:49
PROVIDERS: ATTEND Urology
PROC: 0T7D8DZ Dilation of Urethra with Intraluminal Device, Via Natural or Artificial Opening Endoscopic (ICD-10-PCS; principal; 2024-04-15 08:15)
DX: N40.1 Benign prostatic hyperplasia with lower urinary tract symptoms (principal); N13.8 Other obstructive and reflux uropathy
CPT/HCPCS: 93005; 87088; 85025; 87086; 80048; 36415; 85610; 85730; 71046; 52441; 52442 ×6; J2704; J2001; J3010; J7120

== ENCOUNTER 2024-05-27 12:30 | Day surgery (SDC) | payer OTHER ==
[2024-05-22 15:14] LABS: Anion Gap 9.3 mEq/L (5.0-15.0); Potassium 4.3 mEq/L (3.5-5.1)
[2024-05-22 15:15] LABS: Absolute Basophils 0.1 K/uL (0-0.5); Absolute Eosinophils 0.2 K/uL (0-0.5); Absolute Monocytes 0.5 K/uL (0.1-1.3); Absolute Neutrophil 3.4 K/uL (1.8-8.0); Basophils % 1.3 % (0-1.3); Eosinophils % 2.6 % (0-4.4); Hematocrit 35.6 % (39.6-49.0); Hemoglobin 11.2 g/dL (13.6-17.9); Lymphocytes % 32.1 % (15.3-44.8); MCH 25.1 pg (27.0-35.0); MCHC 31.5 g/dL (32.0-36.0); MCV 79.6 fL (80-100); MPV 9.3 fL (7.6-11.3); Monocytes % 8.9 % (3.3-12.3); Neutrophils % 55.1 % (41.7-73.7); Platelets 218 thou/uL (152-406); RBC Red Blood Cell Count 4.47 M/uL (4.33-5.43); Red Cell Distribution Width 16.1 % (12.1-15.2)
[2024-05-22 15:41] LABS: PT Prothrombin Time 11.4 SECONDS (9.4-12.5); Protime INR 1.02
[2024-05-22 15:42] LABS: PTT, Activated Partial Thromb 32.5 SECONDS (24.3-36.9)
--- NOTE | 2024-05-23 13:32 | EKG ---
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
[2024-05-27] MEDS: NA CHLORIDE 0.9% 500 ML ONE (12:46)
[2024-05-27] MEDS: DIPHENHYDRAMINE 50 MG/ML VIAL ONE (14:19)
[2024-05-27] MEDS: METHYLPREDNISOLONE 125 MG INJ ONE (14:19)
[2024-05-27] MEDS ORDERED: MIDAZOLAM HCL 2 MG/2 ML INJ ONE (14:43)
[2024-05-27] MEDS ORDERED: VERAPAMIL HCL 10 MG/4 ML VIAL IV ONE (14:43)
[2024-05-27] MEDS ORDERED: LIDOCAINE 1% 20 ML MDV ONE (14:43)
[2024-05-27] MEDS ORDERED: HEPA 1000U/500MLS 2,000 UNIT/1,000 ML BAG IV ONE (14:43)
[2024-05-27] MEDS ORDERED: ATROPINE SULF 1 MG/10 ML SYR IV ONE (14:44)
[2024-05-27] MEDS ORDERED: FENTANYL CITR 100 MCG/2 ML ONE (14:45)
[2024-05-27] MEDS ORDERED: CLOPIDOGREL 75 MG TABLET ONE (14:45)
[2024-05-27] MEDS ORDERED: HEPARIN 5000 UNIT/ML 1 ML VIAL ONE (14:45)
[2024-05-27] MEDS ORDERED: HEPARIN 10,000 UNIT/10 ML VIAL IV ONE (14:45)
[2024-05-27] MEDS ORDERED: TICAGRELOR 90 MG TABLET PO ONE (14:45)
[2024-05-27] MEDS ORDERED: Phenylephrine HCl 10 MG/ML 1 ML VIAL ONE (14:46)
[2024-05-27] MEDS ORDERED: ASPIRIN 325 MG TAB ONE (14:46)
[2024-05-27 17:55] VITALS: TEMP 97.5
[2024-05-27 19:36] VITALS: BP 143/74; O2SAT 99
--- NOTE | 2024-05-28 02:56 | OP ---
Date of Procedure: 05/27/2024 Surgeon: KASSANDRA GLEZ Procedures Performed: 1.Selective coronary angiogram with bypass graft study. 2.Left heart catheterization. 3.Right heart catheterization. 4.Carotid angiogram, selective. Indications: 1.Coronary artery disease. 2.Aortic valve stenosis. 3.Carotid stenosis. Access: 1.Left common femoral artery 6-Citizen [place], closed with StarClose. 2.Right common femoral vein access 7-Citizen [place], closed with manual pressure. Complications: None. Bleeding: Less than 50 mL. Total Sedation Time: 70 minutes, used fentanyl and Versed. Description Of Procedure: After risks, benefits, and alternatives were explained, the patient agreed to procedure and signed informed consent. The [facility] was [facility], prepped and draped in usual sterile fashion. Then, I accessed left common femoral artery usi ng micropuncture kit, ultrasound guidance, and fluoroscopy, and placed a 6-Citizen [place] sheath. T hen, I accessed the right common femoral vein using ultrasound guidance and micropuncture and placed a 7-Citizen [place] sheath. Took a balloon-tipped [place] catheter 7-[place] through the venous access i nto right atrium, right ventricle, pulmonary artery and wedge. Obtained waveform and pressure and th en obtained thermodilution cardiac output, and the [place] was removed and the sheath was removed. Manu al pressure was applied with good hemostasis. Then, we took a 6-Citizen [place] JL4 catheter through the edward ry access of the left common femoral artery into the aortic root, engaged left main, took standard vi ews, exchanged for a 6-Citizen [place] JR4 catheter and engaged the RCA, SVG graft to RCA, SVG graft to OM, an d WEBER to LAD, took standard views, and then using the JR4 and J-wire across the aortic valve and the n exchanged for a [place] catheter and did this simultaneous measurements of pressure in the LV and the aorta and pullback did not record any internal gradient. Then, removed the catheter and the chanel th from the groin, and StarClose was used for closure with good hemostasis, and then, the patient was sent to Recovery in stable condition. Findings: Coronary Angiogram: 1.Left main diffuse mid to distal 70% stenosis. 2.LAD: Proximal 80% and then before the diagonal, becomes 90%; after diagonal, is 90% stenosis and widely patent WEBER to LAD. 3.Left circumflex: Proximal diffuse 80% stenosis with widely patent SVG graft to OM. 4.RCA: Totally occluded ostially and proximally with patent SVG graft to RCA. However, the SVG gra ft to RCA has about 30% stenosis proximally. Bypass graft study: 1.Patent WEBER to LAD. 2.Patent SVG graft to OM. 3.Patent SVG graft to RCA with mild 30% stenosis proximally. 4.LVEDP is borderline elevated at 15 mmHg. Right heart catheterization numbers: RA pressure is 14, RV pressure is 39/7, mean of 13. PA pressur e is 35/11, mean of 21. Pulmonary wedge pressure was 13 and LVEDP was 15 mmHg. Mean gradient across the aortic valve is 18 mmHg and aortic valve area is 1.14 sq cm. Cardiac output is 4.8 L/min. Conclusion: 1.Severe multivessel jamul coronary artery disease with widely patent SVG graft to OM, SVG graft to RCA, and WEBER to LAD. 2.Moderate aortic valve stenosis with valve area of 1.14 sq cm and the mean gradient of 18 mmHg, so it is moderate aortic valve stenosis with low flow and low gradient. 3.Mild elevated filling pressure. Carotid Angiogram: Using a JR4 catheter, engaged the right common carotid, took standard views and t hen the left common carotid, took standard views and findings of the carotid angiogram: 1.Right carotid artery proximal and mid segments are normal. Distally, at the bulb, there is 80% st enosis extended in the right internal carotid artery and the right external carotid artery is normal. 2.The left common carotid is normal, left internal carotid is 30%, and left external carotid is norm al. Conclusion: 1.Severe right internal carotid artery stenosis. Recommendation, do an endarterectomy. 2.Severe multivessel coronary artery disease with widely patent grafts. 3.Moderate aortic valve stenosis. We will plan for repeating echo in 6 months. /AYDE Voice ID: [id number] Report ID: [id number]
== END 2024-05-27 19:37 | disposition home or self-care (01) ==
LOC: CCL 12:30
PROVIDERS: ATTEND Internal Medicine
DX: I25.10 Atherosclerotic heart disease of native coronary artery without angina pectoris (principal); I25.810 Atherosclerosis of coronary artery bypass graft(s) without angina pectoris; I25.82 Chronic total occlusion of coronary artery; I65.23 Occlusion and stenosis of bilateral carotid arteries; I35.0 Nonrheumatic aortic (valve) stenosis; I70.213 Atherosclerosis of native arteries of extremities with intermittent claudication, bilateral legs; I10 Essential (primary) hypertension; E78.5 Hyperlipidemia, unspecified; Z87.891 Personal history of nicotine dependence; Z79.82 Long term (current) use of aspirin; Z79.899 Other long term (current) drug therapy; Z82.49 Family history of ischemic heart disease and other diseases of the circulatory system
CPT/HCPCS: 93005; 85025; 80048; 36415; 85610; 85730; 93460; 36222; 76937; C1893; Q9966; C1760; J2001; J1200; J2250; J3010; J2919; J7040; 93461; 99152; C1725; J0461; J1644; J2371